=== PATIENT | female | born 1945 | race Caucasian/White ===

== ENCOUNTER 2021-06-28 13:40 | Outpatient (CLI) | payer MEDICARE, SELFPAY ==
--- NOTE | ~2021-06-28 | MR_ITS ---
EXAMINATION: MR brain/brain stem wo/w con DATE: 06/28/2021 14:44 INDICATION: Other amnesia. TECHNIQUE: Magnetic resonance imaging (MRI) of the brain and brainstem was performed without and with 18 mL MultiHance intravenous contrast. Sequences included sagittal and axial T1-weighted FSE, axial diffusion-weighted FS EPI, axial T2*-weighted GRE, axial T2-weighted FLAIR Propeller, and axial T2-we ighted Propeller. Postcontrast sequences included axial and coronal T1-weighted FSE. Apparent diffusi on coefficient (ADC) maps were created. COMPARISON: None. FINDINGS: There are scattered areas of nonspecific increased T2-weighted signal intensity in the cere bral white matter and brainstem. There is no intracranial hemorrhage, acute infarction, or abnormal i ntracranial mass lesion. The ventricles are normal in size. There are likely changes of ocular lens r eplacement surgeries. There is mild mucosal thickening in the ethmoid sinuses. There is a trace right mastoid effusion. IMPRESSION: 1. 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 Reviewed, dictated and finalized at location B. DENCE HALL DIRECTOR IMPRESSION: 1. Mild nonspecific cerebral white matter disease and brainstem disease, which likely represents chronic small vessel ischemic disease.
[2021-06-28 14:11] LABS: Estimated Glomerular Filt Rate > 60
== END 2021-06-28 13:41 | disposition home or self-care (01) ==
LOC: ANHIMG 13:45
PROVIDERS: PCP Internal Medicine; Visit Provider Nurse Practitioner
DX: R41.3 Other amnesia (principal); R93.0 Abnormal findings on diagnostic imaging of skull and head, not elsewhere classified
CPT/HCPCS: 70553; A9577

== ENCOUNTER 2021-08-06 13:23 | Outpatient (CLI) | payer MEDICARE, SELFPAY ==
--- NOTE | ~2021-08-06 | XR_ITS ---
EXAMINATION: [id number] EXAM DATE: 08/06/2021 13:58 INDICATION: Fell in parking lot, left rib pain. Initial encounter. TECHNIQUE: Frontal projection of the upper left ribs, frontal projection of the lower left ribs, obli que projection of the left ribs, frontal chest x-ray(s) for interpretation. There is no prior study for comparison. FINDINGS: Bones are osteopenic. Please note that osteopenia limits sensitivity for detecting fractur es by radiographs. There is acute appearing mildly displaced left rib fracture laterally, probably th e 9th rib. There is no soft tissue abnormality seen. Mild cardiomegaly. No confluent consolidation, p neumothorax or pleural effusion suspected. 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 Pr obable chronic left rotator cuff tear. IMPRESSION: Acute appearing left 9th rib fracture. Reviewed, dictated and finalized at location . PHERE ARCHITECT
== END 2021-08-06 13:24 | disposition home or self-care (01) ==
PROVIDERS: PCP Internal Medicine; Visit Provider Internal Medicine
DX: S22.32XA Fracture of one rib, left side, initial encounter for closed fracture (principal)
CPT/HCPCS: 71101

== ENCOUNTER 2022-08-02 14:05 | Outpatient (CLI) | payer MEDICARE, SELFPAY ==
--- NOTE | ~2022-08-02 | US_ITS ---
EXAMINATION: US arterial ankle brachial ind DATE: 08/02/2022 15:17 INDICATION: Peripheral vascular disease. TECHNIQUE: Segmental pressures and plethysmographic and Doppler waveforms of the brachial and lower e xtremity arteries were obtained. COMPARISON: None. FINDINGS: Right and left brachial artery pressures of 137 mm Hg and 130 mm Hg, respectively, are concordant (no rmal difference <= 30 mmHg). The right ankle-brachial index (SHANNAN) is 1.69 (normal >= 0.9-1.0). The right great toe-brachial index (TBI) is 0.39 (normal >= 0.65). Arterial Doppler waveforms are biphasic with brisk systolic upstrokes at both right posterior tibial and dorsalis pedis arteries. The left SHANNAN is 0.53 based only upon pressures obtained in the left posterior tibial artery with the left dorsalis pedis artery unable to be occluded and indeterminate. The left TBI is 0.55. Arterial Do ppler waveforms are biphasic with brisk systolic upstrokes at both left posterior tibial and dorsalis pedis arteries. IMPRESSION: 1. 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 Left SHANNAN is moderately decreased but based only upon pressure measure ments in the left posterior tibial artery with the left dorsalis pedis artery pressure remaining inde terminate. Reviewed, dictated and finalized at location A. O REPAIRMAN IMPRESSION: 1. 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 Left SHANNAN is moderately de creased but based only upon pressure measurements in the left posterior tibial artery with the left dorsalis pedis artery pressure remaining indeterminate.
== END 2022-08-02 14:06 | disposition home or self-care (01) ==
PROVIDERS: PCP Internal Medicine; Visit Provider Internal Medicine
DX: I73.9 Peripheral vascular disease, unspecified (principal)
CPT/HCPCS: 93922

== ENCOUNTER 2023-03-04 10:41 | Emergency (ER) | payer MEDICARE, SELFPAY ==
[2023-03-04 10:46] VITALS: BP 159/87; PULSE 83; RESP 16; TEMP 37; O2SAT 95
--- NOTE | 2023-03-04 10:52 | ED.FEMALEGU ---
HPI - Female Genitourinary General Chief complaint: Urogenital-Female Stated complaint: Urinary Problem History of Present Illness HPI Narrative: patient presents with urinary problems burning with urination no flank pain no gross hematuria no pelvic pain and no abdomen pain worried that she has a UTI Related Data Home Medications Medication Instructions Recorded Confirmed ketorolac 0.5 % eye drops 2 drp EACH EYE Q8H 02/03/21 08/15/22 lifitegrast 5 % eye drops in a 1 drp EACH EYE BID 12/12/21 08/15/22 dropperette (Xiidra) carbidopa 25 mg-levodopa 100 mg 2 tablet PO TID 08/15/22 03/04/23 tablet (Sinemet) aspirin 81 mg tablet,delayed 81 mg PO DAILY 11/21/22 03/04/23 release (Adult Low Dose Aspirin) clobetasol 0.05 % scalp solution topical DIRECTED 03/04/23 ferrous sulfate 325 mg (65 mg 325 mg PO DAILY 03/04/23 03/04/23 iron) tablet (FeroSul) hydrocodone 5 mg-acetaminophen 325 1 tablet PO Q6H PRN Pain (Scale 03/04/23 03/04/23 mg tablet Score 7-10) sennosides 8.6 mg-docusate sodium 1 tablet PO DAILY PRN Constipation 03/04/23 03/04/23 50 mg tablet (Stimulant Laxative Plus) Allergies Allergy/AdvReac Type Severity Reaction Status Date / Time hydrochlorothiazide Allergy Intermediate Rash Verified 03/04/23 10:56 tramadol Allergy Intermediate Rash Verified 03/04/23 10:56 dextromethorphan Allergy Unknown Rash Verified 03/04/23 10:56 pseudoephedrine Allergy Unknown rash Verified 03/04/23 10:56 antihistamines AdvReac Unknown Palpitation Uncoded 02/07/23 13:22 s Review of Systems Review of Systems: CONSTITUTIONAL: Denies fever, chills, or sweats. EYES: Denies visual changes, redness, or discharge. ENT: Denies rhinorrhea, congestion, sore throat, or otalgia. CARDIOVASCULAR: Denies chest pain, palpitations, or edema. RESPIRATORY: Denies cough or dyspnea. GASTROINTESTINAL: Denies abdominal pain, nausea, vomiting, or diarrhea. GENITOURINARY: Denies dysuria or hematuria. SKIN: Denies rash or itching. MUSCULOSKELETAL: Denies back pain, joint pain, or myalgia. NEUROLOGIC: Denies headache, numbness, or weakness. PSYCHIATRIC: Denies anxiety or depression. [facility] Past Medical History Medical History (Updated 03/04/23 @ 10:56 by LJ Walsh) Anxiety Chronic midline low back pain without sciatica Colon polyps COVID-19 GERD without esophagitis Hyperlipidemia Hypertension Impaired glucose tolerance Low bone mass Mitral valve prolapse Osteoporosis PAD (peripheral artery disease) Polyosteoarthritis, unspecified Vitamin D deficiency Weight gain Surgical History Surgical History Hx of total hysterectomy April 2020; Dr. Garcia at [facility] Family History Family History Mother Asthma Family history of osteoarthritis Colon polyp Hypertension Depression Heart disease Cerebrovascular accident Sibling Asthma Family history of osteoarthritis Family history of irritable bowel syndrome Depression Other Depression Grandparent Cancer Hypertension Heart disease Social History Social History Smoking packs per day: 1.5 Smoking cigarettes per day: 30.0 Years smoked: 15 Smoking pack-years: 22.50 Smoking status: Former smoker Tobacco type: cigarettes Second hand tobacco smoke exposure: Yes Smoking end date: 07/02/89 Alcohol intake: never Substance use: never Substance use type: does not use Lack of Transportation: No Lack of Food: Never True Current Housing: I Have Housing Concerned About Future Housing: No Difficulty Paying Gas/Electric Bills: No Difficulty Paying for Meds: No Currently Unemployed: No Education: Associate Degree Difficulty w/ Childcare or Family Care: No Comments At time of signature, agree with nursing past medical, surgical, socia
== END 2023-03-04 11:15 | disposition home or self-care (01) ==
PROVIDERS: Emergency Provider Nurse Practitioner Family; PCP Family Medicine
DX: N39.0 Urinary tract infection, site not specified (principal); Z87.891 Personal history of nicotine dependence; K21.9 Gastro-esophageal reflux disease without esophagitis; E78.5 Hyperlipidemia, unspecified; I10 Essential (primary) hypertension; M34.1 CR(E)ST syndrome; M81.0 Age-related osteoporosis without current pathological fracture; I73.9 Peripheral vascular disease, unspecified; M15.9 Polyosteoarthritis, unspecified
CPT/HCPCS: 81003; 87077; 87086; 87186; 99213; G0463

== ENCOUNTER 2023-03-28 15:07 | Outpatient (CLI) | payer MEDICARE, SELFPAY ==
[2023-03-28 19:26] LABS: Appearance Urine Clear (Clear); Bacteria Urine None Seen /hpf; Bilirubin Urine Negative (Negative); Blood Urine Negative (Negative); Color Urine Yellow (Yellow); Glucose Urine UA Negative (Negative); Ketones Urine Negative (Negative); Leukocyte Esterase Ur Trace LEU/UL (NEGATIVE); Nitrate Urine Negative (Negative); Non Pathogenic Casts 0-2; Protein Urine Negative (Negative); RBC Urine 0-2 /hpf (0-2); Squamous Epithelial Cell Urine None seen /hpf (Few); Urobilinogen Urine 0.2 mg/dL (<2.0); WBC Urine 0-5 /hpf (0-3)
[2023-03-28 19:31] LABS: Add Urine Microscopic? YES
== END 2023-03-28 15:08 | disposition home or self-care (01) ==
PROVIDERS: PCP Family Medicine; Visit Provider Nurse Practitioner Adult Health
DX: R39.9 Unspecified symptoms and signs involving the genitourinary system (principal)
CPT/HCPCS: 81001

== ENCOUNTER 2023-05-08 11:33 | Outpatient (CLI) | payer MEDICARE, SELFPAY ==
[2023-05-08 19:31] LABS: Anion Gap 5 mmol/L (8-16); Blood Urea Nitrogen 20 mg/dL (7-17); Calcium 9.7 mg/dL (8.4-10.2); Carbon Dioxide 35 mmol/L (22-30); Chloride 96 mmol/L (98-107); Estimated Glomerular Filt Rate > 60; Glucose 124 mg/dL (65-110); Potassium 4.4 mmol/L (3.4-5.0); Sodium 136 mmol/L (137-145)
[2023-05-08 19:36] LABS: Appearance Urine Turbid (Clear); Bacteria Urine None Seen /hpf; Bilirubin Urine 1+ (Negative); Blood Urine 2+ (Negative); Color Urine Dark Yellow (Yellow); Glucose Urine UA Negative (Negative); Ketones Urine Trace mg/dL (Negative); Leukocyte Esterase Ur 3+ LEU/UL (NEGATIVE); Nitrate Urine Negative (Negative); Protein Urine 2+ mg/dL (Negative); RBC Urine 51-100 /hpf (0-2); Specific Grav Ur 1.018 (1.001-1.035); Squamous Epithelial Cell Urine None seen /hpf (Few); WBC Urine >100 /hpf (0-3); pH Urine 6.5 (5.0-9.0)
[2023-05-08 19:37] LABS: Add Urine Microscopic? YES
== END 2023-05-08 11:34 | disposition home or self-care (01) ==
PROVIDERS: PCP Nurse Practitioner Adult Health; Visit Provider Nurse Practitioner Adult Health
DX: E87.6 Hypokalemia (principal); Z87.440 Personal history of urinary (tract) infections
CPT/HCPCS: 36415; 80048; 81001

== ENCOUNTER 2023-07-04 13:56 | Outpatient (CLI) | payer MEDICARE, SELFPAY ==
[2023-07-04 21:12] LABS: Anion Gap 8 mmol/L (8-16); Blood Urea Nitrogen 16 mg/dL (7-17); Calcium 9.1 mg/dL (8.4-10.2); Carbon Dioxide 36 mmol/L (22-30); Chloride 96 mmol/L (98-107); Estimated Glomerular Filt Rate > 60; Glucose 79 mg/dL (65-110); Potassium 3.4 mmol/L (3.4-5.0); Sodium 140 mmol/L (137-145)
[2023-07-04 21:17] LABS: Appearance Urine Cloudy (Clear); Bacteria Urine None Seen /hpf; Bilirubin Urine Negative (Negative); Blood Urine Trace (Negative); Color Urine Dark Yellow (Yellow); Glucose Urine UA Negative (Negative); Ketones Urine Negative (Negative); Leukocyte Esterase Ur 1+ LEU/UL (NEGATIVE); Need Manual Microscopic Reviewed; Nitrate Urine Negative (Negative); Non Pathogenic Casts 0-2; Protein Urine Negative (Negative); Specific Grav Ur 1.014 (1.001-1.035); Squamous Epithelial Cell Urine None seen /hpf (Few); Urobilinogen Urine 0.2 mg/dL (<2.0); WBC Urine 0-5 /hpf (0-3); pH Urine 6.5 (5.0-9.0)
[2023-07-04 21:20] LABS: Add Urine Microscopic? YES
== END 2023-07-04 13:57 | disposition home or self-care (01) ==
PROVIDERS: PCP Nurse Practitioner Adult Health; Visit Provider Nurse Practitioner Adult Health
DX: R39.9 Unspecified symptoms and signs involving the genitourinary system (principal); I50.9 Heart failure, unspecified
CPT/HCPCS: 36415; 80048; 81001

== ENCOUNTER 2023-08-14 14:14 | Outpatient (CLI) | payer MEDICARE, SELFPAY ==
[2023-08-14 20:51] LABS: Appearance Urine Cloudy (Clear); Bacteria Urine None Seen /hpf; Bilirubin Urine Negative (Negative); Blood Urine Negative (Negative); Color Urine Dark Yellow (Yellow); Glucose Urine UA Negative (Negative); Ketones Urine Trace mg/dL (Negative); Leukocyte Esterase Ur 2+ LEU/UL (Negative); Need Manual Microscopic Reviewed; Nitrate Urine Negative (Negative); Protein Urine Trace mg/dL (Negative); Specific Grav Ur 1.014 (1.001-1.035); Squamous Epithelial Cell Urine Few /hpf (Few); Urobilinogen Urine 0.2 mg/dL (<2.0); WBC Urine 51-100 /hpf; pH Urine 5.5 (5.0-9.0)
[2023-08-14 21:03] LABS: Add Urine Microscopic? YES
== END 2023-08-14 14:15 | disposition home or self-care (01) ==
PROVIDERS: PCP Nurse Practitioner Adult Health; Visit Provider Nurse Practitioner Adult Health
DX: R39.9 Unspecified symptoms and signs involving the genitourinary system (principal); N39.0 Urinary tract infection, site not specified
CPT/HCPCS: 81001; 87086

== ENCOUNTER 2023-09-19 11:57 | Outpatient (CLI) | payer MEDICARE, SELFPAY ==
[2023-09-19 19:21] LABS: Appearance Urine Cloudy (Clear); Bacteria Urine 4+ /hpf; Bilirubin Urine Negative (Negative); Blood Urine Negative (Negative); Color Urine Yellow (Yellow); Glucose Urine UA Negative (Negative); Ketones Urine Trace mg/dL (Negative); Leukocyte Esterase Ur 3+ LEU/UL (Negative); Need Manual Microscopic Reviewed; Nitrate Urine Negative (Negative); Protein Urine Trace mg/dL (Negative); RBC Urine 0-2 /hpf (0-2); Specific Grav Ur 1.017 (1.001-1.035); Squamous Epithelial Cell Urine None Seen /hpf (Few); Urobilinogen Urine 0.2 mg/dL (<2.0); WBC Urine >100 /hpf (0-3)
[2023-09-19 19:26] LABS: Add Urine Microscopic? YES
== END 2023-09-19 11:58 | disposition home or self-care (01) ==
LOC: ANHBWCLAB 12:00
PROVIDERS: PCP Nurse Practitioner Adult Health; Visit Provider Nurse Practitioner Adult Health
DX: Z87.440 Personal history of urinary (tract) infections (principal)
CPT/HCPCS: 81001

== ENCOUNTER 2023-11-29 11:30 | Outpatient (CLI) | payer MEDICARE, SELFPAY ==
--- NOTE | 2023-11-29 11:37 | ECG_ITS ---
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 Measurements Intervals [place] Rate: 72 P: 22 FL: 172 QRS: -76 QRSD: 97 T: 30 QT: 389 QTc: 428 Interpretive Statements SINUS RHYTHM LOW QRS VOLTAGE IN PRECORDIAL LEADS INCOMPLETE RIGHT BUNDLE BRANCH BLOCK LEFT ANTERIOR FASCICULAR BLOCK BASELINE ARTIFACT- I, II, III, AVR, AVL, AVF, V1-V2 ABNORMAL ECG No previous ECG available for comparison Electronically Signed On 11-29-2023 13:07:31 CDT by Wayne Allen D.O.
[2023-11-29 12:11] LABS: Anion Gap 2 mmol/L (4-12); Blood Urea Nitrogen 26 mg/dL (7-17); Carbon Dioxide 35 mmol/L (22-30); Chloride 102 mmol/L (98-107); Estimated Glomerular Filt Rate > 60; Glucose 121 mg/dL (65-110); Potassium 4.2 mmol/L (3.4-5.0); Sodium 139 mmol/L (137-145)
[2023-11-29 12:19] LABS: Prothrombin Time 13.8 Seconds (11.1-14.7)
[2023-11-29 12:20] LABS: Partial Thromboplastin Time 26.5 Seconds (22.3-36.8)
== END 2023-11-29 11:31 | disposition home or self-care (01) ==
PROVIDERS: Anesthesiology; PCP Family Medicine; Visit Provider Urology
DX: Z01.818 Encounter for other preprocedural examination (principal); N20.0 Calculus of kidney; I10 Essential (primary) hypertension; Z51.81 Encounter for therapeutic drug level monitoring; I45.19 Other right bundle-branch block; I44.4 Left anterior fascicular block
CPT/HCPCS: 36415; 80048; 85610; 85730; 87086; 93005

== ENCOUNTER 2023-12-07 00:59 | Day surgery (SDC) | payer MEDICARE, SELFPAY ==
[2023-11-23 15:23] VITALS: BMI 32.3
--- NOTE | 2023-11-23 15:52 | PC.NURSE ---
Report to the Outpatient Waiting Room, entrance under the green pavilion located off [facility], at time __7:30AM on date ___12/07/23____. Planned Procedure Time: ___9:30AM . Time changes happen often and if your time is changed the preop area will call you the afternoon before. - You and your visitor will be asked to self-screen and do not enter if you have any COVID symptoms. - A mask is optional within the hospital at this time. Patients may have clear liquids (water, carbonated beverages, clear teas, apple juice) until 3 hours prior to surgery with a maximum of 20 ounces. - No food from midnight until time of surgery. Take the following medications with a SIP of water the morning of surgery: ___CARBIDOPA-LEVODOPA, CARVEDILOL, CLORAZEPATE, GABAPENTIN, SERTRALINE DO NOT STOP ANY OF YOUR OTHER PRESCRIPTION MEDICATIONS PRIOR TO SURGERY ?EXCEPT THE FOLLOWING Medications to discontinue per physician __HOLD ASPIRIN 7 DAYS PRE-OP PER DR GALINDO. HOLD ALL VITAMINS/SUPPLEMENTS 3 DAYS PRE-OP PER ANESTHESIA- LAST DOSE 12/03/23 Please no make-up, nail yakut, hairspray, perfume, deodorant, or body powder the day of surgery. No jewelry (including any body piercings) or valuables the day of surgery, leave them at home. Please take a shower or bath the night before, or the morning of, surgery with an antibacterial soap. Wear comfortable, loose fitting clothing. - Jewelry must be removed prior to entering the operating room. Rings and piercings that are not removed may be cut off. - The hospital will not accept responsibility for valuables. - Please leave all valuables, including medications, at home the day of surgery. If you are going home after surgery, a licensed powder truck driver must drive you home. - NO public transportation without another adult if you receive anesthesia. - We recommend that an adult stay with you for 24 hours following discharge. - We also recommend that you do not drive, make important decision, drink alcoholic beverages, or take any drugs that were not prescribed by your health care provider for at least 24 hours after your discharge time. Follow any additional instructions given to you from your surgeon. If you or anyone in your household have experienced Covid symptoms in the past week, please notify your surgeon or the nurse liaison at the phone number below for possible testing. Telephone instructions given to ___PATIENT and asked if any additional questions and then verbalized understanding. Patient advised to call surgeon office or pre surgery nurse liaison [phone] if any additional questions.
--- NOTE | 2023-12-05 06:47 | PM.HPGS ---
History of Present Illness History of Present Illness Consent: Risks, benefits, and alternatives have been discussed and questions answered. Patient agrees to proceed with procedure. Chief complaint: right renal stone Narrative: Carina Wells is a 78 year old female recently underwent evaluation revealed recurrent urinary tract infections by our nurse practitioner. During the course of evaluation she was found to have multiple stones in her right kidney measuring up to [address] scan was done at [facility]. After discussion of options she elects for cystoscopy with right ureteral stent placement and right ESWL. She is aware the risk including, but not limited to, adverse cardiopulmonary events, need for additional procedures, hematuria and perinephric hematoma. Review of Systems Review of Systems: All systems reviewed & are unremarkable except as noted in HPI and below PMFSH Past Medical History Medical History (Updated 12/05/23 @ 06:48 by Carl Chavarria MD) Anxiety Chronic midline low back pain without sciatica Colon polyps COVID-19 GERD without esophagitis Hyperlipidemia Hypertension Impaired glucose tolerance Low bone mass Mitral valve prolapse Osteoporosis PAD (peripheral artery disease) Polyosteoarthritis, unspecified Vitamin D deficiency Weight gain Surgical History Surgical History Hx of total hysterectomy April 2020; Dr. Garcia at [facility] Family History Family History Mother Asthma Family history of osteoarthritis Colon polyp Hypertension Depression Heart disease Cerebrovascular accident Sibling Asthma Family history of osteoarthritis Family history of irritable bowel syndrome Depression Other Depression Grandparent Cancer Hypertension Heart disease Social History Social History Smoking packs per day: 1 Smoking cigarettes per day: 20.0 Years smoked: 15 Smoking pack-years: 15.00 Smoking status: Former smoker Tobacco type: cigarettes Second hand tobacco smoke exposure: Yes Smoking end date: 12/30/89 Alcohol intake: never Substance use: never Substance use type: does not use Lack of Transportation: No Lack of Food: Never True Current Housing: I Have Housing Concerned About Future Housing: No Difficulty Paying Gas/Electric Bills: No Difficulty Paying for Meds: No Currently Unemployed: No Education: Associate Degree Difficulty w/ Childcare or Family Care: No Living arrangements: with family Additional living arrangements comments: DAUGHTER Spiritual care concerns: No Meds Home Medications and Allergies Home Medications Medication Instructions Recorded Confirmed Type ketorolac 0.5 % eye drops 2 drp EACH EYE Q8H PRN Dry Eyes 02/03/21 11/23/23 History carbidopa 25 mg-levodopa 100 mg 2 tablet PO TID 08/15/22 11/23/23 History tablet (Sinemet) aspirin 81 mg tablet,delayed 81 mg PO DAILY 11/21/22 11/23/23 History release (Adult Low Dose Aspirin) clobetasol 0.05 % scalp solution 1 applic topical DIRECTED 03/04/23 11/23/23 History sennosides 8.6 mg-docusate sodium 1 tablet PO DAILY PRN Constipation 03/04/23 11/23/23 History 50 mg tablet (Stimulant Laxative Plus) carvedilol 6.25 mg tablet See Rx Instructions .Route 06/05/23 11/23/23 Rx .COMPLEX #180 tabs gabapentin 300 mg capsule See Rx Instructions .Route 06/05/23 11/23/23 Rx .COMPLEX #200 caps clorazepate dipotassium 3.75 mg 3.75 mg PO TID PRN anxiety #90 tabs 10/17/23 11/23/23 Rx tablet cholecalciferol (vitamin D3) 50 50 mcg PO DAILY 11/23/23 11/23/23 History mcg (2,000 unit) capsule furosemide 40 mg tablet 40 mg PO EVERY OTHER DAY 11/23/23 11/23/23 History ibuprofen 200 mg capsule 200 mg PO Q6H PRN Pain 11/23/23 11/23/23 History multivi
[2023-12-07] VITALS (7 sets, daily range): BP systolic 114–180; BP diastolic 50–109; PULSE 65–77; RESP 12–16; TEMP 37; O2SAT 95–100
--- NOTE | ~2023-12-07 | XR_ITS ---
Supine and upright views of the abdomen Clinical history: Prelithotripsy Findings: Bowel gas pattern is nonspecific. No evidence for obstruction or free air. No abnormal mass lesion or calcification is seen. There is levoscoliosis of the lumbar spine with degenerative spondy losis.. Impression: No definite stone seen radiographically. Probable calcified pelvic phleboliths. Reviewed, dictated and finalized at [facility]. Impression: No definite stone seen radiographically. Probable calcified pelvic phleboliths.
--- NOTE | 2023-12-07 08:25 | WPDANESEPPF ---
Anes - Initial Pre Proc Eval Procedure: Operation Date: 12/07/23 09:30 Proposed Procedures p Right Extracorporeal Shock Wave Lithotripsy, - Carl Chavarria MD s Cystoscopy with Right Stent Placement - Carl Chavarria MD Date/Time: 12/07/23 08:25 Surgeon: Carl Chavarria MD Pre Op Diagnosis: right renal stone Patient Data Age: 78 Gender: F Height: 1.52 m Weight: 75 kg Last Vital Signs Temp 37.0 C 12/07/23 08:10 Pulse 65 12/07/23 08:10 BP 114/50 L 12/07/23 08:10 Pulse Ox 96 12/07/23 08:10 O2 Del Method Room Air 12/07/23 08:10 Allergies Allergy/AdvReac Type Severity Reaction Status Date / Time hydrochlorothiazide Allergy Intermediate Rash Verified 12/07/23 08:08 dextromethorphan Allergy Unknown Rash Verified 12/07/23 08:08 pseudoephedrine Allergy Unknown rash Verified 12/07/23 08:08 tramadol AdvReac Intermediate CONTRAINDICATED Verified 12/07/23 08:08 W/ ZOLOFT atorvastatin [From Lipitor] AdvReac Mild MUSCLE/LEG Verified 12/07/23 08:08 PAIN spironolactone AdvReac Confusion Verified 12/07/23 08:08 [From Aldactone] antihistamines AdvReac Unknown Palpitation Uncoded 11/23/23 15:10 s Home Medications Medication Instructions Recorded Confirmed Type ketorolac 0.5 % eye drops 2 drp EACH EYE Q8H PRN Dry Eyes 02/03/21 11/23/23 History carbidopa 25 mg-levodopa 100 mg 2 tablet PO TID 08/15/22 11/23/23 History tablet (Sinemet) aspirin 81 mg tablet,delayed 81 mg PO DAILY 11/21/22 11/23/23 History release (Adult Low Dose Aspirin) clobetasol 0.05 % scalp solution 1 applic topical DIRECTED 03/04/23 11/23/23 History sennosides 8.6 mg-docusate sodium 1 tablet PO DAILY PRN Constipation 03/04/23 11/23/23 History 50 mg tablet (Stimulant Laxative Plus) carvedilol 6.25 mg tablet See Rx Instructions .Route 06/05/23 11/23/23 Rx .COMPLEX #180 tabs gabapentin 300 mg capsule See Rx Instructions .Route 06/05/23 11/23/23 Rx .COMPLEX #200 caps clorazepate dipotassium 3.75 mg 3.75 mg PO TID PRN anxiety #90 tabs 10/17/23 11/23/23 Rx tablet cholecalciferol (vitamin D3) 50 50 mcg PO DAILY 11/23/23 11/23/23 History mcg (2,000 unit) capsule furosemide 40 mg tablet 40 mg PO EVERY OTHER DAY 11/23/23 11/23/23 History ibuprofen 200 mg capsule 200 mg PO Q6H PRN Pain 11/23/23 11/23/23 History multivitamin 1 tablet PO DAILY 11/23/23 11/23/23 History trimethoprim 100 mg tablet 100 mg PO HS 11/23/23 11/23/23 History omeprazole 40 mg capsule,delayed See Rx Instructions .Route 11/29/23 Rx release .COMPLEX #200 caps oxybutynin chloride 15 mg See Rx Instructions .Route 11/29/23 Rx tablet,extended release 24 hr .COMPLEX #100 tabs sertraline 100 mg tablet See Rx Instructions .Route 11/29/23 Rx .COMPLEX #90 tabs Patient hx anesthesia problems: none Family hx anesthesia problems: none Results Review: All pre-operative results and documents have been reviewed as part of the pre-operative evaluation. [facility] Past Medical History Medical History Anxiety Chronic midline low back pain without sciatica Colon polyps COVID-19 GERD without esophagitis Hyperlipidemia Hypertension Impaired glucose tolerance Low bone mass Mitral valve prolapse Osteoporosis PAD (peripheral artery disease) Polyosteoarthritis, unspecified Vitamin D deficiency Weight gain Surgical History Surgical History Hx of total hysterectomy April 2020; Dr. Garcia at [facility] Family History Family History Mother Asthma Family history of osteoarthritis Colon polyp Hypertension Depression Heart disease Cerebrovascular accident Sibling Asthma Family history of osteoarthritis Family history of irritable bowel syndrome Depression Other Depression Grandparent Cancer Hypertension Heart di
[2023-12-07] MEDS: LACTATED RINGERS 1,000 ML 30 ML IV CONT (08:46)
--- NOTE | 2023-12-07 09:39 | WPDHPUPDATE1 ---
History and Physical Update Update Date/Time: 12/07/23 09:39 History and Physical has been reviewed, including an updated exam of the patient. There are NO changes in the patient's condition. Risks, benefits, and alternatives have been discussed and questions answered. Patient agrees to proceed with procedure.
[2023-12-07] MEDS: ceFAZolin 2 GM/D5W 50 ML 2 GM/50 ML BAG IVPB (09:51)
--- NOTE | 2023-12-07 10:21 | W.PM.PROC2 ---
Procedure Note - Detailed Date of Procedure 12/07/23 Pre-op Diagnosis Right renal stone Post-op Diagnosis Same Procedure Performed Cystoscopy, right retrograde pyelography, right ureteroscopy, right stent placement, right ESWL Surgeon Carl Chavarria MD Anesthesia General Description of Procedure patient brought the operative suite where she has prepped draped in routine sterile fashion while frog-leg position after the uneventful induction of a general LMA anesthetic. 11 mm renal pelvic stone is difficult to visualize partly because of like calcification and partly because of bowel content cystoscopy is undertaken with a 16 F flexible cystoscope. Bladder neck urethra endoscopically normal. Bladder mucosa is normal. She has a single orthotopic ureteral orifice with clear efflux bilaterally. A 0.035 in glidewire was advanced into right renal pelvis and retrograde pyelography was undertaken with an angiographic catheter. Still not 100% confident in localizing her stones so I performed right ureteroscopy with a 7.5 F flexible ureteral scope after dilating the distal ureter with an 8 F 10 F dilator. We were then able to localize a stone in her renal pelvis. I placed a 4.8 F variable length stent and shockwave lithotripsy was delivered at a power setting of 4 with 2500 shocks. Drains Yes Packing No Pathology Yes Complications No immediate complications
== END 2023-12-07 12:31 | disposition home or self-care (01) ==
PROVIDERS: PCP Family Medicine; Visit Provider Urology
PROC: (CPT 50590; principal; 2023-12-07 09:30)
PROC: (CPT 52352; 2023-12-07 09:30)
DX: N20.0 Calculus of kidney (principal); I10 Essential (primary) hypertension; E78.5 Hyperlipidemia, unspecified; I73.9 Peripheral vascular disease, unspecified; K21.9 Gastro-esophageal reflux disease without esophagitis; M81.0 Age-related osteoporosis without current pathological fracture; E55.9 Vitamin D deficiency, unspecified; F41.9 Anxiety disorder, unspecified; Z87.891 Personal history of nicotine dependence; Z79.82 Long term (current) use of aspirin
CPT/HCPCS: 52332; 50590; 36415; 74018; 80048; 85610; 85730; 87086; 93005; C1758; C1769; C2617; J0690; J1596; J2371; J2405; J2704; J3010; J7030; J7120; Q9966

== ENCOUNTER 2023-12-18 13:43 | Outpatient (CLI) | payer MEDICARE, SELFPAY ==
--- NOTE | ~2023-12-18 | XR_ITS ---
XR abdomen/kub 1V Ordering provider: Carl Chavarria MD History: . N20.0 - Calculus of kidney FU . Comparison: December 07, 2023 FINDINGS: BOWEL: Nonobstructive bowel gas pattern. ORGANOMEGALY: None. SIGNIFICANT PATHOLOGIC CALCIFICATIONS: Right double-J stent. Calcifications seen in the urinary bladd er area unchanged. OTHER: No free air is seen under the diaphragm. Degenerative the spine. S-shaped scoliosis. IMPRESSION: NO ACUTE ABDOMINAL FINDINGS. Calcifications in the area of the urinary bladder. Reviewed, dictated and finalized at location A.
== END 2023-12-18 13:44 | disposition home or self-care (01) ==
PROVIDERS: PCP Family Medicine; Visit Provider Urology
DX: N20.0 Calculus of kidney (principal)
CPT/HCPCS: 74018

== ENCOUNTER 2023-12-19 09:52 | Outpatient (CLI) | payer MEDICARE, SELFPAY ==
--- NOTE | ~2023-12-19 | CT_ITS ---
EXAMINATION: CT abdomen pelvis wo con DATE: 12/19/2023 10:12 INDICATION: Right renal stone. TECHNIQUE: Computed tomography (CT) of the abdomen and pelvis was performed without intravenous contr ast. Automated exposure control and iterative reconstruction technique were employed. The dose-length product was 302.03 mGy-cm. COMPARISON: None. FINDINGS: The visualized portions of the lung bases demonstrate mild atelectasis. No pleural effusion . The heart size is normal. No pericardial effusion. There are coronary artery calcifications. The li ilya and gallbladder are normal. Calcifications in the spleen are consistent with old granulomatous di sease. The pancreas and adrenal glands are normal. There are 6 stones in right kidney measuring up to 8 mm. There is mild right hydronephrosis. There is a right internal ureteral stent in expected posit ion. There is a 2.5 cm cyst in left kidney. There is diverticulosis of the colon without evidence of diverticulitis. The appendix is normal. There are no dilated loops of bowel. There are no pathologica lly enlarged lymph nodes. There is no free intraperitoneal fluid. There is lumbar levoscoliosis. Ther e is severe thoracic and lumbar spondylosis. There are chronic bilateral L5 pars defects. There is 10 mm anterolisthesis of L5 on S1. There is mild chronic anterior wedging of multiple vertebral bodies. IMPRESSION: 1. Nonobstructing right kidney stones. 2. Mild right hydronephrosis. Right internal ureteral stent in expected position. Reviewed, dictated and finalized at location A. IMPRESSION: 1. Nonobstructing right kidney stones. 2. Mild right hydronephrosis. Right internal ureteral stent in expected positio n.
== END 2023-12-19 09:53 | disposition home or self-care (01) ==
LOC: ANHIMG 09:55
PROVIDERS: PCP Family Medicine; Visit Provider Urology
DX: N20.0 Calculus of kidney (principal); N13.30 Unspecified hydronephrosis; Z96.0 Presence of urogenital implants
CPT/HCPCS: 74176

== ENCOUNTER 2023-12-27 00:50 | Day surgery (SDC) | payer MEDICARE, SELFPAY ==
--- NOTE | 2023-12-24 09:29 | PC.NURSE ---
Report to the Outpatient Waiting Room, entrance under the green pavilion located off [facility], at time _1100 on date _12/27/23 . Planned Procedure Time: ___1300 . Time changes happen often and if your time is changed the preop area will call you the afternoon before. - You and your visitor will be asked to self-screen and do not enter if you have any COVID symptoms. - A mask is optional within the hospital at this time. Patients may have clear liquids (water, carbonated beverages, clear teas, apple juice) until 3 hours prior to surgery(10am)with a maximum of 20 ounces. - No food from midnight until time of surgery - Infants may have breast milk until 4 hours before surgery, infant formula 6 hours prior to surgery. - Children will be allowed to drink immediately following surgery. If applicable, please bring a bottle or sippy cup to assist with drinking. Juice, water, soda, and popsicles are readily available. For infants on formula, please bring formula the day of surgery. Pacifiers are allowed. Take the following medications with a SIP of water the morning of surgery: _carbidopa-levodopa,carvedilol,clorazepate,gabapentin,eye drops,sertraline DO NOT STOP ANY OF YOUR OTHER PRESCRIPTION MEDICATIONS PRIOR TO SURGERY ?EXCEPT THE FOLLOWING Medications to discontinue per physician _pt states hold aspirin and ibuprofen 7 days [address] op per [address] martin.last dose 12/19/23. hold all vitamins and supplements 3 days pre op.last dose 12/23/23 Please no make-up, nail canadian, hairspray, perfume, deodorant, or body powder the day of surgery. No jewelry (including any body piercings) or valuables the day of surgery, leave them at home. Please take a shower or bath the night before, or the morning of, surgery with an antibacterial soap. Wear comfortable, loose fitting clothing. Children are encouraged to wear pajamas. - Jewelry must be removed prior to entering the operating room. Rings and piercings that are not removed may be cut off. - The hospital will not accept responsibility for valuables. - Please leave all valuables, including medications, at home the day of surgery. If you are going home after surgery, a licensed otr van cdl truck driver must drive you home. - NO public transportation without another adult if you receive anesthesia. - We recommend that an adult stay with you for 24 hours following discharge. - We also recommend that you do not drive, make important decision, drink alcoholic beverages, or take any drugs that were not prescribed by your health care provider for at least 24 hours after your discharge time Follow any additional instructions given to you from your surgeon. If you or anyone in your household have experienced Covid symptoms in the past week, please notify your surgeon or the nurse liaison at the phone number below for possible testing. Telephone instructions given to __patient and asked if any additional questions and then verbalized understanding. Patient advised to call surgeon office or pre surgery nurse liaison [phone] if any additional questions.
[2023-12-24 09:45] VITALS: BMI 32.4
[2023-12-27] VITALS (7 sets, daily range): BP systolic 120–167; BP diastolic 62–77; PULSE 56–68; RESP 15–18; TEMP 36.2–37.1; O2SAT 94–99
--- NOTE | ~2023-12-27 | XR_ITS ---
EXAMINATION: XR retrograde pyelo w/stent RT DATE: 12/27/2023 12:45 CDT INDICATION: RT RETRO/STENT . TECHNIQUE: 4 fluoroscopic images and one cine clip of the abdomen were obtained during right retrogra de pyelography with stent placement, performed by Carl Chavarria MD. I was not present during the procedure. Fluoroscopy exposure time was 50.2 seconds. Air Kerma 14.92 mGy. DAP 0.23318 mGym2. COMPARISON: CT abdomen pelvis 12/19/2023 FINDINGS/IMPRESSION: Fluoroscopic documentation of right retrograde pyelography with stent placement. Please refer to the operative note for complete procedural details . Reviewed, dictated and finalized at location K.
--- NOTE | 2023-12-27 05:59 | WPDHPUPDATE1 ---
History and Physical Update Update Date/Time: 12/27/23 05:59 History and Physical has been reviewed, including an updated exam of the patient. There are NO changes in the patient's condition. Risks, benefits, and alternatives have been discussed and questions answered. Patient agrees to proceed with procedure.
[2023-12-27] MEDS: LACTATED RINGERS 1,000 ML 30 ML IV CONT (11:30)
--- NOTE | 2023-12-27 12:08 | W.PM.PROC2 ---
Procedure Note - Detailed Date of Procedure 12/27/23 Pre-op Diagnosis Right renal stones Post-op Diagnosis Same Procedure Performed cystoscopy, right ureteral stent removal, right ureteroscopy with laser lithotripsy, stone extraction, retrograde pyelogram and stent replacement Surgeon Carl Chavarria MD Anesthesia General Description of Procedure This patient is brought to the operative suite where she is prepped and draped in routine sterile fashion while in dorsal lithotomy position after the uneventful induction of a general LMA anesthetic. Cystoscopy was undertaken with a 19 F rigid cystoscope. The tip of the indwelling stent is grasped and brought to the external urethral meatus. A 0.035 in glidewire was advanced through the stent into the right renal pelvis in a 8 F 10 F dilator is used to dilate the distal ureter followed by placement of a 11 F/13 F ureteral access sheath. A 2nd safety wire had been placed. Ureteroscopy was undertaken with a 7.5 F digital ureteral scope. Retrograde pyelography was used to outline the collecting system and ensure inspection of all calices. Her stones have actually fragmented quite nicely from her prior ESWL there was only a couple chips that measure for 5 mm. Using a 272 micron Nico laser fiber these were dusted and all sizable pieces were extracted with a 1.9 F disposable stone basket. A 4.8 F variable length stent is replaced and appropriately position. Scopes and wires removed she was taken to the recovery room in good condition Drains Yes Packing No Pathology Yes Complications No immediate complications Condition Stable Disposition PACU
--- NOTE | 2023-12-27 12:20 | WPDANESEPPF ---
Anes - Initial Pre Proc Eval Procedure: Operation Date: 12/27/23 13:00 Proposed Procedures p Cystoscopy, Right Ureteroscopy, Possible Right Retrograde Pyelogram, Possible Right Stone Extraction, Possible Right Stent Placement, Possible Holmium Laser Procedure - Carl Chavarria MD Date/Time: 12/27/23 12:20 Surgeon: Carl Chavarria MD Pre Op Diagnosis: right renal stone Patient Data Age: 78 Gender: F Height: 1.52 m Weight: 75 kg Last Vital Signs Temp 37.1 C 12/27/23 11:56 Pulse 60 12/27/23 11:56 Resp 16 12/27/23 11:56 BP 120/70 12/27/23 11:56 Pulse Ox 95 12/27/23 11:56 O2 Del Method Room Air 12/27/23 11:56 Allergies Allergy/AdvReac Type Severity Reaction Status Date / Time hydrochlorothiazide Allergy Intermediate Rash Verified 12/24/23 09:17 dextromethorphan Allergy Unknown Rash Verified 12/24/23 09:17 pseudoephedrine Allergy Unknown rash Verified 12/24/23 09:17 tramadol AdvReac Intermediate CONTRAINDICATED Verified 12/24/23 09:17 W/ ZOLOFT atorvastatin [From Lipitor] AdvReac Mild MUSCLE/LEG Verified 12/24/23 09:17 PAIN spironolactone AdvReac Confusion Verified 12/24/23 09:17 [From Aldactone] antihistamines AdvReac Unknown Palpitation Uncoded 12/24/23 09:17 s Home Medications Medication Instructions Recorded Confirmed Type ketorolac 0.5 % eye drops 2 drp EACH EYE Q8H PRN Dry Eyes 02/03/21 12/24/23 History carbidopa 25 mg-levodopa 100 mg 2 tablet PO TID 08/15/22 12/27/23 History tablet (Sinemet) aspirin 81 mg tablet,delayed 81 mg PO DAILY 11/21/22 12/27/23 History release (Adult Low Dose Aspirin) clobetasol 0.05 % scalp solution 1 applic topical DIRECTED 03/04/23 12/24/23 History sennosides 8.6 mg-docusate sodium 1 tablet PO DAILY PRN Constipation 03/04/23 12/24/23 History 50 mg tablet (Stimulant Laxative Plus) carvedilol 6.25 mg tablet See Rx Instructions .Route 12/05/23 06/27/24 Rx .COMPLEX #180 tabs gabapentin 300 mg capsule See Rx Instructions .Route 06/05/23 12/27/23 Rx .COMPLEX #200 caps clorazepate dipotassium 3.75 mg 3.75 mg PO TID PRN anxiety #90 tabs 10/17/23 12/27/23 Rx tablet cholecalciferol (vitamin D3) 50 50 mcg PO DAILY 11/23/23 12/24/23 History mcg (2,000 unit) capsule furosemide 40 mg tablet 40 mg PO EVERY OTHER DAY 11/23/23 12/24/23 History ibuprofen 200 mg capsule 200 mg PO Q6H PRN Pain 11/23/23 12/24/23 History multivitamin 1 tablet PO DAILY 11/23/23 12/24/23 History trimethoprim 100 mg tablet 100 mg PO HS 11/23/23 12/24/23 History omeprazole 40 mg capsule,delayed See Rx Instructions .Route 11/29/23 12/24/23 Rx release .COMPLEX #200 caps oxybutynin chloride 15 mg See Rx Instructions .Route 11/29/23 12/24/23 Rx tablet,extended release 24 hr .COMPLEX #100 tabs sertraline 100 mg tablet See Rx Instructions .Route 11/29/23 12/27/23 Rx .COMPLEX #90 tabs Patient hx anesthesia problems: none Family hx anesthesia problems: none Results Review: All pre-operative results and documents have been reviewed as part of the pre-operative evaluation. [facility] Past Medical History Medical History Anxiety Chronic midline low back pain without sciatica Colon polyps COVID-19 GERD without esophagitis Hyperlipidemia Hypertension Impaired glucose tolerance Low bone mass Mitral valve prolapse Osteoporosis PAD (peripheral artery disease) Polyosteoarthritis, unspecified Vitamin D deficiency Weight gain Surgical History Surgical History Hx of total hysterectomy April 2020; Dr. Garcia at [facility] Family History Family History Mother Asthma Family history of osteoarthritis Colon polyp Hypertension Depression Heart disease Cerebrovascular accident Sibling Asthma Family history of osteoarthritis Family history o
[2023-12-27] MEDS: ceFAZolin 2 GM/D5W 50 ML 2 GM/50 ML BAG IVPB (12:33)
[2023-12-27] MEDS: KETOROLAC 15 MG/ML VIAL (*BKC) IV PUSH (14:01)
== END 2023-12-27 14:54 | disposition home or self-care (01) ==
PROVIDERS: PCP Family Medicine; Visit Provider Urology
PROC: (CPT 52352; principal; 2023-12-27 13:00)
DX: N20.0 Calculus of kidney (principal); I10 Essential (primary) hypertension; E78.5 Hyperlipidemia, unspecified; I73.9 Peripheral vascular disease, unspecified; M81.0 Age-related osteoporosis without current pathological fracture; E55.9 Vitamin D deficiency, unspecified; F41.9 Anxiety disorder, unspecified; I34.1 Nonrheumatic mitral (valve) prolapse; Z79.82 Long term (current) use of aspirin; E66.9 Obesity, unspecified; Z68.32 Body mass index [BMI] 32.0-32.9, adult
CPT/HCPCS: 52356; 74420; 82365; 88300; C1769; C1894; C2617; J0690; J1100; J1885; J2405; J2704; J3010; J7120; Q9966

== ENCOUNTER 2024-01-24 10:36 | Outpatient (CLI) | payer MEDICARE, SELFPAY ==
--- NOTE | ~2024-01-24 | US_ITS ---
EXAMINATION: US retroperitoneal comp DATE: 01/24/2024 11:37 INDICATION: right renal stone TECHNIQUE: Multiple grayscale and Doppler ultrasound images of the kidneys were obtained. COMPARISON: 12/27/2023, 12/19/2023 FINDINGS: The right kidney measures 11.6 x 4.7 x 4.9 cm. The left kidney measures 10.6 x 5.2 x 5.0 cm. The kidn eys demonstrate normal parenchymal echogenicity. 14 mm right midpole calcification. 8mm right upper p ole calcification. 3.0 cm simple left renal cyst. There is no hydronephrosis. The bladder is mostly e mpty and therefore incompletely evaluated. IMPRESSION: Right nephrolithiasis. Reviewed, dictated and finalized at location K. IMPRESSION: Right nephrolithiasis.
== END 2024-01-24 10:37 | disposition home or self-care (01) ==
PROVIDERS: PCP Family Medicine; Visit Provider Urology
DX: N20.0 Calculus of kidney (principal)
CPT/HCPCS: 76770

== ENCOUNTER 2024-09-18 15:19 | Outpatient (CLI) | payer MEDICARE, SELFPAY ==
--- OUTSIDE RECORDS SUMMARY | 2024-09-18 15:39 | XMS_ITS | Continuity of Care Document ---
Author Organization [employer] [facility] [facility] Address [address] [facility] [address] [place] [address] [place] [id number] Phone Care Team Providers Care Application Support Administrator Name Role Phone Mane HUERTA, Jennifer Unavailable [...] Diagnoses Date Provider Providers Copied on Encounter [facility], [address], [place], [place], [address], [place] tel:[phone] SEC Laci ALAN Professional Complete Exam (chief complaint) Superficial punctate keratitis of both eyesKeratoco njunctivitis sicca, not specified as Sj g pacheco's, unspecified eyeParkinson sPresence of intraocular lens 3 Mane OD Jennifer. [address], [address], [place], [place], [address], [place]. tel:[phone] Referring Provider: Shahid Ramirezguson OD, [address] [facility] [place], [address]. tel:[phone] Office/outpa tient Visit, [facility], [address], [place], [place], [address], [place] tel:[phone] SEC [place] Professional 5 month ALESIA f/u (chief complaint) ParkinsonsKe ratoconjunct ivitis sicca, not specified as Sj g pacheco's, unspecified eyeBilateral artificial lens implantDry eye syndrome of bilateral lacrimal glands 3 Jorge Luis Giles. [address], [facility] A, [place], [place], [address], [place]. tel:[phone] Referring Provider: Shahid Pinto OD, [address] [facility] [place], [address]. tel:[phone] Office/outpa tient Visit, [facility], [address] [place] [address] [address], [place], [place], [address], [place] tel:[phone] SEC [place] Professional Follow up visit (chief complaint) Bilateral artificial lens implantDry eye syndrome of bilateral lacrimal glandsKerato conjunctivit is siccaMeibomi an gland dysfnct left eye, upper and lower eyelidsMeibo smiley gland dysfnct right eye, upper and lower eyelids 2 Jorge Luis Giles. [address], [facility] A, [place], [place], [address], [place]. tel:[phone] Referring Provider: Shahid Pinto OD, [address] [facility] [place], [address]. tel:[phone] [facility], [address], [place], [place], [address], [place] tel:[phone] SEC [place] Professional Complete Exam (chief complaint) Bilateral artificial lens implantGlauc omatous optic atrophy, bilateralMei bomian gland dysfunction of unspecified eye, unspecified eyelidKerato conjunctivit is siccaBenign neoplasm of left choroid 2 Jorge Luis Giles. [address] [facility], [address], [place], [place], [address], [place]. tel:[phone] Referring Provider: Shahid Pinto OD, [address] [employer], [place], [address]. tel:[phone] Office/outpa tient Visit, [facility], [address], [place], [place], [address], [place] tel:[phone] SEC [place] DAYANNA Professional Complete Exam (chief complaint) Bilateral artificial lens implantChoro idal nevus, left eyeGlaucomat ous optic atrophy, bilateralDry eye syndrome of bilateral lacrimal glands 1 Zhane An. [address], [address], [place], [place], [address], [place]. tel:[phone] Referring Provider: Shahid Pinto OD, [address] [place], [address]. tel:[phone] Office/outpa tient Visit, [facility], [address], [place], [place], [address], [place] tel:[phone] SEC [place] DAYANNA Professional 6 month IOP check (chief complaint) Glaucomatous optic atrophy, bilateralCho roidal nevus, left eye Vega- 0 Dejah OD Ricardo. [address] [facility], 6th Floor, [place], [address], [place]. tel:[phone] Referring Provider: Shahid Pinto OD, [address], [place], [address]. tel:[phone] [facility], [address], [place], [place], [address], [place] tel:[phone] SEC [place] DAYANNA Professional Complete Exam (chief complaint) Bilateral artificial lens implantMeibo smiley gland dysfnct right eye, upper and lower eyelidsMeibo smiley gland dysfnct left eye, upper and lower eyelidsKerat oconjunctivi tis siccaChoroid al nevus, left eye 0 Dejah OD Ricardo. [address] [facility], [address] [facility], [place], [address], [place]. tel:[phone] Referring Provider: Shahid Pinto OD, [address] [facility] [place], [address]. tel:[phone] [facility] [employer] [facility], [address] [place] [address] [address], [place], [place], [address], [place] tel:[phone] SEC [place] Miranda No Information 9 Dejah OD Ricardo. [address] [facility], [address] [place] [address], [place], [address], [place]. tel:[phone] Office/outpa tient Visit, [facility] [employer] [facility], [address] [place] [address] [address], [place], [place], [address], [place] [phone] SEC Laci ALAN Professional ALESIA check (chief complaint) Meibomian gland dysfnct right eye, upper and lower eyelidsMeibo smiley gland dysfnct left eye, upper and lower eyelids 9 Dejah OD Ricardo. [address] [facility], [address] [place] [address], [place], [address], [place]. tel:[phone] Referring Provider: Shahid Pinto OD, [address] [facility] [place], [address]. tel:[phone] Office/outpa tient Visit, [facility], [address] [place] [address] [address], [place], [place], [address], [place] tel:[phone] SEC Laci DAYANNA Professional 3 mo ALESIA f/u (chief complaint) Meibomian gland dysfunction (MGD)Superfi cial punctate keratitis of both eyesCorneal opacity of both eyes 8 Jorge Luis Giles. [address], [place], [place], [address], [place]. tel:[phone] Referring Provider: Shahid Pinto OD, [address] [employer], [place], [address]. tel:[phone] [facility], [facility] [employer] [facility] [address], [place], [place], [address], [phone] SEC [place] Professional Decreased vision (chief complaint) No Information 8 Jorge Luis Giles. [address], [address], [place], [place], [address], [place]. tel:[phone] Referring Provider: Shahid Pinto OD, [address] [employer], [place], [address]. tel:[phone] [facility], [facility] [employer] [facility] [address], [place], [place], [address], [place] tel:[phone] SEC [place] [address] YAG EVAL OD (chief complaint) No Information 6 Merrill Juve. [facility] [employer], [address], [place], [place], [address], [place]. tel:[phone] Referring Provider: Shahid Pinto OD, [address] [facility], [place], [address]. tel:[phone] Office/outpa tient Visit, [facility], [address] [place], [place] [address]crest [address], [place], [place], [address], [place] tel:[phone] SEC [place] [address] Yag Evaluation (chief complaint) No Information 6 Zhane An. [facility] [employer], [address], [place], [place], [address], [place]. tel:[phone] Referring Provider: Shahid Pinto OD, [address] [employer], [place], [address]. tel:[phone] Office/outpa tient Visit, [facility], [facility] [address], [place], [place], [address], [place] tel:[phone] SEC [place] [address] Blurry near vision (chief complaint) No Information Mar-07 07- 5 Zhane Juve. [facility] [employer], [address], [place], [place], [address], [place]. tel:[phone] Referring Provider: Shahid Pinto OD, [address] [place], [address]. tel:[phone] [facility], [facility] [address], [place], [place], [address], tel:[phone] SEC [place] N [place] 6 week PO (chief complaint) No Information 5 Zhane An. [facility] [employer], [address], [place], [place], [address], [place]. tel:[phone] Referring Provider: Shahid Pinto OD, [address] [place], [address]. tel:[phone] [facility], [address], [place], [place], [address], [place] tel:[phone] SEC [place] [address] 3 week post op Phaco IOL OS (chief complaint) No Information Aug-2 - 5 Zhane An. [facility] [employer], [address], [place], [place], [address], [place]. tel:[phone] Referring Provider: Shahid Pinto OD, [address] [place], [address]. tel:[phone] [facility], [facility] [address], [place], [place], [address], [place] tel:[phone] SEC [place] [address] F/u exam, postop (chief complaint) No Information 5 Zhane An. [address], [address], [place], [place], [address], [place]. tel:[phone] Referring Provider: Shahid Pinto OD, [address] [employer], [place], [address]. tel:[phone] [employer] [facility] [facility] [employer], [address], [place], [place], [address], [place] tel:[phone] SEC [place] Professional F/u exam, postop (chief complaint) No Information 5 Zhane An. [facility] [employer], [address], [place], [place], [address], [place]. tel:[phone] Referring Provider: Shahid Pinto OD, [address] [employer], [place], [address]. tel:[phone] [employer] [facility] [employer] [facility], [facility] [address], [place], [place], [address], [place] tel:[phone] SEC [place] Professional 1 day P/O (chief complaint) No Information Sandie Fishman. [address] [facility], [address], [place], [place], [address], [place]. tel:[phone] Referring Provider: Shahid Pinto OD, [address] [employer] [facility] [employer], [place], [address]. tel:[phone] [employer] [facility] [employer] [facility], [facility] [address], [place], [place], [address], [place] tel:[phone] [facility] No Information 5 Zhane An. [facility] [employer], [address], [place], [place], [address], [place]. tel:[phone] Referring Provider: Shahid Pinto OD, [address] [employer], [place], [address]. tel:[phone] [facility], [address] [place] [address] [address], [place], [place], [address], [place] tel:[phone] SEC Lexus Josephine Miranda No Information 5 Zhane An. [address] [place] [address] Drive, [address], [place], [place], [address], [place]. tel:[phone] Referring Provider: Shahid Gerberon OD, [address] [facility] [place], [address]. tel:[phone] [facility], [address], [place], [place], [address], [place] tel:[phone] SEC [place] Professional F/u exam, postop (chief complaint) No Information 4 Sandie Fishman. [address] [facility], [facility] A, [place], [place], [address], [place]. tel:[phone] Referring Provider: Shahid Pinto OD, [address] [facility] [place], [address]. tel:[phone] [facility], [address] [place] [address] [address], [place], [place], [address], [place] tel:[phone] SEC [place] Professional 1 WK PO PHACO OD (chief complaint) No Information 4 Sandie Fishman. [address] [facility], [facility] A, [place], [place], [address], [place]. tel:[phone] Referring Provider: Shahid Pinto OD, [address] [facility] [place], [address]. tel:[phone] [facility], [address] [place] [address] [address], [place], [place], [address], [place] [phone] SEC [place] Professional 1 DAY PO PHACO OD (chief complaint) No Information 4 Carol Yancey. [address], [address], [place], [address], [place]. tel:[phone] Referring Provider: Shahid Gerberon OD, [address] [facility], [place], [address]. tel:[phone] [facility], [address] [place] [address] [address], [place], [place], [address], [place] tel:[phone] [facility] [place] No Information Dec-0 4-201 4 Merrill Juve. [address] [place], [place] [address]cre[address] [employer], [address], [place], [place], [address], [place]. tel:[phone] Referring Provider: Shahid Gerberon OD, [address] [facility], [place], [address]. tel:[phone] [facility], [address] [place] [address] [address], [place], [place], [address], [place] tel:[phone] SEC [place] N [place] No Information Dec-0 3-201 4 Zhane Juve. [address] [place] [address] [employer], [address], [place], [place], [address], [place]. tel:[phone] Referring Provider: Shahid Pinto OD, [address] [place], [address]. tel:[phone] Office/outpa tient Visit, [facility], [address] [place] [address] [address], [place], [place], [address], [place] tel:[phone] SEC [place] Blurry vision (chief complaint) No Information 1 0-201 4 Zhane Juve. [facility] [place] [employer], [address], [place], [place], [address], [place]. tel:[phone] Referring Provider: Shahid Pinto OD, [address] [place], [address]. tel:[phone] Office/outpa tient Visit, [facility], [address] [place] [address] [address], [place], [place], [address], [place] tel:[phone] SEC [place] Blurry vision (chief complaint) No Information 4 Zhane Juve. [address] [place] [address] [employer] [facility], [address], [place], [place], [address], [place]. tel:[phone] Referring Provider: Shahid Pinto OD, [address] [place], [address]. tel:[phone] [facility], [address] [place] [address] [address], [place], [place], [address], tel:[phone] SEC [place] N [place] No Information 4 Conner Drummond. [address] [facility], [address], [place], [place], [address], [place]. tel:[phone] Office/outpa tient Visit, [facility], [address] [place] [address] [address], [place], [place], [address], tel:[phone] SEC [place] N [place] blurry vision (chief complaint) No Information 3 Merrill Juve. [facility] [place] [employer] [facility], [address], [place], [place], [address], [place]. tel:[phone] Referring Provider: Shahid Pinto OD, [address] [place], [address]. tel:[phone] [facility], [address] [place] [address] [address], [place], [place], [address], tel:[phone] SEC [place] a comprehensive exam (chief complaint) No Information 2 Merrill Juve. [facility] [place] [employer] [facility], [address], [place], [place], [address], [place]. tel:[phone] Referring Provider: Shahid Pinto OD, [address] [place], [address]. tel:[phone] Family History Family Member Type Diagnosis Age At Onset No Information Payers Payer name Insurance type Covered democrat ID Dangelo acosta(s) [facility] Mdcr Adv CI [id number] Social History Type Description Quantity Date Captured [...] OU. Blurry near vision The 69 year old female presents for a 6 month evaluation [...] Will give spec Rx to take to [facility]. [place] medicated gtts.Discussed laser surgery to correct [...]
--- OUTSIDE RECORDS SUMMARY | 2024-09-18 15:39 | XMS_ITS | Encounter Summary ---
Author Organization [facility] Address [address] [place] [address] Care Team Providers Care Digital Content Producer Name Role Phone Favio Randolph MD Primary Care Provider [phone] Nicolas Xiao DO Primary Care Provider [phone] Nathaniel Villatoro MD Primary Care Provider [phone] Manpreet Sanderson MD Primary Care Provider + [phone] Randi Vega MD Unavailable [phone] Ángel Sampson MD PhD Unavailable [phone] Keyla Santa MD Unavailable [phone] Muna Hernandez Unavailable [phone] Kanu Hernandez MD Unavailable [phone] Lila Pedro MD Unavailable Hi Ware MD Unavailable Josef Guardado MD Unavailable [phone] Encounter Details Date Type Department Care Team (Late st Contact Info) Description 06/08/2017 Orders Only [facility] [address] [place] [address] Dakotah Carpenter RT Social History Tobacco Use Types Packs/Day Years Used Date Smoking Tobacco: Never Alcohol Use Standard Drinks/Week Comments No 0 (1 standard drink = 0.6 oz pur e alcohol) Comments Unknown Sex and Gender Information Value Date Recorded Sex Assigned at Not on file Legal Sex Female 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 Gender Identity Female 04/12/2021 6:37 PM CDT Sexual Orientation Straight 04/12/2021 6: 37 PM CDT documented as of this encounter Plan of Treatment Upcoming Encounters Date Type Department Care Team (Late st Contact Info) Description 01/07/2025 10:30 AM CDT Hospital Encounter [address] [address] Randi Vega MD [address] [place] [address] DR IRVING [address] [place] [address] 01/07/2025 10:30 AM CDT - 01/07/2025 11:00 AM CDT Surgery [address] [address] Randi Vega MD [address] [place] [address] DR IRVING [address] [place] [address] COLONOSCOPY Scheduled Procedures Name Priority Associated Diagnoses Date/Ti me COLONOSCOPY History of colonic polyps Encounter for screening colonoscopy 01/07/2025 10:30 AM CDT documented as of this encounter Visit Diagnoses Not on filedocumented in this encounter Additional Health Concerns Infection Onset Date Last Indicated Resolved Time COVID: Suspected 04/22/2023 04/22/2023 04/22/2023 8:02 PM CDT documented as of this encounter Care Teams Digital Content Producer Relationship Specialty Start Date End Date Favio Randolph MD PCP - General 09/29/16 03/05/19 Nicolas Xiao DO PCP - General Internal Medicine 03/06/19 07/16/22 Nathaniel Villatoro MD PCP - General Internal Medicine 07/17/22 01/21/23 Manpreet Sanderson MD PCP - General Family Practice 01/22/23 Randi Vega MD Consulting Physician Gastroenterology 01/22/23 Ángel Sampson MD PhD [address] [place] [address] Referring Physician Neurology 01/22/23 Keyla Santa MD [address] [facility] [address] [place] [address] Consulting Physician Internal Medicine 01/22/23 Muna Hernandez PA [address] [place] [address] [place] [address] Orthopedic Surgery 02/22/23 Kanu Hernandez MD [address] [place] [address] [place] [address] Consulting Physician Neurology 03/19/23 Lila Pedro MD [address] [place] [address] [place] [address] Consulting Physician Sleep Medicine 03/19/23 Hi Ware MD [address] [place] [address] [place] [address] Consulting Physician Pulmonary Disease 04/27/23 Josef Guardado MD [address] [facility] [address] [facility] [address] [place] [address] Surgeon Orthopedic Surgery 09/07/23 documented as of this encounter
--- OUTSIDE RECORDS SUMMARY | 2024-09-18 15:40 | XMS_ITS | Clinical Summary ---
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 Active sertraline (ZOLOFT) 100 MG Tablet Take 100 mg by mouth daily. Active clorazepate (TRANXENE) 3.75 MG Tablet Take 3.75 mg by mouth 2 times daily. Active furosemide (LASIX) 20 MG Tablet Take 20 mg by mouth daily. Active topiramate (TOPAMAX) 25 MG Tablet Take 25 mg by mouth 2 times daily. Active fluticasone (FLONASE) 50 MCG/ACT SuspensionIndica tions:PNAR (perennial non-allergic rhinitis) 2 sprays in each nostril once daily (best after shower/ bath) 3 Bottle 3 10/07/2015 Active omeprazole (PRILOSEC) 20 MG CAPSULE DELAYED RELEASEIndicatio ns:Gastroesophag eal reflux disease, esophagitis presence not specified 1cap po QD 30-60' AC largest meal 90 Cap 0 11/12/2015 Active Calcium Carb-Cholecalcif mally 600-400 MG-UNIT Chewable TabletIndication s:Gastroesophage al reflux disease, esophagitis presence not specified Take 1 Tab by mouth 3 times daily (with meals). 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 Family History Medical History Relation Name Comments Breast Cancer Maternal Grandmother Relation Name Status Comments Maternal Grandmother Mother Alive Social History Tobacco Use Types Packs/Day Years Used Date Smoking Tobacco: Former Cigarettes 1.5 15 Alcohol Use Standard Drinks/Week Comments No 0 (1 standard drink = 0.6 oz pur e alcohol) Comments No Sex and Gender Information Value Date Recorded Sex Assigned at Not on file Legal Sex Female 9:32 PM CDT Gender Identity Not on file Sexual Orientation Not on file 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 Not on file Not on file Not on file Last Filed Vital Signs Vital Sign Reading Time Taken Comments Blood Pressure 120/80 01/14/2016 9:58 AM CDT Pulse 64 01/14/2016 9:58 AM CDT Temperature - - Respiratory Rate 14 01/14/2016 9:58 AM CDT Oxygen Saturation - - Inhaled Oxygen Concentration - - Weight 76.2 kg (168 lb) 08/16/2023 12:23 PM ORTHOTIST OR PROSTHETIST Height 160 cm (5' 3 ) 04/14/2021 1:40 PM CDT Body Mass Index 29.76 04/14/2021 1:40 PM CDT Plan of Treatment Health Maintenance Due Date Last Done Comments Hepatitis C Virus (HCV) Screening 1945 TdaP Immunization 1945 Pneumococcal Immunization (50+ years) (2 of 2 - PCV) 07/06/2021 07/06/2020, 03/19/2014 Respiratory Syncytial Virus (RSV) Immunization (Adult) (1 - 1-dose 75+ series) 2021 DEXA Bone Density 04/14/2023 04/14/2021, , 12/11/2017 Influenza Immunization (#1) 03/02/202404/02, 03/25/2021, 04/26/2020, Additional history exists SARS-COV-2 Immunization () 03/02/2024 11/25/2021, 04/25/2021, 09/19/2020, Additional history exists DTaP/Tdap/Td Immunization Discontinued 08/12/2017 Zoster Immunization Completed 04/10/2020, Pneumococcal Immunization Combined Discontinued 07/06/2020, 03/19/2014 Colonoscopy High Risk Discontinued 05/30/2022, 021 Colonoscopy Discontinued 05/30/2022, 04/05/2021 Colorectal Cancer Screening Discontinued Mammogram Discontinued 08/16/2023, 06/01, 04/11/2021, Additional history exists Cologuard Discontinued Hepatitis B Immunization Aged Out No longer eligible based on patient's age to complete this topic Immunochemical Fecal Occult Blood Discontinued Meningococcal Immunization (ACWY) Aged Out No longer eligible based on patient's age to complete this topic Rotavirus Immunization Aged Out No lo nger eligible based on patient's age to complete this topic Procedures Procedure Name Priority Date/Time Associated Diagnosis Comments [facility] SCREENING BILATERAL DIGITAL W CAD W SIDDHARTHA Routine 08/16/2023 12:50 PM ORTHOTIST OR PROSTHETIST Visit for screening mammogram [facility] BONE DENSITOMETRY AXIAL SKELETON Routine 04/14/2021 1:51 PM CDT Asymptomatic menopausal state from Last 3 Months or Most Recently Relevant to Health Maintenance Results * [facility] SCREENING BILATERAL DIGITAL W CAD W SIDDHARTHA (08/16/2023 12:50 PM ORTHOTIST OR PROSTHETIST) Anatomical Region Laterality Modality breast Bilateral Mammography 08/16/2023 12:1 2 PM ORTHOTIST OR PROSTHETIST Narrative 08/17/2023 12:35 PM ORTHOTIST OR PROSTHETIST - [facility] SCREENING BILATERAL DIGITAL W CAD W SIDDHARTHA BILATERAL DIGITAL SCREENING MAMMOGRAM 3D/2D WITH CAD WITH LATEROMEDIAL MEDIOLATERAL OBLIQUE CRANIOCAUDAL: 08/16/2023 The study was acquired using digital technology and interpreted from soft copy. Current study was also evaluated with ICAD version 7.2. 2D digital mammographic views, as well as 3D digital tomosynthesis were performed in the CC and MLO projections. CLINICAL: Routine screening. Patient has no complaints. Exam performed in a wheelchair. 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 Unable to abduct left arm for imaging and reports shoulder is displaced. LLM performed to replace LMLO in order to obtain most breast tissue possible. Patient reports 30 pound weight loss since last mammogram. No personal history of cancer. Maternal grandmother had breast cancer. COMPARISONS: Comparison is made to exams dated: 06/15/2022, [facility]2021[facility] BREAST TISSUE:There are scattered fibroglandular densities in both breasts. FINDINGS: The examination is limited secondary to the patient's limited ability to cooperate for positioning. The examination was obtained in a wheelchair. The patient had a recent left shoulder replacement with complications. A left MLO view could not be obtained. A limited left LM on image was obtained. No significant masses, calcifications, or other findings are seen in either breast. There has been no significant interval change. IMPRESSION: BI-RAD 1 NEGATIVE Limited examination. There is no mammographic evidence of malignancy. A 1 year screening mammogram is recommended. A letter will be sent to the patient with these results. The patient will be entered into a reminder system with a target due date of 1 year for her next screening exam. Electronically signed by: Tanvi Lopez M.D. ll/:08/16/2023 16:29:08 Supervisor Intermediates(s): RT Yaritza(R)(M), [facility] letter sent: Normal Exam Reading location: [facility] BI-RADS: 1 Negative Procedure Note Tanvi Lopez MD - 08/17/2023 - [facility] SCREENING BILATERAL DIGITAL W CAD W SIDDHARTHA BILATERAL DIGITAL SCREENING MAMMOGRAM 3D/2D WITH CAD WITH LATEROMEDIAL MEDIOLATERAL OBLIQUE CRANIOCAUDAL: 08/16/2023 The study was acquired using digital technology and interpreted from soft copy. Current study was also evaluated with ICAD version 7.2. 2D digital mammographic views, as well as 3D digital tomosynthesis were performed in the CC and MLO projections. CLINICAL: Routine screening. Patient has no complaints. Exam performed in a wheelchair. 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 Unable to abduct left arm for imaging and reports shoulder is displaced. LLM performed to replace LMLO in order to obtain most breast tissue possible. Patient reports 30 pound weight loss since last mammogram. No personal history of cancer. Maternal grandmother had breast cancer. COMPARISONS: Comparison is made to exams dated: 06/15/2022, 04/11/2021, and 03/12/2020 [facility]. BREAST TISSUE:There are scattered fibroglandular densities in both breasts. FINDINGS: The examination is limited secondary to the patient's limited ability to cooperate for positioning. The examination was obtained in a wheelchair. The patient had a recent left shoulder replacement with complications. A left MLO view could not be obtained. A limited left LM on image was obtained. No significant masses, calcifications, or other findings are seen in either breast. There has been no significant interval change. IMPRESSION: BI-RAD 1 NEGATIVE Limited examination. There is no mammographic evidence of malignancy. A 1 year screening mammogram is recommended. A letter will be sent to the patient with these results. The patient will be entered into a reminder system with a target due date of 1 year for her next screening exam. Electronically signed by: Tanvi Lopez M.D. ll/:08/16/2023 16:29:08 Supervisor Intermediates(s): RT Yaritza(R)(M), [facility] letter sent: Normal Exam Reading location: [facility] BI-RADS: 1 Negative us Manpreet Sanderson MD [facility] MAMMO ORDERABLES Final Resu lt * [facility] BONE DENSITOMETRY AXIAL SKELETON (04/14/2021 1:51 PM CDT) Anatomical Region Laterality Modality BODY N/A Other 04/14/2021 2:41 PM CDT Impressions 04/14/2021 2:43 PM CDT IMPRESSION: Low bone mass REFERENCE: Bone mineral density: Normal (T-score above or = -1.0) Low bone mass (T-score between -1.0 and -2.5) replaces the previously used term osteopenia Osteoporosis (T-score = or below -2.5) Medical evaluation for secondary causes of low bone mineral density may be appropriate. FRAX is a World Health Organization validated fracture risk assessment tool that calculates a person's 10 year probability of a major osteoporosis related fracture and hip fracture. According to the National Osteoporosis Foundation guidelines, postmenopausal women and men age 50 or older with low bone mass and a 10 year probability of a major osteoporosis related fracture = or greater than 20% or a 10 year probability of a hip fracture = or greater than 3% should be considered for treatment. For further information, including treatment recommendations, please refer to the 2013 ISCD Official Positions (http://www.iscd.org) and the NOF's Clinician's Guide to Prevention and Treatment of Osteoporosis (http://www.nof.org/professionals/clinical-guidelines) Narrative 04/14/2021 2:43 PM CDT EXAM DESCRIPTION: [facility] BONE DENSITOMETRY AXIAL SKELETON REASON FOR STUDY: 75 year old female with given history of screening. 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 History of fracture (adult). COMPARISON: 12/13/2018 FINDINGS: AP LUMBAR SPINE L1-L4: Total BMD is 0.945 g/cm2 T-score is -2.0 This is decreased by 2.7% when compared to the prior study LEFT HIP: Total BMD is 0.741 g/cm2 T-score is -2.1 This is decreased by 3% when compared to the prior study. Femoral neck BMD is 0.764 g/cm2 T-score is -2.0 Fracture risk assessment (FRAX): 10 year risk for a major osteoporotic fracture is 29.5 % 10 year risk for a hip fracture is 15.1 % The FRAX tool has not been validated in patients currently or previously treated with pharmacotherapy for osteoporosis. In such patients, clinical judgement must be exercised in interpreting FRAX scores as the fracture risk may be overestimated. THIS IS AN ELECTRONICALLY VERIFIED FINAL REPORT 04/14/2021 2:41 PM - Electronically signed by Reji SALINAS: BRAD Report ID: [id number] Reading Location: [place] [id number] Procedure Note Reji Odell MD - 04/14/2021 EXAM DESCRIPTION: [facility] BONE DENSITOMETRY AXIAL SKELETON REASON FOR STUDY: 75 year old female with given history of screening. 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 History of fracture (adult). COMPARISON: 12/13/2018 FINDINGS: AP LUMBAR SPINE L1-L4: Total BMD is 0.945 g/cm2 T-score is -2.0 This is decreased by 2.7% when compared to the prior study LEFT HIP: Total BMD is 0.741 g/cm2 T-score is -2.1 This is decreased by 3% when compared to the prior study. Femoral neck BMD is 0.764 g/cm2 T-score is -2.0 Fracture risk assessment (FRAX): 10 year risk for a major osteoporotic fracture is 29.5 % 10 year risk for a hip fracture is 15.1 % The FRAX tool has not been validated in patients currently or previously treated with pharmacotherapy for osteoporosis. In such patients, clinical judgement must be exercised in interpreting FRAX scores as the fracture risk may be overestimated. THIS IS AN ELECTRONICALLY VERIFIED FINAL REPORT 04/14/2021 2:41 PM - Electronically signed by Reji Odell M.D. BRAD: BRAD Report ID: [id number] Reading Location: [id number] IMPRESSION: Low bone mass REFERENCE: Bone mineral density: Normal (T-score above or = -1.0) Low bone mass (T-score between -1.0 and -2.5) replaces the previously used term osteopenia Osteoporosis (T-score = or below -2.5) Medical evaluation for secondary causes of low bone mineral density may be appropriate. FRAX is a World Health Organization validated fracture risk assessment tool that calculates a person's 10 year probability of a major osteoporosis related fracture and hip fracture. According to the National Osteoporosis Foundation guidelines, postmenopausal women and men age 50 or older with low bone mass and a 10 year probability of a major osteoporosis related fracture = or greater than 20% or a 10 year probability of a hip fracture = or greater than 3% should be considered for treatment. For further information, including treatment recommendations, please refer to the 2013 ISCD Official Positions (http://www.iscd.org) and the NOF's Clinician's Guide to Prevention and Treatment of Osteoporosis (http://www.nof.org/professionals/clinical-guidelines) Sana Rubio APRN IMG DEXA ORDERABLES Final Resu lt from Last 3 Months or Most Recently Relevant to Health Maintenance Insurance MEDICARE C [facility] Care Teams Link Wire Fabric Machine Operator Relationship Specialty Start Date End Date Manpreet Sanderson MD [address] [place] [address] PCP - General Family Medicine 12/19/22 Abhijit Elizabeth MD Consulting Physician Gastroenterology 01/14/16
--- OUTSIDE RECORDS SUMMARY | 2024-09-18 15:40 | XMS_ITS | Encounter Summary ---
Author Organization [facility] Address [address] [place] [address] Care Team Providers Care Network Program Manager Name Role Phone Nicolas Xiao DO Primary Care Provider [phone] Reason for Visit * Reason Onset Date Comments LABS ONLY 04/16/2018 labs may have be en coded wrong Returned Call 04/16/2018 Encounter Details Date Type Department Care Team (Late st Contact Info) Description 04/16/2018 Telephone [facility] [address] [place] [address] Joanne Plata MD [address] [facility] [address] [place] [address] LABS ONLY (labs may have been coded wrong); Returned Call Social History Tobacco Use Types Packs/Day Years Used Date Smoking Tobacco: Never Assessed Sex and Gender Information Value Date Recorded Sex Assigned at Not on file Gender Identity Not on file Sexual Orientation Not on file documented as of this encounter Patient Instructions * Patient Instructions* Geetha Merritt - 04/16/2018 4:04 PM CDT Daughter Jo Guerin is calling to speak to someone about her mother getting a LAB bill for $600. She thinks it may have been coded as she has [employer]. She was in on 02-04-18. documented in this encounter Miscellaneous Notes * Telephone Encounter - Whitney Lima RN - 04/18/2018 2:16 PM CDT Telephone call to [facility]. Spoke with Jen who added diagnosis Z91.89 to 02/04/2018 labs. Request pt discard current invoice. To allow 30-45 business days for changes. Pt's daughter notified. * Telephone Encounter - Akila Jarvis - 04/18/2018 1:01 PM CDT Pt returning missed call from the nurse. Callback#[phone] * Telephone Encounter - Whitney Lima RN - 04/17/2018 2:43 PM CDT Per Sherlyn, can use diagnosis: screening for ovarian cancer (Z12.73) or high risk for ovarian cancer (Z91.89). Attempted to contact Apoorva with no answer. Left message requesting call back. * Telephone Encounter - Joanne Plata MD - 04/17/2018 1:10 PM CDT Is there a rule out ovarian cancer diagnosis? She has a growing ovarian cyst postmenopausal. These labs should be covered. Thickened endometrium will not get it covered. * Telephone Encounter - Whitney Lima RN - 04/17/2018 12:20 PM CDT Spoke with pt's daughter who states pt 02/04/[address] labs were denied coverage due to diagnosis. Informed diagnosis of ovarian cyst was used. Daughter questions if possible to add thicken endometrial lining to diagnosis. Questions if provider believes this will help cover test. * Telephone Encounter - Whitney Lima RN - 04/17/2018 12:18 PM CDT Daughter Jo Guerin is calling to speak to someone about her mother getting a LAB bill for $600. She thinks it may have been coded as she has [employer]. She was in on 02-04-18. documented in this encounter Plan of Treatment Not on file documented as of this encounter Visit Diagnoses Not on filedocumented in this encounter Care Teams Network Program Manager Relationship Specialty Start Date End Date Nicolas Xiao DO PCP - General 02/04/18 documented as of this encounter
--- OUTSIDE RECORDS SUMMARY | 2024-09-18 15:40 | XMS_ITS | Clinical Summary ---
Author Organization [facility] Building [address] Address [address] [place] [address] Care Team Providers Care Supervisor Plastic Sheets Name Role Phone Manpreet Sanderson MD Primary Care Provider + [phone] Randi Vega MD Unavailable [phone] Ángel Sampson MD PhD Unavailable + [phone] Keyla Santa MD Unavailable [phone] Muna Hernandez Unavailable [phone] Kanu Hernandez MD Unavailable [phone] Lila Pedro MD Unavailable Hi Ware MD Unavailable Josef Guardado MD Unavailable [phone] Allergies Active Allergy Reactions Criticality Noted Date Comments Spironolactone Other (See comments) Low 09/05/2023 Makes me goofy Antihistamines - Alkylamine Palpitations Medium Celecoxib Rash Medium 02/23/2023 Aspirin is a home med Dexbrompheniramine-Pseudo ephed Other (See comments) Low 10/07/2015 Racing pulse Hydrochlorothiazide Rash Medium 10/07/2015 Pheniramine Other (See comments) Low Fast pulse rate Tramadol Other (See comments) Low 10/07/2015 Potential to cause seizures Reaction: Contraindicated with Zoloft, Medications gabapentin (NEURONTIN) 300 mg capsuleIndication s:Neuropathic Pain Take 1 capsule (300 mg total) by mouth 2 (two) times a day 015 Active omeprazole (PriLOSEC) 40 mg capsuleIndication s:Stress Ulcer Prophylaxis Take 1 capsule (40 mg total) by mouth 2 (two) times a day Takes 2 tablets 014 Active oxybutynin XL (DITROPAN XL) 15 mg 24 hr tabletIndications :Bladder Hyperactivity Take 1 tablet (15 mg total) by mouth daily 016 Active sertraline (ZOLOFT) 100 mg tabletIndications :depression Take 1 tablet (100 mg total) by mouth daily 015 Active cycloSPORINE (RESTASIS) 0.05 % ophthalmic emulsionIndicatio ns:conjunctivitis 1 drop 2 (two) times a day Active carvediloL (COREG) 6.25 mg tabletIndications :hypertension Take 1 tablet (6.25 mg total) by mouth 2 (two) times a day Active clorazepate (TRANXENE) 3.75 mg tabletIndications :anxiety Take 1 tablet (3.75 mg total) by mouth 3 (three) times a day as needed for anxiety Active cholecalciferol (VITAMIN D-3) 2000 unit capsuleIndication s:Vitamin D Deficiency Take 1 capsule (2,000 Units total) by mouth daily Active Lactobacillus acidophilus (PROBIOTIC ORAL)Indications: gut health Take 1 tablet by mouth daily Active baclofen (LIORESAL) 10 mg tabletIndications :swallowing Take 5-10 mg 10-15 minutes before eating meals to see if it helps with less swallowing issues. Do not exceed 30 mg in a day. 90 tablet 1 023 Active Additional Information Patient taking differently: 5-10 mg oral 3 times daily PRN, swallowing, Take 5-10 mg 10-15 minutes before eating meals to see if it helps with less swallowing issues. Do not exceed 30 mg in a day., Reported on 09/10/2024 oxygenIndications :Dyspnea Administer 2 L into each nostril as needed (dyspnea) 2L O2 PRN for dyspnea during the day; 3L continous at night. Active aspirin 81 mg chewable tabletIndications :prevention of thrombosis Take 1 tablet (81 mg total) by mouth 2 (two) times a day for 14 days Resume once daily after 2 weeks Active multivit with min-folic acid 0.4 mg tabletIndications :Mineral Deficiency Prevention Take 1 tablet by mouth daily. Indications: treatment to prevent mineral deficiency Active acetaminophen (TYLENOL) 500 mg tabletIndications :Pain Take 1 tablet (500 mg total) by mouth every 6 (six) hours as needed for pain Active trimethoprim (TRIMPEX) 100 mg tabletIndications :UTI Take 1 tablet (100 mg total) by mouth bedtime Active furosemide (LASIX) 40 mg tabletIndications :Edema,Peripheral Edema due to Chronic Heart Failure Take 1 tablet (40 mg total) by mouth daily as needed (increase edema/sob) adjusted at md appt 10/10/23. Active carbidopa-levodop a (SINEMET) 25-100 mg per tabletIndications :Parkinsonism Take 2 tablets by mouth 3 (three) times a day 540 tablet 3 2024 Active inulin-chromium picolinate 2-100 gram-mcg tablet,chewable Take 1 each by mouth 2 (two) times a day Active sod sulf-pot chloride-mag sulf (Sutab) 1.479-0.188- 0.225 gram tabletIndications :Bowel Evacuation Take as directed on instructions for colonoscopy prep. Patient was given instructions 24 tablet Active lubiprostone (AMITIZA) 24 mcg capsule Take 1 capsule (24 mcg total) by mouth 2 (two) times a day with meals 180 capsule 3 025 2024 Active senna-docusate (PERICOLACE) 8.6-50 mgIndications:con stipation 1-2 times daily as needed for constipation 60 tablet 1 023 2024 Discontinued ondansetron ODT (ZOFRAN-ODT) 4 mg disintegrating tabletIndications :Prevention of Post-Operative Nausea and Vomiting,nausea and vomiting Take 1 tablet (4 mg total) by mouth every 6 (six) hours as needed for nausea or vomiting 30 tablet 1 024 2024 Discontinued sucralfate (CARAFATE) 1 gram tablet Take one pill 3 times daily for 30 days. Try to take 30 minutes before eating. 90 tablet 024 2024 Discontinued lubiprostone (AMITIZA) 24 mcg capsule Take 1 capsule (24 mcg total) by mouth 2 (two) times a day with meals 60 capsule 3 024 2024 Discontinued(R eorder) Active Problems Problem Noted Date Diagnosed Date Encounter for screening colonoscopy 04/21/2024 Pulmonary hypertension 11/14/2023 Assessment & Plan (04/15/2024 3:55 PM CDT): Echocardiogram July of 2023 demonstrated estimated RVSP of 60 This is likely secondary to group 2 and 3 disease with congestive heart failure and obesity hypoventilation syndrome Testing for BHAVYA was negative Remain on supplemental oxygen for saturations greater than 90% There is no indication for pulmonary vasodilators Assessment & Plan (11/14/2023 4:02 PM CDT): This is likely secondary to group 2 and 3 disease with congestive heart failure, obesity hypoventilation syndrome Testing for BHAVYA was negative Remain on supplemental oxygen for saturations greater than 90% She is not a candidate for pulmonary vasodilators Obesity hypoventilation syndrome 11/14/2023 Assessment & Plan (04/15/2024 3:57 PM CDT): We have extensively discussed noninvasive ventilation She declines at this time Assessment & Plan (11/14/2023 4:03 PM CDT): We have extensively discussed noninvasive ventilation for treatment She is unsure she would like to proceed Readdress at next office visit Chronic respiratory failure with hypoxia, on home O2 therapy 10/10/2023 Assessment & Plan (04/15/2024 3:56 PM CDT): Her blood gas was consistent with chronic hypercapnia and without any evidence of obstruction on pulmonary function testing Continue supplemental oxygen for saturations greater than 90% We have discussed the risks of hypoxia Assessment & Plan (11/14/2023 4:02 PM CDT): Continue supplemental oxygen for saturations greater than 90% We have discussed the risks of hypoxia TIA (transient ischemic attack) 10/10/2023 Shoulder dislocation, recurrent, left 09/05/2023 Acute respiratory failure with hypoxia and hyper capnia 04/25/2023 Chronic diastolic congestive heart failure 04/25 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 03/19/2023 Left leg weakness 03/17/2023 Obesity (BMI 30.0-34.9) 03/17/2023 S/P reverse total shoulder arthroplasty, left Rotator cuff arthropathy, left 02/05/2023 Abnormal ankle brachial index (SHANNAN) 09/27/2022 Cognitive change 05/18/2022 Assessment & Plan (05/18/2022 8:14 AM BOLT LOADER): She has subjective cognitive complaints including difficulty with focus, 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 The etiology is not clear. It is possible this represents some cognitive change in the setting of parkinsonism which could be part of an underlying neurodegenerative disease. It is also possible that her longstanding mood disorder relates to this, although this may be less likely given that anxiety is longstanding and she has noticed progressive cognitive challenges over the last few years. From Epic it appears she scored 28/[address] Kanu Hernandez in November 2021. It may be reasonable to approach this first with occupational therapy, and to also consider detailed neuropsych testing as needed to establish baseline and clarify affected domains. She may want to try stopping topiramate for a period of time to see if cognitive symptoms improve. This was apparently started for appetite suppression years ago. Parkinsonism 05/17/2022 Assessment & Plan (11/27/2023 11:09 PM CDT): She presented for initial evaluation to our clinic in exhibiting parkinsonism stage 4 characterized by bilateral, slightly right greater than left, bradykinesia and rigidity, with postural instability. This was on several years of constipation, cognitive slowing and periods of wordfinding difficulty, and possible reduced facial expression and intermittent hoarseness. She has tremor that is more with action by history, and more noticeable with posture holding on exam. Although at time of initial evaluation in 2021 she did not display rest tremor, she did have slight bilateral rest tremor in today's visit. Although the etiology is not completely clear, the majority of her symptom constellation could be consistent with idiopathic Parkinson disease and her levodopa responsiveness support this in addition to there not historically being obvious features to suggest another particular neurodegenerative disorder, including no early dementia, no early and progressive falling, no supranuclear gaze palsy, no profound dysautonomia, no apraxia. As she and her daughter noted marked improvement in cognition and decreased facial expressions and lack of side effects, I think it is reasonable to trial increasing levodopa to assess whether this provides further benefit. We discussed first altering her schedule slightly so that she compresses her doses into the daytime when she is more active and as she had noticed early wearing off of benefit. She would benefit from physical therapy for gait/balance training though she is not yet cleared from her recent left shoulder surgeries to do past PT exercises. It has been over a year sine she did PT for general mobility and although she is reluctant to do so due to perceived lack of benefit, she is willing to do so for PT dedicated to gait/balance training and will notify our office once shoulder surgically cleared so that we can place referral. We discussed staying active and I encouraged her to work in exercise as tolerated (and in accordance with any orthopedic surgery restrictions) into her regimen. I provided her with instructions on how to access the [employer] exercise channel. Finally, she endorses frustration with her health and number of diagnoses and physician appointments and feeling a sense of overwhelm at times. I encouraged her to look into finding a local therapist to work on developing coping strategies. Recommendations: Try changing levodopa dosing schedule TID to 8 AM, 1 PM, 6 PM with 2 tabs at each dose If in 2 weeks levodopa rescheduling alone has not provided additional benefit, would increase dose to 2.5 tabs at each dose She will update our office in 4 weeks [employer] exercise channel access information provided Will order physical therapy for gait/balance training, strength and stretching once cleared from recent left shoulder surgery - patient to notify our office once cleared for referral entry NPT today Assessment & Plan (05/18/2022 8:04 AM BOLT LOADER): She has parkinsonism stage 4 characterized by bilateral, slightly right greater than left, bradykinesia and rigidity, with postural instability. She also has several years of constipation, cognitive slowing and periods of wordfinding difficulty, and possible reduced facial expression and intermittent hoarseness. She has tremor that is more with action by history, and more noticeable with posture holding on exam, without any obvious rest tremor. Her spirals did not show marked diminution of size and did have some minor deviations possibly consistent with action tremor, and her handwriting did show some micrographia but also had some subtle erratic deviation suggestive of action tremor. The etiology is not completely clear. The majority of her symptom constellation could be consistent with idiopathic Parkinson disease. There are no obvious features to suggest another particular neurodegenerative disorder, including no early dementia, no early and progressive falling, no supranuclear gaze palsy, no profound dysautonomia, no apraxia. Her tremor is somewhat distinct from the remainder of her symptoms but it is noted that tremor can be variable and many individuals with history of action tremor that would be suggestive of Essential Tremor in isolation go on to develop parkinsonism. I counseled her and her children on differential diagnosis, approach to evaluation including importance of longitudinal follow up to help clarify diagnosis and prognosis, role and limitation of diagnostic tests, and risks/benefits of medication trials. It may be reasonable to pursue a trial of carbidopa-levodopa to see if this provides any discrete benefit for hand dexterity or cognition. I explained the rationale both to treat symptoms and to help with diagnosis if there is a marked response. I counseled her to watch for nausea, lightheadedness, sleepiness. She would benefit from physical therapy for balance and gait training. She would benefit from occupational therapy for cognitive focus and training. 1. Start carbidopa-levodopa 25-100mg 1/2 tab three times daily with meals. Increase by 1/2 tablet at all doses every 2 weeks to goal of 2 tablets three times daily, then send a MyChart update. 2. I will send referrals for physical and occupational therapy. Nausea without vomiting 02/02/2022 Chronic superficial gastritis without bleeding 0 02/02/2022 Pharyngoesophageal dysphagia 02/02/2022 Esophageal dysmotility 02/02/2022 Tubular adenoma of colon 02/02/2022 Essential tremor 12/23/2021 Vomiting 06/17/2021 Overview (06/17/2021): Added automatically from request for surgery [id number] Memory loss 05/09/2021 Cyst of ovary 12/28/2020 Urinary incontinence 12/28/2020 Other intra-abdominal and pelvic swelling, mass and lump 04/08/2020 Overview (04/08/2020): Added automatically from request for surgery [id number] History of colonic polyps 06/05/2019 Overview (06/05/2019): Added automatically from request for surgery [id number] Assessment & Plan (06/05/2019 3:16 PM BOLT LOADER): She is overdue for a screening colonoscopy. Will set this up today. Other dysphagia 03/06/2019 Assessment & Plan (03/06/2019 2:29 PM CDT): Sensation of knot in mid chest to epigastric area shortly after taking a bite. Also has belching that occurs with this knot. Once belching stops, then knot resolves. Possible that patient has some esophageal stenosis and/or having esophageal spasms that is causing this sensation. Will schedule EGD. Irritable bowel syndrome with constipation 03/06 Assessment & Plan (06/05/2019 3:16 PM BOLT LOADER): Continue taking fiber daily. Will have her use these fruit cups to promote BM's since they seem to work as a laxative for her. Pt says she is happy with how these helped with her constipation. Explained to try to limit to once daily as they can have a high amount of sugar. Pt verbalized understanding. Follow up as needed. Assessment & Plan (04/03/2019 3:11 PM CDT): Pt to start fiber gummies daily and increase fluid intake for constipation. Assessment & Plan (03/06/2019 2:30 PM CDT): Takes stool softener at bedtime which helps somewhat but isn't always able to completely empty bowels. Advised to try OTC fiber gummies and increase overall fiber intake. GERD (gastroesophageal reflux disease) 9 Assessment & Plan (06/05/2019 3:15 PM BOLT LOADER): Well controlled on omeprazole daily. She may continue this. Assessment & Plan (04/03/2019 3:12 PM CDT): Currently on omeprazole 40mg daily. Get breakthrough symptoms a couple of times a week but uses Gaviscon which greatly helps. Assessment & Plan (03/06/2019 2:31 PM CDT): Doing well on omeprazole 40mg every day. Continue this medication and follow GERD diet. Epigastric pain 03/06/2019 Overview (03/06/2019): Added automatically from request for surgery [id number] Assessment & Plan (06/05/2019 3:14 PM BOLT LOADER): Doing well. No recent episodes. Assessment & Plan (04/03/2019 3:13 PM CDT): Not as severe or often as previously. She says she noticed that this occurs when she is constipated. Will try to improve constipation and see if this improves pain further. 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) 6 Paresthesia of foot 04/21/2015 Overview (01/22/2023): Paresthesia of both feet Overview: Paresthesia of both feet Encounters Date Type Department Care Team Description 09/10/2024 1:00 PM CDT Office Visit [facility] G[facility] at [address] [place] [address] Anastacio House NP Irritable bowel syndrome with constipation (Primary Dx); Gastroesophageal reflux disease without esophagitis; Chronic superficial gastritis without bleeding; Tubular adenoma of colon; Nausea and vomiting, unspecified vomiting type 09/05/2024 Telephone [facility] Scheduling [address] [place] [address] MilliLenin luxscottjose j from Last 3 Months Immunizations Immunization Administration Dates Next Due Influenza, Quadrivalent, Hig h Dose, Preservative Free, Intrr 04/26/2020 Influenza, Trivalent, Adjuvanted, Intramuscular 04/20/2018 Influenza, Trivalent, High D ose, Split, Preservative Free, Intramuscular 04/01/2019 Pneumococcal Polysaccharide PPV23 03/19/2014 Td, adsorbed 08/12/2017 ZOSTER Recombinant 04/10/2020,02/03/2020 Surgical History Surgery Date Site/Laterality Comments KNEE ARTHROPLASTY 07/02/2014 - 07/01/2015 Left Knee replacement KNEE ARTHROPLASTY 07/02/2013 - 07/01/2014 Right Knee replacement CATARACT EXTRACTION Bilateral Cataract extraction POLYPECTOMY CLUB FOOT RELEASE Bilateral as child UPPER GASTROINTESTINAL ENDOSCOPY ROBOTIC ASSISTED HYSTERECTOMY 04/26/2020 BSO, resection of mass COLONOSCOPY 04/05/2021 HYSTERECTOMY 07/02/2019 - 07/01/2020 Complete TUBAL LIGATION 07/02/1986 - 07/01/1987 Medical History Medical History Date Comments Hypertension Colon polyp Diverticulosis DJD (degenerative joint disease) Dysphagia Hyperlipidemia Migraine Anemia Anxiety and depression Other intra-abdominal and pelvic swelling, mass and lump Obesity Heart murmur GERD (gastroesophageal reflux disease) Cymraes measles 1958 Bronchial pneumonia 1963 Mumps 1976 Diphtheria Young Child Peripheral vascular disease Irritable bowel syndrome Urinary tract infection Parkinsonism (HCC) 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 (HCC) 03/19/2023 Obesity hypoventilation syndrome (HCC) 4 Family History Medical History Relation Name Comments Car Accident Father Dorian COPD Mother Erica Emphysema Mother Erica Hypertension Mother Erica Hypertension; Stroke Mother Erica Tremor Mother Erica Cancer Other 1 Family history of Cancer; Heart disease Other 2 Family history of Heart problems; Hypertension Other 3 Family history of Hypertension; Lung disease Other 4 Family history of Lung problems; Relation Name Status Comments Brother 1 Jeffery Alive Brother 2 Cain Alive Daughter Apoorva Alive Father Dorian (Age 57) Mother Erica (Age 88) rest tremo r Other 1 Other 2 Other 3 Other 4 Son Brad Alive Social History Tobacco Use Types Packs/Day Years Used Date Smoking Tobacco: Former Cigarettes 0.8 25 1 965 - 1989 Passive Smoke Exposure: Past Smokeless Tobacco: Never Tobacco Cessation:Counseling Given: Not Answered Alcohol Use Standard Drinks/Week Comments No 0 (1 standard drink = 0.6 oz pur e alcohol) OASIS D0700: Social Isolation Answer Da te Recorded Frequency of experiencing loneliness or isolatio n Never 01/01/2024 OASIS A1250: Transportation Answer Date Recorded Lack of Transportation (Medical) No 01/01/2024 Lack of Transportation (Non-Medical) No 01/01/2024 Patient Unable or Declines to Respond No 01/01/2024 OASIS B1300: Health Literacy Answer Everardo e Recorded Frequency of needing help to read materials from doctor or pharmacy Never 01/01/2024 [facility] Utilities Answer Date Recorded In the past 12 months has th e electric, gas, oil, or water company threatened to shut off services in your home? No 09/06/2023 Social Connection and Isolat ion Panel [NHANES] Answer Date Recorded In a typical week, how many times do you talk on the phone with family, friends, or neighbors? More than three times a week 09/06/2023 How often do you get togethe r with friends or relatives? More than three times a week 09/06/2023 How often do you attend chur ch or christianity services? More than 4 times per year 09/06/2023 Do you belong to any clubs o r organizations such as gnosticist groups, unions, fraternal or athletic groups, or school groups? Yes 09/06/2023 How often do you attend meet ings of the clubs or organizations you belong to? More than 4 times per year 09/06/2023 Are you , , di vorced, , never , or living with a partner? 09/06/2023 AUDIT-C Answer Date Recorded Q1: How often do you have a drink containing alcohol? Never 09/10/2024 Q2: How many drinks containi ng alcohol do you have on a typical day when you are drinking? Patient does not drink Frequency of Binge Drinking Not on file 08/30 Overall Financial Resource Strain (CARDIA) Answe r Date Recorded How hard is it for you to pa y for the very basics like food, housing, medical care, and heating? Not hard at all 09/06/2023 PHQ-2 Answer Date Recorded PHQ-2 Score 0 03/06/2019 Hunger Vital Sign Answer Date Recorded Within the past 12 months, y ou worried that your food would run out before you got the money to buy more. Never true 09/06/19 24 Within the past 12 months, t he food you bought just didn't last and you didn't have money to get more. Never true 09/06/2023 PRAPARE - Transportation Answer Date Re corded In the past 12 months, has l ack of transportation kept you from medical appointments or from getting medications? No 12/2023 In the past 12 months, has l ack of transportation kept you from meetings, work, or from getting things needed for daily living? No 09/06/2023 Housing Stability Vital Sign Answer Everardo e Recorded In the last 12 months, was t here a time when you were not able to pay the mortgage or rent on time? No 09/06/2023 In the last 12 months, how many places have you lived? 1 09/06/2023 In the last 12 months, was t here a time when you did not have a steady place to sleep or slept in a assisted (including now)? No 09/06/2023 Personal Safety Answer Date Recorded Have you ever been in or are you currently in a harmful physical or emotional relationship or is someone making you feel afraid or unsafe? Denies 02/16/2024 Comments No Sex and Gender Information Value Date Recorded Sex Assigned at Not on file Legal Sex Female 12:25 PM BOLT LOADER Gender Identity Female 04/12/2021 6:37 PM CDT Sexual Orientation Straight 04/12/2021 6: 37 PM CDT Obstetrics History Last Filed Vital Signs Vital Sign Reading Time Taken Comments Blood Pressure 128/78 09/10/2024 1:11 PM CDT Pulse 68 09/10/2024 1:11 PM CDT Temperature 37 C (98.6 F) 04/15/2024 1:56 PM CDT Respiratory Rate 18 04/15/2024 1:56 PM CDT Oxygen Saturation 94% 09/10/2024 1:11 PM CDT Inhaled Oxygen Concentration - - Weight 76.9 kg (169 lb 9.6 oz) 09/10/2024 1:11 P M CDT Height 157.5 cm (5' 2 ) 09/10/2024 1:11 PM CDT Body Mass Index 31.02 09/10/2024 1:11 PM CDT Plan of Treatment Upcoming Encounters Date Type Department Care Team (Late st Contact Info) Description 01/07/2025 10:30 AM CDT Hospital Encounter [facility] [address] [place] [address] Randi Vega MD [address] [facility] [address] [place] [address] 01/07/2025 10:30 AM CDT - 01/07/2025 11:00 AM CDT Surgery [address] [address] Randi Vega MD [address] [facility] [address] [place] [address] COLONOSCOPY Scheduled Procedures Name Priority Associated Diagnoses Date/Ti me COLONOSCOPY History of colonic polyps Encounter for screening colonoscopy 01/07/2025 10:30 AM CDT Health Maintenance Due Date Last Done Comments Hepatitis C Screening 1945 Hepatitis B Screening 1963 Well Visit 65+ 10/22/2011 Pneumococcal vaccine 65+ (2 of 2 - PCV) 03/19/2015 03/19/2014 DTaP/Tdap/Td Vaccine (1 - Tdap) 08/13/2017 8 Osteoporosis Screening-Bone Density Scan 04/14/2023 04/14/2021, 04/14/2021, 12/13/2018, Additional history exists Influenza Vaccine (#1) 2024 0, 04/01/2019, 04/20/2018 Fall Risk Assessment 09/05/2024 09/06/2023, 02/05/2023, 03/06/2019 Depression Screening 11/26/2024 11/27/2023, 03/06/2019, 03/06/2019 Zoster Vaccine Completed 04/10/2020, 02/03/2020 Colon Cancer Screening-CT Colonography Discontinued 05/30/2022, 04/05/2021, 07/28/2019, Additional history exists Colon Cancer Screening-Colonoscopy Discontinued 05/30/2022, 04/05/2021, 07/28/2019, Additional history exists Colon Cancer Screening-DNA Stool Discontinued 05/30/2022, 04/05/2021, 07/28/2019, Additional history exists Colon Cancer Screening-FIT Discontinued 05/30, 04/05/2021, 07/28/2019, Additional history exists Colon Cancer Screening-FOBT Discontinued 05/03, 04/05/2021, 07/28/2019, Additional history exists Colon Cancer Screening-Sigmoidoscopy Discontinued 05/30/2022, 04/05/2021, 07/28/2019, Additional history exists Colorectal Cancer Screening Discontinued Breast Cancer Screening-Mammogram Discontinued 08/16/2023, 08/16/2023, 06/15/2022, Additional history exists Medical Devices Implanted Type Area Career Services Representative Device Identifier Shelf Expiration Date Model / Serial / Lot Lens Implants W/Cataract Extraction Bilateral: Eye Exactech Equinoxe 13mm Press Fit Primary Shoulder Stem Humeral 300-01-13 - [id number] - [id number] Implanted:Qty: 1 on 02/22/2023 by Josef Guardado MD at [facility] Left: Shoulder Exactech 06/14/2032 300-01-13 / [id number] / Exactech Equinoxe 36mm Shoulder 0mm Offset Liner Humeral Sterile 320-36-00 - [id number] - [id number] Implanted:Qty: 1 on 02/22/2023 by Josef Guardado MD at [facility] Left: Shoulder Exactech 07/18/2027 320-36-00 / [id number] / [employer]ok [employer] Bioprep Preparation Plug Retail Helper Whately Curette Suction Femoral [id number] - [id number] Implanted:Qty: 1 on 02/22/2023 by Josef Guardado MD at [facility] Left: Shoulder [employer] [id number] / / [id number] Exactech Equinoxe Small Reverse Superior Augment Shoulder 10d Plate 320-35-02 - [id number] - [id number] Implanted:Qty: 1 on 02/22/2023 by Josef Guardado MD at [facility] Left: Shoulder Exactech 08/28/2032 320-35-02 / [id number] / Exactech Reverse Torque Define Shoulder Kit Screw 320-20 - [id number] - [id number] Implanted:Qty: 1 on 02/22/2023 by Josef Guardado MD at [facility] Left: Shoulder Exactech 12/12/2027 320-20-00 / [id number] / Exactech Equinoxe Lock Reverse Shoulder Glenosphere Screw Bone 320-1505 - [id number] - [id number] Implanted:Qty: 1 on 02/22/2023 by Josef Guardado MD at [facility] Left: Shoulder Exactech 12/20/2027 320-15-05 / [id number] / Exactech Equinoxe 4.5mm 34mm Kit Compression Lock Cap Reverse Shoulder 320-2034 - [id number] - [id number] Implanted:Qty: 1 on 02/22/2023 by Josef Guardado MD at [facility] Left: Shoulder Exactech 03/15/2027 320-20-34 / [id number] / Exactech Equinoxe 4.5mm 22mm Kit Compression Lock Cap Reverse Shoulder 320-2022 - [id number] - [id number] Implanted:Qty: 1 on 02/22/2023 by Josef Guardado MD at [facility] Left: Shoulder Exactech 01/09/2028 320-20-22 / [id number] / Exactech Component 36mm Glenoid Glenosphere Reverse Shoulder 320-31-36 - [id number] - [id number] Implanted:Qty: 1 on 02/22/2023 by Josef Guardado MD at [facility] Left: Shoulder Exactech 09/20/2032 320-31-36 / [id number] / Exactech Equinoxe Reverse Shoulder +0mm Tray Humeral Adapter 320-10 - [id number] - [id number] Implanted:Qty: 1 on 02/22/2023 by Josef Guardado MD at [facility] Left: Shoulder Exactech 10/15/2032 320-10-00 / [id number] / Exactech Liner Humeral Reverse Equinoxe +0x36mm 320-36-10 - [id number] - [id number] Implanted:Qty: 1 on 09/06/2023 by Josef Guardado MD at [facility] Left: Shoulder Exactech [id number] 01/16/2027 320-36-10 / [id number] / Exactech Equinoxe Lock Reverse Shoulder Glenosphere Screw Bone 320-15-05 - [id number] - [id number] Implanted:Qty: 1 on 09/06/2023 by Josef Guardado MD at [facility] Left: Shoulder Exactech [id number] 07/07/2028 320-15-05 / [id number] / Exactech Equinoxe 36mm 26.1mm Expand Small Reverse Shoulder Sphere Glenoid 320-32-36 - [id number] - [id number] Implanted:Qty: 1 on 09/06/2023 by Josef Guardado MD at [facility] Left: Shoulder Exactech [id number] 12/18/2032 320-32-36 / [id number] / Procedures Procedure Name Priority Date/Time Associated Diagnosis Comments COLONOSCOPY 05/30/2022 10:19 AM BOLT LOADER from Last 3 Months or Most Recently Relevant to Health Maintenance Results * COLONOSCOPY (05/30/2022 10:19 AM BOLT LOADER) Anatomical Region Laterality Modality Other Narrative Procedure Note Randi Vega MD - 05/30/2022 10:19 AM CST [facility] Patient Name: Alicia Wells Procedure Date: 05/30/2022 10:19AM Date of : 1945 Admit Type: Outpatient Age: 76 Gender: Female Attending MD: Randi Vega M.D. Room: [facility] ENDOSCOPY ROOM 1 Note Status: Finalized Patient Profile: This is a 76 year old female. History of multiple adenoma polyps. No family history of colon cancerper Procedure: Colonoscopy Indications: Surveillance: History of numerous (> 10) adenomason last colonoscopy (< 3 yrs), Last colonoscopy:April 2021 Referring MD: Nicolas Xiao D.O. Providers: Randi Vega M.D. Impression: - Three 3 to 5 mm polyps in the proximal transverse colon, removed with a jumbo cold forceps. Resectedand retrieved. - Internal hemorrhoids. Recommendation: - Await pathology results. - Repeat colonoscopy in 2 years for surveillance. - Continue present medications. Medicines: Monitored Anesthesia Care Complications: No immediate complications. Estimated Blood Loss: Estimated blood loss: none. Procedure: Pre-Anesthesia Assessment: - Prior to the procedure, a History and Physicalwas performed, and patient medications and allergieswere reviewed. The patient's tolerance of previous anesthesia was also reviewed. The risks andbenefits of the procedure and the sedation options and risks were discussed with the patient. All questions were answered, and informed consent was obtained. Prior Anticoagulants: The patient has taken noanticoagulant or antiplatelet agents. ASA Grade Assessment: III -A patient with severe systemic disease. Afterreviewing the risks and benefits, the patient was deemed in satisfactory condition to undergo the procedure. The benefits, risks and alternatives of theprocedure and sedation were discussed and informed consentwas obtained. All questions were answered. Please referto the signed informed consent document in the medical record. The bowel preparation used was Miralax via split dose instruction. The bowel preparation usedwas bisacodyl tablets via split dose instruction. The scope was passed under direct vision. The Pediatric Colonoscope [id number] was introducedthrough the anus and advanced to the the cecum, identifiedby appendiceal orifice and ileocecal valve. Thequality of the bowel preparation was good. Bowel prep was administered using a split dose. Findings: The perianal and digital rectal examinations were normal. The ascending colon and cecum appeared normal. Three semi-sessile polyps were found in the proximal transversecolon. The polyps were 3 to 5 mm in size. These polyps were removed with a jumbo cold forceps. Resection and retrieval were complete. The descending colon and sigmoid colon appeared normal Internal hemorrhoids were found during retroflexion. The hemorrhoids were small. Electronically signed by Randi Vega M.D. Randi Vega M.D. 05/30/2022 11:31:49 AM Number of Addenda: 0 Note Initiated On: 05/30/2022 10:19 AM Procedure Code(s): --- Professional --- 46717, Colonoscopy, flexible; with biopsy, single or multiple Diagnosis Code(s): --- Professional --- Z86.010, Personal history of colonic polyps K64.8, Other hemorrhoids D12.3, Benign neoplasm of transverse colon (hepatic flexure orsplenic flexure) K57.30, Diverticulosis of large intestine without perforation orabscess without bleeding CPT copyright 2020 [employer]. All rights reserved. The codes documented in this report are preliminary and upon linseed cake trimmer reviewmay be revised to meet current compliance requirements. Recognized by the [employer] for promoting quality in endoscopy Randi Vega MD ENDOSCOPY PROCEDURES Final Result from Last 3 Months or Most Recently Relevant to Health Maintenance Insurance [facility]ICARE [facility] Address: [address] [address] [facility]ICARE [facility] Address: [address] [address] [facility] Address: [address] [address] [place] [address] [facility] MEDICARE ADVANTAGE Advance Directives For more information, please contact: [phone] * Full Code (Latest Code Status on File) Date Activated Date Inactivated Comments 09/05/2023 10:19 PM 09/07/2023 6:56 PM * Full Code Date Activated Date Inactivated Comments 04/22/2023 11:20 PM 04/27/2023 8:25 PM * Full Code Date Activated Date Inactivated Comments 03/17/2023 10:46 AM 03/19/2023 8:32 PM * Full Code Date Activated Date Inactivated Comments 05/30/2022 10:11 AM 05/30/2022 4:31 PM * Full Code Date Activated Date Inactivated Comments 05/30/2022 10:11 AM 05/30/2022 10:11 AM Care Teams Supervisor Plastic Sheets Relationship Specialty Start Date End Date Manpreet Sanderson MD PCP - General Family Practice 01/22/23 Randi Vega MD Consulting Physician Gastroenterology 01/22/23 Ángel Sampson MD PhD [facility] [address] [place] [address] Referring Physician Neurology 01/22/23 Keyla Santa MD Nabeel BALDERRAMA [address] [place] [address] Consulting Physician Internal Medicine 01/22/23 Muna Hernandez PA [address] [place] [address] [address] [place] [address] Orthopedic Surgery 02/22/23 Kanu Hernandez MD [address] [place] [address] [address] [place] [address] Consulting Physician Neurology 03/19/23 Lila Pedro MD [address] [place] [address] [address] [place] [address] Consulting Physician Sleep Medicine 03/19/23 Hi Ware MD [address] [place] [address] [address] [place] [address] Consulting Physician Pulmonary Disease 04/27/23 Josef Guardado MD [address] [place] [address] [address] [place] [address] Surgeon Orthopedic Surgery 09/07/23
--- OUTSIDE RECORDS SUMMARY | 2024-09-18 15:40 | XMS_ITS | Clinical Summary ---
Author Organization [facility] [employer] Address [address] [place] [address] Care Team Providers Care Office Rental Clerk Name Role Phone Nicolas Xiao Primary Care Provider [phone] Source Comments [facility],non-owned Affiliates and Associated Physician Practices is amultiple site organization consisting of ambulatory clinics and hospital sitesin [place], [place], [place] and [place]. This disclosure is being madepursuant to the Care Everywhere program and may not contain all information available regarding this patient. Last updated 18.[facility] [employer] Allergies Active Allergy Reactions Criticality Noted Date Comments Alkylamines Other Fast pulse rate Hydrochlorothiazide Rash Medium 10/07/2015 Medications * Be aware that medications may not be up to date on this document. Alwaysverify current medications with the patient. Medication Sig Dispensed Refills Start Date End Date Status omeprazole (PRILOSEC) 40 MG capsule 40 mg 05/04/2014 Active sertraline (ZOLOFT) 100 MG tablet 100 mg 07/20/2014 Active carvedilol (COREG) 6.25 MG tablet 6.25 mg 05/04/2014 Active gabapentin (NEURONTIN) 300 MG capsule 300 mg 04/21/2015 Active topiramate (TOPAMAX SPRINKLE) 25 MG capsule 25 mg 05/31/2016 Active oxybutynin CR 24hr (DITROPAN XL) 15 MG tablet 09/26/2015 Active vitamin E (TOCOPHERYL) 400 UNIT capsule Take by mouth once daily 11/28/2013 Active ibuprofen (MOTRIN) 400 MG tablet 400 mg 11/28/2013 Active Ascorbic Acid 1000 MG Take 1,000 mg by mouth once daily 11/28/2013 Active Cholecalciferol 2000 UNITS Take by mouth once daily 11/28/2013 Active Fexofenadine HCl (AMARILIS PO) Take 1 tablet by mouth once daily Active Probiotic Product (PROBIOTIC PO) Take 1 tablet by mouth once daily Active Active Problems Problem Noted Date Diagnosed Date Gastroesophageal reflux disease 10/07/2015 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) 6 Paresthesia of foot 04/21/2015 Overview (02/04/2018): Overview: Paresthesia of both feet Social History Tobacco Use Types Packs/Day Years Used Date Smoking Tobacco: Never Assessed Sex and Gender Information Value Date Recorded Sex Assigned at Not on file Gender Identity Not on file Sexual Orientation Not on file Last Filed Vital Signs Vital Sign Reading Time Taken Comments Blood Pressure 148/87 02/04/2018 10:00 AM CDT Pulse - - Temperature - - Respiratory Rate - - Oxygen Saturation - - Inhaled Oxygen Concentration - - Weight 84.8 kg (187 lb) 02/04/2018 10:00 AM CDT Height 162.6 cm (5' 4 ) 02/04/2018 10:00 AM CDT Body Mass Index 32.1 02/04/2018 10:00 AM CDT Plan of Treatment Health Maintenance Due Date Last Done Comments BONE DENSITY TESTING 1945 HEPATITIS C SCREENING 10/16/1964 DTAP/TDAP/TD VACCINES (1 - Tdap) 1965 PNEUMOCOCCAL VACCINE 50+ (1 of 1 - PCV) 1996 ZOSTER VACCINE (1 of 2) 1996 Respiratory Syncytial Virus (RSV) Vaccine Pt: or over 60 yrs (1 - 1-dose 75+ series) 2021 COVID-19 VACCINE ( - 2023-2 5 season) 2024 INFLUENZA VACCINE (#1) 2024 DEPRESSION SCREENING 07/02/2024 MEDICARE AWV CALENDAR YEAR 2024 HEPATITIS B VACCINE Aged Out No longe r eligible based on patient's age to complete this topic HIB VACCINE Aged Out No longer eligi ble based on patient's age to complete this topic HPV VACCINE Aged Out No longer eligi ble based on patient's age to complete this topic MENINGOCOCCAL (Group B) VACC INE SHARED DECISION-MAKING Aged Out No longer eligibl e based on patient's age to complete this topic MENINGOCOCCAL GROUPS A/C/Y/W VACCINE Aged Out No longer eligible b ased on patient's age to complete this topic Care Teams Office Rental Clerk Relationship Specialty Start Date End Date Nicolas Xiao DO PCP - General 02/04/18
--- OUTSIDE RECORDS SUMMARY | 2024-09-18 15:40 | XMS_ITS | Referral Summary ---
Author Organization [facility] Building B Address [address] [place] [address] Care Team Providers Care Overhead Crane Inspector Name Role Phone Manpreet Sanderson MD Primary Care Provider + [phone] Randi Vega MD Unavailable [phone] Ángel Sampson MD PhD Unavailable + [phone] Keyla Santa MD Unavailable +- [phone] Muna Hernandez Unavailable [phone] Kanu Hernandez MD Unavailable [phone] Lila Pedro MD Unavailable Hi Ware MD Unavailable Josef Guardado MD Unavailable [phone] Encounters Date Type Department Care Team Description 09/10/2024 1:00 PM CDT Office Visit [facility] Gastroenterology at [address] [place] [address] Anastacio House NP Irritable bowel syndrome with constipation (Primary Dx); Gastroesophageal reflux disease without esophagitis; Chronic superficial gastritis without bleeding; Tubular adenoma of colon; Nausea and vomiting, unspecified vomiting type 09/05/2024 Telephone [facility] Scheduling [address] [place] [address] Kathia Azul from Last 3 Months Allergies Active Allergy Reactions Criticality Noted Date [...] (three) times a day 540 tablet 3 024 2024 Active inulin-chromium picolinate 2-100 gram-mcg tablet,chewable [...] 05/18/2022 Assessment & Plan (05/18/2022 8:14 AM DISTRICT FIRE MANAGEMENT OFFICER): She has subjective cognitive complaints including difficulty [...] challenges over the last few years. From [facility] it appears she scored 28/30 on MoCA [...] with instructions on how to access the [employer] YouTube exercise channel. Finally, she endorses frustration with [...] will update our office in 4 weeks APDA YouTube exercise channel access information provided Will order physical therapy for gait/balance training, strength and stretching once cleared from recent left shoulder surgery - patient to notify our office once cleared for referral entry NPT today Assessment & Plan (05/18/2022 8:04 AM DISTRICT FIRE MANAGEMENT OFFICER): She has parkinsonism stage 4 characterized by [...] tablets three times daily, then send a [employer] update. 2. I will send referrals for physical and occupational therapy. Nausea without vomiting 02/02/2022 Chronic superficial gastritis without bleeding 0 02/02/2022 Pharyngoesophageal dysphagia 02/02/2022 Esophageal dysmotility 02/02/2022 Tubular adenoma of colon 02/02/2022 Essential tremor 12/23/2021 Vomiting 06/17/2021 Overview (06/17/2021): Added automatically from request for surgery [id number] Memory loss 05/09/2021 Cyst of ovary 12/28/2020 Urinary incontinence 12/28/2020 Other intra-abdominal and pelvic swelling, mass and lump 04/08/2020 Overview (04/08/2020): Added automatically from request for surgery [id number] History of colonic polyps 06/05/2019 Overview (06/05/2019): Added automatically from request for surgery [id number] Assessment & Plan (06/05/2019 3:16 PM DISTRICT FIRE MANAGEMENT OFFICER): She is overdue for a screening colonoscopy. [...] 03/06 Assessment & Plan (06/05/2019 3:16 PM DISTRICT FIRE MANAGEMENT OFFICER): Continue taking fiber daily. Will have her [...] 9 Assessment & Plan (06/05/2019 3:15 PM DISTRICT FIRE MANAGEMENT OFFICER): Well controlled on omeprazole daily. She may [...] (03/06/2019): Added automatically from request for surgery [id number] Assessment & Plan (06/05/2019 3:14 PM DISTRICT FIRE MANAGEMENT OFFICER): Doing well. No recent episodes. Assessment & Plan (04/03/2019 3:13 PM CDT): Not as severe or often as previously. She says she noticed that this occurs when she is constipated. Will try to improve constipation and see if this improves pain further. 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) 6 Paresthesia of foot 04/21/2015 Overview (01/22/2023): Paresthesia of both feet Overview: Paresthesia of both feet Immunizations Immunization Administration Dates Next Due Influenza, Quadrivalent, Hig h Dose, Preservative Free, Intrr 04/26/2020 Influenza, Trivalent, Adjuvanted, Intramuscular 04/20/2018 Influenza, Trivalent, High D ose, Split, Preservative Free, Intramuscular 04/01/2019 Pneumococcal Polysaccharide PPV23 03/19/2014 Td, adsorbed 08/12/2017 ZOSTER Recombinant 04/10/2020,02/03/2020 Social History Tobacco Use Types Packs/Day Years Used Date Smoking Tobacco: Former Cigarettes 0.8 25 1 695 - 1989 Passive Smoke Exposure: Past Smokeless [...] materials from doctor or pharmacy Never 01/01/2024 [facility] Utilities Answer Date Recorded In the past 12 months has e Syned[employer], gas, oil, or water [employer] threatened to shut off services in your [...] often do you attend chur ch or sikhism services? More than 4 times per year 09/06/2023 Do you belong to any clubs o r organizations such as temple groups, unions, fraternal or athletic groups, or [...] place to sleep or slept in a jail (including now)? No 09/06/2023 Personal Safety Answer Date Recorded Have you ever been in or are you currently in a harmful physical or emotional relationship or is someone making you feel afraid or unsafe? Denies 02/16/2024 Comments No Sex and Gender Information Value Date Recorded Sex Assigned at Not on file Legal Sex Female 12:25 PM DISTRICT FIRE MANAGEMENT OFFICER Gender Identity Female 04/12/2021 6:37 PM CDT Sexual Orientation Straight 04/12/2021 6: 37 PM CDT Last Filed Vital Signs Vital Sign Reading [...] Description 01/07/2025 10:30 AM CDT Hospital Encounter [address] [address] Randi Vega MD [address] [place] [address] DR [address] [place] [address] 01/07/2025 10:30 AM CDT - 01/07/2025 11:00 AM CDT Surgery [address] [address] Randi Vega MD [address] [place] [address] DR [address] [place] [address] COLONOSCOPY Scheduled Procedures Name Priority Associated Diagnoses Date/Ti me COLONOSCOPY History of colonic polyps Encounter for screening colonoscopy 01/07/2025 10:30 AM CDT Medical Devices Implanted Type Area Process Environmental Technician Device Identifier Shelf Expiration Date Model / Serial / Lot Lens Implants W/Cataract Extraction Bilateral: Eye Exactech Equinoxe 13mm Press Fit Primary Shoulder Stem Humeral 300-01-13 - [id number] - [id number] Implanted:Qty: 1 on 02/22/2023 by Josef Guardado MD at [facility] Left: Shoulder Exactech 06/14/2032 300-01-13 / [id number] / Exactech Equinoxe 36mm Shoulder 0mm Offset Liner Humeral Sterile 320-36-00 - [id number] - [id number] Implanted:Qty: 1 on 02/22/2023 by Josef Guardado MD at [facility] Left: Shoulder Exactech 07/18/2027 320-36-00 / [id number] / [employer] Bioprep Preparation Plug Graduate Assistant [place] Curette Suction Femoral [id number] - [id number] Implanted:Qty: 1 on 02/22/2023 by Josef Guardado MD at [facility] Left: Shoulder [employer] [id number] / / [id number] Exactech Equinoxe Small Reverse Superior Augment Shoulder 10d Plate 320-35-02 - [id number] - [id number] Implanted:Qty: 1 on 02/22/2023 by Josef Guardado MD at [facility] Left: Shoulder Exactech 08/28/2032 320-35-02 / [id number] / Exactech Reverse Torque Define Shoulder Kit Screw 320-20- - [id number] - [id number] Implanted:Qty: 1 on 02/22/2023 by Josef Guardado MD at [facility] Left: Shoulder Exactech 12/12/2027 320-20- / [id number] / Exactech Equinoxe Lock Reverse Shoulder Glenosphere Screw Bone 320-15- - [id number] - [id number] Implanted:Qty: 1 on 02/22/2023 by Josef Guardado MD at [facility] Left: Shoulder Exactech 12/20/2027 320-15-05 / [id number] / Exactech Equinoxe 4.5mm 34mm Kit Compression Lock Cap Reverse Shoulder 320-2034 - [id number] - [id number] Implanted:Qty: 1 on 02/22/2023 by Josef Guardado MD at [facility] Left: Shoulder Exactech 03/15/2027 320-20-34 / [id number] / Exactech Equinoxe 4.5mm 22mm Kit Compression Lock Cap Reverse Shoulder 320-20-22 - [id number] - [id number] Implanted:Qty: 1 on 02/22/2023 by Josef Guardado MD at [facility] Left: Shoulder Exactech 01/09/2028 320-20-22 / [id number] / Exactech Component 36mm Glenoid Glenosphere Reverse Shoulder 320-31-36 - [id number] - [id number] Implanted:Qty: 1 on 02/22/2023 by Josef Guardado MD at [facility] Left: Shoulder Exactech 09/20/2032 320-31-36 / [id number] / Exactech Equinoxe Reverse Shoulder +0mm Tray Humeral Adapter 32010 - [id number] - [id number] Implanted:Qty: 1 on 02/22/2023 by Josef Guardado MD at [facility] Left: Shoulder Exactech 10/15/2032 320-10-00 / [id number] / Exactech Liner Humeral Reverse Equinoxe +0x36mm 320-36-10 - [id number] - [id number] Implanted:Qty: 1 on 09/06/2023 by Josef Guardado MD at [facility] Left: Shoulder Exactech [id number] 01/16/2027 320-36-10 / [id number] / Exactech Equinoxe Lock Reverse Shoulder Glenosphere Screw Bone 320-15-05 - [id number] - [id number] Implanted:Qty: 1 on 09/06/2023 by Josef Guardado MD at [facility] Left: Shoulder Exactech [id number] 07/07/2028 320-15-05 / [id number] / Exactech Equinoxe 36mm 26.1mm Expand Small Reverse Shoulder Sphere Glenoid 320-32-36 - [id number] - [id number] Implanted:Qty: 1 on 09/06/2023 by Josef Guardado MD at [facility] Left: Shoulder Exactech [id number] 12/18/2032 320-32-36 / [id number] / Procedures Procedure Name Priority Date/Time Associated Diagnosis Comments COLONOSCOPY 05/30/2022 10:19 AM DISTRICT FIRE MANAGEMENT OFFICER from Last 3 Months or Most Recently Relevant to Health Maintenance Results * COLONOSCOPY (05/30/2022 10:19 AM DISTRICT FIRE MANAGEMENT OFFICER) Anatomical Region Laterality Modality Other Narrative Procedure Note Randi Vega MD - 05/30/2022 10:19 AM CST [facility] Patient Name: Alicia Wells Procedure Date: 05/30/2022 10:19AM Date of : 1945 Admit Type: Outpatient Age: 76 Gender: Female Attending MD: Randi Vega M.D. Room: [facility] ENDOSCOPY ROOM 1 Note Status: Finalized Patient [...] under direct vision. The Pediatric Colonoscope [id number] was introducedthrough the anus and advanced to [...] 10:19 AM Procedure Code(s): --- Professional --- 47213, Colonoscopy, flexible; with biopsy, single or multiple Diagnosis Code(s): --- Professional --- Z86.010, Personal history of colonic polyps K64.8, Other hemorrhoids D12.3, Benign neoplasm of transverse colon (hepatic flexure orsplenic flexure) K57.30, Diverticulosis of large intestine without perforation orabscess without bleeding CPT copyright 2020 [employer]. All rights reserved. The codes documented in this report are preliminary and upon surveillance sensor operator reviewmay be revised to meet current compliance requirements. Recognized by the [place] [employer] for promoting quality in endoscopy Randi Vega MD ENDOSCOPY PROCEDURES Final Result from Last 3 Months or Most Recently Relevant to Health Maintenance Insurance [facility]IC[facility] Address: [facility] [address] [place] [address] [facility] MEDICARE ADVANTAGE [facility] MEDIC[facility] Address: [address] [place] [address] [facility] MED[facility] Address: [address] [address] [place] [address] Advance Directives For more information, please contact: [phone] * Full Code (Latest Code Status on [...] 10:11 AM 05/30/2022 10:11 AM Care Teams Overhead Crane Inspector Relationship Specialty Start Date End Date Manpreet Sanderson MD PCP - General Family Practice 01/22/23 Randi Vega MD Consulting Physician Gastroenterology 01/22/23 Ángel Sampson MD PhD [address] [place] [address] Referring Physician Neurology 01/22/23 Keyla Santa MD [address] [facility] [address] [place] [address] Consulting Physician Internal Medicine 01/22/23 Muna Hernandez PA [address] [place] [address] [address] [place] [address] Orthopedic Surgery 02/22/23 Kanu Hernandez MD [address] [place] [address] [address] [place] [address] Consulting Physician Neurology 03/19/23 Lila Pedro MD [address] [place] [address] [address] [place] [address] Consulting Physician Sleep Medicine 03/19/23 Hi Ware MD [address] [place] [address] [address] [place] [address] Consulting Physician Pulmonary Disease 04/27/23 Josef Guardado MD [address] [place] [address] DR MARIANA Jon [facility] [address] [place] [address] Surgeon Orthopedic Surgery 09/07/23
[2024-09-18 20:16] LABS: Add Urine Microscopic? YES; Appearance Urine Cloudy (Clear); Bilirubin Urine Negative (Negative); Blood Urine Negative (Negative); Color Urine Yellow (Yellow); Glucose Urine UA Negative (Negative); Ketones Urine Negative (Negative); Leukocyte Esterase Ur 3+ LEU/UL (Negative); Nitrate Urine Positive (Negative); Protein Urine Negative (Negative); Specific Grav Ur 1.014 (1.001-1.035); Urobilinogen Urine 0.2 mg/dL (<2.0); pH Urine 6.5 (5.0-9.0)
[2024-09-18 20:17] LABS: Alanine Aminotransferase 10 U/L (6-35); Alkaline Phosphatase 104 U/L (38-126); Anion Gap 5 mmol/L (4-12); Aspartate Amino Transferase 44 U/L (14-36); Bilirubin,Total 0.5 mg/dL (0.2-1.3); Blood Urea Nitrogen 21 mg/dL (7-17); Calcium 9.1 mg/dL (8.4-10.2); Carbon Dioxide 37 mmol/L (22-30); Chloride 97 mmol/L (98-107); Cholesterol 192 mg/dL (0-200); Estimated Glomerular Filt Rate > 60; Glucose 96 mg/dL (65-110); HDL Direct 41 mg/dL; Potassium 3.7 mmol/L (3.4-5.0); Sodium 139 mmol/L (137-145); Triglycerides 95 mg/dL (<150)
[2024-09-18 20:22] LABS: NT Pro B Type Natriuretic Pept 342 pg/mL (19.9-100)
[2024-09-18 20:28] LABS: LDL Cholesterol Direct 106 mg/dL
[2024-09-18 20:51] LABS: RBC Urine 0-2 /hpf (0-2); WBC Urine 21-50 /hpf (0-3)
[2024-09-18 20:52] LABS: Amorphous Sediment Urine Few; Bacteria Urine 2+ /hpf; Mucus Urine Few /lpf; Squamous Epithelial Cell Urine Few /hpf (Few)
== END 2024-09-18 15:20 | disposition home or self-care (01) ==
PROVIDERS: PCP Nurse Practitioner Adult Health; Visit Provider Nurse Practitioner Adult Health
DX: I11.0 Hypertensive heart disease with heart failure (principal); I50.9 Heart failure, unspecified; R39.9 Unspecified symptoms and signs involving the genitourinary system; E55.9 Vitamin D deficiency, unspecified
CPT/HCPCS: 36415; 80053; 80061; 81001; 82306; 83735; 83880; 87077; 87086; 87186

== ENCOUNTER 2024-09-24 12:33 | Outpatient (CLI) | payer MEDICARE, SELFPAY ==
--- NOTE | ~2024-09-24 | XR_ITS ---
XR abdomen/kub 1V Ordering provider: Charu Burdick APRN History: . Right renal kidney stones . Comparison: None. FINDINGS: BOWEL: Nonobstructive bowel gas pattern. Fecal material is loaded in the colon suggestive of constipa tion. ORGANOMEGALY: None. SIGNIFICANT PATHOLOGIC CALCIFICATIONS: Stone in the right kidney is highly suggestive and measures 8 mm.. Overall V VCUG material is noted. OTHER: No free air is seen under the diaphragm. IMPRESSION: NO ACUTE ABDOMINAL FINDINGS. Stone in the right kidney. Constipation. Reviewed, dictated and finalized at location A.
--- OUTSIDE RECORDS SUMMARY | 2024-09-24 13:38 | XMS_ITS | Encounter Summary ---
Author Organization [facility] Address [address] [place] [address] Care Team Providers Care Health Education Aide Name Role Phone Favio Randolph MD Primary Care Provider [phone] Nicolas Xiao DO Primary Care Provider [phone] Nathaniel Villatoro MD Primary Care Provider [phone] Manpreet Sanderson MD Primary Care Provider + [phone] Randi Vega MD Unavailable [phone] Ángel Sampson MD PhD Unavailable + [phone] Keyla Santa MD Unavailable [phone] Muna Hernandez Unavailable [phone] Kanu Hernandez MD Unavailable [phone] Lila Pedro MD Unavailable Hi Ware MD Unavailable Josef Guardado MD Unavailable [phone] Encounter Details Date Type Department Care Team (Late st Contact Info) Description 06/08/2017 Orders Only [facility] [address] [place] [address] Dakotah Carpenter RT Social History Tobacco Use Types Packs/Day Years Used Date Smoking Tobacco: Never Alcohol Use Standard Drinks/Week Comments No 0 (1 standard drink = 0.6 oz pur e alcohol) Comments Unknown Sex and Gender Information Value Date Recorded Sex Assigned at Not on file Legal Sex Female 12:25 PM GLORY HOLE TENDER Gender Identity Female 04/12/2021 6:37 PM CDT Sexual Orientation Straight 04/12/2021 6: 37 PM CDT documented as of this encounter Plan of Treatment Upcoming Encounters Date Type Department Care Team (Late st Contact Info) Description 01/07/2025 10:30 AM CDT Hospital Encounter [address] [address] Randi Vega MD [address] [place] [address] DR [address] [place] [address] 01/07/2025 10:30 AM CDT - 01/07/2025 11:00 AM CDT Surgery [address] [address] Randi Vega MD [address] [place] [address] DR [address] [place] [address] COLONOSCOPY Scheduled Procedures Name Priority Associated Diagnoses Date/Ti me COLONOSCOPY History of colonic polyps Encounter for screening colonoscopy 01/07/2025 10:30 AM CDT documented as of this encounter Visit Diagnoses Not on filedocumented in this encounter Additional Health Concerns Infection Onset Date Last Indicated Resolved Time COVID: Suspected 04/22/2023 04/22/2023 04/22/2023 8:02 PM CDT documented as of this encounter Care Teams Health Education Aide Relationship Specialty Start Date End Date Favio Randolph MD PCP - General 09/29/16 03/05/19 Nicolas Xiao DO PCP - General Internal Medicine 03/06/19 07/16/22 Nathaniel Villatoro MD PCP - General Internal Medicine 07/17/22 01/21/23 Manpreet Sanderson MD PCP - General Family Practice 01/22/23 Randi Vega MD Consulting Physician Gastroenterology 01/22/23 Ángel Sampson MD PhD [address] [place] [address] Referring Physician Neurology 01/22/23 Keyla Santa MD [address] [facility] [address] [place] [address] Consulting Physician Internal Medicine 01/22/23 Muna Hernandez PA [address] [place] [address] [place] [address] Orthopedic Surgery 02/22/23 Kanu Hernandez MD [address] [place] [address] [place] [address] Consulting Physician Neurology 03/19/23 Lila Pedro MD [address] [place] [address] [place] [address] Consulting Physician Sleep Medicine 03/19/23 Hi Ware MD [address] [place] [address] [place] [address] Consulting Physician Pulmonary Disease 04/27/23 Josef Guardado MD [address] [facility] [address] [facility] [address] [place] [address] Surgeon Orthopedic Surgery 09/07/23 documented as of this encounter
--- OUTSIDE RECORDS SUMMARY | 2024-09-24 13:38 | XMS_ITS | Encounter Summary ---
Author Organization [facility] Health Address [address] [facility] [place] [address] Care Team Providers Care Medical Records Manager Name Role Phone Nicolas Xiao DO Primary Care Provider [phone] Reason for Visit * Reason Onset Date Comments LABS ONLY 04/16/2018 labs may have be en coded wrong Returned Call 04/16/2018 Encounter Details Date Type Department Care Team (Late st Contact Info) Description 04/16/2018 Telephone [facility] [address] [place] [address] Joanne Plata MD [address] [facility] [address] [place] [address] LABS ONLY (labs may have been coded [...] Pt returning missed call from the nurse. Callback#[phone] * Telephone Encounter - Whitney Lima RN [...] on filedocumented in this encounter Care Teams Medical Records Manager Relationship Specialty Start Date End Date Nicolas Xiao DO PCP - General 02/04/18 documented as of this encounter
--- OUTSIDE RECORDS SUMMARY | 2024-09-24 13:38 | XMS_ITS | Clinical Summary ---
Author Organization [facility] Medical Office Building B Address [address] [place] [address] Care Team Providers Care Farm Agent Name Role Phone Manpreet Sanderson MD Primary Care Provider + [phone] Randi Vega MD Unavailable [phone] Ángel Sampson MD PhD Unavailable + [phone] Keyla Santa MD Unavailable [phone] Muna Hernandez Unavailable [phone] Kanu Hernandez MD Unavailable [phone] Lila Pedro MD Unavailable Hi Ware MD Unavailable Josef Guardado MD Unavailable [phone] Allergies Active Allergy Reactions Criticality Noted Date [...] mg total) by mouth daily 015 Active carvediloL (COREG) 6.25 mg tabletIndications :hypertension [...] not exceed 30 mg in a day., (No indications reported), Reported on 09/19/2024 oxygenIndications :Dyspnea Administer 2 L into each nostril as needed (dyspnea) 2L O2 PRN for dyspnea during the day; 3L continous at night. Active aspirin 81 mg chewable tabletIndications :prevention of thrombosis Take 1 tablet (81 mg total) by mouth 2 (two) times a day for 14 days Resume once daily after 2 weeks Active Additional Information Patient taking differently:81 mg oralDaily, (No instructions reported), Indications: prevention of thrombosis, Reported on 09/19/2024 multivit with min-folic acid 0.4 mg tabletIndications [...] edema/sob) adjusted at md appt 10/10/23. Active inulin-chromium picolinate 2-100 gram-mcg tablet,chewable Take 1 each by mouth 2 (two) times a day Active sod sulf-pot chloride-mag sulf (Sutab) 1.479-0.188- 0.225 gram tabletIndications :Bowel Evacuation Take as directed on instructions for colonoscopy prep. Patient was given instructions 24 tablet Active Additional Information Patient not taking.Reported on 09/19/2024 lubiprostone (AMITIZA) 24 mcg capsule Take 1 capsule (24 mcg total) by mouth 2 (two) times a day with meals 180 capsule 3 025 2024 Active carbidopa-levodop a (SINEMET) 25-100 mg per tabletIndications :Parkinsonism Take 2 tablets by mouth 3 (three) times a day 540 tablet 3 025 2025 Active cycloSPORINE (RESTASIS) 0.05 % ophthalmic emulsionIndicatio ns:conjunctivitis 1 drop 2 (two) times a day 2024 Discontinued(T herapy completed) senna-docusate (PERICOLACE) 8.6-50 mgIndications:con stipation 1-2 times daily as needed for constipation 60 tablet 1 023 2024 Discontinued ondansetron ODT (ZOFRAN-ODT) 4 mg disintegrating tabletIndications :Prevention of Post-Operative Nausea and Vomiting,nausea and vomiting Take 1 tablet (4 mg total) by mouth every 6 (six) hours as needed for nausea or vomiting 30 tablet 1 2024 Discontinued carbidopa-levodop a (SINEMET) 25-100 mg per tabletIndications :Parkinsonism Take 2 tablets by mouth 3 (three) times a day 540 tablet 3 024 2024 Discontinued(R eorder) sucralfate (CARAFATE) 1 gram tablet Take one pill 3 times daily for 30 days. Try to take 30 minutes before eating. 90 tablet 2024 Discontinued lubiprostone (AMITIZA) 24 mcg capsule Take 1 capsule (24 mcg total) by mouth 2 (two) times a day with meals 60 capsule 3 2024 Discontinued(R eorder) Active Problems Problem Noted [...] 05/18/2022 Assessment & Plan (05/18/2022 8:14 AM ACOUSTICAL ENGINEER): She has subjective cognitive complaints including difficulty [...] years ago. Parkinsonism 05/17/2022 Assessment & Plan (09/19/2024 12:43 PM CDT): She presented for initial evaluation to our clinic in exhibiting parkinsonism stage 4 characterized by bilateral, slightly right greater than left, bradykinesia and rigidity, with postural instability. This was on several years of constipation, cognitive slowing and periods of word-finding difficulty, and possible reduced facial expression and intermittent hoarseness. Historically she has had tremor that is more with action by history, and more noticeable with posture holding on exam. Although at time of initial evaluation in 2021 she did not display rest tremor, since 2023 she has exhibited slight rest tremor (bilaterally in December 2023, unilateral in right hand today). Although the etiology is not entirely, the majority of her symptom constellation could be consistent with idiopathic Parkinson disease and her levodopa responsiveness support this diagnosis. Additionally, no obvious features to suggest another particular neurodegenerative disorder, including no early dementia, no early and progressive falling, no supranuclear gaze palsy, no profound dysautonomia, no apraxia. Her MOCA/MMSE in 2023 were 25 and 28, respectively. We will try to monitor this annually. She has not noticed any interval changes though we did discuss in the future should she, would warrant re-evaluation of her medications. In particular, she remains on Oxybutynin for OAB which has anti-cholinergic effects. Her gait/balance issues are likely multifactorial in setting of parkinsonism, neuropathy, and musculoskeletal issues. Although she would benefit from physical therapy for gait/balance training, she is not interested in doing so and feels her limited should ROM precludes her from working on this. We discussed trialing PT again now that she has recovered from her shoulder surgeries from last year. I provided her with an external referral in case she changes her mind. We can also trial an increase in carbidopa-levodopa from 2 tabs TID to 2.5 tabs TID to see if provides further benefit for mobility/balance though reviewed not doing so at present time in setting of active UTI. Once fully recovered from UTI she can trial this as tolerated. We discussed staying active and I encouraged her to work in exercise as tolerated into her regimen. I provided her with instructions on how to access the [employer] exercise channel. Finally, she endorses inadequate management of anxiety and we reviewed that she can discuss increasing sertraline as tolerated at upcoming PCP visit as Dr. Sanderson manages this medication. Recommendations: Once UTI resolved, can trial increasing C/L from 2 tabs TID to 2.5 tabs TID while monitoring for side effects PT referral [employer] exercise channel access information provided Follow-up in 6 months, sooner prn NPT next clinic visit Will request she is on cancellation list for Dr. Sampson as currently not scheduled for follow-up until 2025 Assessment & Plan (11/27/2023 11:09 PM CDT): [...] with instructions on how to access the [employer] exercise channel. Finally, she endorses frustration with [...] will update our office in 4 weeks [employer] exercise channel access information provided Will order physical therapy for gait/balance training, strength and stretching once cleared from recent left shoulder surgery - patient to notify our office once cleared for referral entry NPT today Assessment & Plan (05/18/2022 8:04 AM ACOUSTICAL ENGINEER): She has parkinsonism stage 4 characterized by [...] (06/17/2021): Added automatically from request for surgery [id number] Memory loss 05/09/2021 Cyst of ovary 12/28/2020 Urinary incontinence 12/28/2020 Other intra-abdominal and pelvic swelling, mass and lump 04/08/2020 Overview (04/08/2020): Added automatically from request for surgery [id number] History of colonic polyps 06/05/2019 Overview (06/05/2019): Added automatically from request for surgery [id number] Assessment & Plan (06/05/2019 3:16 PM ACOUSTICAL ENGINEER): She is overdue for a screening colonoscopy. [...] 03/06 Assessment & Plan (06/05/2019 3:16 PM ACOUSTICAL ENGINEER): Continue taking fiber daily. Will have her [...] 9 Assessment & Plan (06/05/2019 3:15 PM ACOUSTICAL ENGINEER): Well controlled on omeprazole daily. She may [...] (03/06/2019): Added automatically from request for surgery [id number] Assessment & Plan (06/05/2019 3:14 PM ACOUSTICAL ENGINEER): Doing well. No recent episodes. Assessment & Plan (04/03/2019 3:13 PM CDT): Not as severe or often as previously. She says she noticed that this occurs when she is constipated. Will try to improve constipation and see if this improves pain further. 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 7th [place] [id number] Danica Reyes NP Parkinsonism, unspecified Parkinsonism type (HCC) (Primary Dx) 09/10/2024 1:00 PM CDT Office Visit [facility] Gastroenterology at [address] [place] [address] Anastacio House NP Irritable bowel syndrome with constipation (Primary Dx); Gastroesophageal reflux disease without esophagitis; Chronic superficial gastritis without bleeding; Tubular adenoma of colon; Nausea and vomiting, unspecified vomiting type 09/05/2024 Telephone [facility] Scheduling [address] [place] [address] Kathia Azul from Last 3 Months Immunizations Immunization Administration [...] Obesity Heart murmur GERD (gastroesophageal reflux disease) Lithuanian measles 1958 Bronchial pneumonia 1963 Mumps 1976 [...] materials from doctor or pharmacy Never 01/01/2024 [facility] Utilities Answer Date Recorded In the past [...] often do you attend chur ch or jainism services? More than 4 times per year 09/06/2023 Do you belong to any clubs o r organizations such as congregation groups, unions, fraternal or athletic groups, or [...] place to sleep or slept in a intermediate (including now)? No 09/06/2023 Personal Safety Answer Date Recorded Have you ever been in or are you currently in a harmful physical or emotional relationship or is someone making you feel afraid or unsafe? Denies 02/16/2024 Comments No Sex and Gender Information Value Date Recorded Sex Assigned at Not on file Legal Sex Female 12:25 PM ACOUSTICAL ENGINEER Gender Identity Female 04/12/2021 6:37 PM CDT Sexual Orientation Straight 04/12/2021 6: 37 PM CDT Obstetrics History Last Filed Vital Signs Vital Sign Reading Time Taken Comments Blood Pressure 124/77 09/19/2024 10:21 AM CDT Pulse 66 09/19/2024 10:21 AM CDT Temperature 37 C (98.6 F) 04/15/2024 1:56 PM CDT Respiratory Rate 18 04/15/2024 1:56 PM CDT Oxygen Saturation 94% 09/10/2024 1:11 PM CDT Inhaled Oxygen Concentration - - Weight 78.4 kg (172 lb 12.8 oz) 025 10:21 AM CDT Height 157.5 cm (5' 2 ) 09/19/2024 10:2 1 AM CDT Body Mass Index 31.61 09/19/2024 10:21 AM CDT Plan of Treatment Upcoming Encounters Date Type Department Care Team (Late st Contact Info) Description 01/07/2025 10:30 AM CDT Hospital Encounter [address] [address] Randi Vega MD [address] [facility] [place] [address] 01/07/2025 10:30 AM CDT - 01/07/2025 11:00 AM CDT Surgery [address] [address] Randi Vega MD [address] [facility] [place] [address] COLONOSCOPY Scheduled Procedures Name Priority Associated Diagnoses [...] Additional history exists Influenza Vaccine (#1) 2024 , 04/01/2019, 04/20/2018 Fall Risk Assessment 09/05/2024 09/06/2023, [...] history exists Medical Devices Implanted Type Area Lead Cargoman Device Identifier Shelf Expiration Date Model / Serial / Lot Lens Implants W/Cataract Extraction Bilateral: Eye Exactech Equinoxe 13mm Press Fit Primary Shoulder Stem Humeral 300-0113 - [id number] - [id number] Implanted:Qty: 1 on 02/22/2023 by Josef Guardado MD at [facility] Left: Shoulder Exactech 06/14/2032 300-01-13 / [id number] / Exactech Equinoxe 36mm Shoulder 0mm Offset Liner Humeral Sterile 320-36-00 - [id number] - [id number] Implanted:Qty: 1 on 02/22/2023 by Josef Guardado MD at [facility] Left: Shoulder Exactech 07/18/2027 320-36-00 / [id number] / [place] [employer] Bioprep Preparation Plug Cook [place] Suction Femoral [id number] - [id number] Implanted:Qty: 1 on 02/22/2023 by Josef Guardado MD at [facility] Left: Shoulder [employer]ok [employer] [id number] / / [id number] Exactech Equinoxe Small Reverse Superior Augment Shoulder 10d Plate 320-35-02 - [id number] - [id number] Implanted:Qty: 1 on 02/22/2023 by Josef Guardado MD at [facility] Left: Shoulder Exactech 08/28/2032 320-35-02 / [id number] / Exactech Reverse Torque Define Shoulder Kit Screw 320-20-00 - [id number] - [id number] Implanted:Qty: 1 on 02/22/2023 by Josef Guardado MD at [facility] Left: Shoulder Exactech 12/12/2027 320-20-00 / [id number] / Exactech Equinoxe Lock Reverse Shoulder Glenosphere Screw Bone 320-15-05 - [id number] - [id number] Implanted:Qty: 1 on 02/22/2023 by Josef Guardado MD at [facility] Left: Shoulder Exactech 12/20/2027 320-15-05 / [id number] / Exactech Equinoxe 4.5mm 34mm Kit Compression Lock Cap Reverse Shoulder 320-20-34 - [id number] - [id number] Implanted:Qty: 1 on 02/22/2023 by Josef Guardado MD at [facility] Left: Shoulder Exactech 03/15/2027 320-20-34 / [id number] / Exactech Equinoxe 4.5mm 22mm Kit Compression Lock Cap Reverse Shoulder 320-20-22 - [id number] - [id number] Implanted:Qty: 1 on 02/22/2023 by Josef Guardado MD at [facility] Left: Shoulder Exactech 01/09/2028 320-20-22 / [id number] / Exactech Component 36mm Glenoid Glenosphere Reverse Shoulder 320-31-36 - [id number] - [id number] Implanted:Qty: 1 on 02/22/2023 by Josef Guardado MD at [facility] Left: Shoulder Exactech 09/20/2032 320-31-36 / [id number] / Exactech Equinoxe Reverse Shoulder +0mm Tray Humeral Adapter 320-1000 - [id number] - [id number] Implanted:Qty: 1 on 02/22/2023 by Josef Guardado MD at [facility] Left: Shoulder Exactech 10/15/2032 320-10-00 / [id number] / Exactech Liner Humeral Reverse Equinoxe +0x36mm 320-36-10 - [id number] - [id number] Implanted:Qty: 1 on 09/06/2023 by Josef Guardado MD at [facility] Left: Shoulder Exactech [id number] 01/16/2027 320-36-10 / [id number] / Exactech Equinoxe Lock Reverse Shoulder Glenosphere Screw Bone 320-15-05 - [id number] - [id number] Implanted:Qty: 1 on 09/06/2023 by Josef Guardado MD at [facility] Left: Shoulder Exactech [id number] 07/07/2028 320-15-05 / [id number] / Exactech Equinoxe 36mm 26.1mm Expand Small Reverse Shoulder Sphere Glenoid 320-32-36 - [id number] - [id number] Implanted:Qty: 1 on 09/06/2023 by Josef Guardado MD at [facility] Left: Shoulder Exactech [id number] 12/18/2032 320-32-36 / [id number] / Procedures Procedure Name Priority Date/Time Associated Diagnosis Comments COLONOSCOPY 05/30/2022 10:19 AM ACOUSTICAL ENGINEER from Last 3 Months or Most Recently Relevant to Health Maintenance Results * COLONOSCOPY (05/30/2022 10:19 AM ACOUSTICAL ENGINEER) Anatomical Region Laterality Modality Other Narrative Procedure Note Randi Vega MD - 05/30/2022 10:19 AM CST [facility] Patient Name: Alicia Wells Procedure Date: 05/30/2022 10:19AM Date of : 1945 Admit Type: Outpatient Age: 76 Gender: Female Attending MD: Randi Vega M.D. Room: [facility] ENDOSCOPY ROOM 1 Note Status: Finalized Patient [...] under direct vision. The Pediatric Colonoscope [id number] was introducedthrough the anus and advanced to [...] 10:19 AM Procedure Code(s): --- Professional --- 09984, Colonoscopy, flexible; with biopsy, single or multiple Diagnosis Code(s): --- Professional --- Z86.010, Personal history of colonic polyps K64.8, Other hemorrhoids D12.3, Benign neoplasm of transverse colon (hepatic flexure orsplenic flexure) K57.30, Diverticulosis of large intestine without perforation orabscess without bleeding CPT copyright 2020 [employer]. All rights reserved. The codes documented in this report are preliminary and upon delivery room supervisor reviewmay be revised to meet current compliance requirements. Recognized by the [employer] for promoting quality in endoscopy Randi Vega MD ENDOSCOPY PROCEDURES Final Result from Last 3 Months or Most Recently Relevant to Health Maintenance Insurance [facility] MEDICARE ADVANTAGE [facility] MEDICARE Address: [facility] [address] [place] [address] MEDICARE ADVANTAGE [facility] MEDICARE Address: [address] [place] [address] MEDICARE ADVANTAGE [facility] MEDICARE Address: [address] [address] [place] [address] MEDICARE ADVANTAGE [facility] MEDICARE Address: [address] [address] [place] [address] Advance Directives For more information, please contact: [phone] * Full Code (Latest Code Status on [...] 10:11 AM 05/30/2022 10:11 AM Care Teams Farm Agent Relationship Specialty Start Date End Date Manpreet Sanderson MD PCP - General Family Practice 01/22/23 Randi Vega MD Consulting Physician Gastroenterology 01/22/23 Ángel Sampson MD PhD [address] [place] [address] Referring Physician Neurology 01/22/23 Keyla Santa MD [address] [facility] [address] [place] [address] Consulting Physician Internal Medicine 01/22/23 Muna Hernandez PA [address] [place] [address] [address] [place] [address] Orthopedic Surgery 02/22/23 Kanu Hernandez MD [address] [place] [address] [address] [place] [address] Consulting Physician Neurology 03/19/23 Lila Pedro MD [address] [place] [address] [address] [place] [address] Consulting Physician Sleep Medicine 03/19/23 Hi Ware MD [address] [place] [address] [address] [place] [address] Consulting Physician Pulmonary Disease 04/27/23 Josef Guardado MD [address] [place] [address] [address] [facility] [address] [place] [address] Surgeon Orthopedic Surgery 09/07/23
--- OUTSIDE RECORDS SUMMARY | 2024-09-24 13:38 | XMS_ITS | Clinical Summary ---
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 SCREENING BILATERAL DIGITAL W CAD W SIDDHARTHA Routine 08/16/2023 12:50 PM PRICING CONSULTANT Visit for screening mammogram [facility] BONE DENSITOMETRY AXIAL SKELETON Routine 04/14/2021 1:51 PM CDT Asymptomatic menopausal state from Last 3 Months or Most Recently Relevant to Health Maintenance Results * [facility] SCREENING BILATERAL DIGITAL W CAD W SIDDHARTHA (08/16/2023 12:50 PM PRICING CONSULTANT) Anatomical Region Laterality Modality breast Bilateral Mammography 08/16/2023 12:1 2 PM PRICING CONSULTANT Narrative 08/17/2023 12:35 PM PRICING CONSULTANT - [facility] SCREENING BILATERAL DIGITAL W CAD [...] to exams dated: [facility]/15/2022[facility]2021[facility] BREAST TISSUE:There are scattered fibroglandular densities [...] signed by: Tanvi Lopez M.D. ll/:08/16/2023 16:29:08 Second Officer(s): RT Yaritza(R)(M), [facility] letter sent: Normal Exam Reading location: [facility] BI-RADS: 1 Negative Procedure Note Tanvi [...] to exams dated: 06/15/2022, 04/11/2021, and 03/12/2020 [facility]. BREAST TISSUE:There are scattered fibroglandular densities in [...] signed by: Tanvi Lopez M.D. ll/:08/16/2023 16:29:08 Second Officer(s): RT Yaritza(R)(M), [facility] letter sent: Normal Exam Reading location: [facility] [...] old female with given history of screening. Radiology Tech/Model: GHash.IO (S/N [id number]) CLINICAL INFORMATION: Current height: 63 inches Weight: [...] signed by Reji SALINAS: BRAD Report ID: [id number] Reading Location: [place] [address] Procedure Note Reji Odell MD - 04/14/2021 EXAM DESCRIPTION: [place] BONE DENSITOMETRY AXIAL SKELETON REASON FOR STUDY: 75 year old female with given history of screening. Radiology Tech/Model: GHash.IO (S/N [id number]) CLINICAL INFORMATION: Current height: 63 inches Weight: [...] Reji Odell M.D. BRAD: BRAD Report ID: [id number] Reading Location: [id number] IMPRESSION: Low bone mass REFERENCE: Bone mineral [...] Relevant to Health Maintenance Insurance MEDICARE C [facility] Care Teams Service Sprinkler Helper Relationship Specialty Start Date End Date Manpreet Sanderson MD [address] [place] [address] PCP - General Family Medicine 12/19/22 Abhijit Elizabeth MD Consulting Physician Gastroenterology 01/14/16
--- OUTSIDE RECORDS SUMMARY | 2024-09-24 13:38 | XMS_ITS | Data Portability ---
Author Organization [facility] Address [address] [place] [address] Assessment No assessment recorded. Plan of Treatment Reminders Order Date Submit Date Provider Last Modified By Organization Details Last Modified Time Details Appointments None recorded . Lab bacteria l vaginosi s + vaginiti s panel, vaginal 2016 017 [facility], [address] [place] [address], [address], [place], [address], 7 07:13:54 Referral None recorded . Procedures None recorded . Surgeries None recorded . Imaging MAMMO, screenin g, digital, bilatera l 2019 020 [facility] ([facility]) Scheduling, [address] [place], [address], 0 08:59:27 US, pelvis, transabd ominal + transvag inal - assess endometr ial thicknes s 2019 020 TENISHA Laci [facility] (Radiology), 1 [facility] [place], [address], 0 17:21:15 bone density 2017 018 manish Laci [facility] Scheduling, 1 [facility] [place], [address], 8 10:02:14 US, pelvis, transabd ominal + transvag inal 2017 018 TENISAH Not available 8 08:41:18 MAMMO, screenin g, bilatera l 2016 017 [facility]pass [facility] ([facility] Scheduling, [address] [place], [address], 7 09:04:41 Medication Orders None recorded . Patient TargetsNo targets recorded. Patient Instructions Encounter Date Encounter Id Patient Instructions Last Modified By Organization Details Last Modified Time 02/03/2015 [id number] Stress Incontinence: Care Instructions onofre Not available 02/03/2015 15:57:42 To make apt. wit h Dr. Keyla Santa for urinary incontinence mpass Not available 02/03/2015 15:52:47 12/11/2016 [id number] learning about breast cancer screening mpa Not available 12/12/2016 09:04:41 Await test results. Make appt. for mammogram. mpa Not available 12/11/2016 17:07:44 11/08/[id number] Sindhu currie Not available 11/08/2017 18:16:12 02/02/2020 [id number] cystocele: care instructions fabiolanstrramez Not available 02/02/2020 10:30:06 Reason for Referral None Reported. Results Created Date Observation Date Name Description Value Unit Range Abnormal Flag Note LastModifiedBy Organization Detail LastModifiedTime 12/03/19 16 12/04/2015 ca 125, serum cancer antigen (Ca) 125 13.9 U/mL 0.0-38 .1 . PLE ASE NOTE REFER ENCE INTER LIVIA DIA E LOUIS ECLIA METHO DOLOG Y Not Available [facility] ([facility]) [address] [facility], [place], [address], 12/04/2015 11:11:49 12/12/19 17 12/13/2016 bacte rial vagin osis + vagin itis panel , vagin al trich vag by JORGE NEGATI VE negati ve Not Available [facility] ([facility]) [address] [facility], [place], [address], 12/20/2016 07:13:54 12/12/19 17 12/13/2016 bacte rial vagin osis + vagin itis panel , vagin al chlamydia trachomatis, JORGE NEGATI VE negati ve Not Available [facility] ([facility]) [address] [place], [address], 12/20/2016 07:13:54 12/12/19 17 12/13/2016 bacte rial vagin osis + vagin itis panel , vagin al neisseria gonorrhoeae, JORGE NEGATI VE negati ve Not Available [facility] ([facility]) [address] [place], [address], 12/20/2016 07:13:54 12/12/19 17 12/15/2016 bacte rial vagin osis + vagin itis panel , vagin al atopobium vaginae LOW - 0 score Not Available [facility] ([facility]) [address] [place], [address], 12/20/2016 07:13:54 12/12/19 17 12/15/2016 bacte rial vagin osis + vagin itis panel , vagin al bvab 2 LOW - 0 score Not Available [facility] ([facility]) [address] [place] [address], [address], 12/20/2016 07:13:54 12/12/19 17 12/15/2016 bacte rial vagin osis + vagin itis panel , vagin al megasphaera 1 LOW - 0 score CALCU LATE TOTAL SCORE BY LITA Smalls THE 3 INDIV IDUAL BACTE RIAL VAGIN OSIS (BV) MARKE R SCORE S TOGET HER. TOTAL SCORE IS INTER PRETE D FOLLO WS: TOTAL SCORE 0-1: INDIC ATES THE ABSEN CE OF BV. TOTAL SCORE 2: INDET ERMIN ATE FOR BV. ADDIT IONAL CLINI MARGO DATA SHOUL D BE EVALU ATED TO ESTAB CHELLY A DIAGN OSIS. TOTAL SCORE 3-6: INDIC ATES THE PRESE NCE OF BV. THIS TEST WAS DEVEL OPED AND ITS PERFO RMANC E LISETTE CTERI STICS DETER MINED BY [email or web address]. IT HAS NOT BEEN CLEAR ED OR APPRO JANELL BY THE FOOD AND DRUG ADMIN ISTRA TION. THE FDA HAS DETER MINED THAT SUCH CLEAR ANCE OR APPRO LIVIA IS NOT NECES KALYANI. Not Available [facility] ([facility]) [address] [place], [address], 12/20/2016 07:13:54 12/12/19 17 12/19/2016 bacte rial vagin osis + vagin itis panel , vagin al luigi albicans, JORGE NEGATI VE negati ve Not Available [facility] ([facility]) [address] [place], [address], 12/20/2016 07:13:54 12/12/19 17 12/19/2016 bacte rial vagin osis + vagin itis panel , vagin al luigi glabrata, JORGE NEGATI VE negati ve THIS TEST WAS DEVEL OPED AND ITS PERFO RMANC E LISETTE CTERI STICS DETER MINED BY [email or web address]. IT HAS NOT BEEN CLEAR ED OR APPRO JANELL BY THE FOOD AND DRUG ADMIN ISTRA TION. THE FDA HAS DETER MINED THAT SUCH CLEAR ANCE OR APPRO LIVIA IS NOT NECES KALYANI. Not Available [facility] ([facility]) [address] [facility], [place], [address], 12/20/2016 07:13:54 01/22/20 19 01/22/2019 ca 125, serum Ca 125 7 U/mL <35 normal This test was perfo rmed using the [employer] an Coult er Chemi lumin escen t metho d. Value s obtai agustin from diffe rent assay metho ds canno t be used inter dia eablsimeon . CA 125 level s, regar dless of value , shoul d not be inter prete d as absol saundra evide nce of the prese nce or absen ce of disea se. Not Available [employer] [address] [place], [address], 01/22/2019 09:30:08 01/17/20 15 01/15/2015 imagi ng/di agnos tic resul t No observ ation record ed. mpass [facility] ([facility]) Scheduling [address] [place], [address], 02/03/2015 15:52:10 11/16/19 16 11/16/2015 imagi ng/di agnos tic resul t No observ ation record ed. BARCODE Not Available 2015 16:35:36 11/28/19 16 11/27/2015 ultra sound , pelvi c trans abdom inal & trans vagin al No observ ation record ed. [email or web address] [address] [place], [address], 12/03/2015 16:50:19 11/09/19 18 10/24/2017 imagi ng/di agnos tic resul t No observ ation record ed. BARCODE Not Available 2017 16:35:21 11/09/19 18 08/11/2017 MAMMO , scree sherin, digit al, bilat eral No observ ation record ed. BAR[facility] ([facility]) Scheduling [address] [place], [address], 11/08/2017 16:35:58 11/21/19 18 11/20/2017 US, pelvi s, trans abdom inal + trans vagin al No observ ation record ed. charles Laci [facility] ([place]) 1 [facility] [place], [address], 12/05/2017 10:42:16 12/13/19 18 12/11/2017 bone densi ty No observ ation record ed. [email or web address] [facility] [address] [place], [address], 12/27/2017 15:32:26 01/11/20 19 01/10/2019 US, pelvi s, trans abdom inal + trans vagin al No observ ation record ed. [facility] Scheduling 1 [facility] [place], [address], 12/15/2019 15:42:58 01/29/20 19 12/13/2018 MAMMO , scree sherin, digit al, bilat eral No observ ation record ed. [facility]CODE Not Available 2018 11:11:52 01/29/20 19 12/13/2018 bone densi ty No observ ation record ed. BARCODE Not Available 2018 11:15:00 03/09/20 20 03/09/2020 US, pelvi s, trans abdom inal + trans vagin al No observ ation record ed. charles Aguero [address], [place], [address], 03/11/2020 14:10:43 03/13/20 20 03/12/2020 MAMMO , scree sherin, digit al, bilat eral No observ ation record ed. [facility] (Radiology) [address] [place], [address], 03/16/2020 17:46:36 Result Notes None recorded. Problems Name Problem SNOMED Code Status Onset Date Resolution Date Notes Provider Name and Address Organization Details Recorded Time Urinary incontinence Active Laura Avalos MELANY- Attn: Maicol smalls,[address] [facility], [place], [address], [place] - [facility] 5 15:52:46 Cyst of ovary 98812951 Active Shawna Lamb [facility], [place] - [facility] 6 10:27:36 Problem Notes None recorded. Procedures Surgical History Date Name Laterality Status Provider Name and Address Organization Details Recorded Time 3 Date of Last Pap Smear completed Shawna [place] [facility] 02/02/2015 17:08:25 colonoscopy completed MIA Oseguera [place] - [facility] 02/02/2020 10:13:02 Tubal Ligation completed Shawna [place] [facility] 02/03/2015 15:32:33 Imaging Results Imaging Date Name Status LastModified by Organization Details LastModified Time 01/15/2015 imaging/diagnostic result completed [place] [employer] [facility] ([facility]) Scheduling [address] [place], [address], 02/03/2015 15:52:10 11/16/2015 imaging/diagnostic result completed [facility] Information not available 11/16/2015 16:35:36 11/27/2015 ultrasound, pelvic transabdominal & transvaginal completed [email or web address] [facility] 1 [facility] [place], [address], 12/03/2015 16:50:19 10/24/2017 imaging/diagnostic result completed [facility] Information not available 11/08/2017 16:35:21 08/11/2017 MAMMO, screening, digital, bilateral completed [facility] ([facility]) Scheduling [address] [place], [address], 11/08/2017 16:35:58 11/20/2017 US, pelvis, transabdominal + transvaginal completed charles Aguero [facility] 1 [facility] [place], [address], 12/05/2017 10:42:16 12/11/2017 bone density completed charles [facility] [address], [address], 12/27/2017 15:32:26 01/10/2019 US, pelvis, transabdominal + transvaginal completed brooke Laci [facility] Scheduling 1 [facility] [place], [address], 12/15/2019 15:42:58 12/13/2018 MAMMO, screening, digital, bilateral completed [facility] Information not available 01/28/2019 11:11:52 12/13/2018 bone density completed [facility] Information not available 01/28/2019 11:15:00 03/09/2020 US, pelvis, transabdominal + transvaginal completed charles Aguero [facility] 2 [facility] [place], [address], 03/11/2020 14:10:43 03/12/2020 MAMMO, screening, digital, bilateral [email or web address] [address] [place], [address], 03/16/2020 17:46:36 Procedure Notes None recorded. Medical Equipment None Reported. Allergies Allergen ID Allergen Name Allergen Category Reaction Reaction Severity Criticality Documentation Date Start Date Code Code System Note Provider Name and Address Organization Details Recorded Time 23912 hydrochlo rothiazid e medicatio n Not available Not available Not available 02/02/2015 5487 RxNorm Not Available Not Available Not Available 69932 tramadol medicatio n Not available Not available Not available 02/03/2015 58641 RxNorm can't take any muscl e relax ers or Trama dol with Zolof t Not Available Not Available Not Available Medications Name Sig Start Date Stop Date Status Note LastModified by Organization Details LastModified Time hydrocortiso ne 2.5 % crea active Not Available Not Available Not Available restasis multidose 0.05 % emul active Not Available Not Available Not Available oxybutynin chloride er 15 mg tb24 active Not Available Not Available N ot Available gabapentin 300 mg caps active Not Available Not Available Not Available doxycycline monohydrate 50 mg caps active Not Available Not Available N ot Available topiramate 25 mg tabs active Not Available Not Available N ot Available restasis 0.05 % emul active Not Available Not Available Not Available carvedilol 6.25 mg tabs active Not Available Not Available Not Available furosemide 20 mg tabs active Not Available Not Available N ot Available sertraline hcl 100 mg tabs active Not Available Not Available Not Available clorazepate dipotassium 3.75 mg tabs active Not Available Not Available Not Available omeprazole 40 mg cpdr active Not Available Not Available N ot Available Prescription - Clarificatio n active Not Available Not Available Not Available fluocinonide 0.05 % soln active Not Available Not Available Not Available trazodone 50 mg tablet Take 1 tablet 3 times a day by oral route. 12/11 completed Not Available Not Available Not Available Prilosec 40 mg capsule,marcela yed release Take 1 capsule every day by oral route. active Not Available Not Available No t Available Lasix 20 mg tablet Take 1 tablet every day by oral route. active Not Available Not Available No t Available Tranxene T-Tab 3.75 mg tablet Take 1 tablet twice a day by oral route. active Not Available Not Available No t Available Zoloft active 150mg Not Available Not Availa ble Not Available Vitamin D3 active Not Available Not Av ailable Not Available Vitals Date Recorded Body height Body mass index (BMI) Body weight Systolic blood pressure Diastolic blood pressure Provider Name and Address Organization Details Last Updated DateTime 11/08/2017 161.29 cm 31.7 kg/m2 15752.81 g 128 mm[Hg] 62 mm[Hg] MIA Santos [facility] 8 16:08:48 Date Recorded Body height Body mass index (BMI) Body weight Systolic blood pressure Diastolic blood pressure Provider Name and Address Organization Details Last Updated DateTime 02/03/2015 161.29 cm 29.1 kg/m2 99599.92 579 g 116 mm[Hg] 86 mm[Hg] Shawna Lamb [facility] 5 15:32:34 Date Recorded Body height Body mass index (BMI) Body weight Systolic blood pressure Diastolic blood pressure Provider Name and Address Organization Details Last Updated DateTime 02/02/2020 161.29 cm 34.3 kg/m2 65542.7 g 152 mm[Hg] 80 mm[Hg] Crystal García Naun [facility] 0 10:12:08 Date Recorded Body height Body mass index (BMI) Body weight Systolic blood pressure Diastolic blood pressure Provider Name and Address Organization Details Last Updated DateTime 12/11/2016 161.29 cm 30.7 kg/m2 85397.26 g 120 mm[Hg] 68 mm[Hg] Shawna Ricks MA [facility] 7 16:52:11 Social History Question Answer Notes LastModified by Organizat ion Details LastModified Time Tobacco Smoking Status Former Smoker MIA Santos null, [facility] 11/08/2017 16:13:54 Do You Or Have You Ever Used E-cigarettes Or Vape? Never Used Electronic Cigarettes Information not available 02/02/2020 What Was The Date Of Your Most Recent Tobacco Screening? 02/02/2020 Information not available 02/02/2020 Do You Or Have You Ever Used Smokeless Tobacco? Never Used Smokeless Tobacco Information not available 02/02/2020 How Much Tobacco Do You Smoke? 1 PPD Information not available 11/08/2017 On What Date Was Tobacco Cessation Counseling Provided? 02/02/2020 Information not available 02/02/2020 How Many Years Have You Smoked Tobacco? 14 Information not available 11/08/2017 Sex: Unknown Functional Status None recorded. Mental Status None recorded. Family History Relationship Description Onset Age of this Age Resolved Age Notes LastModified by Organization Details LastModified Time Mother Hypertensive disorder krichert Not available 2014 15:32:34 Mother Osteoporosis krichert Not avail able 02/03/2015 15:32:34 Mother Hypercholest erolemia krichert Not available 2014 15:32:34 Mother Chronic obstructive pulmonary disease krichert Not available 2014 15:32:34 Medical History Condition Response Heart Problems Y Other Y High Blood Pressure Y Heart Problems/Murmur Y Arthritis Y Depression Y Osteoporosis Y Gynecological History Statement/Question Response If Post Menopausal, Age at Menopause 52 Sexually Active? N Menses Monthly N STIs/STDs N Date of Last Pap Smear 06/18/2013 Sexual Problems? N Current Control Method Abstinence Most Recent Mammogram Age at First Child 20 LMP Unknown Obstetrics History GPAL:G 2 P 2 0 0 2 Type Value Full Term 2 Living 2 Total 2 Past Encounters Encounter ID Performer Location Encounter Start Date Encounter Closed Date Diagnosis/Indication Diagnosis SNOMED-CT Code Diagnosis ICD10 Code Diagnosis Note [id number] Pebbles Frandy Genao ([place] [address]) 2 [facility] [place] [address] 02/03/2015 15:16:47 02/03/2015 16:36:46 Gynecologic examination 95270546 Urinary incontinence [id number] Referred to Dr. Keyla Santa [id number] Laura Avalos [facility] [place] ([facility]) [address] [place] [address] 12/11/2016 16:38:21 12/12/2016 08:40:54 Vaginal discharge 225149106 N89.8 Screening for malignant neoplasm of breast 632078152 Z12.31 [id number] MD Laci Carlson 14 OB 4 [facility] [place] [address] 11/08/2017 15:56:36 11/08/2017 18:16:37 Cyst of ovary 03857526 N83.209 Patient has history of ovarian cyst. Pelvic US ordered to follow up on cyst. Endometrium thickened 44 8184695 R93.8 Patient had MRI done by PCP and incidently showed endometria l thickening and recommende d follow up pelvic US. Patient however is not bleeding. Pelvic US ordered. Screening mammography 24 765754 Z12.31 Patient educated on the importance of annual breast cancer screenings with mammograph y. Last mammogram completed 08/2017 [facility] 1 Gynecologi c examination 17840465 Z01.419 -Educated on the importance of SBE and awareness. -Educated osteoporos is prevention including calcium rich foods, weight bearing exercise. -Discussed the importance of exercise. -Nutrition discussed and the importance of a diet rich in fruits, vegetable, whole grains, and lean proteins. -Counseled regarding prevention of STD's and screening options, condom use and prevention . -Advised avoidance of tobacco, alcohol, and drugs. -Discussed sun safety and the importance of sunscreen. Screening for malignant neoplasm of colon 126736157 Z12.11 Patient educated on the importance of screening for colon cancer. Patient reports she had colonoscop y done in 2012 that was normal and she is suppose to have it repeated in 5 years from then Body mass index 30+ - obesity 962829658 Z68.31 Educated patient on nutrition and exercise. Follow up as needed. Screening for osteoporosis 960722853 Z13.820 Patient educated on the importance of osteoporos is screenings . Educated osteoporos is prevention including calcium rich foods, weight bearing exercise [id number] NATHAN Hoffman 14 OB 4 [facility] [address] [place] [address] 02/02/2020 09:57:32 02/03/2020 10:12:52 Gynecologic examination 03471398 Z01.419 -Educated on the importance of SBE and awareness. -Educated osteoporos is prevention including calcium rich foods, weight bearing exercise. -Discussed the importance of exercise. -Nutrition discussed and the importance of a diet rich in fruits, vegetable, whole grains, and lean proteins. -Counseled regarding prevention of STD's and screening options and condom use -Advised avoidance of tobacco, alcohol, and drugs. Vitamin D deficiency 347 49778 E55.9 Continue to follow up with PCP for low vitamin D and low bone mass. Screening mammography 24 520776 Z12.31 Patient educated on the importance of annual breast cancer screenings with mammograph y. Mammogram order given for pt to complete. Cyst of ovary 59357078 N 83.209 Patient has history of ovarian cyst. Pelvic US ordered to follow up on cyst. Pt educated on warning signs and notified when to call office. Follow up based on US results. Cystocele 575111447 N81. 10 Discussed all management options. Pt not interested in interventi on at this time. Pt educated on warning signs and notified when to call office. Follow up annually and as needed if issues occur. Screening for malignant neoplasm of colon 343171167 Z12.11 Patient educated on the importance of screening for colon cancer. Pt reports she had colonoscop y in august 2019. Female str ess incontinence 02266613 N39.3 Continue to follow up with urology. Edema of l ower extremity 245827622 R60.0 Pt is on lasix by PCP. Pt denies worsening. Pt notified to follow up with PCP within 1 week. Pt educated on warning signs and given ER precaution s. Body mass index 30+ - obesity 079472823 Z68.34 Educated patient on nutrition and exercise. Follow up with pcp. Health Concerns Section Related Observation LastModified by Organization Detai ls LastModified Time None Recorded Concern Status LastModified by Organization Details LastModified Time None Recorded Advance Directives Directive None Recorded Payers Encounter Date Sequence Insurance Name Policy Number Policy Parada Covered Member ID Parada Member ID Guarantor Name 02/03/2015 1 [facility] (PPO) [id number] Carina L Priscilla [id number] Carina L Priscilla 12/11/2016 1 [facility] (PPO) [id number] Carina L Priscilla [id number] Carina L [place] 11/08/2017 1 [facility] (PPO) [id number] Carina L [place] [id number] Carina L Priscilla 02/02/2020 1 [facility] (MEDICARE REPLACEMENT/A DVANTAGE - HMO) [id number] Carina L [place] [id number] Carina Selma Priscilla Notes Date Note Type Note Provider Name and Address Organization Details Recorded Time 12/11/2016 text/html Vaginal DischargeReported bypatient.Location:vag quang Quality:increased quantity; yellow Severity:moderate Onset/Timing:acute; 3 episodes of yellow discharge, the first 2 occuring after stomach problems, the third started yesterday. Context:postmenopausal ; history of vaginal atrophy; history of menopause having occurred Modifying Factors:nothing gives relief; washing with soap Associated Symptoms:no vaginal itching; no vaginal burning; no swelling/redness; no fever/chills; no diarrhea; no abdominal pain; no pelvic pain; no vaginal pain; no pain during urination; no pain during intercourse; no vaginal lump; no genital lesion; no sexually transmitted disease; no fever DENILSON Pablo Attn: Accounting,[address] [place] [address], [phone], [facility] 12/11/2016 17:08:06 11/08/2017 text/html Annual GYNReport ed bypatient.History:no gynecologic complaints Menstrual cycle:menopause Urinary symptoms:No hematuria; No incontinence; patient reports history of over active bladder that is controlled with medication and managed by her urologist. Patient denies any urinary issues at this time. Vulva:No genital lesion Vagina:Normal vaginal discharge Breast:No breast pain; No breast lump; No nipple discharge Current Contraception:menopaus e Sexual complaints:No sexual complaints; No pain during intercourse; Normal libido Menopausal Symptoms:No menopausal symptoms; Normal vaginal lubrication Psychological symptoms:No depression; No anxiety; No PMDD Preventive measures:Encourage self breast examination; Encourage regular exercise; Encourage no tobacco use; Encourage regular mammograms starting age 40; Mammogram performed within the past year; Up to date on colonoscopy screening Patient her for annual exam. Patient reports she had MRI of back related to low back pain and it showed incidental finding of endometrial thickening of 9mm. Patient denies any post menopausal bleeding or pelvic pain. Patient also has a history of ovarian cyst in 2016. Michelle Manley MD Attn: Accounting,[address] [place] [address], [phone], [facility] 11/08/2017 18:16:21 02/02/2020 text/html Annual GYNReport ed bypatient.History:no gynecologic complaints Menstrual cycle:menopause Urinary symptoms:No hematuria;Stress incontinence; patient reports history of over active bladder and stress incontinence and that it is controlled with medication and managed by her urologist. Patient denies any urinary issues at this time. Vulva:No genital lesion Vagina:Normal vaginal discharge Breast:No breast pain; No breast lump; No nipple discharge Current Contraception:menopaus e Sexual complaints:No sexual complaints; No pain during intercourse; Normal libido Menopausal Symptoms:No menopausal symptoms; Normal vaginal lubrication Psychological symptoms:No depression; No anxiety; No PMDD Preventive measures:Encourage self breast examination; Encourage regular exercise; Encourage no tobacco use; Encourage regular mammograms starting age 40; Mammogram performed within the past year; Up to date on colonoscopy screening Patient her for annual exam. Patient denies any post menopausal bleeding or pelvic pain. Patient also has a history of ovarian cyst in 2016. Pt reports history of stress incontinence and overactive bladder is seeing urology. Pt has history of low bone mass and low vitamin D. Pt reports this is managed by her PCP and she is on vitamin D. Pt denies any other issues. 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 NATHAN Hoffman Attn: Accounting,[address] [place], [address], [place] [facility] 02/02/2020 11:05:34 OBGyn Episode No OBEpisode recorded.
--- OUTSIDE RECORDS SUMMARY | 2024-09-24 13:38 | XMS_ITS | Referral Summary ---
Author Organization [facility] Building [address] Address [address] [place] [address] Care Team Providers Care Train Control Electronic Technician Name Role Phone Manpreet Sanderson MD Primary Care Provider [phone] Randi Vega MD Unavailable [phone] Ángel Sampson MD PhD Unavailable [phone] Keyla Santa MD Unavailable + [phone] Muna Hernandez Unavailable [phone] Kanu Hernandez MD Unavailable [phone] Lila Pedro MD Unavailable Hi Ware MD Unavailable Josef Guardado MD Unavailable [phone] Encounters Date Type Department Care Team Description 09/19/2024 10:30 AM CDT Office Visit [facility] Movement Disorders [address] [place] [address] Danica Reyes NP Parkinsonism, unspecified Parkinsonism type (HCC) (Primary Dx) 09/10/2024 1:00 PM CDT Office Visit [facility] G[facility]ology at [address] [place] [address] Anastacio House NP Irritable bowel syndrome with constipation (Primary Dx); Gastroesophageal reflux disease without esophagitis; Chronic superficial gastritis without bleeding; Tubular adenoma of colon; Nausea and vomiting, unspecified vomiting type 09/05/2024 Telephone [facility] Scheduling [address] [place] [address] MilliLenin luxherikasandra from Last 3 Months Allergies Active Allergy [...] days Resume once daily after 2 weeks 024 Active Additional Information Patient taking differently:81 mg [...] prep. Patient was given instructions 24 tablet 024 Active Additional Information Patient not taking.Reported on [...] vomiting 30 tablet 1 024 2024 Discontinued carbidopa-levodop a (SINEMET) 25-100 mg [...] 05/18/2022 Assessment & Plan (05/18/2022 8:14 AM EMPLOYMENT TRAINING SPECIALIST): She has subjective cognitive complaints including difficulty [...] challenges over the last few years. From [facility] it appears she scored 28/30 [...] with instructions on how to access the [employer] exercise channel. Finally, she endorses inadequate management of anxiety and we reviewed that she can discuss increasing sertraline as tolerated at upcoming PCP visit as Dr. Sanderson manages this medication. Recommendations: Once UTI resolved, can trial increasing C/L from 2 tabs TID to 2.5 tabs TID while monitoring for side effects PT referral [employer] exercise channel access information provided Follow-up in [...] with instructions on how to access the [employer] exercise channel. Finally, she endorses frustration with [...] will update our office in 4 weeks [employer] exercise channel access information provided Will order physical therapy for gait/balance training, strength and stretching once cleared from recent left shoulder surgery - patient to notify our office once cleared for referral entry NPT today Assessment & Plan (05/18/2022 8:04 AM EMPLOYMENT TRAINING SPECIALIST): She has parkinsonism stage 4 characterized by [...] (06/17/2021): Added automatically from request for surgery [id number] Memory loss 05/09/2021 Cyst of ovary 12/28/2020 Urinary incontinence 12/28/2020 Other intra-abdominal and pelvic swelling, mass and lump 04/08/2020 Overview (04/08/2020): Added automatically from request for surgery [id number] History of colonic polyps 06/05/2019 Overview (06/05/2019): Added automatically from request for surgery [id number] Assessment & Plan (06/05/2019 3:16 PM EMPLOYMENT TRAINING SPECIALIST): She is overdue for a screening colonoscopy. [...] 03/06 Assessment & Plan (06/05/2019 3:16 PM EMPLOYMENT TRAINING SPECIALIST): Continue taking fiber daily. Will have her [...] 9 Assessment & Plan (06/05/2019 3:15 PM EMPLOYMENT TRAINING SPECIALIST): Well controlled on omeprazole daily. She may [...] (03/06/2019): Added automatically from request for surgery [id number] Assessment & Plan (06/05/2019 3:14 PM EMPLOYMENT TRAINING SPECIALIST): Doing well. No recent episodes. Assessment & Plan (04/03/2019 3:13 PM CDT): Not as severe or often as previously. She says she noticed that this occurs when she is constipated. Will try to improve constipation and see if this improves pain further. Dysphagia 03/06/2019 Overview (03/06/2019): Added automatically from request for surgery [id number] Side effect of drug 10/30/2018 Hoarseness 10/07/2015 [...] Smoking Tobacco: Former Cigarettes 0.8 25 1 765 - 1989 Passive Smoke Exposure: Past Smokeless [...] materials from doctor or pharmacy Never 01/01/2024 [facility] Utilities Answer Date Recorded In the past 12 months has th e [employer], gas, oil, or water [employer] threatened to shut off services in your [...] often do you attend chur ch or bahai services? More than 4 times per year 09/06/2023 Do you belong to any clubs o r organizations such as restorationist groups, unions, fraternal or athletic groups, or [...] place to sleep or slept in a mcc (including now)? No 09/06/2023 Personal Safety Answer Date Recorded Have you ever been in or are you currently in a harmful physical or emotional relationship or is someone making you feel afraid or unsafe? Denies 02/16/2024 Comments No Sex and Gender Information Value Date Recorded Sex Assigned at Not on file Legal Sex Female 12:25 PM EMPLOYMENT TRAINING SPECIALIST Gender Identity Female 04/12/2021 6:37 PM CDT [...] Description 01/07/2025 10:30 AM CDT Hospital Encounter [facility] [address] [place] [address] Randi Vega MD [address] [place] [address] 01/07/2025 10:30 AM CDT - 01/07/2025 11:00 AM CDT Surgery [address] [address] Randi Vega MD [address] [place] [address] COLONOSCOPY Scheduled Procedures Name Priority Associated Diagnoses Date/Ti me COLONOSCOPY History of colonic polyps Encounter for screening colonoscopy 01/07/2025 10:30 AM CDT Medical Devices Implanted Type Area Water System Operator Device Identifier Shelf Expiration Date Model / Serial / Lot Lens Implants W/Cataract Extraction Bilateral: Eye Exactech Equinoxe 13mm Press Fit Primary Shoulder Stem Humeral 300-01-13 - [id number] - [id number] Implanted:Qty: 1 on 02/22/2023 by Josef Guardado MD at [facility] Left: Shoulder Exactech 06/14/2032 300-01-13 / [id number] / Exactech Equinoxe 36mm Shoulder 0mm Offset Liner Humeral Sterile 320-36-00 - [id number] - [id number] Implanted:Qty: 1 on 02/22/2023 by Josef Guardado MD at [facility] Left: Shoulder Exactech 07/18/2027 320-36-00 / [id number] / [employer] Bioprep Preparation Plug 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 [place] Curette Suction Femoral [id number] - [id number] Implanted:Qty: 1 on 02/22/2023 by Josef Guardado MD at [facility] Left: Shoulder [employer] [id number] / / [id number] Exactech Equinoxe Small Reverse Superior Augment Shoulder 10d Plate 320-35-02 - [id number] - [id number] Implanted:Qty: 1 on 02/22/2023 by Josef Guardado MD at [facility] Left: Shoulder Exactech 08/28/2032 320-35-02 / [id number] / Exactech Reverse Torque Define Shoulder Kit Screw 320-20-00 - [id number] - [id number] Implanted:Qty: 1 on 02/22/2023 by Josef Guardado MD at [facility] Left: Shoulder Ex[employer]ech 12/12/2027 320-20-00 / [id number] / Exactech Equinoxe Lock Reverse Shoulder Glenosphere Screw Bone 320-15-05 - [id number] - [id number] Implanted:Qty: 1 on 02/22/2023 by Josef Guardado MD at [facility] Left: Shoulder Ex[employer]ech 12/20/2027 320-15-05 / [id number] / Exactech Equinoxe 4.5mm 34mm Kit Compression Lock Cap Reverse Shoulder 320-20-34 - [id number] - [id number] Implanted:Qty: 1 on 02/22/2023 by Josef Guardado MD at [facility] Left: Shoulder Exactech 03/15/2027 320-20-34 / [id number] / Exactech Equinoxe 4.5mm 22mm Kit Compression Lock Cap Reverse Shoulder 320-20-22 - [id number] - [id number] Implanted:Qty: 1 on 02/22/2023 by Josef Guardado MD at [facility] Left: Shoulder Exactech 01/09/2028 320-20-22 / [id number] / Exactech Component 36mm Glenoid Glenosphere Reverse Shoulder 320-31-36 - [id number] - [id number] Implanted:Qty: 1 on 02/22/2023 by Josef Guardado MD at [facility] Left: Shoulder Exactech 09/20/2032 320-31-36 / [id number] / Exactech Equinoxe Reverse Shoulder +0mm Tray Humeral Adapter 320-1000 - [id number] - [id number] Implanted:Qty: 1 on 02/22/2023 by Josef Guardado MD at [facility] Left: Shoulder Exactech 10/15/2032 320-10-00 / [id number] / Exactech Liner Humeral Reverse Equinoxe +0x36mm 320-36-10 - [id number] - [id number] Implanted:Qty: 1 on 09/06/2023 by Josef Guardado MD at [facility] Left: Shoulder Exactech [id number] 01/16/2027 320-36-10 / [id number] / Exactech Equinoxe Lock Reverse Shoulder Glenosphere Screw Bone 320-15-05 - [id number] - [id number] Implanted:Qty: 1 on 09/06/2023 by Josef Guardado MD at [facility] Left: Shoulder Exactech [id number] 07/07/2028 320-15-05 / [id number] / Exactech Equinoxe 36mm 26.1mm Expand Small Reverse Shoulder Sphere Glenoid 320-32-36 - [id number] - [id number] Implanted:Qty: 1 on 09/06/2023 by Josef Guardado MD at [facility] Left: Shoulder Exactech [id number] 12/18/2032 320-32-36 / [id number] / Procedures Procedure Name Priority Date/Time Associated Diagnosis Comments COLONOSCOPY 05/30/2022 10:19 AM EMPLOYMENT TRAINING SPECIALIST from Last 3 Months or Most Recently Relevant to Health Maintenance Results * COLONOSCOPY (05/30/2022 10:19 AM EMPLOYMENT TRAINING SPECIALIST) Anatomical Region Laterality Modality Other Narrative Procedure Note Randi Vega MD - 05/30/2022 10:19 AM CST [facility] Patient Name: Alicia Wells Procedure Date: 05/30/2022 10:19AM Date of : 1945 Admit Type: Outpatient Age: 76 Gender: Female Attending MD: Randi Vega M.D. Room: [facility] ENDOSCOPY ROOM 1 Note Status: Finalized Patient [...] under direct vision. The Pediatric Colonoscope [id number] was introducedthrough the anus and advanced to [...] 10:19 AM Procedure Code(s): --- Professional --- 01700, Colonoscopy, flexible; with biopsy, single or multiple Diagnosis Code(s): --- Professional --- Z86.010, Personal history of colonic polyps K64.8, Other hemorrhoids D12.3, Benign neoplasm of transverse colon (hepatic flexure orsplenic flexure) K57.30, Diverticulosis of large intestine without perforation orabscess without bleeding CPT copyright 2020 [employer]. All rights reserved. The codes documented in this report are preliminary and upon it quality analyst reviewmay be revised to meet current compliance requirements. Recognized by the [employer] [employer] for promoting quality in endoscopy us Randi Vega MD ENDOSCOPY PROCEDURES Final Result from Last 3 Months or Most Recently Relevant to Health Maintenance Insurance MEDICARE ADVANTAGE MEDICARE ADVANTAGE MEDICARE ADVANTAGE [facility] MEDICARE ADVANTAGE Advance Directives For more information, please contact: [phone] * Full Code (Latest Code Status on [...] 10:11 AM 05/30/2022 10:11 AM Care Teams Train Control Electronic Technician Relationship Specialty Start Date End Date Manpreet Sanderson MD PCP - General Family Practice 01/22/23 Randi Vega MD Consulting Physician Gastroenterology 01/22/23 Ángel Sampson MD PhD [address] [place] [address] Referring Physician Neurology 01/22/23 Keyla Santa MD [address] [place] [address] Consulting Physician Internal Medicine 01/22/23 Muna Hernandez PA [address] [place] [address] Orthopedic Surgery 02/22/23 Kanu Hernandez MD [address] [place] [address] [address] [place] [address] Consulting Physician Neurology 03/19/23 Lila Pedro MD [address] [place] [address] [address] [place] [address] Consulting Physician Sleep Medicine 03/19/23 Hi Ware MD [address] [place] [address] [place] [address] Consulting Physician Pulmonary Disease 04/27/23 Josef Guardado MD [address] [place] [address] [address] [place] [address] Surgeon Orthopedic Surgery 09/07/23
--- OUTSIDE RECORDS SUMMARY | 2024-09-24 13:38 | XMS_ITS | Continuity of Care Document ---
Author Organization [employer] [facility] Address [address] [facility] [address] [place] [address] [place] [id number] Phone Care Team Providers Care Telegraphic Typewriter Repairer Name Role Phone Mane HUERTA, Jennifer Unavailable [...] Diagnoses Date Provider Providers Copied on Encounter [facility], [address], [place], [place], [address], [place] tel:[phone] SEC Laci ALAN Professional Complete Exam (chief complaint) Superficial punctate keratitis of both eyesKeratoco njunctivitis sicca, not specified as Sj g pacheco's, unspecified eyeParkinson sPresence of intraocular lens 3 Mane OD Jennifer. [address], [address], [place], [place], [address], [place]. tel:[phone] Referring Provider: Shahid Ramirezguson OD, [address] [facility] [place], [address]. tel:[phone] Office/outpa tient Visit, [facility], [address], [place], [place], [address], [place] tel:[phone] SEC [place] Professional 5 month ALESIA f/u (chief complaint) ParkinsonsKe ratoconjunct ivitis sicca, not specified as Sj g pacheco's, unspecified eyeBilateral artificial lens implantDry eye syndrome of bilateral lacrimal glands 3 Jorge Luis Giles. [address], [facility] A, [place], [place], [address], [place]. tel:[phone] Referring Provider: Shahid Pinto OD, [address] [facility] [place], [address]. tel:[phone] Office/outpa tient Visit, [facility], [address] [place] [address] [address], [place], [place], [address], [place] tel:[phone] SEC [place] Professional Follow up visit (chief complaint) Bilateral artificial lens implantDry eye syndrome of bilateral lacrimal glandsKerato conjunctivit is siccaMeibomi an gland dysfnct left eye, upper and lower eyelidsMeibo smiley gland dysfnct right eye, upper and lower eyelids 2 Jorge Luis Giles. [address], [facility] A, [place], [place], [address], [place]. tel:[phone] Referring Provider: Shahid Pinto OD, [address] [facility] [place], [address]. tel:[phone] [facility], [address], [place], [place], [address], [place] tel:[phone] SEC [place] Professional Complete Exam (chief complaint) Bilateral artificial lens implantGlauc omatous optic atrophy, bilateralMei bomian gland dysfunction of unspecified eye, unspecified eyelidKerato conjunctivit is siccaBenign neoplasm of left choroid 2 Jorge Luis Giles. [address] [facility], [address], [place], [place], [address], [place]. tel:[phone] Referring Provider: Shahid Pinto OD, [address], [place], [address]. tel:[phone] Office/outpa tient Visit, [facility], [address], [place], [place], [address], [place] tel:[phone] SEC [place] DAYANNA Professional Complete Exam (chief complaint) Bilateral artificial lens implantChoro idal nevus, left eyeGlaucomat ous optic atrophy, bilateralDry eye syndrome of bilateral lacrimal glands 1 Zhane An. [address], [address], [place], [place], [address], [place]. tel:[phone] Referring Provider: Shahid Pinto OD, [address] [place], [address]. tel:[phone] Office/outpa tient Visit, [facility], [address], [place], [place], [address], [place] tel:[phone] SEC [place] DAYANNA Professional 6 month IOP check (chief complaint) Glaucomatous optic atrophy, bilateralCho roidal nevus, left eye Vega- 0 Dejah OD Ricardo. [address] [facility], 6th Floor, [place], [address], [place]. tel:[phone] Referring Provider: Shahid Pinto OD, [address], [place], [address]. tel:[phone] [facility], [address], [place], [place], [address], [place] tel:[phone] SEC Laci DAYANNA Professional Complete Exam (chief complaint) Bilateral artificial lens implantMeibo smiley gland dysfnct right eye, upper and lower eyelidsMeibo smiley gland dysfnct left eye, upper and lower eyelidsKerat oconjunctivi tis siccaChoroid al nevus, left eye 0 Dejah OD Ricardo. [address] [facility], 6th [facility], [place], [address], [place]. tel:[phone] Referring Provider: Shahid Pinto OD, [address] [facility] [place], [address]. tel:[phone] [facility], [address] [place] [address] [address], [place], [place], [address], [place] tel:[phone] SEC Lexus Miranda No Information 9 Dejah OD Ricardo. [address] [facility], [address] [place] [address], [place], [address], [place]. tel:[phone] Office/outpa tient Visit, Est [facility], [address] [place] [address] [address], [place], [place], [address], [place] [phone] SEC Laci ALAN Professional ALESIA check (chief complaint) Meibomian gland dysfnct right eye, upper and lower eyelidsMeibo smiley gland dysfnct left eye, upper and lower eyelids 9 Dejah OD Ricardo. [address] [facility], [address] [place] [address], [place], [address], [place]. tel:[phone] Referring Provider: Shahid Pinto OD, [address] [facility] [place], [address]. tel:[phone] Office/outpa tient Visit, [facility], [address] [place] [address] [address], [place], [place], [address], [place] tel:[phone] SEC Laci DAYANNA Professional 3 mo ALESIA f/u (chief complaint) Meibomian gland dysfunction (MGD)Superfi cial punctate keratitis of both eyesCorneal opacity of both eyes 8 Jorge Luis Giles. [address], [address], [place], [place], [address], [place]. tel:[phone] Referring Provider: Shahid Pinto OD, [address] [facility], [place], [address]. tel:[phone] [facility] [place] [facility] [address], [place], [place], [address], [phone] SEC [place] Professional Decreased vision (chief complaint) No Information 8 Jorge Luis Giles. [address], [place], [place], [address], [place]. tel:[phone] Referring Provider: Shahid Pinto OD, [address] [employer] [facility], [place], [address]. tel:[phone] [facility] [place] [place] [facility] [address], [place], [place], [address], [place] tel:[phone] SEC [place] N [address] YAG EVAL OD (chief complaint) No Information 6 [place] Juve. [place] [facility] [employer], [address], [place], [place], [address], [place]. tel:[phone] Referring Provider: Shahid Pinto OD, [address] [facility] [address], [place], [address]. tel:[phone] Office/outpa tient Visit, [facility], [address] [place], [place] [address] [address], [place], [place], [address], [place] tel:[phone] SEC [place] [address] Yag Evaluation (chief complaint) No Information 6 Zhane An. [facility] [employer], [address], [place], [place], [address], [place]. tel:[phone] Referring Provider: Shahid Pinto OD, [address] [facility], [place], [address]. tel:[phone] Office/outpa tient Visit, Est [facility], [place] [address], [place], [place], [address], [place] tel:[phone] SEC [place] N [address] Blurry near vision (chief complaint) No Information Mar-07 07- 5 Zhane Juve. [facility] [employer], [address], [place], [place], [address], [place]. tel:[phone] Referring Provider: Shahid Pinto OD, [address] [place], [address]. tel:[phone] [facility] [place] [place] [address], [place], [place], [address], tel:[phone] SEC Lex[place] N [address] 6 week PO (chief complaint) No Information 5 Zhane An. [facility] [employer], [address], [place], [place], [address], [place]. tel:[phone] Referring Provider: Shahid Pinto OD, [address] [place], [address]. tel:[phone] [facility], [address], [place], [place], [address], [place] tel:[phone] SEC [place] N [address] 3 week post op [employer] IOL OS (chief complaint) No Information Aug-2 - 5 Zhane An. [facility] [facility] [employer], [address], [place], [place], [address], [place]. tel:[phone] Referring Provider: Shahid Pinto OD, [address] [place], [address]. tel:[phone] [facility], [place] [address], [place], [place], [address], [place] tel:[phone] SEC [place] N [address] F/u exam, postop (chief complaint) No Information 5 Zhane An. [address] [employer], [address], [place], [place], [address], [place]. tel:[phone] Referring Provider: Shahid Pinto OD, [address] [facility], [place], [address]. tel:[phone] [employer] [facility] [employer] [place], [address], [place], [place], [address], [place] tel:[phone] SEC [place] Professional F/u exam, postop (chief complaint) No Information 5 Zhane An. [facility] [employer], [address], [place], [place], [address], [place]. tel:[phone] Referring Provider: Shahid Pinto OD, [address] [facility], [place], [address]. tel:[phone] [employer] [facility] [employer] [facility], [place] [address], [place], [place], [address], [place] tel:[phone] SEC Laci [place] Professional 1 day P/O (chief complaint) No Information Sandie Fishman. [address] [facility], [address], [place], [place], [address], [place]. tel:[phone] Referring Provider: Shahid Pinto OD, [address] [employer] [facility], [place], [address]. tel:[phone] [employer] [facility] [employer] [facility], [place] [address], [place], [place], [address], [place] tel:[phone] [facility] No Information 5 Zhane An. [place] [employer], [address], [place], [place], [address], [place]. tel:[phone] Referring Provider: Shahdi Pinto OD, [address] [facility], [place], [address]. tel:[phone] [facility], [address] [place] [address] [address], [place], [place], [address], [place] tel:[phone] SEC Lexus Josephine Miranda No Information 5 Zhane An. [address] [place] [address] Drive, [address], [place], [place], [address], [place]. tel:[phone] Referring Provider: Shahid Gerberon OD, [address] [facility] [place], [address]. tel:[phone] [facility], [address], [place], [place], [address], [place] tel:[phone] SEC [place] Professional F/u exam, postop (chief complaint) No Information 4 Sandie Fishman. [address] [facility], [facility] A, [place], [place], [address], [place]. tel:[phone] Referring Provider: Shahid Pinto OD, [address] [facility] [place], [address]. [phone] [facility], [address] [place] [address] [address], [place], [place], [address], [place] tel:[phone] SEC [place] Professional 1 WK PO PHACO OD (chief complaint) No Information 4 Sandie Fishman. [address] [facility], [facility] A, [place], [place], [address], [place]. tel:[phone] Referring Provider: Shahid Pinto OD, [address] [facility] [place], [address]. [phone] [facility], [address] [place] [address] [address], [place], [place], [address], [place] [phone] SEC [place] Professional 1 DAY PO PHACO OD (chief complaint) No Information 4 Carol Yancey. [address], [address], [place], [address], [place]. tel:[phone] Referring Provider: Shahid Gerberon OD, [address] [employer] [facility], [place], [address]. tel:[phone] [facility], [address] [place] [address] [address], [place], [place], [address], [place] tel:[phone] [facility] [place] No Information Dec-0 4-201 4 [place] Juve. [address] [place], [place] [address]crest [employer], [address], [place], [place], [address], [place]. tel:[phone] Referring Provider: Shahid Gerberon OD, [address] [employer], [place], [address]. tel:[phone] [facility], [address] [place] [address] [address], [place], [place], [address], [place] tel:[phone] SEC Lex[place] N [place] No Information Dec-0 3-201 4 Zhane Juve. [address] [place] [address] [employer], [address], [place], [place], [address], [place]. tel:[phone] Referring Provider: Shahid Pinto OD, [address] [place], [address]. tel:[phone] Office/outpa tient Visit, [facility], [address] [place] [address] [address], [place], [place], [address], [place] tel:[phone] SEC [place] N [place] Blurry vision (chief complaint) No Information 1 0-201 4 Zhane Juve. [place] [place] [address] [employer], [address], [place], [place], [address], [place]. tel:[phone] Referring Provider: Shahid Pinto OD, [address] [place], [address]. tel:[phone] Office/outpa tient Visit, [facility], [address] [place] [address] [address], [place], [place], [address], [place] tel:[phone] SEC [place] N [place] Blurry vision (chief complaint) No Information 4 Zhane Juve. [address] [place] [address] [facility], [address], [place], [place], [address], [place]. tel:[phone] Referring Provider: Shahid Pinto OD, [address] [place], [address]. tel:[phone] [facility], [address] [place] [address] [address], [place], [place], [address], tel:[phone] SEC Lexus N [place] No Information 4 Conner Drummond. [address] [facility], [address], [place], [place], [address], [place]. tel:[phone] Office/outpa tient Visit, [facility], [address] [place] [address] [address], [place], [place], [address], tel:[phone] SEC [place] N [place] blurry vision (chief complaint) No Information 3 [place] Juve. [place] [address] [facility], [address], [place], [place], [address], [place]. tel:[phone] Referring Provider: Shahid Pinto OD, [address] [place], [address]. tel:[phone] [facility], [address] [place] [address] [address], [place], [place], [address], tel:[phone] SEC [place] N [place] a comprehensive exam (chief complaint) No Information 2 [place] Juve. [place] [address] [facility], [address], [place], [place], [address], [place]. tel:[phone] Referring Provider: Shahid Pinto OD, [address] [place], [address]. tel:[phone] Family History Family Member Type Diagnosis Age At Onset No Information Payers Payer name Insurance type Covered republican ID Dangelo acosta(s) [facility] Mdcr Adv CI [id number] Social History Type Description Quantity Date Captured [...] Will give spec Rx to take to [facility]. [place] medicated gtts.Discussed laser surgery [...] Related to See list of assessments above NODULAR DEGENERATION OF CORNEA, OU, OS improving - Discussed dx with pt. Continue with Lubrication, Letter dictated to Dr. Pinto Related to PERIPH OPACITY OF CORNEA Cataract, Nuclear Sc lerosis, OU - will continue to monitor - No treatment is required at this time. Will continue to observe condition and symptoms. Related to Cataract, Nuclear Sclerosis - 1 yr complete Related to PERIP [...]
--- OUTSIDE RECORDS SUMMARY | 2024-09-24 13:39 | XMS_ITS | Clinical Summary ---
Author Organization [facility] [employer] Address [address] [place] [address] Care Team Providers Care Flatwork Catcher Name Role Phone Nicolas Xiao Primary Care Provider Source Comments [facility],non-owned Affiliates and Associated Physician Practices is amultiple site organization consisting of ambulatory clinics and hospital sitesin [place], [place], [place] and [place]. This disclosure is being madepursuant to the Care Everywhere program and may not contain all information available regarding this patient. Last updated 18.[facility] [employer] Allergies Active Allergy Reactions Criticality Noted Date [...] age to complete this topic Care Teams Flatwork Catcher Relationship Specialty Start Date End Date Nicolas Xiao DO PCP - General 02/04/18
== END 2024-09-24 12:34 | disposition home or self-care (01) ==
PROVIDERS: PCP Nurse Practitioner Adult Health; Referring Provider Urology; Visit Provider Nurse Practitioner Family
DX: N20.0 Calculus of kidney (principal); R19.7 Diarrhea, unspecified
CPT/HCPCS: 74018

== ENCOUNTER 2024-10-09 00:57 | Day surgery (SDC) | payer MEDICARE, SELFPAY ==
--- NOTE | 2024-10-03 14:24 | PC.NURSE ---
Report to the Outpatient Waiting Room, entrance under the green pavilion located off [facility], at time _9:15 AM on date __10/09/24 . Planned Procedure Time: _11:15 AM .? Time changes happen often and if your time is changed the preop area will call you the afternoon before. - You and your visitor will be asked to self-screen and do not enter if you have any COVID symptoms. Please call surgeon if you need to reschedule. - A mask is optional within the hospital at this time. Patients may have clear liquids (water, carbonated beverages, clear teas, apple juice) until 3 hours prior to surgery ( 8:15 AM ) with a maximum of 20 ounces. - No food from midnight until time of surgery and no smoking, or chewing tobacco (or any form of nicotine). No chewing gum, candy or mints. - Take only the following medications with a SIP of water on the morning of surgery: _CARBIDOPA-LEVODOPA,GABAPENTIN,SERTRALINE,CLORAZEPATE IF NEEDED FOR ANXIETY DO NOT STOP ANY OF YOUR OTHER PRESCRIPTION MEDICATIONS PRIOR TO SURGERY EXCEPT THE FOLLOWING Hold all vitamins and supplements for 3 days per anesthesiologist.LAST DOSE 10/05/24 Medications to discontinue per physician ___PT STATES HOLD ASPIRIN 7 DAYS PRE OP PER DR GALINDO Date to take last dose____10/01/24 Please no make-up, nail german, hairspray, perfume, deodorant, or body powder the day of surgery.? No jewelry (including any body piercings) or valuables the day of surgery, leave them at home.? Please take a shower or bath the night before, or the morning of, surgery with an antibacterial soap.? Wear comfortable, loose fitting clothing.? Children are encouraged to wear pajamas. - Jewelry must be removed prior to entering the operating room.? Rings and piercings that are not removed may be cut off. - The hospital will not accept responsibility for valuables.? - Please leave all valuables, including medications, at home the day of surgery. If you are going home after surgery, a licensed escort car driver must drive you home.? - NO public transportation without another adult if you receive anesthesia. - We recommend that an adult stay with you for 24 hours following discharge. - We also recommend that you do not drive, make important decision, drink alcoholic beverages, or take any drugs that were not prescribed by your health care provider for at least 24 hours after your discharge time. Follow any additional instructions given to you from your surgeon. Telephone instructions given to __PATIENT and asked if any additional questions and then verbalized understanding. Patient advised to call surgeon office or pre surgery nurse liaison [phone] if any additional questions.
[2024-10-03 14:46] VITALS: BMI 33.2
[2024-10-09] VITALS (9 sets, daily range): BP systolic 108–148; BP diastolic 61–76; PULSE 62–83; RESP 11–20; TEMP 36.1–36.5; O2SAT 93–98
--- NOTE | ~2024-10-09 | XR_ITS ---
EXAMINATION: XR retrograde pyelo w/stent RT DATE: 10/09/2024 12:20 INDICATION: Right internal ureteral stent placement TECHNIQUE: Fluoroscopic images from a right stent placement are submitted for review. 50 seconds of f luoroscopy time. 38 fluoroscopic images FINDINGS: There is a right double-J internal ureteral stent projecting in expected position, with proximal [place] loop at the level of the renal pelvis and distal loop in the pelvis within the bladder lumen. IMPRESSION: 1. Right internal ureteral stent placement. Please refer to real-time procedural findings for ronn ls. Reviewed, dictated and finalized at location A. IMPRESSION: 1. Right internal ureteral stent placement. Please refer to real-time procedu ral findings for details.
--- OUTSIDE RECORDS SUMMARY | 2024-10-09 00:59 | XMS_ITS | Data Portability ---
Author Organization [facility] Address [address] [place] [address] Assessment No assessment recorded. Plan of Treatment Reminders Order Date Submit Date Provider Last Modified By Organization Details Last Modified Time Details Appointments None recorded . Lab bacteria l vaginosi s + vaginiti s panel, vaginal 2016 017 [facility], [address] [place] [address], [address], [place], [address], 7 07:13:54 Referral None recorded . Procedures None recorded . Surgeries None recorded . Imaging MAMMO, screenin g, digital, bilatera l 2019 020 [facility] ([facility]) Scheduling, [address] [place], [address], 0 08:59:27 US, pelvis, transabd ominal + transvag inal - assess endometr ial thicknes s 2019 020 TENISHA Laci [facility] (Radiology), [address] [facility] [place], [address], 0 17:21:15 bone density 2017 018 manish Laci [facility] Scheduling, [address] [facility] [place], [address], 8 10:02:14 US, pelvis, transabd ominal + transvag inal 2017 018 TENISHA Not available 8 08:41:18 MAMMO, screenin g, bilatera l 2016 017 mpass [facility] ([facility] Scheduling, [address] [place], [address], 7 09:04:41 Medication Orders None recorded . Patient TargetsNo targets recorded. Patient Instructions Encounter Date Encounter Id Patient Instructions Last Modified By Organization Details Last Modified Time 02/03/2015 [id number] Stress Incontinence: Care Instructions onofre Not available 02/03/2015 15:57:42 To make apt. [address] h Dr. Keyla Santa for urinary incontinence mpass Not available 02/03/2015 15:52:47 12/11/2016 [id number] learning about breast cancer screening mpa Not available 12/12/2016 09:04:41 Await test results. Make appt. for mammogram. mpa Not available 12/11/2016 17:07:44 11/08/[id number] Sindhu currie Not available 11/08/2017 18:16:12 02/02/2020 [id number] cystocele: care instructions fabiolanstrramez Not available 02/02/2020 10:30:06 Reason for Referral None Reported. Results Created Date Observation Date Name Description Value Unit Range Abnormal Flag Note LastModifiedBy Organization Detail LastModifiedTime 12/03/19 16 12/04/2015 ca 125, serum cancer antigen (Ca) 125 13.9 U/mL 0.0-38 .1 . PLE ASE NOTE REFER ENCE INTER LIVIA DIA E LOUIS ECLIA METHO DOLOG Y Not Available [facility] ([facility]) [address] [facility], [place], [address], 12/04/2015 11:11:49 12/12/19 17 12/13/2016 bacte rial vagin osis + vagin itis panel , vagin al trich vag by JORGE NEGATI VE negati ve Not Available [facility] ([facility]) [address] [facility], [place], [address], 12/20/2016 07:13:54 12/12/19 17 12/13/2016 bacte rial vagin osis + vagin itis panel , vagin al chlamydia trachomatis, JORGE NEGATI VE negati ve Not Available [facility] ([facility]) [address] [place], [address], 12/20/2016 07:13:54 12/12/19 17 12/13/2016 bacte rial vagin osis + vagin itis panel , vagin al neisseria gonorrhoeae, JORGE NEGATI VE negati ve Not Available [facility] ([facility]) [address] [place], [address], 12/20/2016 07:13:54 12/12/19 17 12/15/2016 bacte rial vagin osis + vagin itis panel , vagin al atopobium vaginae LOW - 0 score Not Available [facility] ([facility]) [address] [place], [address], 12/20/2016 07:13:54 12/12/19 17 12/15/2016 bacte rial vagin osis + vagin itis panel , vagin al bvab 2 LOW - 0 score Not Available [facility] ([facility]) [address] [place] [address], [address], 12/20/2016 07:13:54 12/12/19 17 12/15/2016 bacte rial [...] E LISETTE CTERI STICS DETER MINED BY [employer]. IT HAS NOT BEEN CLEAR ED OR APPRO JANELL BY THE FOOD AND DRUG ADMIN ISTRA TION. THE FDA HAS DETER MINED THAT SUCH CLEAR ANCE OR APPRO LIVIA IS NOT NECES KALYANI. Not Available [facility] ([facility]) [address] [place], [address], 12/20/2016 07:13:54 12/12/19 17 12/19/2016 bacte rial vagin osis + vagin itis panel , vagin al luigi albicans, JORGE NEGATI VE negati ve Not Available [facility] ([facility]) [address] [place], [address], 12/20/2016 07:13:54 12/12/19 17 12/19/2016 bacte rial vagin osis + vagin itis panel , vagin al luigi glabrata, JORGE NEGATI VE negati ve THIS TEST WAS DEVEL OPED AND ITS PERFO RMANC E LISETTE CTERI STICS DETER MINED BY [employer]. IT HAS NOT BEEN CLEAR ED OR APPRO JANELL BY THE FOOD AND DRUG ADMIN ISTRA TION. THE FDA HAS DETER MINED THAT SUCH CLEAR ANCE OR APPRO LIVIA IS NOT NECES KALYANI. Not Available [facility] ([facility]) [address] [facility], [place], [address], 12/20/2016 07:13:54 01/22/20 19 01/22/2019 ca 125, serum Ca 125 7 U/mL <35 normal This test was perfo rmed using the [employer] an [employer] er [employer] lumin escen t metho d. Value s obtai agustin from diffe rent assay metho ds canno t be used inter dia eablsimeon . [place] 125 level s, regar dless of value , shoul d not be inter prete d as absol saundra evide nce of the prese nce or absen ce of disea se. Not Available [employer] [facility] [address] [place], [address], 01/22/2019 09:30:08 01/17/20 15 01/15/2015 imagi ng/di agnos tic resul t No observ ation record ed. mpass [facility] ([facility]) Scheduling [address] [place], [address], 02/03/2015 15:52:10 11/16/19 16 11/16/2015 imagi ng/di agnos tic resul t No observ ation record ed. BARCODE Not Available 2015 16:35:36 11/28/19 16 11/27/2015 ultra sound , pelvi c trans abdom inal & trans vagin al No observ ation record ed. [email or web address] [address] [place], [address], 12/03/2015 16:50:19 11/09/19 18 10/24/2017 imagi ng/di agnos tic resul t No observ ation record ed. BARCODE Not Available 2017 16:35:21 11/09/19 18 08/11/2017 MAMMO , scree sherin, digit al, bilat eral No observ ation record ed. BAR[facility] ([facility]) Scheduling [address] [place], [address], 11/08/2017 16:35:58 11/21/19 18 11/20/2017 US, pelvi s, trans abdom inal + trans vagin al No observ ation record ed. charles Laci [facility] ([place]) [address] [facility] [place], [address], 12/05/2017 10:42:16 12/13/19 18 12/11/2017 bone densi ty No observ ation record ed. [email or web address] [facility] [address] [place], [address], 12/27/2017 15:32:26 01/11/20 19 01/10/2019 US, pelvi s, trans abdom inal + trans vagin al No observ ation record ed. [email or web address] [address] [facility] [place], [address], 12/15/2019 15:42:58 01/29/20 19 12/13/2018 MAMMO , scree sherin, digit al, bilat eral No observ ation record ed. BARCODE Not Available 2018 11:11:52 01/29/20 19 12/13/2018 bone densi ty No observ ation record ed. BARCODE Not Available 2018 11:15:00 03/09/20 20 03/09/2020 US, pelvi s, trans abdom inal + trans vagin al No observ ation record ed. charles Aguero [address], [place], [address], 03/11/2020 14:10:43 03/13/20 20 03/12/2020 MAMMO , scree sherin, digit al, bilat eral No observ ation record ed. [facility] (Radiology) [address] [place], [address], 03/16/2020 17:46:36 Result Notes None recorded. Problems Name Problem SNOMED Code Status Onset Date Resolution Date Notes Provider Name and Address Organization Details Recorded Time Urinary incontinence Active Laura Avalos MELANY- Attn: Maicol smalls,[address] [facility], [place], [address], [place] - [facility] 5 15:52:46 Cyst of ovary 11692952 Active [facility], [place] - [facility] 6 10:27:36 Problem [...] completed [place] [employer] [facility] ([facility]) Scheduling [address] [place], [address], 02/03/2015 15:52:10 11/16/2015 imaging/diagnostic result completed BARCODE Information not available 11/16/2015 16:35:36 11/27/2015 ultrasound, pelvic transabdominal & transvaginal completed [email or web address] [facility] [address] [facility] [place], [address], 12/03/2015 16:50:19 10/24/2017 imaging/diagnostic result completed BARCODE Information not available 11/08/2017 16:35:21 08/11/2017 MAMMO, screening, digital, bilateral completed BAR[facility] ([facility]) Scheduling [address] [place], [address], 11/08/2017 16:35:58 11/20/2017 US, pelvis, transabdominal + transvaginal completed charles Aguero [facility] ([place]) [address] [facility] [place], [address], 12/05/2017 10:42:16 12/11/2017 bone density completed charles [facility] [address], [address], 12/27/2017 15:32:26 01/10/2019 US, pelvis, transabdominal + transvaginal completed brooke Laci [facility] Scheduling [address] [facility] [place], [address], 12/15/2019 15:42:58 12/13/2018 MAMMO, screening, digital, bilateral completed [facility] Information not available 01/28/2019 11:11:52 12/13/2018 bone density completed [facility] Information not available 01/28/2019 11:15:00 03/09/2020 US, pelvis, transabdominal + transvaginal completed charles Aguero [facility] [address] [facility], [address], 03/11/2020 14:10:43 03/12/2020 MAMMO, screening, digital, bilateral [facility] [address] [place], [address], 03/16/2020 17:46:36 Procedure Notes None recorded. Medical Equipment None Reported. Allergies Allergen ID Allergen Name Allergen Category Reaction Reaction Severity Criticality Documentation Date Start Date Code Code System Note Provider Name and Address Organization Details Recorded Time 88081 hydrochlo rothiazid e medicatio n Not available Not available Not available 02/02/2015 5487 RxNorm Not Available Not Available Not Available 20414 tramadol medicatio n Not available Not available Not available 02/03/2015 74947 RxNorm can't take any muscl e relax ers or Trama dol with Zolof t Not Available Not Available Not Available Medications Name Sig Start Date Stop Date Status Note LastModified by Organization Details LastModified Time gabapentin 300 mg caps active Not Available Not Available Not Available carvedilol 6.25 mg tabs active Not Available Not Available Not Available restasis multidose 0.05 % emul active Not Available Not Available Not Available restasis 0.05 % emul active Not Available Not Available Not Available furosemide 20 mg tabs active Not Available Not Available N ot Available sertraline hcl 100 mg tabs active Not Available Not Available Not Available clorazepate dipotassium 3.75 mg tabs active Not Available Not Available Not Available hydrocortiso ne 2.5 % crea active Not Available Not Available Not Available Prescription - Clarificatio n active Not Available Not Available Not Available oxybutynin chloride er 15 mg tb24 active Not Available Not Available N ot Available fluocinonide 0.05 % soln active Not Available Not Available Not Available doxycycline monohydrate 50 mg caps active Not Available Not Available N ot Available omeprazole 40 mg cpdr active Not Available Not Available N ot Available topiramate 25 mg tabs active Not Available Not Available N ot Available trazodone 50 mg tablet Take 1 [...] Updated DateTime 11/08/2017 161.29 cm 31.7 kg/m2 32403.81 g 128 mm[Hg] 62 mm[Hg] MIA Santos [facility] 8 16:08:48 Date Recorded Body height Body mass index (BMI) Body weight Systolic blood pressure Diastolic blood pressure Provider Name and Address Organization Details Last Updated DateTime 02/03/2015 161.29 cm 29.1 kg/m2 09459.92 579 g 116 mm[Hg] 86 mm[Hg] Shawna Lamb [facility] 5 15:32:34 Date Recorded Body height Body mass index (BMI) Body weight Systolic blood pressure Diastolic blood pressure Provider Name and Address Organization Details Last Updated DateTime 02/02/2020 161.29 cm 34.3 kg/m2 13479.7 g 152 mm[Hg] 80 mm[Hg] Crystal García Naun [facility] 0 10:12:08 Date Recorded Body height Body mass index (BMI) Body weight Systolic blood pressure Diastolic blood pressure Provider Name and Address Organization Details Last Updated DateTime 12/11/2016 161.29 cm 30.7 kg/m2 25252.26 g 120 mm[Hg] 68 mm[Hg] Shawna Ricks MA [facility] 7 16:52:11 Social History Question Answer Notes LastModified by Organizat ion Details LastModified Time Tobacco Smoking Status Former Smoker MIA Santos null, [facility] 11/08/2017 16:13:54 Do You Or Have You [...] Y Other Y High Blood Pressure Y Arthritis Y Heart Problems/Murmur Y Osteoporosis Y Depression Y Gynecological History Statement/Question Response If Post [...] SNOMED-CT Code Diagnosis ICD10 Code Diagnosis Note [id number] Pebbles Frandy Genao ([place] [address]) [address] [facility] [address] 02/03/2015 15:16:47 02/03/2015 16:36:46 Gynecologic examination 96228322 Urinary incontinence 731031658 Referred to Dr. Keyla Santa [id number] Laura Avalos [facility] Laci Genao ([facility] [address]) [address] [place] [address] 12/11/2016 16:38:21 12/12/2016 08:40:54 Vaginal discharge 827582877 N89.8 Screening for malignant neoplasm of breast 994483994 Z12.31 [id number] MD Laci Carlson [address] OB [address] [facility] [place] [address] 11/08/2017 15:56:36 11/08/2017 18:16:37 Cyst of ovary 57915753 N83.209 Patient has history of ovarian cyst. Pelvic US ordered to follow up on cyst. Endometrium thickened 44 6638312 R93.8 Patient had MRI done by PCP and incidently showed endometria l thickening and recommende d follow up pelvic US. Patient however is not bleeding. Pelvic US ordered. Screening mammography 24 170916 Z12.31 Patient educated on the importance of annual breast cancer screenings with mammograph y. Last mammogram completed 08/2017 BIR[facility] 1 Gynecologi c examination 26233397 Z01.419 -Educated on the importance of SBE [...] sunscreen. Screening for malignant neoplasm of colon 611121447 Z12.11 Patient educated on the importance of screening for colon cancer. Patient reports she had colonoscop y done in 2012 that was normal and she is suppose to have it repeated in 5 years from then Body mass index 30+ - obesity 191548547 Z68.31 Educated patient on nutrition and exercise. Follow up as needed. Screening for osteoporosis 076089473 Z13.820 Patient educated on the importance of osteoporos is screenings . Educated osteoporos is prevention including calcium rich foods, weight bearing exercise [id number] NATHAN Hoffman 14 [address] [facility] [address] [place] [address] 02/02/2020 09:57:32 02/03/2020 10:12:52 Gynecologic examination 84333294 Z01.419 -Educated on the importance of SBE [...] alcohol, and drugs. Vitamin D deficiency 347 54752 E55.9 Continue to follow up with PCP for low vitamin D and low bone mass. Screening mammography 24 913573 Z12.31 Patient educated on the importance of annual breast cancer screenings with mammograph y. Mammogram order given for pt to complete. Cyst of ovary 68695804 N 83.209 Patient has history of ovarian cyst. Pelvic US ordered to follow up on cyst. Pt educated on warning signs and notified when to call office. Follow up based on US results. Cystocele 706329912 N81. 10 Discussed all management options. Pt not interested in interventi on at this time. Pt educated on warning signs and notified when to call office. Follow up annually and as needed if issues occur. Screening for malignant neoplasm of colon 468585897 Z12.11 Patient educated on the importance of screening for colon cancer. Pt reports she had colonoscop y in august 2019. Female str ess incontinence 08956735 N39.3 Continue to follow up with urology. Edema of l ower extremity 768028802 R60.0 Pt is on lasix by PCP. Pt denies worsening. Pt notified to follow up with PCP within 1 week. Pt educated on warning signs and given ER precaution s. Body mass index 30+ - obesity 744634784 Z68.34 Educated patient on nutrition and exercise. Follow up with pcp. Health Concerns Section Related Observation LastModified by Organization Detai ls LastModified Time None Recorded Concern Status LastModified by Organization Details LastModified Time None Recorded Advance Directives Directive None Recorded Payers Encounter Date Sequence Insurance Name Policy Number Policy Parada Covered Member ID Parada Member ID Guarantor Name 02/03/2015 1 [facility] (PPO) [id number] Carina L Priscilla [id number] Carina L Priscilla 12/11/2016 1 [facility] (PPO) [id number] Carina L Priscilla [id number] Carina L [place] 11/08/2017 1 [facility] (PPO) [id number] Carina L [place] [id number] Carina L Prisc[place] 02/02/2020 1 [facility] (MEDICARE REPLACEMENT/A DVANTAGE - HMO) [id number] Carina L [place] [id number] Carina Selma Priscilla Notes Date Note Type [...] disease; no fever DENILSON Pablo Attn: Accounting,[address] [place] [address], [phone], [facility] 12/11/2016 17:08:06 11/08/2017 text/html Annual GYNReport ed [...] in 2016. 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 NATHAN Hoffman Attn: Accounting,[address] [place], [address], [place] [facility] 02/02/2020 11:05:34 OBGyn Episode No OBEpisode recorded.
--- OUTSIDE RECORDS SUMMARY | 2024-10-09 00:59 | XMS_ITS | Continuity of Care Document ---
Author Organization [facility] Address [address] [facility] [address] [place] [address] [place] [phone] Phone Care Team Providers Care Bottom Brusher Name Role Phone Mane HUERTA, Jennifer Unavailable [...] Diagnoses Date Provider Providers Copied on Encounter [facility], [address], [place], [place], [address], [place] tel:[phone] SEC Laci ALAN Professional Complete Exam (chief complaint) Superficial punctate keratitis of both eyesKeratoco njunctivitis sicca, not specified as Sj g pacheco's, unspecified eyeParkinson sPresence of intraocular lens 3 Mane OD Jennifer. [address], [address], [place], [place], [address], [place]. tel:[phone] Referring Provider: Shahid Ramirezguson OD, [address] [facility] [place], [address]. tel:[phone] Office/outpa tient Visit, [facility], [address], [place], [place], [address], [place] tel:[phone] SEC [place] Professional 5 month ALESIA f/u (chief complaint) ParkinsonsKe ratoconjunct ivitis sicca, not specified as Sj g pacheco's, unspecified eyeBilateral artificial lens implantDry eye syndrome of bilateral lacrimal glands 3 Jorge Luis Giles. [address], [facility] [[email or web address]] A, [place], [place], [address], [place]. tel:[phone] Referring Provider: Shahid Pinto OD, [address] [facility] [place], [address]. tel:[phone] Office/outpa tient Visit, [facility], [address] [place] [address] [address], [place], [place], [address], [place] tel:[phone] SEC [place] Professional Follow up visit (chief complaint) Bilateral artificial lens implantDry eye syndrome of bilateral lacrimal glandsKerato conjunctivit is siccaMeibomi an gland dysfnct left eye, upper and lower eyelidsMeibo smiley gland dysfnct right eye, upper and lower eyelids 2 Jorge Luis Giles. [address], [facility] [[email or web address] A, [place], [place], [address], [place]. tel:[phone] Referring Provider: Shahid Pinto OD, [address] [facility] [place], [address]. tel:[phone] [facility], [address], [place], [place], [address], [place] tel:[phone] SEC [place] Professional Complete Exam (chief complaint) Bilateral artificial lens implantGlauc omatous optic atrophy, bilateralMei bomian gland dysfunction of unspecified eye, unspecified eyelidKerato conjunctivit is siccaBenign neoplasm of left choroid 2 Jorge Luis Giles. [address] [facility], [address], [place], [place], [address], [place]. tel:[phone] Referring Provider: Shahid Pinto OD, [address], [place], [address]. tel:[phone] Office/outpa tient Visit, [facility], [address], [place], [place], [address], [place] tel:[phone] SEC [place] DAYANNA Professional Complete Exam (chief complaint) Bilateral artificial lens implantChoro idal nevus, left eyeGlaucomat ous optic atrophy, bilateralDry eye syndrome of bilateral lacrimal glands 1 Zhane An. [address], [address], [place], [place], [address], [place]. tel:[phone] Referring Provider: Shahid Pinto OD, [address] [place], [address]. tel:[phone] Office/outpa tient Visit, [facility], [address], [place], [place], [address], [place] tel:[phone] SEC [place] DAYANNA Professional 6 month IOP check (chief complaint) Glaucomatous optic atrophy, bilateralCho roidal nevus, left eye Vega- 0 Dejah OD Ricardo. [address] [facility], 6th Floor, [place], [address], [place]. tel:[phone] Referring Provider: Shahid Pinto OD, [address], [place], [address]. tel:[phone] [facility], [address], [place], [place], [address], [place] tel:[phone] SEC Laci DAYANNA Professional Complete Exam (chief complaint) Bilateral artificial lens implantMeibo smiley gland dysfnct right eye, upper and lower eyelidsMeibo smiley gland dysfnct left eye, upper and lower eyelidsKerat oconjunctivi tis siccaChoroid al nevus, left eye 0 Dejah OD Ricardo. [address] [facility], [address] [facility], [place], [address], [place]. tel:[phone] Referring Provider: Shahid Pinto OD, [address] [facility] [place], [address]. tel:[phone] [facility] [employer] [facility], [address] [place] [address] [address], [place], [place], [address], [place] tel:[phone] SEC Lexus Miranda No Information 9 Dejah OD Ricardo. [address] [facility], [address] [place] [address], [place], [address], [place]. tel:[phone] Office/outpa tient Visit, Est [facility] [employer] [facility], [address] [place] [address] [address], [place], [place], [address], [place] [phone] SEC Laci ALAN Professional ALESIA check (chief complaint) Meibomian gland dysfnct right eye, upper and lower eyelidsMeibo smiley gland dysfnct left eye, upper and lower eyelids 9 Dejah OD Ricardo. [address] [facility], [address] [place] [address], [place], [address], [place]. tel:[phone] Referring Provider: Shahid Pinto OD, [address] [facility] [place], [address]. tel:[phone] Office/outpa tient Visit, [facility], [address] [place] [address] [address], [place], [place], [address], [place] tel:[phone] SEC Laci DAYANNA Professional 3 mo ALESIA f/u (chief complaint) Meibomian gland dysfunction (MGD)Superfi cial punctate keratitis of both eyesCorneal opacity of both eyes 8 Jorge Luis Giles. [address], [address], [place], [place], [address], [place]. tel:[phone] Referring Provider: Shahid Pinto OD, [address] [facility], [place], [address]. tel:[phone] Located within [facility], [facility] [address] [facility] [address], [place], [place], [address], [phone] SEC [place] Professional Decreased vision (chief complaint) No Information 8 Jorge Luis Giles. [address], [address], [place], [place], [address], [place]. tel:[phone] Referring Provider: Shahid Pinto OD, [address] [employer] [facility], [place], [address]. tel:[phone] Located within [facility], [facility] [employer] [facility] [address], [place], [place], [address], [place] tel:[phone] SEC Lexus [address] YAG EVAL OD (chief complaint) No Information [address] [place] [address] [facility] [employer] [address], [address], [place], [place], [address], [place]. tel:[phone] Referring Provider: Shahid Pinto OD, [address] [facility], [place], [address]. tel:[phone] Office/outpa tient Visit, [facility], [address] [place], [place] [address], [place], [place], [address], [place] tel:[phone] SEC [place] [address] Yag Evaluation (chief complaint) No Information 6 Zhane An. [facility] [employer] [address], [address], [place], [place], [address], [place]. tel:[phone] Referring Provider: Shahid Pinto OD, [address] [facility], [place], [address]. tel:[phone] Office/outpa tient Visit, Est [facility], [facility] [address], [place], [place], [address], [place] tel:[phone] SEC [place] [address] Blurry near vision (chief complaint) No Information Mar-07 07- 5 Zhane Juve. [facility] [employer] [address], [address], [place], [place], [address], [place]. tel:[phone] Referring Provider: Shahid Pinto OD, [address] [place], [address]. tel:[phone] Located within [facility], [facility] [address], [place], [place], [address], tel:[phone] SEC Lexus N [place] 6 week PO (chief complaint) No Information 5 Zhaen An. [facility] [employer] [address], [address], [place], [place], [address], [place]. tel:[phone] Referring Provider: Shahid Pinto OD, [address] [place], [address]. tel:[phone] Located within [facility], [address], [place], [place], [address], [place] tel:[phone] SEC [place] [address] 3 week post op Phaco IOL OS (chief complaint) No Information Aug-2 - 5 Zhane An. [facility] [employer], [address], [place], [place], [address], [place]. tel:[phone] Referring Provider: Shahid Pinto OD, [address] [place], [address]. tel:[phone] [facility], [facility] [address], [place], [place], [address], [place] tel:[phone] SEC [place] [address] F/u exam, postop (chief complaint) No Information 5 Zhane An. [address], [address], [place], [place], [address], [place]. tel:[phone] Referring Provider: Shahid Pinto OD, [address] [facility], [place], [address]. tel:[phone] [facility] [employer] [facility], [address], [place], [place], [address], [place] tel:[phone] SEC [place] Professional F/u exam, postop (chief complaint) No Information 5 Zhane An. [facility] [employer] [address], [address], [place], [place], [address], [place]. tel:[phone] Referring Provider: Shahid Pinto OD, [address] [facility], [place], [address]. tel:[phone] [facility] [facility], [facility] [address], [place], [place], [address], [place] tel:[phone] SEC [place] Professional 1 day P/O (chief complaint) No Information Sandie Fishman. [address] [facility], [address], [place], [place], [address], [place]. tel:[phone] Referring Provider: Shahid Pinto OD, [address] [employer] [facility], [place], [address]. tel:[phone] [facility] [facility], [facility] [address], [place], [place], [address], [place] tel:[phone] [facility] No Information 5 Zhane An. [facility] [employer] [address], [address], [place], [place], [address], [place]. tel:[phone] Referring Provider: Shahid Pinto OD, [address] [facility], [place], [address]. tel:[phone] [facility], [address] [place] [address] [address], [place], [place], [address], [place] tel:[phone] SEC Lexus Josephine Miranda No Information 5 Zhane An. [address] [place] [address] Drive, [address], [place], [place], [address], [place]. tel:[phone] Referring Provider: Shahid Gerberon OD, [address] [facility] [place], [address]. tel:[phone] [facility], [address], [place], [place], [address], [place] tel:[phone] SEC [place] Professional F/u exam, postop (chief complaint) No Information 4 Sandie Fishman. [address] [facility], [facility] [[email or web address]] A, [place], [place], [address], [place]. tel:[phone] Referring Provider: Shahid Pinto OD, [address] [facility], [address]. tel:[phone] Located within [facility], [address] [place] [address] [address], [place], [place], [address], [place] tel:[phone] SEC [place] Professional 1 WK PO PHACO OD (chief complaint) No Information 4 Sandie Fishman. [address] [facility], [email or web address] A, [place], [place], [address], [place]. tel:[phone] Referring Provider: Shahid Pinto OD, [address] [facility] [place], [address]. tel:[phone] Located within [facility], [address] [place] [address] [address], [place], [place], [address], [place] [phone] SEC [place] Professional 1 DAY PO PHACO OD (chief complaint) No Information 4 Carol Yancey. [address], [address], [place], [address], [place]. tel:[phone] Referring Provider: Shahid Gerberon OD, [address] [facility], [place], [address]. tel:[phone] [facility], [address] [place] [address] [address], [place], [place], [address], [place] tel:[phone] [facility] [place] No Information Dec-0 4-201 4 [place] [address]. [address] [place], [place] [address] [employer], [address], [place], [place], [address], [place]. tel:[phone] Referring Provider: Shahid Gerberon OD, [address] [facility] [facility], [place], [address]. tel:[phone] [facility], [address] [place] [address] [address], [place], [place], [address], [place] tel:[phone] SEC [place] N [address] No Information Dec-0 3-201 4 Zhane Juve. [address] [place] [address] [employer], [address], [place], [place], [address], [place]. tel:[phone] Referring Provider: Shahid Pinto OD, [address] [place], [address]. tel:[phone] Office/outpa tient Visit, [facility], [address] [place] [address] [address], [place], [place], [address], [place] tel:[phone] SEC [place] Blurry vision (chief complaint) No Information 1 0-201 4 Zhane Juve. [facility] [address] [employer], [address], [place], [place], [address], [place]. tel:[phone] Referring Provider: Shahid Pinto OD, [address] [place], [address]. tel:[phone] Office/outpa tient Visit, [facility], [address] [place] [address] [address], [place], [place], [address], [place] tel:[phone] SEC [place] N [place] Blurry vision (chief complaint) No Information 4 Zhane Juve. [address] [place] [address] [employer] [facility], [address], [place], [place], [address], [place]. tel:[phone] Referring Provider: Shahid Pinto OD, [address] [place], [address]. tel:[phone] [facility], [address] [place] [address] [address], [place], [place], [address], tel:[phone] SEC [place] N [place] No Information 4 Conner Drummond. [address] [facility], [address], [place], [place], [address], [place]. tel:[phone] Office/outpa tient Visit, [facility], [address] [place] [address] [address], [place], [place], [address], tel:[phone] SEC [place] N [place] blurry vision (chief complaint) No Information 3 [place] [address]. [facility] [address] [employer] [facility], [address], [place], [place], [address], [place]. tel:[phone] Referring Provider: Shahid Pinto OD, [address] [place], [address]. tel:[phone] [facility], [address] [place] [address] [address], [place], [place], [address], tel:[phone] SEC [place] N [place] a comprehensive exam (chief complaint) No Information 2 [place] [address]. [facility] [place] [employer] [facility], [address], [place], [place], [address], [place]. tel:[phone] Referring Provider: Shahid Pinto OD, [address] [place], [address]. tel:[phone] Family History Family Member Type Diagnosis Age At Onset No Information Payers Payer name Insurance type Covered libertarian ID Dangelo acosta(s) [facility] Mdcr Adv CI [id number] Social History Type Description Quantity Date Captured [...] Will give spec Rx to take to [facility]. [place] medicated gtts.Discussed laser surgery to [...]
--- OUTSIDE RECORDS SUMMARY | 2024-10-09 00:59 | XMS_ITS | Encounter Summary ---
Author Organization [facility] Health Address [address] [place] [address] Care Team Providers Care Detective Lieutenant Name Role Phone Nicolas Xiao DO Primary Care Provider [phone] Reason for Visit * Reason Onset Date Comments LABS ONLY 04/16/2018 labs may have be en coded wrong Returned Call 04/16/2018 Encounter Details Date Type Department Care Team (Late st Contact Info) Description 04/16/2018 Telephone [facility] [address] [place] [address] Joanne Plata MD [address] [facility] [address] [place] [address] LABS ONLY (labs may have been coded [...] Pt returning missed call from the nurse. Callback#[phone] * Telephone Encounter - Whitney Lima RN [...] on filedocumented in this encounter Care Teams Detective Lieutenant Relationship Specialty Start Date End Date Nicolas Xiao DO PCP - General 02/04/18 documented as of this encounter
--- OUTSIDE RECORDS SUMMARY | 2024-10-09 00:59 | XMS_ITS | Clinical Summary ---
Author Organization [facility] [employer] Address [address] [facility] [place] [address] Care Team Providers Care Guard Museum Name Role Phone Nicolas Xiao Primary Care Provider [phone] Source Comments [facility],non-owned Affiliates and Associated Physician Practices is amultiple site organization consisting of ambulatory clinics and hospital sitesin [place], [place], [place] and [place]. This disclosure is being madepursuant to the Care Everywhere program and may not contain all information available regarding this patient. Last updated 18.[facility] [employer] Allergies Active Allergy Reactions Criticality Noted Date [...] VACCINE ( - 2023-2 5 season) 2024 DEPRESSION SCREENING 07/02/2024 MEDICARE AWV CALENDAR YEAR 2024 INFLUENZA VACCINE (Season Ended) 2025 HEPATITIS B VACCINE Aged Out No longe [...] age to complete this topic Care Teams Guard Museum Relationship Specialty Start Date End Date Nicolas Xiao DO PCP - General 02/04/18
--- OUTSIDE RECORDS SUMMARY | 2024-10-09 00:59 | XMS_ITS | Clinical Summary ---
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 Not on file Not on file Last Filed Vital Signs Vital Sign Reading Time Taken Comments Blood Pressure 120/80 01/14/2016 9:58 AM CDT Pulse 64 01/14/2016 9:58 AM CDT Temperature - - Respiratory Rate 14 01/14/2016 9:58 AM CDT Oxygen Saturation - - Inhaled Oxygen Concentration - - Weight 76.2 kg (168 lb) 08/16/2023 12:23 PM ASSISTANT COUNTY ENGINEER Height 160 cm (5' 3 ) 04/14/2021 [...] Procedure Name Priority Date/Time Associated Diagnosis Comments [facility] SCREENING BILATERAL DIGITAL W CAD W SIDDHARTHA Routine 08/16/2023 12:50 PM ASSISTANT COUNTY ENGINEER Visit for screening mammogram [facility] BONE DENSITOMETRY AXIAL SKELETON Routine 04/14/2021 1:51 PM CDT Asymptomatic menopausal state from Last 3 Months or Most Recently Relevant to Health Maintenance Results * [facility] SCREENING BILATERAL DIGITAL W CAD W SIDDHARTHA (08/16/2023 12:50 PM ASSISTANT COUNTY ENGINEER) Anatomical Region Laterality Modality breast Bilateral Mammography 08/16/2023 12:1 2 PM ASSISTANT COUNTY ENGINEER Narrative 08/17/2023 12:35 PM ASSISTANT COUNTY ENGINEER - [facility] SCREENING BILATERAL DIGITAL W CAD W SIDDHARTHA [...] to exams dated: 06/15/2022, [facility]2021[facility] BREAST TISSUE:There are scattered fibroglandular [...] signed by: Tanvi Lopez M.D. ll/:08/16/2023 16:29:08 Nuclear Waste Management Engineer(s): RT Yaritza(R)(M), [facility] letter sent: Normal Exam Reading location: [facility] BI-RADS: 1 Negative Procedure Note Tanvi [...] to exams dated: 06/15/2022, 04/11/2021, and 03/12/2020 [facility]. BREAST TISSUE:There are scattered [...] signed by: Tanvi Lopez M.D. ll/:08/16/2023 16:29:08 Nuclear Waste Management Engineer(s): RT Yaritza(R)(M), [facility] letter sent: Normal Exam Reading location: [place] [...] old female with given history of screening. Printing Press Machine Operator/Model: Microm[employer]cle (S/N [id number]) CLINICAL INFORMATION: Current height: 63 inches Weight: [...] signed by Reji SALINAS: BRAD Report ID: [id number] Reading Location: [place] [address] Procedure Note Reji Odell MD - 04/14/2021 EXAM DESCRIPTION: [place] BONE DENSITOMETRY AXIAL SKELETON REASON FOR STUDY: 75 year old female with given history of screening. Printing Press Machine Operator/Model: Micromuscle (S/N [id number]) CLINICAL INFORMATION: Current height: 63 inches Weight: [...] Reji Odell M.D. BRAD: BRAD Report ID: [id number] Reading Location: [id number] IMPRESSION: Low bone mass REFERENCE: Bone mineral [...] Relevant to Health Maintenance Insurance MEDICARE C [facility] Care Teams Core Winding Operator Relationship Specialty Start Date End Date Manpreet Sanderson MD [address] [place] [address] PCP - General Family Medicine 12/19/22 Abhijit Elizabeth MD Consulting Physician Gastroenterology 01/14/16
--- NOTE | 2024-10-09 06:19 | WPDHPUPDATE1 ---
History and Physical Update Update Date/Time: 10/09/24 06:19 History and Physical has been reviewed, including an updated exam of the patient. There are NO changes in the patient's condition. Risks, benefits, and alternatives have been discussed and questions answered. Patient agrees to proceed with procedure.
[2024-10-09] MEDS: LACTATED RINGERS 1,000 ML 30 ML IV CONT (10:05)
--- NOTE | 2024-10-09 11:33 | P.PNAN_ITS ---
Anes - Initial Pre Proc Eval Procedure: Operation Date: 10/09/24 11:15 Proposed Procedures p Cystoscopy, Right Ureteroscopy, Possible Right Retrograde Pyelogram, Possible Right Stone Extraction, Possible Right Stent Placement, Possible Holmium Laser Procedure - Carl Chavarria MD Date/Time: 10/09/24 11:33 Surgeon: Carl Chavarria MD Pre Op Diagnosis: left renal stone Patient Data Age: 78 Gender: F Height: 1.52 m Weight: 77 kg Last Vital Signs Temp 97.7 F 10/09/24 09:40 Pulse 62 10/09/24 09:40 Resp 18 10/09/24 09:40 BP 131/65 10/09/24 09:40 Pulse Ox 93 10/09/24 09:40 O2 Del Method Room Air 10/09/24 09:40 Allergies Allergy/AdvReac Type Severity Reaction Status Date / Time hydrochlorothiazide Allergy Intermediate Rash Verified 10/09/24 09:45 dextromethorphan Allergy Unknown Unknown Verified 10/09/24 09:45 pseudoephedrine Allergy Unknown rash Verified 10/09/24 09:45 tramadol AdvReac Intermediate CONTRAINDICATED Verified 10/09/24 09:45 W/ ZOLOFT atorvastatin (From Lipitor) AdvReac Mild MUSCLE/LEG Verified 10/09/24 09:45 PAIN spironolactone (From AdvReac Confusion Verified 10/09/24 09:45 Aldactone) antihistamines AdvReac Unknown Palpitation Uncoded 10/09/24 09:45 s Home Medications ?Medication ?Instructions ?Recorded ?Confirmed ?Type ketorolac 0.5 % eye drops 2 drp EACH EYE Q8H PRN Dry Eyes 02/03/21 10/06/24 History carbidopa 25 mg-levodopa 100 mg 2 tablet PO TID 08/15/22 10/09/24 History tablet (Sinemet) aspirin 81 mg tablet,delayed 81 mg PO DAILY 11/21/22 10/09/24 History release (Adult Low Dose Aspirin) clobetasol 0.05 % scalp solution 1 applic topical DIRECTED 03/04/23 10/06/24 History sennosides 8.6 mg-docusate sodium 1 tablet PO DAILY PRN Constipation 03/04/23 10/06/24 History 50 mg tablet (Stimulant Laxative Plus) cholecalciferol (vitamin D3) 50 50 mcg PO DAILY 11/23/23 10/09/24 History mcg (2,000 unit) capsule ibuprofen 200 mg capsule 200 mg PO Q6H PRN Pain 11/23/23 10/09/24 History multivitamin 1 tablet PO DAILY 11/23/23 10/09/24 History trimethoprim 100 mg tablet 100 mg PO HS 11/23/23 10/09/24 History gabapentin 300 mg capsule See Rx Instructions .Route 07/30/24 10/09/24 Rx .COMPLEX #180 caps clorazepate dipotassium 3.75 mg 3.75 mg PO TID PRN anxiety #90 tabs 08/25/24 10/09/24 Rx tablet oxybutynin chloride 15 mg See Rx Instructions .Route 08/25/24 10/09/24 Rx tablet,extended release 24 hr .COMPLEX #90 tabs sertraline 100 mg tablet See Rx Instructions .Route 08/25/24 10/09/24 Rx .COMPLEX #90 tabs omeprazole 40 mg capsule,delayed See Rx Instructions .Route 09/03/24 10/09/24 Rx release .COMPLEX #180 caps baclofen 10 mg tablet 10 mg PO TID 10/03/24 10/09/24 History carboxymethylcellulose sodium 1 % 1 drp EACH EYE BID-TID PRN dry 10/03/24 10/09/24 History eye liquid gel drops eye(s) lubiprostone 24 mcg capsule 24 mcg PO DAILY 10/03/24 10/09/24 History carvedilol 6.25 mg tablet See Rx Instructions .Route .COMPLEX 10/06/24 10/09/24 History clobetasol 0.05 % topical cream 1 applic topical BID 2 weeks #60 10/06/24 10/06/24 Rx grams furosemide 40 mg tablet 40 mg PO DAILY 10/06/24 10/09/24 History ketoconazole 2 % shampoo 1 applic topical 3XW #120 mL 10/06/24 10/09/24 Rx Patient hx anesthesia problems: none Family hx anesthesia problems: none Results Review: All pre-operative results and documents have been reviewed as part of the pre- operative evaluation. [facility] Past Medical History Medical History PAD (peripheral artery disease) Colon polyps Hyperlipidemia Hypertension Mitral valve prolapse Impaired glucose tolerance COVID-19 Chronic midline low back pain without sciatica Osteoporosis Polyosteoarthritis, unspecified Vitamin D deficiency Anxiety GERD without esophagitis Weight gain Low bone mass Surgical History Surgical History Hx of total hysterectomy April 2020; Dr. Garcia at [facility] Family History Family History Mother Asthma Family history of osteoarthritis Colon polyp Hypertension Depression Heart disease Cerebrovascular accident Sibling Asthma Family history of osteoarthritis Family history of irritable bowel syndrome Depression Other Depression Grandparent Cancer Hypertension Heart disease Social History Social History Smoking packs per day: 1 Smoking cigarettes per day: 20.0 Years smoked: 15 Smoking pack-years: 15.00 Smoking status: Former smoker Tobacco type: cigarettes Second hand tobacco smoke exposure: Yes Smoking end date: 07/02/89 Alcohol intake: never Substance use: never Substance use type: does not use Lack of Transportation: No Lack of Food: Never True Current Housing: I Have Housing Concerned About Future Housing: No Difficulty Paying Gas/Electric Bills: No Difficulty Paying for Meds: No Currently Unemployed: No Education: Associate Degree Difficulty w/ Childcare or Family Care: No Living arrangements: alone Additional living arrangements comments: DAUGHTER Spiritual care concerns: No Anes - Eval Final PreProcedure Day of Procedure 10/09/24 11:33 Patient weight: obese Lungs: normal air movement Airway: Mallampati scale and special considerations (Edentulous. ) Neurological: alert and oriented Last oral intake: >/= 8 hours ASA classification: IV Emergent: no Anesthetic plan: proceed Anesthesia type and monitoring: general LMA and standard monitoring Results Review: All pre-operative results and documents have been reviewed as part of the pre- operative evaluation. HTN, hx CHF 2022, pt uses home oxygen 3 l qhs and when napping. Informed Consent: The patient's anesthetic plan and its attendant risks and benefits were discussed with the patient/family/POA. Questions were solicited and answers provided to the satisfaction of the patient/family/POA.
[2024-10-09] MEDS: ceFAZolin 2 GM/D5W 50 ML 2 GM/50 ML BAG IVPB (11:38)
[2024-10-09] MEDS: LIDOCAINE 2% GEL UROJET 10 ML PKG MUCOUS MEM (11:54)
--- NOTE | 2024-10-09 12:21 | W.PM.PROC2 ---
Procedure Note - Detailed Date of Procedure 10/09/24 Pre-op Diagnosis Right renal stone Post-op Diagnosis Same Procedure Performed Cystoscopy, right ureteroscopy with laser lithotripsy stones and right ureteral stent placement Surgeon Carl Chavarria MD Anesthesia General Description of Procedure Patient is brought to the operative suite received prepped draped in routine sterile fashion while in dorsal lithotomy position after the uneventful induction of a general LMA anesthetic. Cystoscopy was undertaken 19 F rigid cystoscope. Bladder mucosa is normal. There is no intravesical foreign body or neoplasm. She has a single orthotopic ureteral orifice bilaterally. A 0.035 in glidewire was advanced into her right renal pelvis and the distal ureter is dilated with an 8 F 10 F dilator. A safety wire and a 11 F/13 F ureteral access sheath was placed. Right ureteroscopy was undertaken with a 7.5 F flexible digital ureteral scope. She does have some mild narrowing of her UPJ the does allow passage of the ureteral scope. Instead of a dominant stone will be fine as she has a coil essence of small fragments. Using a 200 micron Nico laser fiber these fragments are dusted into particles 2 mm or less. Ureteral scope was removed and a 4.8 variable length stent is positioned with proximal coil in the renal pelvis and distal coil in the bladder. Scopes wires had been removed and she was taken to the recovery room in good condition. Drains Yes Packing No Pathology None sent Complications No immediate complications
== END 2024-10-09 14:15 | disposition home or self-care (01) ==
PROVIDERS: PCP Nurse Practitioner Adult Health; Visit Provider Urology
PROC: (CPT 52352; principal; 2024-10-09 11:15)
DX: N20.1 Calculus of ureter (principal); Z87.891 Personal history of nicotine dependence; E66.9 Obesity, unspecified; Z68.33 Body mass index [BMI] 33.0-33.9, adult
CPT/HCPCS: 52356; 74420; C1758; C1769; C2617; J0690; J1100; J2003; J2405; J2704; J3010; J7120; Q9966

== ENCOUNTER 2024-10-21 13:05 | Outpatient (CLI) | payer MEDICARE, SELFPAY ==
--- OUTSIDE RECORDS SUMMARY | 2024-10-21 14:42 | XMS_ITS | Clinical Summary ---
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 Not on file Not on file Not on file Last Filed Vital Signs Vital Sign Reading Time Taken Comments Blood Pressure 120/80 01/14/2016 9:58 AM CDT Pulse 64 01/14/2016 9:58 AM CDT Temperature - - Respiratory Rate 14 01/14/2016 9:58 AM CDT Oxygen Saturation - - Inhaled Oxygen Concentration - - Weight 76.2 kg (168 lb) 08/16/2023 12:23 PM TRAY SERVER Height 160 cm (5' 3 ) 04/14/2021 [...] Procedure Name Priority Date/Time Associated Diagnosis Comments [facility] SCREENING BILATERAL DIGITAL W CAD W SIDDHARTHA Routine 08/16/2023 12:50 PM TRAY SERVER Visit for screening mammogram [facility] BONE DENSITOMETRY AXIAL SKELETON Routine 04/14/2021 1:51 PM CDT Asymptomatic menopausal state from Last 3 Months or Most Recently Relevant to Health Maintenance Results * [facility] SCREENING BILATERAL DIGITAL W CAD W SIDDHARTHA (08/16/2023 12:50 PM TRAY SERVER) Anatomical Region Laterality Modality breast Bilateral Mammography 08/16/2023 12:1 2 PM TRAY SERVER Narrative 08/17/2023 12:35 PM TRAY SERVER - [facility] SCREENING BILATERAL DIGITAL W CAD W SIDDHARTHA [...] to exams dated: 06/15/2022, [facility]11[facility]2021[facility] BREAST TISSUE:There are scattered fibroglandular densities [...] signed by: Tanvi Lopez M.D. ll/:08/16/2023 16:29:08 Wood Room Hand(s): RT Yaritza(R)(M), [facility] letter sent: Normal Exam Reading location: [facility] BI-RADS: 1 Negative Procedure Note Tanvi Lopez [...] to exams dated: 06/15/2022, 04/11/2021, and 03/12/2020 [facility]. BREAST TISSUE:There are scattered fibroglandular densities in [...] signed by: Tanvi Lopez M.D. ll/:08/16/2023 16:29:08 Wood Room Hand(s): RT Yaritza(R)(M), [facility] letter sent: Normal Exam Reading location: [facility] [...] old female with given history of screening. Surface Grinder/Model: Weimob ([id number]) CLINICAL INFORMATION: Current height: 63 inches Weight: [...] signed by Reji SALINAS: BRAD Report ID: [id number] Reading Location: [place] [id number] Procedure Note Reji Odell MD - 04/14/2021 EXAM DESCRIPTION: [facility] BONE DENSITOMETRY AXIAL SKELETON REASON FOR STUDY: 75 year old female with given history of screening. Surface Grinder/Model: Weimob ([id number]/N [id number]) CLINICAL INFORMATION: Current height: 63 inches Weight: [...] Reji Odell M.D. BRAD: BRAD Report ID: [id number] Reading Location: [id number] IMPRESSION: Low bone mass REFERENCE: Bone mineral [...] Relevant to Health Maintenance Insurance MEDICARE C [facility] Care Teams Rn Relief Charge Relationship Specialty Start Date End Date Manpreet Sanderson MD [address] [place] [address] PCP - General Family Medicine 12/19/22 Abhijit Elizabeth MD Consulting Physician Gastroenterology 01/14/16
--- OUTSIDE RECORDS SUMMARY | 2024-10-21 14:42 | XMS_ITS | Continuity of Care Document ---
Author Organization [facility] Address [address] [place] [address] Insurance Providers Payer Plan Claims Address Claims Phone Policy Number Group Number Relation Employer Guarantor Name Guarantor Guarantor Address Guarantor Phone [employer] [address] [address], [place] [address] tel:[phone] [id number] [phone] Self Carina Priscilla [address] [place] [address] [id number] SELF [place]Y NO INS[place], [place] [address] Self Carina Panacea 1945 [address] [place] [address] [employer] [address] [address], [place] [address] tel:[phone] [id number] [phone] Self Carina Priscilla [address] [place] [id number] Problems Unknown Problems Results No Results Allergies, adverse reactions, alerts No known allergies and adverse reactions Medications No administered medications reported Vital Signs Date Vital Result Comment 03/18/2024 Inhaled Oxygen Concentration 21.0 % N Faces Pain Scale 0.0 N Oxygen Saturation 97 % N Respiratory Rate 18 /min N Heart Rate 78 /min N Blood Pressure Systolic 128 mm[Hg] N Blood Pressure Diastolic 78 mm[Hg] N Body Height 62 [in_i] N Body Weight 168 [lb_av] N Body Mass Index 30.7 kg/m2 N 04/29/2024 Inhaled Oxygen Concentration 21.0 % N Faces Pain Scale 0.0 N Oxygen Saturation 98 % N Respiratory Rate 18 /min N Heart Rate 78 /min N Blood Pressure Systolic 129 mm[Hg] N Blood Pressure Diastolic 68 mm[Hg] N Body Height 62 [in_i] N Body Weight 166.7 [lb_av] N Body Mass Index 30.5 kg/m2 N 07/28/2024 Inhaled Oxygen Concentration 21.0 % N Oxygen Saturation 98 % N Respiratory Rate 18 /min N Heart Rate 78 /min N Blood Pressure Systolic 122 mm[Hg] N Blood Pressure Diastolic 78 mm[Hg] N Body Height 62 [in_i] N Body Weight 166 [lb_av] N Body Mass Index 30.4 kg/m2 N Social History No smoking Hx information available Functional Status Category Condition Date Problem (Feeding: Independent) Feeding: Independ ent 03/18/2024 Problem (Bathing: Dependent) Bathing: Dependent 03/18/2024 Problem (Grooming: Independe nt face/hair/teeth/ shaving (implements provided)) Grooming: Independent face/hair/teeth/ shaving (implements provided) 03/18/2024 Problem (Dressing: Independe nt (including buttons, zips, laces, etc.)) Dressing: Independent (including buttons, zips, laces, etc.) 03/18/2024 Problem (Bowels: Continent) Bowels: Continent Problem (Bladder: Occasional accident) Bladder: Occasional accident 03/18/2024 Problem (Toilet use: Indepen dent (on and off, dressing, wiping)) Toilet use: Independent (on and off, dressing, wiping) 03/18/2024 Problem (Transfers (bed to c hair and back): Independent) Transfers (bed to chair and back): Independent 03/18/2024 Problem (Mobility (on level surfaces): Independent (but may use any aid; for example, stick) >50 yards) Mobility (on level surfaces): Independent (but may use any aid; for example, stick) >50 yards 03/18/2024 Problem (Stairs: Unable) Stairs: Unable 024 Problem (Total score: 80) Total score: 80 2023 Mental Status Category Condition Date Cognitive function Normal 03/18/2024
--- OUTSIDE RECORDS SUMMARY | 2024-10-21 14:42 | XMS_ITS | Data Portability ---
Author Organization [facility] Address [address] [place] [address] Assessment No assessment recorded. Plan of Treatment Reminders Order Date Submit Date Provider Last Modified By Organization Details Last Modified Time Details Appointments None recorded . Lab bacteria l vaginosi s + vaginiti s panel, vaginal 2016 017 [facility], [address] [place] [address], [address], [place], [address], 7 07:13:54 Referral None recorded . Procedures None recorded . Surgeries None recorded . Imaging MAMMO, screenin g, digital, bilatera l 2019 020 [facility] ([facility]) Scheduling, [address] [place], [address], 0 08:59:27 US, pelvis, transabd ominal + transvag inal - assess endometr ial thicknes s 2019 020 TENISHA Laci [facility] (Radiology), 1 [facility] [place], [address], 0 17:21:15 bone density 2017 018 manish Laci [facility] Scheduling, 1 [facility] [place], [address], 8 10:02:14 US, pelvis, transabd ominal + transvag inal 2017 018 TENISHA Not available 8 08:41:18 MAMMO, screenin g, bilatera l 2016 017 [facility]pass [facility] ([facility] Scheduling, [address] [place], [address], 7 09:04:41 Medication Orders None recorded . Patient TargetsNo targets recorded. Patient Instructions Encounter Date Encounter Id Patient Instructions Last Modified By Organization Details Last Modified Time 02/03/2015 [id number] Stress Incontinence: Care Instructions onofre Not available 02/03/2015 15:57:42 To make apt. wit h Dr. Keyla Santa for urinary incontinence mpass Not available 02/03/2015 15:52:47 12/11/2016 [id number] learning about breast cancer screening mpa Not available 12/12/2016 09:04:41 Await test results. Make appt. for mammogram. mpa Not available 12/11/2016 17:07:44 11/08/[id number] Sindhu currie Not available 11/08/2017 18:16:12 02/02/2020 [id number] cystocele: care instructions fabiolanstrramez Not available 02/02/2020 10:30:06 Reason for Referral None Reported. Results Created Date Observation Date Name Description Value Unit Range Abnormal Flag Note LastModifiedBy Organization Detail LastModifiedTime 12/03/19 16 12/04/2015 ca 125, serum cancer antigen (Ca) 125 13.9 U/mL 0.0-38 .1 . PLE ASE NOTE REFER ENCE INTER LIVIA DIA E LOUIS ECLIA METHO DOLOG Y Not Available [facility] ([facility]) [address] [facility], [place], [address], 12/04/2015 11:11:49 12/12/19 17 12/13/2016 bacte rial vagin osis + vagin itis panel , vagin al trich vag by JORGE NEGATI VE negati ve Not Available [facility] ([facility]) [address] [facility] [address], [place], [address], 12/20/2016 07:13:54 12/12/19 17 12/13/2016 bacte rial vagin osis + vagin itis panel , vagin al chlamydia trachomatis, JORGE NEGATI VE negati ve Not Available [facility] ([facility]) [address] [place], [address], 12/20/2016 07:13:54 12/12/19 17 12/13/2016 bacte rial vagin osis + vagin itis panel , vagin al neisseria gonorrhoeae, JORGE NEGATI VE negati ve Not Available [facility] ([facility]) [address] [place], [address], 12/20/2016 07:13:54 12/12/19 17 12/15/2016 bacte rial vagin osis + vagin itis panel , vagin al atopobium vaginae LOW - 0 score Not Available [facility] ([facility]) [address] [place], [address], 12/20/2016 07:13:54 12/12/19 17 12/15/2016 bacte rial vagin osis + vagin itis panel , vagin al bvab 2 LOW - 0 score Not Available [facility] ([facility]) [address] [place] [address], [address], 12/20/2016 07:13:54 12/12/19 17 12/15/2016 bacte rial [...] E LISETTE CTERI STICS DETER MINED BY [employer]. IT HAS NOT BEEN CLEAR ED OR APPRO JANELL BY THE FOOD AND DRUG ADMIN ISTRA TION. THE FDA HAS DETER MINED THAT SUCH CLEAR ANCE OR APPRO LIVIA IS NOT NECES KALYANI. Not Available [facility] ([facility]) [address] [place], [address], 12/20/2016 07:13:54 12/12/19 17 12/19/2016 bacte rial vagin osis + vagin itis panel , vagin al luigi albicans, JORGE NEGATI VE negati ve Not Available [facility] ([facility]) [address] [place], [address], 12/20/2016 07:13:54 12/12/19 17 12/19/2016 bacte rial vagin osis + vagin itis panel , vagin al luigi glabrata, JORGE NEGATI VE negati ve THIS TEST WAS DEVEL OPED AND ITS PERFO RMANC E LISETTE CTERI STICS DETER MINED BY [employer]. IT HAS NOT BEEN CLEAR ED OR APPRO JANELL BY THE FOOD AND DRUG ADMIN ISTRA TION. THE FDA HAS DETER MINED THAT SUCH CLEAR ANCE OR APPRO LIVIA IS NOT NECES KALYANI. Not Available [facility] ([facility]) [address] [facility] [address], [place], [address], 12/20/2016 07:13:54 01/22/20 19 01/22/2019 ca 125, serum Ca 125 7 U/mL <35 normal This test was perfo rmed using the [facility] an Coult er Chemi lumin escen t metho d. Value s obtai agustin from diffe rent assay metho ds canno t be used inter dia eablsimeon . CA 125 level s, regar dless of value , shoul d not be inter prete d as absol saundra evide nce of the prese nce or absen ce of disea se. Not Available [employer] [facility] [address] [place], [address], 01/22/2019 09:30:08 01/17/20 15 01/15/2015 imagi ng/di agnos tic resul t No observ ation record ed. mpass [facility] ([facility]) Scheduling [address] [place], [address], 02/03/2015 15:52:10 11/16/19 16 11/16/2015 imagi ng/di agnos tic resul t No observ ation record ed. BARCODE Not Available 2015 16:35:36 11/28/19 16 11/27/2015 ultra sound , pelvi c trans abdom inal & trans vagin al No observ ation record ed. [email or web address] [address] [place], [address], 12/03/2015 16:50:19 11/09/19 18 10/24/2017 imagi ng/di agnos tic resul t No observ ation record ed. BARCODE Not Available 2017 16:35:21 11/09/19 18 08/11/2017 MAMMO , scree sherin, digit al, bilat eral No observ ation record ed. [facility] ([facility]) Scheduling [address] [place], [address], 11/08/2017 16:35:58 11/21/19 18 11/20/2017 US, pelvi s, trans abdom inal + trans vagin al No observ ation record ed. charles Laci [facility] 1 [facility] [place], [address], 12/05/2017 10:42:16 12/13/19 18 12/11/2017 bone densi ty No observ ation record ed. baileyramez [facility] [address] [place], [address], 12/27/2017 15:32:26 01/11/20 19 01/10/2019 US, pelvi s, trans abdom inal + trans vagin al No observ ation record ed. aaustill [facility] Scheduling 1 [facility] [place] [place], [address], 12/15/2019 15:42:58 01/29/20 19 12/13/2018 MAMMO , scree sherin, digit al, bilat eral No observ ation record ed. BARCODE Not Available 2018 11:11:52 01/29/20 19 12/13/2018 bone densi ty No observ ation record ed. BARCODE Not Available 2018 11:15:00 03/09/20 20 03/09/2020 US, pelvi s, trans abdom inal + trans vagin al No observ ation record ed. charles Aguero [address], [place], [address], 03/11/2020 14:10:43 03/13/20 20 03/12/2020 MAMMO , scree sherin, digit al, bilat eral No observ ation record ed. [facility] (Radiology) [address] [place], [address], 03/16/2020 17:46:36 Result Notes None recorded. Problems Name Problem SNOMED Code Status Onset Date Resolution Date Notes Provider Name and Address Organization Details Recorded Time Urinary incontinence Active Laura Avalos MELANY- Attn: Maicol smalls,[address] [facility], [place], [address], [place] [facility] 5 15:52:46 Cyst of ovary 95648756 Active Shawna Lamb [facility], [place] - [facility] 6 10:27:36 Problem [...] Details LastModified Time 01/15/2015 imaging/diagnostic result completed [facility] ([facility]) Scheduling [address] [place], [address], 02/03/2015 15:52:10 11/16/2015 imaging/diagnostic result completed BAR[facility] Information not available 11/16/2015 16:35:36 11/27/2015 ultrasound, pelvic transabdominal & transvaginal completed [email or web address] [facility] 1 [facility] [place], [address], 12/03/2015 16:50:19 10/24/2017 imaging/diagnostic result completed BAR[facility] Information not available 11/08/2017 16:35:21 08/11/2017 MAMMO, screening, digital, bilateral completed [facility] ([facility]) Scheduling [address] [place], [address], 11/08/2017 16:35:58 11/20/2017 US, pelvis, transabdominal + transvaginal completed charles Aguero [facility] 1 [facility] [place], [address], 12/05/2017 10:42:16 12/11/2017 bone density completed charles [facility] [address], [address], 12/27/2017 15:32:26 01/10/2019 US, pelvis, transabdominal + transvaginal completed brooke Laci [facility] Scheduling 1 [facility] [place] [place], [address], 12/15/2019 15:42:58 12/13/2018 MAMMO, screening, digital, bilateral completed [facility] Information not available 01/28/2019 11:11:52 12/13/2018 bone density completed [facility] Information not available 01/28/2019 11:15:00 03/09/2020 US, pelvis, transabdominal + transvaginal completed charles Aguero [facility] 2 [facility] [place], [address], 03/11/2020 14:10:43 03/12/2020 MAMMO, screening, digital, bilateral [facility] [address] [place], [address], 03/16/2020 17:46:36 Procedure Notes None recorded. Medical Equipment None Reported. Allergies Allergen ID Allergen Name Allergen Category Reaction Reaction Severity Criticality Documentation Date Start Date Code Code System Note Provider Name and Address Organization Details Recorded Time 53189 hydrochlo rothiazid e medicatio n Not available Not available Not available 02/02/2015 5487 RxNorm Not Available Not Available Not Available 14502 tramadol medicatio n Not available Not available Not available 02/03/2015 03724 RxNorm can't take any muscl e relax [...] active Not Available Not Available Not Available gabapentin 300 mg caps active Not [...] Updated DateTime 11/08/2017 161.29 cm 31.7 kg/m2 99038.81 g 128 mm[Hg] 62 mm[Hg] MIA Santos [facility] 8 16:08:48 Date Recorded Body height Body mass index (BMI) Body weight Systolic blood pressure Diastolic blood pressure Provider Name and Address Organization Details Last Updated DateTime 02/03/2015 161.29 cm 29.1 kg/m2 52350.92 579 g 116 mm[Hg] 86 mm[Hg] Shawna Lamb [facility] 5 15:32:34 Date Recorded Body height Body mass index (BMI) Body weight Systolic blood pressure Diastolic blood pressure Provider Name and Address Organization Details Last Updated DateTime 02/02/2020 161.29 cm 34.3 kg/m2 49244.7 g 152 mm[Hg] 80 mm[Hg] Crystal García Naun [facility] 0 10:12:08 Date Recorded Body height Body mass index (BMI) Body weight Systolic blood pressure Diastolic blood pressure Provider Name and Address Organization Details Last Updated DateTime 12/11/2016 161.29 cm 30.7 kg/m2 23480.26 g 120 mm[Hg] 68 mm[Hg] Shawna Ricks MA [facility] 7 16:52:11 Social History Question Answer Notes LastModified by Organizat ion Details LastModified Time Tobacco Smoking Status Former Smoker MIA Santos null, [facility] 11/08/2017 16:13:54 Do You Or Have You [...] SNOMED-CT Code Diagnosis ICD10 Code Diagnosis Note [id number] Pebbles Frandy Genao ([place] [address]) [address] [facility] [place] [address] 02/03/2015 15:16:47 02/03/2015 16:36:46 Gynecologic examination 50275013 Urinary incontinence [id number] Referred to Dr. Keyla Santa [id number] Laura Avalos [facility] Laci Genao ([facility]) [address] [place] [address] 12/11/2016 16:38:21 12/12/2016 08:40:54 Vaginal discharge 205438873 N89.8 Screening for malignant neoplasm of breast 916245937 Z12.31 [id number] MD Laci Carlson 14 OB [address] [facility] [place] [address] 11/08/2017 15:56:36 11/08/2017 18:16:37 Cyst of ovary 43746543 N83.209 Patient has history of ovarian cyst. Pelvic US ordered to follow up on cyst. Endometrium thickened 44 6959747 R93.8 Patient had MRI done by PCP and incidently showed endometria l thickening and recommende d follow up pelvic US. Patient however is not bleeding. Pelvic US ordered. Screening mammography 24 896989 Z12.31 Patient educated on the importance of annual breast cancer screenings with mammograph y. Last mammogram completed 08/2017 [facility] 1 Gynecologi c examination 44228887 Z01.419 -Educated on the importance of SBE [...] sunscreen. Screening for malignant neoplasm of colon 733790363 Z12.11 Patient educated on the importance of screening for colon cancer. Patient reports she had colonoscop y done in 2012 that was normal and she is suppose to have it repeated in 5 years from then Body mass index 30+ - obesity 133585485 Z68.31 Educated patient on nutrition and exercise. Follow up as needed. Screening for osteoporosis 439270670 Z13.820 Patient educated on the importance of osteoporos is screenings . Educated osteoporos is prevention including calcium rich foods, weight bearing exercise [id number] NATHAN Hoffman 14 OB 4 [facility] [address] [place] [address] 02/02/2020 09:57:32 02/03/2020 10:12:52 Gynecologic examination 00196311 Z01.419 -Educated on the importance of SBE [...] alcohol, and drugs. Vitamin D deficiency 347 21832 E55.9 Continue to follow up with PCP for low vitamin D and low bone mass. Screening mammography 24 947880 Z12.31 Patient educated on the importance of annual breast cancer screenings with mammograph y. Mammogram order given for pt to complete. Cyst of ovary 34381708 N 83.209 Patient has history of ovarian cyst. Pelvic US ordered to follow up on cyst. Pt educated on warning signs and notified when to call office. Follow up based on US results. Cystocele 724211003 N81. 10 Discussed all management options. Pt not interested in interventi on at this time. Pt educated on warning signs and notified when to call office. Follow up annually and as needed if issues occur. Screening for malignant neoplasm of colon 881391230 Z12.11 Patient educated on the importance of screening for colon cancer. Pt reports she had colonoscop y in august 2019. Female str ess incontinence 91646836 N39.3 Continue to follow up with urology. Edema of l ower extremity 717101288 R60.0 Pt is on lasix by PCP. Pt denies worsening. Pt notified to follow up with PCP within 1 week. Pt educated on warning signs and given ER precaution s. Body mass index 30+ - obesity 252281305 Z68.34 Educated patient on nutrition and exercise. Follow up with pcp. Health Concerns Section Related Observation LastModified by Organization Detai ls LastModified Time None Recorded Concern Status LastModified by Organization Details LastModified Time None Recorded Advance Directives Directive None Recorded Payers Encounter Date Sequence Insurance Name Policy Number Policy Parada Covered Member ID Parada Member ID Guarantor Name 02/03/2015 1 [facility] (PPO) [id number] Carina L Priscilla [id number] Carina L Priscilla 12/11/2016 1 [facility] (PPO) [id number] Carina L Priscilla [id number] Carina L Baker 11/08/2017 1 [facility] (PPO) [id number] Carina L Baker [id number] Carina L Priscilla 02/02/2020 1 [facility] (MEDICARE REPLACEMENT/A DVANTAGE - HMO) [id number] Carina L Baker [id number] Carina Selma Priscilla Notes Date Note Type [...] disease; no fever DENILSON Pablo Attn: Accounting,[address] [place] [address], [phone], [facility] 12/11/2016 17:08:06 11/08/2017 text/html Annual GYNReport ed [...] in 2016. 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 NATHAN Hoffman Attn: Accounting,[address] [place], [address], [place] [facility] 02/02/2020 11:05:34 OBGyn Episode No OBEpisode recorded.
--- OUTSIDE RECORDS SUMMARY | 2024-10-21 14:42 | XMS_ITS | Clinical Summary ---
Author Organization [facility] Address [address] [place] [address] Care Team Providers Care Animal Daycare Provider Name Role Phone Nicolas Xiao Primary Care Provider [phone] Source Comments [facility],non-owned Affiliates and Associated Physician Practices is amultiple site organization consisting of ambulatory clinics and hospital sitesin [place], [place], [place] and [place]. This disclosure is being madepursuant to the Care Everywhere program and may not contain all information available regarding this patient. Last updated 18.[facility] Allergies Active Allergy Reactions Criticality Noted Date Comments Alkylamines Other Fast pulse rate Hydrochlorothiazide Rash Medium 10/07/2015 Medications * Be aware that medications may not be up to date on this document. Alwaysverify current medications with the patient. omeprazole (PRILOSEC) 40 MG capsule 40 mg 05/04/2014 Active sertraline (ZOLOFT) 100 MG tablet 100 mg 07/20/2014 Active carvedilol (COREG) 6.25 MG tablet 6.25 mg 05/04/2014 Active gabapentin (NEURONTIN) 300 MG capsule 300 mg 04/21/2015 Active topiramate (TOPAMAX SPRINKLE) 25 MG capsule 25 mg 05/31/2016 Active oxybutynin CR 24hr (DITROPAN XL) 15 MG tablet 09/26/2015 Ac tive vitamin E (TOCOPHERYL) 400 UNIT capsule Take [...] Years Used Date Smoking Tobacco: Never Assessed Comments No Sex and Gender Information Value Date Recorded Sex Assigned at Not on file Legal Sex Female 3:40 PM CDT Gender Identity Not on file [...] on patient's age to complete this topic Insurance * Guarantor: CARINA RALPH Account Type Relation to Patient Date of Phone Billing Address Personal/Family [address] [place] [phone] SELF PAY NO INSURANCE Member Subscriber Plan / Payer (Ef fective for All Dates) Name:Carina Ralph Member ID:Not on file Relation to Subscriber:Not on file Name:CARINA RALPH Subscriber ID:Not on file (Home) Address: [address] [place], [place] [id number] Payer ID:Not on file Group ID:Not on file Type:Self Pay Address: [place], [place] [employer] MANA[place]ED MEDICARE [place] [address] * Guarantor: CARINA RALPH Account Type Relation to Patient Date of Phone Billing Address Personal/Family [address] [place] [address] SELF PAY NO INSURANCE Member Subscriber Plan / Payer (Ef fective for All Dates) Name:Carina Ralph Member ID:Not on file Relation to Subscriber:Not on file Name:CARINA RALPH Subscriber ID:Not on file (Home) Address: [address] [place] [address] Payer ID:Not on file Group ID:Not on file Type:Self Pay Address: [facility] MANAGED MEDICARE [place] [address] * Guarantor: CARINA RALPH Account Type Relation to Patient Date of Phone Billing Address Personal/Family [address] [place] [address] SELF PAY NO INSURANCE Member Subscriber Plan / Payer (Ef fective for All Dates) Name:Carina Ralph Member ID:Not on file Relation to Subscriber:Not on file Name:CARINA RALPH Subscriber ID:Not on file (Home) Address: [address] [place] [address] Payer ID:Not on file Group ID:Not on file Type:Self Pay Address: [place], [place] [employer] MANAGED MEDICARE ADV Care Teams Animal Daycare Provider Relationship Specialty Start Date End Date Nicolas Xiao DO PCP - General 02/04/18
--- OUTSIDE RECORDS SUMMARY | 2024-10-21 14:42 | XMS_ITS | Clinical Summary ---
Author Organization [facility] Medical Office Building [address] Address [address] [place] [address] Care Team Providers Care Pantry Cook Name Role Phone Manpreet Sanderson MD Primary Care Provider + [phone] Randi Vega MD Unavailable [phone] Ángel Sampson MD PhD Unavailable + [phone] Keyla Santa MD Unavailable [phone] Muna Hernandez Unavailable [phone] Kanu Hernandez MD Unavailable [phone] Lila Pedro MD Unavailable Hi Ware MD Unavailable Josef Guardado MD Unavailable [phone] Allergies Active Allergy Reactions Criticality Noted Date [...] by mouth 2 (two) times a day 04/21/20 15 Active omeprazole (PriLOSEC) 40 mg capsuleIndication s:Stress Ulcer Prophylaxis Take 1 capsule (40 mg total) by mouth 2 (two) times a day Takes 2 tablets 05/04/20 14 Active oxybutynin XL (DITROPAN XL) 15 mg 24 hr tabletIndications :Bladder Hyperactivity Take 1 tablet (15 mg total) by mouth daily 09/26/19 16 Active sertraline (ZOLOFT) 100 mg tabletIndications :depression Take 1 tablet (100 mg total) by mouth daily 07/20/19 15 Active carvediloL (COREG) 6.25 mg tabletIndications :hypertension [...] mg in a day. 90 tablet 1 07/17/19 23 Active oxygenIndications :Dyspnea Administer 2 L into each nostril as needed (dyspnea) 2L O2 PRN for dyspnea during the day; 3L continous at night. Active aspirin 81 mg chewable tabletIndications :prevention of thrombosis Take 1 tablet (81 mg total) by mouth 2 (two) times a day for 14 days Resume once daily after 2 weeks 09/07/19 24 Active multivit with min-folic acid 0.4 mg [...] prep. Patient was given instructions 24 tablet 04/17/20 24 Active lubiprostone (AMITIZA) 24 mcg capsule Take 1 capsule (24 mcg total) by mouth 2 (two) times a day with meals 180 capsule 3 09/11/19 25 Active Additional Information Patient not taking.Reported on 10/15/2024 carbidopa-levodop a (SINEMET) 25-100 mg per tabletIndications :Parkinsonism Take 2 tablets by mouth 3 (three) times a day 540 tablet 3 09/20/19 25 026 Active clobetasoL (TEMOVATE) 0.05 % cream APPLY TOPICALLY TO THE AFFECTED AREA TWICE DAILY FOR 2 WEEKS 10/07/19 25 Active ketoconazole (NIZORAL) 2 % shampoo APPLY TOPICALLY 3 TIMES A WEEK 10/07/19 25 Active Active Problems Problem Noted Date Diagnosed Date Encounter for screening colonoscopy 04/21/2024 Pulmonary hypertension 11/14/2023 Assessment & Plan (10/15/2024 3:48 PM CDT): Echocardiogram July of 2023 demonstrated estimated RVSP of 60 This is likely secondary to group 2 and 3 disease with congestive heart failure and obesity hypoventilation syndrome Testing for BHAVYA was negative Remain on supplemental oxygen for saturations greater than 90% There is no indication for pulmonary vasodilators at this time I have ordered a repeat echocardiogram I do not see a C Assessment & Plan (04/15/2024 3:55 PM CDT): [...] Obesity hypoventilation syndrome 11/14/2023 Assessment & Plan (10/15/2024 3:48 PM CDT): We have extensively discussed noninvasive ventilation Pulmonary testing with MIP and MEP was inconclusive She continues to decline Assessment & Plan (04/15/2024 3:57 PM CDT): We have extensively discussed noninvasive ventilation She declines at this time Assessment & Plan (11/14/2023 4:03 PM CDT): We have extensively discussed noninvasive ventilation for treatment She is unsure she would like to proceed Readdress at next office visit Chronic respiratory failure with hypoxia, on home O2 therapy 10/10/2023 Assessment & Plan (10/15/2024 3:47 PM CDT): Her blood gas was consistent with chronic hypercapnia but she had no evidence of obstruction on pulmonary function testing Continue supplemental oxygen at 2 liters with activity for saturations greater than 90% We have discussed the risks of hypoxia Assessment & Plan (04/15/2024 3:56 PM CDT): [...] 05/18/2022 Assessment & Plan (05/18/2022 8:14 AM VAT CLEANER): She has subjective cognitive complaints including difficulty [...] with instructions on how to access the [employer] exercise channel. Finally, she endorses inadequate management of anxiety and we reviewed that she can discuss increasing sertraline as tolerated at upcoming PCP visit as Dr. Sanderson manages this medication. Recommendations: Once UTI resolved, can trial increasing C/L from 2 tabs TID to 2.5 tabs TID while monitoring for side effects PT referral [employer] exercise channel access information provided Follow-up in [...] with instructions on how to access the [employer] exercise channel. Finally, she endorses frustration with [...] will update our office in 4 weeks [employer] exercise channel access information provided Will order physical therapy for gait/balance training, strength and stretching once cleared from recent left shoulder surgery - patient to notify our office once cleared for referral entry NPT today Assessment & Plan (05/18/2022 8:04 AM VAT CLEANER): She has parkinsonism stage 4 characterized by [...] (06/17/2021): Added automatically from request for surgery [id number] Memory loss 05/09/2021 Cyst of ovary 12/28/2020 Urinary incontinence 12/28/2020 Other intra-abdominal and pelvic swelling, mass and lump 04/08/2020 Overview (04/08/2020): Added automatically from request for surgery [id number] History of colonic polyps 06/05/2019 Overview (06/05/2019): Added automatically from request for surgery [id number] Assessment & Plan (06/05/2019 3:16 PM VAT CLEANER): She is overdue for a screening colonoscopy. [...] 03/06 Assessment & Plan (06/05/2019 3:16 PM VAT CLEANER): Continue taking fiber daily. Will have her [...] 9 Assessment & Plan (06/05/2019 3:15 PM VAT CLEANER): Well controlled on omeprazole daily. She may [...] (03/06/2019): Added automatically from request for surgery [id number] Assessment & Plan (06/05/2019 3:14 PM VAT CLEANER): Doing well. No recent episodes. Assessment & Plan (04/03/2019 3:13 PM CDT): Not as severe or often as previously. She says she noticed that this occurs when she is constipated. Will try to improve constipation and see if this improves pain further. 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) 6 Paresthesia of foot 04/21/2015 Overview (01/22/2023): Paresthesia of both feet Overview: Paresthesia of both feet Encounters Date Type Department Care Team Description 10/17/2024 12:45 PM CDT Office Visit [facility] at [address] [place] [phone] Elvira Mead MD Chronic diastolic congestive heart failure (HCC) (Primary Dx); Chronic respiratory failure with hypoxia (HCC); TIA (transient ischemic attack); PFO (patent foramen ovale) 10/15/2024 2:00 PM CDT Office Visit [facility] Pulmonary at [address] [place] [phone] Muriel Cabrera NP Pulmonary hypertension (HCC) (Primary Dx); Chronic respiratory failure with hypoxia, on home O2 therapy (HCC); Obesity hypoventilation syndrome (HCC) 09/19/2024 10:30 AM CDT Office Visit [facility] Movement Disorders [address] [facility] 7[address] [place] [address] Danica Reyes NP Parkinsonism, unspecified Parkinsonism type (HCC) (Primary Dx) 09/10/2024 1:00 PM CDT Office Visit [facility] Gastroenterology at [address] [place] [phone] Anastacio House NP Irritable bowel syndrome with constipation (Primary Dx); Gastroesophageal reflux disease without esophagitis; Chronic superficial gastritis without bleeding; Tubular adenoma of colon; Nausea and vomiting, unspecified vomiting type 09/05/2024 Telephone [facility] Scheduling [address] [place] [address] Kathia Azul from Last 3 Months Immunizations [...] 07/01/2020 Complete TUBAL LIGATION 07/02/1986 - 07/01/1987 TOTAL KNEE ARTHROPLASTY 2014 + ANKLE SURGERY 1953 JOINT REPLACEMENT Knees 2013 & 2014 SHOULDER SURGERY 2022 - Medical History Medical History Date Comments Hypertension Colon polyp Diverticulosis DJD (degenerative joint disease) Dysphagia Hyperlipidemia Migraine Anemia Anxiety and depression Other intra-abdominal and pe lvic swelling, mass and lump Obesity Heart murmur GERD (gastroesophageal reflux disease) Kazakh measles 1957 Bronchial pneumonia 1963 Mumps 1975 Diphtheria Young Child Peripheral vascular disease Irritable bowel syndrome Urinary tract infection Parkinsonism ([facility]) 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 ([facility]) 03/19/2023 Obesity hypoventilation syndrome ([facility]) Restless leg syndrome 10 + yrs Depression 2010 Parkinson's disease ([facility]) + yrs Fatigue + years HL (hearing loss) 5 + yrs Chronic pain disorder 20 + yrs Reflux Not sure - multiple years Peripheral neuropathy 2015 Memory loss 2019 Tremors of nervous system 5 + yrs Anxiety 1989 Crohn's disease (HCC) CHF (congestive heart failure) ([facility]) 2022 Family History Medical History Relation Name Comments Asthma Brother 3 Jeffery Piper Depression Brother 3 Jeffery Piper Asthma Daughter 2 Apoorva Chica Car Accident Father Dorian Cancer Maternal Grandmother Alisa Maurice Arthritis Mother Erica Piper Asthma Mother Erica Piper COPD Mother Erica Piper Depression Mother Erica Piper Emphysema Mother Erica Piper Heart attack Mother Erica Piper Heart disease Mother Erica Piper Hypertension Mother Erica Piper Hypertension; Memory loss Mother Erica Piper Stroke Mother Erica Piper Tremor Mother Erica Piper Cancer Other 1 Family history of Cancer; Heart disease Other 2 Family history of Heart problems; Hypertension Other 3 Family history of Hypertension; Lung disease Other 4 Family history of Lung problems; Relation Name Status Comments Brother 1 Jeffery Alive Brother 2 Cain Alive Brother 3 Jeffery Piper Alive Daughter 1 Apoorva Alive Daughter 2 Apoorva Chica Alive Father Dorian (Age 57) Maternal Grandmother Alisa Maurice Alive Mother Erica Piper (Age 88) rest tremo r Other 1 [...] materials from doctor or pharmacy Never 01/01/2024 [facility] Utilities Answer Date Recorded In the [...] often do you attend chur ch or congregation services? More than 4 times per year 09/06/2023 Do you belong to any clubs o r organizations such as baptist groups, unions, fraternal or athletic groups, or [...] place to sleep or slept in a long-term (including now)? No 09/06/2023 Personal Safety Answer Date Recorded Have you ever been in or are you currently in a harmful physical or emotional relationship or is someone making you feel afraid or unsafe? Denies 02/16/2024 Comments No Sex and Gender Information Value Date Recorded Sex Assigned at Not on file Legal Sex Female 12:25 PM VAT CLEANER Gender Identity Female 04/12/2021 6:37 PM CDT Sexual Orientation Straight 04/12/2021 6: 37 PM CDT Obstetrics History Last Filed Vital Signs Vital Sign Reading Time Taken Comments Blood Pressure 127/79 10/17/2024 12:37 PM CDT Pulse 69 10/17/2024 12:37 PM CDT Temperature 37 C (98.6 F) 10/15/2024 2:13 PM CDT Respiratory Rate 16 10/17/2024 12:37 PM CDT Oxygen Saturation 91% 10/15/2024 2:13 PM CDT Inhaled Oxygen Concentration - - Weight 77 kg (169 lb 11.2 oz) 10/17/2024 12:37 P M CDT Height 157.5 cm (5' 2 ) 10/17/2024 12:37 PM CDT Body Mass Index 31.04 10/17/2024 12:37 PM CDT Plan of Treatment Upcoming Encounters Date Type Department Care Team (Late st Contact Info) Description 01/07/2025 10:30 AM CDT Hospital Encounter [address] [address] Randi Vega MD [address] [facility] [address] [place] [address] 01/07/2025 10:30 AM CDT - 01/07/2025 11:00 AM CDT Surgery [address] [address] Randi Vega MD [address] [facility] [address] [place] [address] COLONOSCOPY Scheduled Procedures Name Priority Associated Diagnoses [...] 04/14/2023 04/14/2021, 04/14/2021, 12/13/2018, Additional history exists Fall Risk Assessment 09/05/2024 09/06/2023, 02/05/2023, 03/06/2019 Depression Screening 11/26/2024 11/27/2023, 03/06/2019, 03/06/2019 Influenza Vaccine (Season Ended) 2025 04/26/2020, 04/01/2019, 04/20/2018 Zoster Vaccine Completed 04/10/2020, 02/03/2020 Colon Cancer [...] history exists Medical Devices Implanted Type Area Staff Anesthesiologist Device Identifier Shelf Expiration Date Model / Serial / Lot Lens Implants W/Cataract Extraction Bilateral: Eye Exactech Equinoxe 13mm Press Fit Primary Shoulder Stem Humeral 300-01-13 - [id number] - [id number] Implanted:Qty: 1 on 02/22/2023 by Josef Guardado MD at [facility] Left: Shoulder Exactech 06/14/2032 300-01-13 / [id number] / Exactech Equinoxe 36mm Shoulder 0mm Offset Liner Humeral Sterile 320-36-00 - [id number] - [id number] Implanted:Qty: 1 on 02/22/2023 by Josef Guardado MD at [facility] Left: Shoulder Exactech 07/18/2027 320-36-00 / [id number] / Alok Medical Bioprep Preparation Plug Alodize Machine Helper [place] Curette Suction Femoral [id number] - [id number] Implanted:Qty: 1 on 02/22/2023 by Josef Guardado MD at [facility] Left: Shoulder [employer] [id number] / / [id number] Exactech Equinoxe Small Reverse Superior Augment Shoulder 10d Plate 320-35-02 - [id number] - [id number] Implanted:Qty: 1 on 02/22/2023 by Josef Guardado MD at [facility] Left: Shoulder Exactech 08/28/2032 320-35-02 / [id number] / Exactech Reverse Torque Define Shoulder Kit Screw 320-20-00 - [id number] - [id number] Implanted:Qty: 1 on 02/22/2023 by Josef Guardado MD at [facility] Left: Shoulder Exactech 12/12/2027 320-20-00 / [id number] / Exactech Equinoxe Lock Reverse Shoulder Glenosphere Screw Bone 320-15-05 - [id number] - [id number] Implanted:Qty: 1 on 02/22/2023 by Josef Guardado MD at [facility] Left: Shoulder Exactech 12/20/2027 320-15-05 / [id number] / Exactech Equinoxe 4.5mm 34mm Kit Compression Lock Cap Reverse Shoulder 320-20-34 - [id number] - [id number] Implanted:Qty: 1 on 02/22/2023 by Josef Guardado MD at [facility] Left: Shoulder Exactech 03/15/2027 320-20-34 / [id number] / Exactech Equinoxe 4.5mm 22mm Kit Compression Lock Cap Reverse Shoulder 320-20-22 - [id number] - [id number] Implanted:Qty: 1 on 02/22/2023 by Josef Guardado MD at [facility] Left: Shoulder Exactech 01/09/2028 320-20-22 / [id number] / Exactech Component 36mm Glenoid Glenosphere Reverse Shoulder 320-31-36 - [id number] - [id number] Implanted:Qty: 1 on 02/22/2023 by Josef Guardado MD at [facility] Left: Shoulder Exactech 09/20/2032 320-31-36 / [id number] / Exactech Equinoxe Reverse Shoulder +0mm Tray Humeral Adapter 320-1000 - [id number] - [id number] Implanted:Qty: 1 on 02/22/2023 by Josef Guardado MD at [facility] Left: Shoulder Exactech 10/15/2032 320-10-00 / [id number] / Exactech Liner Humeral Reverse Equinoxe +0x36mm 320-36-10 - [id number] - [id number] Implanted:Qty: 1 on 09/06/2023 by Josef Guardado MD at [facility] Left: Shoulder Exactech [id number] 01/16/2027 320-36-10 / [id number] / Exactech Equinoxe Lock Reverse Shoulder Glenosphere Screw Bone 320-15-05 - [id number] - [id number] Implanted:Qty: 1 on 09/06/2023 by Josef Guardado MD at [facility] Left: Shoulder Exactech [id number] 07/07/2028 320-15-05 / [id number] / Exactech Equinoxe 36mm 26.1mm Expand Small Reverse Shoulder Sphere Glenoid 320-32-36 - [id number] - [id number] Implanted:Qty: 1 on 09/06/2023 by Josef Guardado MD at [facility] Left: Shoulder Exactech [id number] 12/18/2032 320-32-36 / [id number] / Procedures Procedure Name Priority Date/Time Associated Diagnosis Comments COLONOSCOPY 05/30/2022 10:19 AM VAT CLEANER from Last 3 Months or Most Recently Relevant to Health Maintenance Results * COLONOSCOPY (05/30/2022 10:19 AM VAT CLEANER) Anatomical Region Laterality Modality Other Narrative Procedure Note Randi Vega MD - 05/30/2022 10:19 AM CST [facility] Patient Name: Alicia Wells Procedure Date: 05/30/2022 10:19AM Date of : 1945 Admit Type: Outpatient Age: 76 Gender: Female Attending MD: Randi Vega M.D. Room: [facility] ENDOSCOPY ROOM 1 Note Status: Finalized [...] under direct vision. The Pediatric Colonoscope [id number] was introducedthrough the anus and advanced to [...] 10:19 AM Procedure Code(s): --- Professional --- 80312, Colonoscopy, flexible; with biopsy, single or multiple Diagnosis Code(s): --- Professional --- Z86.010, Personal history of colonic polyps K64.8, Other hemorrhoids D12.3, Benign neoplasm of transverse colon (hepatic flexure orsplenic flexure) K57.30, Diverticulosis of large intestine without perforation orabscess without bleeding CPT copyright 2020 [employer]. All rights reserved. The codes documented in this report are preliminary and upon cloth winder reviewmay be revised to meet current compliance requirements. Recognized by the [employer] for promoting quality in endoscopy Randi Vega MD ENDOSCOPY PROCEDURES Final Result from Last 3 Months or Most Recently Relevant to Health Maintenance Insurance MEDICARE ADVANTAGE MEDICARE ADVANTAGE MEDICARE ADVANTAGE [facility] MEDICARE ADVANTAGE Advance Directives For more information, please contact: [phone] * Full Code (Latest Code Status on [...] 10:11 AM 05/30/2022 10:11 AM Care Teams Pantry Cook Relationship Specialty Start Date End Date Manpreet Sanderson MD PCP - General Family Practice 01/22/23 Randi Vega MD Consulting Physician Gastroenterology 01/22/23 Ángel Sampson MD PhD [address] [place] [address] Referring Physician Neurology 01/22/23 Keyla Santa MD [address] [place] [address] Consulting Physician Internal Medicine 01/22/23 Muna Hernandez PA [address] [place] [address] [address] [place] [address] Orthopedic Surgery 02/22/23 Kanu Hernandez MD [address] [place] [address] [address] [place] [address] Consulting Physician Neurology 03/19/23 Lila Pedro MD [address] [place] [address] [address] [place] [address] Consulting Physician Sleep Medicine 03/19/23 Hi Ware MD [address] [place] [address] [address] [place] [address] Consulting Physician Pulmonary Disease 04/27/23 Josef Guardado MD [address] [place] [address] [address] [place] [address] Surgeon Orthopedic Surgery 09/07/23
--- OUTSIDE RECORDS SUMMARY | 2024-10-21 14:42 | XMS_ITS | Encounter Summary ---
Author Organization [facility] Address [address] [place] [address] Care Team Providers Care Cross Cut Sawyer Name Role Phone Nicolas Xiao DO Primary Care Provider [phone] Reason for Visit * Reason Onset Date Comments LABS ONLY 04/16/2018 labs may have be en coded wrong Returned Call 04/16/2018 Encounter Details Date Type Department Care Team (Late st Contact Info) Description 04/16/2018 Telephone [facility] [address] [place] [address] Joanne Plata MD [address] [facility] [address] [place] [address] LABS ONLY (labs may have been coded [...] Geetha Merritt - 04/16/2018 4:04 PM CDT Abelino Guerin is calling to speak to someone [...] Pt returning missed call from the nurse. Callback#[phone] * Telephone Encounter - Whitney Lima RN [...] RN - 04/17/2018 12:18 PM CDT Daughter - Apoorva is calling to speak to someone about her mother getting a LAB bill for $600. She thinks it may have been coded as she has [employer]. She was in on 02-04-18. documented in this encounter Plan of Treatment Not on file documented as of this encounter Visit Diagnoses Not on filedocumented in this encounter Care Teams Cross Cut Sawyer Relationship Specialty Start Date End Date Nicolas Xiao DO PCP - General 02/04/18 documented as of this encounter
--- OUTSIDE RECORDS SUMMARY | 2024-10-21 14:42 | XMS_ITS | Referral Summary ---
Author Organization [facility] Medical Office Building [address] Address [address] [place] [address] Care Team Providers Care Printing Grey Cloth Tender Name Role Phone Manpreet Sanderson MD Primary Care Provider [phone] Randi Vega MD Unavailable [phone] Ángel Sampson MD PhD Unavailable + [phone] Keyla Santa MD Unavailable [phone] Muna Hernandez Unavailable [phone] Kanu Hernandez MD Unavailable [phone] Lila Pedro MD Unavailable Hi Ware MD Unavailable Josef Guardado MD Unavailable [phone] Encounters Date Type Department Care Team Description 10/17/2024 12:45 PM CDT Office Visit [facility] [facility] at [address] [place] [address] Elvira Mead MD Chronic diastolic congestive heart failure (HCC) (Primary Dx); Chronic respiratory failure with hypoxia (HCC); TIA (transient ischemic attack); PFO (patent foramen ovale) 10/15/2024 2:00 PM CDT Office Visit [facility] Pulmonary at [address] [place] [address] Muriel Cabrera NP Pulmonary hypertension (HCC) (Primary Dx); Chronic respiratory failure with hypoxia, on home O2 therapy (HCC); Obesity hypoventilation syndrome (HCC) 09/19/2024 10:30 AM CDT Office Visit [facility] Movement Disorders [address] [facility] 7th [place] [id number] Danica Reyes NP Parkinsonism, unspecified Parkinsonism type (HCC) (Primary Dx) 09/10/2024 1:00 PM CDT Office Visit [facility] Gastroenterology at [address] [place] [address] Anastacio House NP Irritable bowel syndrome with constipation (Primary Dx); Gastroesophageal reflux disease without esophagitis; Chronic superficial gastritis without bleeding; Tubular adenoma of colon; Nausea and vomiting, unspecified vomiting type 09/05/2024 Telephone [facility] Scheduling [address] [place] [address] Chorieva, Gulnoza from Last 3 Months Allergies Active Allergy [...] repeat echocardiogram I do not see a [facility] Assessment & Plan (04/15/2024 3:55 PM CDT): [...] 05/18/2022 Assessment & Plan (05/18/2022 8:14 AM NAVY MATERIAL INSPECTOR): She has subjective cognitive complaints including difficulty [...] with instructions on how to access the Directr exercise channel. Finally, she endorses inadequate management of anxiety and we reviewed that she can discuss increasing sertraline as tolerated at upcoming PCP visit as Dr. Sanderson manages this medication. Recommendations: Once UTI resolved, can trial increasing C/L from 2 tabs TID to 2.5 tabs TID while monitoring for side effects PT referral [employer] exercise channel access information provided Follow-up in [...] with instructions on how to access the Direct[employer] exercise channel. Finally, she endorses frustration with [...] will update our office in 4 weeks Directr exercise channel access information provided Will order physical therapy for gait/balance training, strength and stretching once cleared from recent left shoulder surgery - patient to notify our office once cleared for referral entry NPT today Assessment & Plan (05/18/2022 8:04 AM NAV[employer] MATERIAL INSPECTOR): She has parkinsonism stage 4 characterized by [...] (06/17/2021): Added automatically from request for surgery [id number] Memory loss 05/09/2021 Cyst of ovary 12/28/2020 Urinary incontinence 12/28/2020 Other intra-abdominal and pelvic swelling, mass and lump 04/08/2020 Overview (04/08/2020): Added automatically from request for surgery [id number] History of colonic polyps 06/05/2019 Overview (06/05/2019): Added automatically from request for surgery [id number] Assessment & Plan (06/05/2019 3:16 PM NAVY MATERIAL INSPECTOR): She is overdue for a screening colonoscopy. [...] 03/06 Assessment & Plan (06/05/2019 3:16 PM NAVY MATERIAL INSPECTOR): Continue taking fiber daily. Will have her [...] 9 Assessment & Plan (06/05/2019 3:15 PM NAVY MATERIAL INSPECTOR): Well controlled on omeprazole daily. She may [...] (03/06/2019): Added automatically from request for surgery [id number] Assessment & Plan (06/05/2019 3:14 PM NAVY MATERIAL INSPECTOR): Doing well. No recent episodes. Assessment & Plan (04/03/2019 3:13 PM CDT): Not as severe or often as previously. She says she noticed that this occurs when she is constipated. Will try to improve constipation and see if this improves pain further. Dysphagia 03/06/2019 Overview (03/06/2019): Added automatically from request for surgery [id number] Side effect of drug 10/30/2018 Hoarseness 10/07/2015 [...] Smoking Tobacco: Former Cigarettes 0.8 25 1 225 - 1989 Passive Smoke Exposure: Past Smokeless [...] materials from doctor or pharmacy Never 01/01/2024 [facility] Utilities Answer Date Recorded In the [...] often do you attend chur ch or sabianist services? More than 4 times per year 09/06/2023 Do you belong to any clubs o r organizations such as islam groups, unions, fraternal or athletic groups, or [...] place to sleep or slept in a senior care (including now)? No 09/06/2023 Personal Safety Answer Date Recorded Have you ever been in or are you currently in a harmful physical or emotional relationship or is someone making you feel afraid or unsafe? Denies 02/16/2024 Comments No Sex and Gender Information Value Date Recorded Sex Assigned at Not on file Legal Sex Female 12:25 PM NAV[employer] MATERIAL INSPECTOR Gender Identity Female 04/12/2021 6:37 PM CDT [...] Description 01/07/2025 10:30 AM CDT Hospital Encounter [address] [address] Randi Vega MD [address] [facility] [facility] [address] [address] [place] [address] 01/07/2025 10:30 AM CDT - 01/07/2025 11:00 AM CDT Surgery [address] [address] Randi Vega MD [address] [facility] [address] [place] [address] COLONOSCOPY Scheduled Procedures Name Priority Associated Diagnoses Date/Ti me COLONOSCOPY History of colonic polyps Encounter for screening colonoscopy 01/07/2025 10:30 AM CDT Medical Devices Implanted Type Area Instructional Support Technician Device Identifier Shelf Expiration Date Model / Serial / Lot Lens Implants W/Cataract Extraction Bilateral: Eye Exactech Equinoxe 13mm Press Fit Primary Shoulder Stem Humeral 300-- - [id number] - [id number] Implanted:Qty: 1 on 02/22/2023 by Josef Guardado MD at [facility] Left: Shoulder Exactech 06/14/2032 300-01-13 / [id number] / Exactech Equinoxe 36mm Shoulder 0mm Offset Liner Humeral Sterile 320-36-00 - [id number] - [id number] Implanted:Qty: 1 on 02/22/2023 by Josef Guardado MD at [facility] Left: Shoulder Exactech 07/18/2027 320-36-00 / [id number] / [place] [employer] Bioprep Preparation Plug Hypoid Gear Generator Mason Curette Suction Femoral [id number] - [id number] Implanted:Qty: 1 on 02/22/2023 by Josef Guardado MD at [facility] Left: Shoulder [employer] [id number] / / [id number] Exactech Equinoxe Small Reverse Superior Augment Shoulder 10d Plate 320-35-02 - [id number] - [id number] Implanted:Qty: 1 on 02/22/2023 by Josef Guardado MD at [facility] Left: Shoulder Exactech 08/28/2032 320-35-02 / [id number] / Exactech Reverse Torque Define Shoulder Kit Screw 320-20-00 - [id number] - [id number] Implanted:Qty: 1 on 02/22/2023 by Josef Guardado MD at [facility] Left: Shoulder Ex[employer]ech 12/12/2027 320-20-00 / [id number] / Exactech Equinoxe Lock Reverse Shoulder Glenosphere Screw Bone 320-15-05 - [id number] - [id number] Implanted:Qty: 1 on 02/22/2023 by Josef Guardado MD at [facility] Left: Shoulder Ex[employer]ech 12/20/2027 320-15-05 / [id number] / Ex[employer]ech Equinoxe 4.5mm 34mm Kit Compression Lock Cap Reverse Shoulder 320-20-34 - [id number] - [id number] Implanted:Qty: 1 on 02/22/2023 by Josef Guardado MD at [facility] Left: Shoulder Exactech 03/15/2027 320-20-34 / [id number] / Ex[employer]ech Equinoxe 4.5mm 22mm Kit Compression Lock Cap Reverse Shoulder 320-20-22 - [id number] - [id number] Implanted:Qty: 1 on 02/22/2023 by Josef Guardado MD at [facility] Left: Shoulder Exactech 01/09/2028 320-20-22 / [id number] / Exactech Component 36mm Glenoid Glenosphere Reverse Shoulder 320-31-36 - [id number] - [id number] Implanted:Qty: 1 on 02/22/2023 by Josef Guardado MD at [facility] Left: Shoulder Exactech 09/20/2032 320-31-36 / [id number] / Exactech Equinoxe Reverse Shoulder +0mm Tray Humeral Adapter 320 - [id number] - [id number] Implanted:Qty: 1 on 02/22/2023 by Josef Guardado MD at [facility] Left: Shoulder Exactech 10/15/2032 320-10-00 / [id number] / Exactech Liner Humeral Reverse Equinoxe +0x36mm 320-36-10 - [id number] - [id number] Implanted:Qty: 1 on 09/06/2023 by Josef Guardado MD at [facility] Left: Shoulder Exactech [id number] 01/16/2027 320-36-10 / [id number] / Exactech Equinoxe Lock Reverse Shoulder Glenosphere Screw Bone 320-15-05 - [id number] - [id number] Implanted:Qty: 1 on 09/06/2023 by Josef Guardado MD at [facility] Left: Shoulder Exactech [id number] 07/07/2028 320-15-05 / [id number] / Exactech Equinoxe 36mm 26.1mm Expand Small Reverse Shoulder Sphere Glenoid 320-32-36 - [id number] - [id number] Implanted:Qty: 1 on 09/06/2023 by Josef Guardado MD at [facility] Left: Shoulder Exactech [id number] 12/18/2032 320-32-36 / [id number] / Procedures Procedure Name Priority Date/Time Associated Diagnosis Comments COLONOSCOPY 05/30/2022 10:19 AM NAVY MATERIAL INSPECTOR from Last 3 Months or Most Recently Relevant to Health Maintenance Results * COLONOSCOPY (05/30/2022 10:19 AM NAVY MATERIAL INSPECTOR) Anatomical Region Laterality Modality Other Narrative Procedure Note Randi Vega MD - 05/30/2022 10:19 AM CST [facility] Patient Name: Alicia Wells Procedure Date: 05/30/2022 10:19AM Date of : 1945 Admit Type: Outpatient Age: 76 Gender: Female Attending MD: Randi Vega M.D. Room: [facility] END[facility]COPY RO[facility] 1 Note Status: Finalized Patient [...] under direct vision. The Pediatric Colonoscope [id number] was introducedthrough the anus and advanced to [...] 10:19 AM Procedure Code(s): --- Professional --- 06683, Colonoscopy, flexible; with biopsy, single or multiple Diagnosis Code(s): --- Professional --- Z86.010, Personal history of colonic polyps K64.8, Other hemorrhoids D12.3, Benign neoplasm of transverse colon (hepatic flexure orsplenic flexure) K57.30, Diverticulosis of large intestine without perforation orabscess without bleeding CPT copyright 2020 [employer]. All rights reserved. The codes documented in this report are preliminary and upon cargo surveyor reviewmay be revised to meet current compliance requirements. Recognized by the [employer] for promoting quality in endoscopy Randi Vega MD ENDOSCOPY PROCEDURES Final Result from Last 3 Months or Most Recently Relevant to Health Maintenance Insurance MEDICARE ADVANTAGE MEDICARE ADVANTAGE MEDICARE ADVANTAGE [facility] MEDICARE ADVANTAGE Advance Directives For more information, please contact: [phone] * Full Code (Latest Code Status on [...] 10:11 AM 05/30/2022 10:11 AM Care Teams Printing Grey Cloth Tender Relationship Specialty Start Date End Date Manpreet Sanderson MD PCP - General Family Practice 01/22/23 Randi Vega MD Consulting Physician Gastroenterology 01/22/23 Ánegl Sampson MD PhD [address] [place] [address] Referring Physician Neurology 01/22/23 Keyla Santa MD [address] [place] [address] Consulting Physician Internal Medicine 01/22/23 Muna Hernandez PA [address] [place] [address] [address] [place] [address] Orthopedic Surgery 02/22/23 Kanu Hernandez MD [address] [place] [address] [address] [place] [address] Consulting Physician Neurology 03/19/23 Lila Pedro MD [address] [place] [address] [place] [address] Consulting Physician Sleep Medicine 03/19/23 Hi Ware MD [address] [place] [address] [place] [address] Consulting Physician Pulmonary Disease 04/27/23 Josef Guardado MD [address] [place] [address] [address] [place] [address] Surgeon Orthopedic Surgery 09/07/23
--- OUTSIDE RECORDS SUMMARY | 2024-10-21 14:42 | XMS_ITS | Continuity of Care Document ---
Author Organization [facility] Address [address] [place] [address] [place] [phone] Phone Care Team Providers Care Data Network Architect Name Role Phone Mane HUERTA, Jennifer Unavailable [...] Diagnoses Date Provider Providers Copied on Encounter [facility], [address], [place], [place], [address], [place] tel:[phone] SEC Laci ALAN Professional Complete Exam (chief complaint) Superficial punctate keratitis of both eyesKeratocon junctivitis sicca, not specified as Sj g pacheco's, unspecified eyeParkinsons Presence of intraocular lens 3 Mane OD Jennifer. [address], [address], [place], [place], [address], [place]. tel:[phone] Referring Provider: Shahid Pinto OD, [address] [facility], [place], [address]. tel:[phone] Office/outpa tient Visit, [facility], [address], [place], [place], [address], [place] tel:[phone] SEC [place] Professional 5 month ALESIA f/u (chief complaint) ParkinsonsKer atoconjunctiv itis sicca, not specified as Sj g pacheco's, unspecified eyeBilateral artificial lens implantDry eye syndrome of bilateral lacrimal glands 3 Jorge Luis Giles. [address], [facility], [place], [place], [address], [place]. tel:[phone] Referring Provider: Shahid Pinto OD, [address] [facility] [place], [address]. tel:[phone] Office/outpa tient Visit, [facility], [address] [place] [address] [address], [place], [place], [address], [place] tel:[phone] SEC [place] Professional Follow up visit (chief complaint) Bilateral artificial lens implantDry eye syndrome of bilateral lacrimal glandsKeratoc onjunctivitis siccaMeibomia n gland dysfnct left eye, upper and lower eyelidsMeibom kanika gland dysfnct right eye, upper and lower eyelids 2 Jorge Luis Giles. [address] [employer], [address], [place], [place], [address], [place]. tel:[phone] Referring Provider: Shahid Pinto OD, [address] [facility] [place], [address]. tel:[phone] [facility], [address], [place], [place], [address], [place] tel:[phone] SEC [place] Professional Complete Exam (chief complaint) Bilateral artificial lens implantGlauco matous optic atrophy, bilateralMeib omian gland dysfunction of unspecified eye, unspecified eyelidKeratoc onjunctivitis siccaBenign neoplasm of left choroid 2 Jorge Luis Giles. [address] [facility], [address], [place], [place], [address], [place]. tel:[phone] Referring Provider: Shahid Pinto OD, [address] [place], [address]. tel:[phone] Office/outpa tient Visit, [facility], [address], [place], [place], [address], [place] tel:[phone] SEC [place] Professional Complete Exam (chief complaint) Bilateral artificial lens implantChoroi zeynep nevus, left eyeGlaucomato us optic atrophy, bilateralDry eye syndrome of bilateral lacrimal glands 1 Zhane An. [address], [address], [place], [place], [address], [place]. tel:[phone] Referring Provider: Shahid Pinto OD, [address] [place], [address]. tel:[phone] Office/outpa tient Visit, [facility], [address], [place], [place], [address], [place] tel:[phone] SEC [place] Professional 6 month IOP check (chief complaint) Glaucomatous optic atrophy, bilateralChor oidal nevus, left eye 0 Dejah OD Ricardo. [address] [facility], 6th Floor, [place], [address], [place]. tel:[phone] Referring Provider: Shahid Pinto OD, [address], [place], [address]. tel:[phone] [facility], [address], [place], [place], [address], [place] tel:[phone] SEC [place] Professional Complete Exam (chief complaint) Bilateral artificial lens implantMeibom kanika gland dysfnct right eye, upper and lower eyelidsMeibom kanika gland dysfnct left eye, upper and lower eyelidsKerato conjunctiviti s siccaChoroida l nevus, left eye 0 Dejah OD Ricardo. [address] [place] [address], [address] [place] [address], [place], [address], [place]. tel:[phone] Referring Provider: Shahid Pinto OD, [address] [place], [address]. tel:[phone] [facility], [address] [place] [address] [address], [place], [place], [address], [place] [phone] SEC Lexus Miranda No Information 9 Dejah OD Ricardo. [address] [place] [address], [address] [place] [address], [place], [address], [place]. tel:[phone] Office/outpa tient Visit, Est [facility], [address] [place] [address] [address], [place], [place], [address], [place] [phone] SEC Laci ALAN Professional ALESIA check (chief complaint) Meibomian gland dysfnct right eye, upper and lower eyelidsMeibom kanika gland dysfnct left eye, upper and lower eyelids 9 Dejah OD Ricardo. [address] [facility], [address] [place] [address], [place], [address], [place]. tel:[phone] Referring Provider: Shahid Pinto OD, [address] [place], [address]. tel:[phone] Office/outpa tient Visit, [facility], [address] [place] [address] [address], [place], [place], [address], [place] tel:[phone] SEC Laci ALAN Professional 3 mo ALESIA f/u (chief complaint) Meibomian gland dysfunction (MGD)Superfic ial punctate keratitis of both eyesCorneal opacity of both eyes 8 Jorge Luis Giles. [address], [place], [place], [address], [place]. tel:[phone] Referring Provider: Shahid Pinto OD, [address] [employer], [place], [address]. tel:[phone] [facility] [address], [place], [place], [address], [place] [phone] [place] Professional Decreased vision (chief complaint) No Information 8 Jorge Luis Giles. [address], [place], [place], [address], [place]. tel:[phone] Referring Provider: Shahid Gerberon OD, [address] [employer], [place], [address]. tel:[phone] [facility], [facility] [address], [place], [place], [address], [place] [phone] SEC [place] [address] YAG EVAL OD (chief complaint) No Information 6 Zhane Juve. [facility] [employer], [address], [place], [place], [address], [place]. tel:[phone] Referring Provider: Shahid Ramirezguson OD, [address] [employer] [facility], [place], [address]. tel:[phone] Office/outpa tient Visit, [facility], [address], [place], [place], [address], [place] [phone] SEC [place] [address] Yag Evaluation (chief complaint) No Information 6 Zhane An. [facility] [employer], [address], [place], [place], [address], [place]. tel:[phone] Referring Provider: Shahid Pinto OD, [address] [facility], [place], [address]. tel:[phone] Office/outpa tient Visit, Est [facility], [facility] [address], [place], [place], [address], tel:[phone] SEC [place] [address] Blurry near vision (chief complaint) No Information 5 [place] Juve. [facility] [employer], [address], [place], [place], [address], [place]. tel:[phone] Referring Provider: Shahid Pinto OD, [address] [employer], [place], [address]. tel:[phone] [facility] Services[facility], [facility] [address] [facility] [address], [place], [place], [address], tel:[phone] SEC [place] N [address] 6 week PO (chief complaint) No Information 5 Zhane An. [facility] [employer], [address], [place], [place], [address], [place]. tel:[phone] Referring Provider: Shahid Pinto OD, [address] [employer] [facility], [place], [address]. tel:[phone] [facility], [facility] [address], [place], [place], [address], [place] tel:[phone] SEC [place] N [place] 3 week post op Phaco IOL OS (chief complaint) No Information 5 Zhane An. [facility] [employer], [address], [place], [place], [address], [place]. tel:[phone] Referring Provider: Shahid Pinto OD, [address], [place], [address]. tel:[phone] [facility] Services[facility], [facility] [address], [place], [place], [address], [place] tel:[phone] SEC [place] N [place] F/u exam, postop (chief complaint) No Information 5 [place] Juve. [facility] [employer], [address], [place], [place], [address], [place]. tel:[phone] Referring Provider: Shahid Pinto OD, [address] [facility], [place], [address]. tel:[phone] [facility], [address] [place], [place] [address], [place], [place], [address], [place] [phone] SEC [place] Professional F/u exam, postop (chief complaint) No Information 5 Zhane Juve. [facility] [employer], [address], [place], [place], [address], [place]. tel:[phone] Referring Provider: Shahid Gerberon OD, [address] [place], [address]. tel:[phone] [facility], [facility] [address], [place], [place], [address], [place] tel:[phone] SEC [place] Professional 1 day P/O (chief complaint) No Information 5 Sandie Fishman. [address] [facility], [address], [place], [place], [address], [place]. tel:[phone] Referring Provider: Shahid Pinto OD, [address] [employer], [address]. tel:[phone] [facility], [facility] [address], [place], [place], [address], [place] tel:[phone] [facility] No Information 5 [place] Juve. [facility] [employer], [address], [place], [place], [address], [place]. tel:[phone] Referring Provider: Shahid Gerberon OD, [address] [facility], [place], [address]. tel:[phone] [facility], [address] [place] [address] [address], [place], [place], [address], [place] tel:[phone] SEC Lexus Kaymarykhai No Information 5 Zhane An. [address] [place] [address] [address], [address], [place], [place], [address], [place]. tel:[phone] Referring Provider: Shahid Pinto OD, [address] [facility] [place], [address]. tel:[phone] [facility], [address] [place] [address] [address], [place], [place], [address], [place] tel:[phone] SEC [place] Professional F/u exam, postop (chief complaint) No Information 4 Sandie Fishman. [address] [facility], [address], [place], [place], [address], [place]. tel:[phone] Referring Provider: Shahid Pinto OD, [address] [facility] [place], [address]. tel:[phone] [facility], [address] [place] [address] [address], [place], [place], [address], [place] tel:[phone] SEC [place] Professional 1 WK PO PHACO OD (chief complaint) No Information 4 Sandie Fishman. [address] [facility], [address], [place], [place], [address], [place]. tel:[phone] Referring Provider: Shahid Pinto OD, [address] [facility] [place], [address]. tel:[phone] [facility], [address] [place] [address] [address], [place], [place], [address], [place] tel:[phone] SEC [place] Professional 1 DAY PO PHACO OD (chief complaint) No Information 4 Carol Yancey. [address] [facility], [address], [place], [address], [place]. tel:[phone] Referring Provider: Shahid Pinto OD, [address] [employer], [place], [address]. tel:[phone] [facility], [address] [place] [address] [address], [place], [place], [address], [place] tel:[phone] [facility] [place] No Information Dec-0 4-201 4 [place] Juve. [address] [place] [address] [facility], [address], [place], [place], [address], [place]. tel:[phone] Referring Provider: Shahid Pinto OD, [address] [employer] [facility], [place], [address]. tel:[phone] [facility], [address] [place] [address] [address], [place], [place], [address], [place] tel:[phone] SEC Lexus N [place] No Information Dec-0 3-201 4 [place] Juve. [address] [place] [address] [employer], [address], [place], [place], [address], [place]. tel:[phone] Referring Provider: Shahid Pinto OD, [address] [place], [address]. tel:[phone] Office/outpa tient Visit, [facility], [address] [place] [address] [address], [place], [place], [address], [place] tel:[phone] SEC [place] Blurry vision (chief complaint) No Information 0-201 4 [place] Juve. [address] [place] [address] [employer], [address], [place], [place], [address], [place]. tel:[phone] Referring Provider: Shahid Pinto OD, [address] [place], [address]. tel:[phone] Office/outpa tient Visit, [facility], [address] [place] [address] [address], [place], [place], [address], tel:[phone] SEC [place] N [place] Blurry vision (chief complaint) No Information 4 Zahne Juve. [facility] [employer], [address], [place], [place], [address], . tel:[phone] Referring Provider: Shahid Pinto OD, [address] [place], [address]. tel:[phone] [facility] Services[facility], [address] [place], [place] [address]crest [facility] [address], [place], [place], [address], tel:[phone] SEC Lexus N [place] No Information [address] [facility], [address], [place], [place], [address], [place]. tel:[phone] Office/outpa tient Visit, [facility], [facility] [address] [facility] [address], [place], [place], [address], tel:[phone] SEC [place] N [place] No Information 3 [place] Juve. [facility] [employer], [address], [place], [place], [address], . tel:[phone] Referring Provider: Shahid Pinto OD, [address] [place], [address]. tel:[phone] [facility] Services[facility], [address] [place], [place] [address] [address], [place], [place], [address], tel:[phone] SEC Lexus N [place] No Information 2 [place] Juve. [facility] [employer], [address], [place], [place], [address], . tel:[phone] Referring Provider: Shahid Pinto OD, [address] [place], [address]. tel:[phone] Family History Family Member Type Diagnosis Age At Onset No Information Payers Payer name Insurance type Covered alliance party ID Authoriza tion(s) [facility] Mdcr Adv CI [id number] Social History Type Description Quantity Date Captured [...] Will give spec Rx to take to [facility]. DC medicated gtts.Discussed laser surgery to [...] discussed. 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 Discussed CE with pt pt is going to have knee surgery in March and would like to wait until after knee surgery. Return in April or May. Related to See list of assessments above - April or May cat check/ eval. [...]
--- OUTSIDE RECORDS SUMMARY | 2024-10-21 14:42 | XMS_ITS | Encounter Summary ---
Author Organization [facility] Address [address] [place] [address] Care Team Providers Care Clinical Data Programmer Name Role Phone Favio Randolph MD Primary Care Provider [phone] Nicolas Xiao DO Primary Care Provider [phone] Nathaniel Villatoro MD Primary Care Provider [phone] Manpreet Sanderson MD Primary Care Provider + [phone] Randi Vega MD Unavailable [phone] Ángel Sampson MD PhD Unavailable [phone] Keyla Santa MD Unavailable [phone] Muna Hernandez Unavailable [phone] Kanu Hernandez MD Unavailable [phone] Lila Pedro MD Unavailable Hi Ware MD Unavailable Josef Guardado MD Unavailable [phone] Encounter Details Date Type Department Care Team (Late st Contact Info) Description 06/08/2017 Orders Only [facility] [address] [place] [address] Dakotah Carpenter RT Social History Tobacco Use Types Packs/Day Years Used Date Smoking Tobacco: Never Alcohol Use Standard Drinks/Week Comments No 0 (1 standard drink = 0.6 oz pur e alcohol) Comments Unknown Sex and Gender Information Value Date Recorded Sex Assigned at Not on file 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 Gender Identity Female 04/12/2021 6:37 PM CDT Sexual Orientation Straight 04/12/2021 6: 37 PM CDT documented as of this encounter Plan of Treatment Upcoming Encounters Date Type Department Care Team (Late st Contact Info) Description 01/07/2025 10:30 AM CDT Hospital Encounter [address] [address] Randi Vega MD [address] [place] [address] DR [address] [place] [address] 01/07/2025 10:30 AM CDT - 01/07/2025 11:00 AM CDT Surgery [address] [address] Randi Vega MD [address] [place] [address] DR [address] [place] [address] COLONOSCOPY Scheduled Procedures Name Priority Associated Diagnoses Date/Ti me COLONOSCOPY History of colonic polyps Encounter for screening colonoscopy 01/07/2025 10:30 AM CDT documented as of this encounter Visit Diagnoses Not on filedocumented in this encounter Additional Health Concerns Infection Onset Date Last Indicated Resolved Time COVID: Suspected 04/22/2023 04/22/2023 04/22/2023 8:02 PM CDT documented as of this encounter Care Teams Clinical Data Programmer Relationship Specialty Start Date End Date Favio Randolph MD PCP - General 09/29/16 03/05/19 Nicolas Xiao DO PCP - General Internal Medicine 03/06/19 07/16/22 Nathaniel Villatoro MD PCP - General Internal Medicine 07/17/22 01/21/23 Manpreet Sanderson MD PCP - General Family Practice 01/22/23 Randi Vega MD Consulting Physician Gastroenterology 01/22/23 Ángel Sampson MD PhD [address] [place] [address] Referring Physician Neurology 01/22/23 Keyla Santa MD [address] [facility] [address] [place] [address] Consulting Physician Internal Medicine 01/22/23 Muna Hernandez PA [address] [place] [address] [place] [address] Orthopedic Surgery 02/22/23 Kanu Hernandez MD [address] [place] [address] [place] [address] Consulting Physician Neurology 03/19/23 Lila Pedro MD [address] [place] [address] [place] [address] Consulting Physician Sleep Medicine 03/19/23 Hi Ware MD [address] [place] [address] [place] [address] Consulting Physician Pulmonary Disease 04/27/23 Josef Guardado MD [address] [facility] [address] [facility] [address] [place] [address] Surgeon Orthopedic Surgery 09/07/23 documented as of this encounter
[2024-10-21 20:08] LABS: Iron 71 ug/dL (37-170)
[2024-10-21 20:18] LABS: Percent Iron Saturation 26 % (20-50)
== END 2024-10-21 13:06 | disposition home or self-care (01) ==
PROVIDERS: PCP Nurse Practitioner Adult Health; Visit Provider Nurse Practitioner Adult Health
DX: F32.9 Major depressive disorder, single episode, unspecified (principal); D64.9 Anemia, unspecified
CPT/HCPCS: 36415; 83540; 83550

== ENCOUNTER 2024-12-10 13:48 | Outpatient (CLI) | payer MEDICARE, SELFPAY ==
--- OUTSIDE RECORDS SUMMARY | 2024-12-10 16:18 | XMS_ITS | Data Portability ---
Author Organization [facility] Address [address] [place] [address] Assessment No assessment recorded. Plan of Treatment Reminders Order Date Submit Date Provider Last Modified By Organization Details Last Modified Time Details Appointments None recorded . Lab bacteria l vaginosi s + vaginiti s panel, vaginal 2016 017 [facility], [address] [place] [address], [address], [place], [address], 7 07:13:54 Referral None recorded . Procedures None recorded . Surgeries None recorded . Imaging MAMMO, screenin g, digital, bilatera l [address] [facility] ([facility]) Scheduling, [address] [place], [address], 0 08:59:27 US, pelvis, transabd ominal + transvag inal - assess endometr ial thicknes s 2019 020 TENISHA [place] [facility] (Radiology), [address] [facility] [place], [address], 0 17:21:15 bone density 2017 018 manish [place] [facility] Scheduling, [address] [facility] [place], [address], 8 10:02:14 US, pelvis, transabd ominal + transvag inal 2017 018 TENISHA Not available 8 08:41:18 MAMMO, screenin g, bilatera l 2016 017 [facility]pass [facility] ([facility] Scheduling, [address] [place], [address], 7 09:04:41 Medication Orders None recorded . Patient TargetsNo targets recorded. Patient Instructions Encounter Date Encounter Id Patient Instructions Last Modified By Organization Details Last Modified Time 02/03/2015 [id number] Stress Incontinence: Care Instructions onofre Not available 02/03/2015 15:57:42 To make apt. wit h Dr. Keyla Santa for urinary incontinence mpass Not available 02/03/2015 15:52:47 12/11/2016 [id number] learning about breast cancer screening mpa Not available 12/12/2016 09:04:41 Await test results. Make appt. for mammogram. mpa Not available 12/11/2016 17:07:44 11/08/[id number] Sindhu currie Not available 11/08/2017 18:16:12 02/02/2020 [id number] cystocele: care instructions fabiolanstrramez Not available 02/02/2020 10:30:06 Reason for Referral None Reported. Results Created Date Observation Date Name Description Value Unit Range Abnormal Flag Note LastModifiedBy Organization Detail LastModifiedTime 12/03/19 16 12/04/2015 ca 125, serum cancer antigen (Ca) 125 13.9 U/mL 0.0-38 .1 . PLE ASE NOTE REFER ENCE INTER LIVIA DIA E LOUIS ECLIA METHO DOLOG Y Not Available [facility] ([facility]) [address] [facility], [place], [address], 12/04/2015 11:11:49 12/12/19 17 12/13/2016 bacte rial vagin osis + vagin itis panel , vagin al trich vag by JORGE NEGATI VE negati ve Not Available [facility] ([facility]) [address] [facility], [place], [address], 12/20/2016 07:13:54 12/12/19 17 12/13/2016 bacte rial vagin osis + vagin itis panel , vagin al chlamydia trachomatis, JORGE NEGATI VE negati ve Not Available [facility] ([facility]) [address] [place], [address], 12/20/2016 07:13:54 12/12/19 17 12/13/2016 bacte rial vagin osis + vagin itis panel , vagin al neisseria gonorrhoeae, JORGE NEGATI VE negati ve Not Available [facility] ([facility]) [address] [place], [address], 12/20/2016 07:13:54 12/12/19 17 12/15/2016 bacte rial vagin osis + vagin itis panel , vagin al atopobium vaginae LOW - 0 score Not Available [facility] ([facility]) [address] [place], [address], 12/20/2016 07:13:54 12/12/19 17 12/15/2016 bacte rial vagin osis + vagin itis panel , vagin al bvab 2 LOW - 0 score Not Available [facility] ([facility]) [address] [place] [address], [address], 12/20/2016 07:13:54 12/12/19 17 12/15/2016 bacte rial [...] E LISETTE CTERI STICS DETER MINED BY [employer]. IT HAS NOT BEEN CLEAR ED OR APPRO JANELL BY THE FOOD AND DRUG ADMIN ISTRA TION. THE FDA HAS DETER MINED THAT SUCH CLEAR ANCE OR APPRO LIVIA IS NOT NECES KALYANI. Not Available [facility] ([facility]) [address] [place], [address], 12/20/2016 07:13:54 12/12/19 17 12/19/2016 bacte rial vagin osis + vagin itis panel , vagin al luigi albicans, JORGE NEGATI VE negati ve Not Available [facility] ([facility]) [address] [place], [address], 12/20/2016 07:13:54 12/12/19 17 12/19/2016 bacte rial vagin osis + vagin itis panel , vagin al luigi glabrata, JORGE NEGATI VE negati ve THIS TEST WAS DEVEL OPED AND ITS PERFO RMANC E LISETTE CTERI STICS DETER MINED BY [employer]. IT HAS NOT BEEN CLEAR ED OR APPRO JANELL BY THE FOOD AND DRUG ADMIN ISTRA TION. THE FDA HAS DETER MINED THAT SUCH CLEAR ANCE OR APPRO LIVIA IS NOT NECES KALYANI. Not Available [facility] ([facility]) [address] [facility], [place], [address], 12/20/2016 07:13:54 01/22/20 19 01/22/2019 ca 125, serum Ca 125 7 U/mL <35 normal This test was perfo rmed using the Simperium an Coult er Chemi lumin escen t metho d. Value s obtai agustin from diffe rent assay metho ds canno t be used inter dia eablsimeon . CA 125 level s, regar dless of value , shoul d not be inter prete d as absol [place] evide nce of the prese nce or absen ce of disea se. Not Available [employer] [facility] [address] [place], [address], 01/22/2019 09:30:08 01/17/20 15 01/15/2015 imagi ng/di agnos tic resul t No observ ation record ed. mpass [facility] ([facility]) Scheduling [address] [place], [address], 02/03/2015 15:52:10 11/16/19 16 11/16/2015 imagi ng/di agnos tic resul t No observ ation record ed. BARCODE Not Available 2015 16:35:36 11/28/19 16 11/27/2015 ultra sound , pelvi c trans abdom inal & trans vagin al No observ ation record ed. [email or web address] [address] [place], [address], 12/03/2015 16:50:19 11/09/19 18 10/24/2017 imagi ng/di agnos tic resul t No observ ation record ed. BARCODE Not Available 2017 16:35:21 11/09/19 18 08/11/2017 MAMMO , scree sherin, digit al, bilat eral No observ ation record ed. [facility]CODE [facility] ([facility]) Scheduling [address] [place], [address], 11/08/2017 16:35:58 11/21/19 18 11/20/2017 US, pelvi s, trans abdom inal + trans vagin al No observ ation record ed. charles Laci [facility]) [address] [facility] [place], [address], 12/05/2017 10:42:16 12/13/19 18 12/11/2017 bone densi ty No observ ation record ed. [email or web address] [facility] [address] [place], [address], 12/27/2017 15:32:26 01/11/20 19 01/10/2019 US, pelvi s, trans abdom inal + trans vagin al No observ ation record ed. [email or web address] [facility] Scheduling [address] [facility] [place], [address], 12/15/2019 15:42:58 01/29/20 19 12/13/2018 MAMMO , scree sherin, digit al, bilat eral No observ ation record ed. BARCODE Not Available 2018 11:11:52 01/29/20 19 12/13/2018 bone densi ty No observ ation record ed. BARCODE Not Available 2018 11:15:00 03/09/20 20 03/09/2020 US, pelvi s, trans abdom inal + trans vagin al No observ ation record ed. charles Aguero [address], [place], [address], 03/11/2020 14:10:43 03/13/20 20 03/12/2020 MAMMO , scree sherin, digit al, bilat eral No observ ation record ed. [facility] (Radiology) [address] [place] [address], [address], 03/16/2020 17:46:36 Result Notes None recorded. Problems Name Problem SNOMED Code Status Onset Date Resolution Date Notes Provider Name and Address Organization Details Recorded Time Urinary incontinence Active Laura Avalos PAIGE Attn: Maicol smalls,[address] [place], [address], [facility] 5 15:52:46 Cyst of ovary 45723886 Active Shawna Lamb [facility], [place] - [facility] 6 10:27:36 Problem Notes None recorded. Procedures Surgical History Date Name Laterality Status Provider Name and Address Organization Details Recorded Time 3 Date of Last Pap Smear completed Shawna Lamb [place] - [facility] 02/02/2015 17:08:25 colonoscopy completed MIA Oseguera [place] - [facility] 02/02/2020 10:13:02 Tubal Ligation completed Shawna Lamb [place] - [facility] 02/03/2015 15:32:33 Imaging Results None recorded. Procedure Notes None recorded. Medical Equipment None Reported. Allergies Allergen ID Allergen Name Allergen Category Reaction Reaction Severity Criticality Documentation Date Start Date Code Code System Note Provider Name and Address Organization Details Recorded Time 60617 hydrochlo rothiazid e medicatio n Not available Not available Not available 02/02/2015 5487 RxNorm Shawna Lamb null, [facility] 5 17:08:25 45778 tramadol medicatio n Not available Not available Not available 02/03/2015 38896 RxNorm can't take any muscl e relax ers or Trama dol with Zolof t Crystal MIA Holbrook null, [facility] 8 16:09:51 Medications Name Sig Start Date Stop Date [...] Updated DateTime 11/08/2017 161.29 cm 31.7 kg/m2 96588.81 g 128 mm[Hg] 62 mm[Hg] MIA Santos [facility] 8 16:08:48 Date Recorded Body height Body mass index (BMI) Body weight Systolic blood pressure Diastolic blood pressure Provider Name and Address Organization Details Last Updated DateTime 12/11/2016 161.29 cm 30.7 kg/m2 54913.26 g 120 mm[Hg] 68 mm[Hg] Shawna Ricks [facility] 7 16:52:11 Date Recorded Body height Body mass index (BMI) Body weight Systolic blood pressure Diastolic blood pressure Provider Name and Address Organization Details Last Updated DateTime 02/02/2020 161.29 cm 34.3 kg/m2 10269.7 g 152 mm[Hg] 80 mm[Hg] Crystal García Naun [facility] 0 10:12:08 Date Recorded Body height Body mass index (BMI) Body weight Systolic blood pressure Diastolic blood pressure Provider Name and Address Organization Details Last Updated DateTime 02/03/2015 161.29 cm 29.1 kg/m2 73771.92 579 g 116 mm[Hg] 86 mm[Hg] Shawna Lamb [facility] 5 15:32:34 Social History Question Answer Notes LastModified by [employer] Details LastModified Time Tobacco Smoking Status [facility]/08/2017 16:13:54 What Was The Date Of Your Most Recent Tobacco Screening? 02/02/2020 Information not available 02/02/2020 How Much Tobacco Do You Smoke? 1 PPD Information not available 11/08/2017 On What Date Was Tobacco Cessation Counseling Provided? 02/02/2020 Information not available 02/02/2020 How Many Years Have You Smoked Tobacco? 14 Information not available 11/08/2017 Sex: Unknown Functional Status Question Answer Note LastModified by Organizat ion Details LastModified Time Do you or have you ever used smokeless tobacco? Never used smokeless tobacco Information not available 02/02/2020 Do you or have you ever used e-cigarettes or vape? Never used electronic cigarettes Information not available 02/02/2020 Mental Status None recorded. Family History Relationship [...] Y Other Y High Blood Pressure Y Depression Y Arthritis Y Heart Problems/Murmur Y Osteoporosis Y Gynecological History Statement/Question Response [...] SNOMED-CT Code Diagnosis ICD10 Code Diagnosis Note [id number] Laura Avalos [facility] L[place] ([facility] [address]) [address] [facility] [place] [address] 02/03/2015 15:16:47 02/03/2015 16:36:46 Gynecologic examination 38181365 Urinary incontinence [id number] Referred to Dr. Keyla Santa [id number] Laura Avalos [facility] Laci Genao ([facility] [address]) [address] [facility] [place] [address] 12/11/2016 16:38:21 12/12/2016 08:40:54 Vaginal discharge 597341822 N89.8 Screening for malignant neoplasm of breast 584068882 Z12.31 [id number] MD Laci Carlson [address] [facility] [place] [address] 11/08/2017 15:56:36 11/08/2017 18:16:37 Cyst of ovary 77104020 N83.209 Patient has history of ovarian cyst. Pelvic US ordered to follow up on cyst. Endometrium thickened 44 3628226 R93.8 Patient had MRI done by PCP and incidently showed endometria l thickening and recommende d follow up pelvic US. Patient however is not bleeding. Pelvic US ordered. Screening mammography 24 591263 Z12.31 Patient educated on the importance of annual breast cancer screenings with mammograph y. Last mammogram completed 08/2017 [facility] 1 Gynecologi c examination 10494577 Z01.419 -Educated on the importance of SBE [...] sunscreen. Screening for malignant neoplasm of colon 717339208 Z12.11 Patient educated on the importance of screening for colon cancer. Patient reports she had colonoscop y done in 2012 that was normal and she is suppose to have it repeated in 5 years from then Body mass index 30+ - obesity 660034910 Z68.31 Educated patient on nutrition and exercise. Follow up as needed. Screening for osteoporosis 292506496 Z13.820 Patient educated on the importance of osteoporos is screenings . Educated osteoporos is prevention including calcium rich foods, weight bearing exercise [id number] Ron Blair MD [place] [address] [facility] [address] [place] [address] 02/02/2020 09:57:32 02/03/2020 10:12:52 Gynecologic examination 64377535 Z01.419 -Educated on the importance of SBE [...] alcohol, and drugs. Vitamin D deficiency 347 83785 E55.9 Continue to follow up with PCP for low vitamin D and low bone mass. Screening mammography 24 310705 Z12.31 Patient educated on the importance of annual breast cancer screenings with mammograph y. Mammogram order given for pt to complete. Cyst of ovary 00684491 N 83.209 Patient has history of ovarian cyst. Pelvic US ordered to follow up on cyst. Pt educated on warning signs and notified when to call office. Follow up based on US results. Cystocele 596221376 N81. 10 Discussed all management options. Pt not interested in interventi on at this time. Pt educated on warning signs and notified when to call office. Follow up annually and as needed if issues occur. Screening for malignant neoplasm of colon 045288883 Z12.11 Patient educated on the importance of screening for colon cancer. Pt reports she had colonoscop y in august 2019. Female str ess incontinence 18798347 N39.3 Continue to follow up with urology. Edema of l ower extremity 349922318 R60.0 Pt is on lasix by PCP. Pt denies worsening. Pt notified to follow up with PCP within 1 week. Pt educated on warning signs and given ER precaution s. Body mass index 30+ - obesity 900633946 Z68.34 Educated patient on nutrition and exercise. Follow up with pcp. Health Concerns Section Related Observation LastModified by Organization Detai ls LastModified Time None Recorded Concern Status LastModified by Organization Details LastModified Time None Recorded Advance Directives Directive None Recorded Payers Encounter Date Sequence Insurance Name Policy Number Policy Parada Covered Member ID Parada Member ID Guarantor Name 02/03/2015 1 [facility] (O) [id number] Carina Hahn Priscilla [id number] Carina Hahn Priscilla 12/11/2016 1 [employer] [facility] (PPO) [id number] Carina L Priscilla [id number] Carina L Priscilla 11/08/2017 1 [facility] (O) [id number] Carina L Selma [id number] Carina L Priscilla 02/02/2020 1 [facility] (MEDICARE REPLACEMENT/A DVANTAGE - HMO) [id number] Carina Hahn Priscilla [id number] Carina Hahn Priscilla Notes Date Note Type Note Provider [...] disease; no fever DENILSON Pablo Attn: Accounting,[address] [place], [address], [facility] 12/11/2016 17:08:06 11/08/2017 text/html Annual GYNReport [...] in 2016. Michelle Manley MD Attn: Accounting[address] [place], [address], [facility] 11/08/2017 18:16:21 02/02/2020 text/html Annual GYNReport [...] currently in school renewing her [place] in [place]. NATHAN Hoffman Attn: Accounting,[address] [place], [address], [place] - [facility] 02/02/2020 11:05:34 OBGyn Episode No OBEpisode recorded.
--- OUTSIDE RECORDS SUMMARY | 2024-12-10 16:18 | XMS_ITS | Continuity of Care Document ---
Author Organization [facility] Address [address] [place] [address] Insurance Providers Payer Plan Claims Address Claims Phone Policy Number Group Number Relation Employer Guarantor Name Guarantor Guarantor Address Guarantor Phone [facility] [employer] [address] [address], [place] [address] tel:[phone] [id number] [phone] Self Carina Wells [address] [place] [address] [employer] [place], [place] [address] Self Carina Priscilla [address] [place] [address] [facility] [employer] [address] [address], [place] [address] tel:[phone] [id number] [phone] [id number] [phone] Self Carina Roper [address] [place] [address] Problems Unknown Problems Results No Results Allergies, adverse reactions, alerts No known allergies and adverse reactions Medications No administered medications reported Vital Signs Date Vital Result Comment 03/18/2024 Inhaled Oxygen Concentration (3150-0) 21. 0 % N Faces Pain Scale (35251-1) 0.0 N Oxygen Saturation (50558-1) 97 % N Respiratory Rate (9279-1) 18 /min N Heart Rate (8867-4) 78 /min N Blood Pressure Systolic (8480-6) 128 mm[Hg] N Blood Pressure Diastolic (8462-4) 78 mm[Hg] N Body Height (8302-2) 62 [in_i] N Body Weight (45699-1) 168 [lb_av] N Body Mass Index (70947-4) 30.7 kg/m2 N 04/29/2024 Inhaled Oxygen Concentration (3150-0) 21. 0 % N Faces Pain Scale (03315-7) 0.0 N Oxygen Saturation (72475-6) 98 % N Respiratory Rate (9279-1) 18 /min N Heart Rate (8867-4) 78 /min N Blood Pressure Systolic (8480-6) 129 mm[Hg] N Blood Pressure Diastolic (8462-4) 68 mm[Hg] N Body Height (8302-2) 62 [in_i] N Body Weight (88347-8) 166.7 [lb_av] N Body Mass Index (71123-8) 30.5 kg/m2 N 07/28/2024 Inhaled Oxygen Concentration (3150-0) 21. 0 % N Oxygen Saturation (13614-0) 98 % N Respiratory Rate (9279-1) 18 /min N Heart Rate (8867-4) 78 /min N Blood Pressure Systolic (8480-6) 122 mm[Hg] N Blood Pressure Diastolic (8462-4) 78 mm[Hg] N Body Height (8302-2) 62 [in_i] N Body Weight (92340-8) 166 [lb_av] N Body Mass Index (80713-8) 30.4 kg/m2 N Social History No smoking [...]
--- OUTSIDE RECORDS SUMMARY | 2024-12-10 16:19 | XMS_ITS | Referral Summary ---
Author Organization [facility] B Address [address] [place] [address] Care Team Providers Care Cord Splicer Name Role Phone Manpreet Sanderson MD Primary Care Provider [phone] Randi Vega MD Unavailable [phone] Ángel Sampson MD PhD Unavailable + [phone] Keyla Santa MD Unavailable + [phone] Muna Hernandez Unavailable [phone] Kanu Hernandez MD Unavailable [phone] Lila Pedro MD Unavailable Hi Ware MD Unavailable Josef Guardado MD Unavailable [phone] Encounters Date Type Department Care Team Description 11/27/[address] [facility] Gastroenterology at [address] [place] [address] Stefanie Portillo Prep Instructions 10/30/2024 Results Follow-Up [facility] Pulmonary at [address] [place] [address] Muriel Cabrera, EDUCATION RESEARCH ANALYST Transthoracic Echo (TTE) Complete W Doppler/CF 10/29/2024 1:56 PM CDT - 10/29/2024 11:59 PM CDT Hospital Encounter [facility] [address] [place] [address] Pulmonary hypertension (HCC) Discharge Disposition: Discharge to home or self care 10/17/2024 12:45 PM CDT Office Visit [facility] at [facility] 2 [facility] [address] [place] [address] Elvira Mead MD Chronic diastolic congestive heart failure (HCC) (Primary Dx); Chronic respiratory failure with hypoxia (HCC); TIA (transient ischemic attack); PFO (patent foramen ovale) 10/15/2024 2:00 PM CDT Office Visit [facility] Pulmonary at [address] [place] [address] Muriel Cabrera NP Pulmonary hypertension (HCC) (Primary Dx); Chronic respiratory failure with hypoxia, on home O2 therapy (HCC); Obesity hypoventilation syndrome (HCC) 09/19/2024 10:30 AM CDT Office Visit [facility] Movement Disorders [facility] 7th [place] [address] Danica Reyes NP Parkinsonism, unspecified Parkinsonism type (HCC) (Primary Dx) 09/10/2024 1:00 PM CDT Office Visit [facility] Medical Group Gastroenterology at [address] [place] [address] Anastacio House NP Irritable bowel syndrome with constipation (Primary Dx); Gastroesophageal reflux disease without esophagitis; Chronic superficial gastritis without bleeding; Tubular adenoma of colon; Nausea and vomiting, unspecified vomiting type from Last 3 Months Allergies Active Allergy [...] repeat echocardiogram I do not see a RHC Assessment & Plan (04/15/2024 3:55 PM CDT): [...] 05/18/2022 Assessment & Plan (05/18/2022 8:14 AM PHOTOENGRAVING SUPERVISOR): She has subjective cognitive complaints including difficulty [...] with instructions on how to access the Dot exercise channel. Finally, she endorses inadequate management of anxiety and we reviewed that she can discuss increasing sertraline as tolerated at upcoming PCP visit as Dr. Sanderson manages this medication. Recommendations: Once UTI resolved, can trial increasing C/L from 2 tabs TID to 2.5 tabs TID while monitoring for side effects PT referral Dot exercise channel access information provided Follow-up in [...] with instructions on how to access the Dot exercise channel. Finally, she endorses frustration with [...] today Assessment & Plan (05/18/2022 8:04 AM PHOTOENGRAVING SUPERVISOR): She has parkinsonism stage 4 characterized by [...] (06/17/2021): Added automatically from request for surgery [id number] Memory loss 05/09/2021 Cyst of ovary 12/28/2020 Urinary incontinence 12/28/2020 Other intra-abdominal and pelvic swelling, mass and lump 04/08/2020 Overview (04/08/2020): Added automatically from request for surgery [id number] History of colonic polyps 06/05/2019 Overview (06/05/2019): Added automatically from request for surgery [id number] Assessment & Plan (06/05/2019 3:16 PM PHOTOENGRAVING SUPERVISOR): She is overdue for a screening colonoscopy. [...] 03/06 Assessment & Plan (06/05/2019 3:16 PM PHOTOENGRAVING SUPERVISOR): Continue taking fiber daily. Will have her [...] 9 Assessment & Plan (06/05/2019 3:15 PM PHOTOENGRAVING SUPERVISOR): Well controlled on omeprazole daily. She may [...] (03/06/2019): Added automatically from request for surgery [id number] Assessment & Plan (06/05/2019 3:14 PM PHOTOENGRAVING SUPERVISOR): Doing well. No recent episodes. Assessment & Plan (04/03/2019 3:13 PM CDT): Not as severe or often as previously. She says she noticed that this occurs when she is constipated. Will try to improve constipation and see if this improves pain further. Dysphagia 03/06/2019 Overview (03/06/2019): Added automatically from request for surgery [id number] Side effect of drug 10/30/2018 Hoarseness 10/07/2015 [...] Smoking Tobacco: Former Cigarettes 0.8 25 1 5 - 1989 Passive Smoke Exposure: Past Smokeless [...] materials from doctor or pharmacy Never 01/01/2024 [facility] Utilities Answer Date Recorded In the past 12 months has e [employer], [employer], oil, or water [employer] threatened to shut off services in your [...] often do you attend chur ch or sabianism services? More than 4 times per year 09/06/2023 Do you belong to any clubs o r organizations such as mandaeism groups, unions, fraternal or athletic groups, or [...] place to sleep or slept in a correction (including now)? No 09/06/2023 Personal Safety Answer Date Recorded Have you ever been in or are you currently in a harmful physical or emotional relationship or is someone making you feel afraid or unsafe? Denies 02/16/2024 Comments No Sex and Gender Information Value Date Recorded Sex Assigned at Not on file Legal Sex Female 12:25 PM PHOTOENGRAVING SUPERVISOR Gender Identity Female 04/12/2021 6:37 PM CDT [...] CDT Inhaled Oxygen Concentration - - Weight 77.1 kg (170 lb) 10/29/2024 2:07 PM CDT Height 152.4 cm (5') 10/29/2024 2:07 PM CDT Body Mass Index 33.2 10/29/2024 2:07 PM CDT Plan of Treatment Upcoming Encounters Date Type Department Care Team (Late st Contact Info) Description 01/07/2025 10:30 AM CDT Hospital Encounter [address] [address] Randi Vega MD [address] [place] [address] DR [address] [place] [address] 01/07/2025 10:30 AM CDT - 01/07/2025 11:00 AM CDT Surgery [address] [address] Randi Vega MD [address] [place] [address] DR [address] [place] [address] COLONOSCOPY Scheduled Procedures Name Priority Associated Diagnoses Date/Ti me COLONOSCOPY History of colonic polyps Encounter for screening colonoscopy 01/07/2025 10:30 AM CDT Medical Devices Implanted Type Area Lay Out Carpenter Device Identifier Shelf Expiration Date Model / Serial / Lot Lens Implants W/Cataract Extraction Bilateral: Eye Exactech Equinoxe 13mm Press Fit Primary Shoulder Stem Humeral 300-07-14 - [id number] - [id number] Implanted:Qty: 1 on 02/22/2023 by Josef Guardado MD at [facility] Left: Shoulder Exactech 06/14/2032 300-07-14 / [id number] / Exactech Equinoxe 36mm Shoulder 0mm Offset Liner Humeral Sterile 320-36-00 - [id number] - [id number] Implanted:Qty: 1 on 02/22/2023 by Josef Guardado MD at [facility] Left: Shoulder Exactech 07/18/2027 320-36-00 / [id number] / [employer] Bioprep Preparation Plug Gravel Weigher Norris Curette Suction Femoral [id number] - [id number] Implanted:Qty: 1 on 02/22/2023 by Josef Guardado MD at [facility] Left: Shoulder [employer] [id number] / / [id number] Exactech Equinoxe Small Reverse Superior Augment Shoulder 10d Plate 320-35-02 - [id number] - [id number] Implanted:Qty: 1 on 02/22/2023 by Josef Guardado MD at [facility] Left: Shoulder Exactech 08/28/2032 320-35-02 / [id number] / Exactech Reverse Torque Define Shoulder Kit Screw 320-20-00 - [id number] - [id number] Implanted:Qty: 1 on 02/22/2023 by Josef Guardado MD at [facility] Left: Shoulder Exactech 12/12/2027 320-20-00 / [id number] / Exactech Equinoxe Lock Reverse Shoulder Glenosphere Screw Bone 320-15-05 - [id number] - [id number] Implanted:Qty: 1 on 02/22/2023 by Josef Guardado MD at [facility] Left: Shoulder Exactech 12/20/2027 320-15-05 / [id number] / Exactech Equinoxe 4.5mm 34mm Kit Compression Lock Cap Reverse Shoulder 320-20-34 - [id number] - [id number] Implanted:Qty: 1 on 02/22/2023 by Josef Guardado MD at [facility] Left: Shoulder Exactech 03/15/2027 320-20-34 / [id number] / Exactech Equinoxe 4.5mm 22mm Kit Compression Lock Cap Reverse Shoulder 320-20-22 - [id number] - [id number] Implanted:Qty: 1 on 02/22/2023 by Josef Guardado MD at [facility] Left: Shoulder Exactech 01/09/2028 320-20-22 / [id number] / Exactech Component 36mm Glenoid Glenosphere Reverse Shoulder 320-31-36 - [id number] - [id number] Implanted:Qty: 1 on 02/22/2023 by Josef Guardado MD at [facility] Left: Shoulder Exactech 09/20/2032 320-31-36 / [id number] / Exactech Equinoxe Reverse Shoulder +0mm Tray Humeral Adapter 320-10 - [id number] - [id number] Implanted:Qty: 1 on 02/22/2023 by Josef Guardado MD at [facility] Left: Shoulder Exactech 10/15/2032 320-10-00 / [id number] / Exactech Liner Humeral Reverse Equinoxe +0x36mm 320-36-10 - [id number] - [id number] Implanted:Qty: 1 on 09/06/2023 by Josef Guardado MD at [facility] Left: Shoulder Exactech [id number] 01/16/2027 320-36-10 / [id number] / Exactech Equinoxe Lock Reverse Shoulder Glenosphere Screw Bone 320-15-05 - [id number] - [id number] Implanted:Qty: 1 on 09/06/2023 by Josef Guardado MD at [facility] Left: Shoulder Exactech [id number] 07/07/2028 320-15-05 / [id number] / Exactech Equinoxe 36mm 26.1mm Expand Small Reverse Shoulder Sphere Glenoid 320-32-36 - [id number] - [id number] Implanted:Qty: 1 on 09/06/2023 by Josef Guardado MD at [facility] Left: Shoulder Exactech [id number] 12/18/2032 320-32-36 / [id number] / Procedures Procedure Name Priority Date/Time Associated Diagnosis Comments TRANSTHORACIC ECHO (TTE) COMPLETE W DOPPLER/CF WO CONTRAST Routine 10/29/2024 3:40 PM CDT Pulmonary hypertension (HCC) COLONOSCOPY 05/30/2022 10:19 AM PHOTOENGRAVING SUPERVISOR from Last 3 Months or Most Recently Relevant to Health Maintenance Results * TRANSTHORACIC ECHO (TTE) COMPLETE W DOPPLER/CF WO CONTRAST (10/29/2024 3:40 PM CDT) Estimated EF 65 % CONS SCIMAGE Anatomical Region Laterality Modality Ultrasound 10/29/2024 2:12 PM CDT Narrative 10/29/2024 4:30 PM CDT [address] [address] Echocardiogram Report Patient Name: ALICIA RALPH : 1945 Study Date: 10/29/2024 2:12:40 PM Gender: F Tech: EDUCATION RESEARCH ANALYST Location: Echo Lab 2 Ref Provider: MURIEL CABRERA Height(Cm): 152 BSA: 1.8 Weight(Kg): 77.1 Quality: Adequate Order Provider: MURIEL CABRERA PROCEDURES: Echocardiographic Report: Transthoracic echocardiogram with complete 2D, M-Mode, and color Doppler examination. INDICATIONS: I27.20 Pulmonary hypertension, unspecified. MEASUREMENTS: 2D/MM Value Range Doppler Value Range EF Teich MM 84.0 % [ 54.0 - 74.0 ] LUIS Vmax 3.39 cm2 Estimated EF 65 % AV Mean PG 4 mmHg LVIDd MM 3.70 cm [ 3.80 - 5.20 ] AV Peak Jan 1.36 m/s [ 1.00 - 1.70 ] LVIDs MM 1.80 cm [ 2.20 - 3.50 ] AV VTI 31.35 cm LVPWd MM 0.90 cm [ 0.60 - 0.90 ] LVOT Diam 2.28 cm IVSd MM 0.80 cm [ 0.60 - 0.90 ] LVOT Peak Jan 1.13 m/s [ 0.70 - 1.10 ] LA Dimension MM 3.78 cm [ 2.70 - 3.80 ] LVOT VTI 27.83 cm AoR Diam MM 2.77 cm [ 2.70 - 3.70 ] MV E Peak Jan 0.92 m/s [ 0.60 - 1.30 ] ACS MM 1.73 cm MV A Peak Jan 0.58 m/s [ 1.00 - 1.20 ] MV Mean PG 1 mmHg MV PHT 46 msec [ 20 - 100 ] MVA 4.80 MV Decel Time 188 msec [ 104 - 258 ] PV Peak Jan 0.98 m/s [ 0.40 - 0.80 ] TR Peak Jan 3.27 m/s [ 1.00 - 2.80 ] TR Peak PG 43 mmHg RVSP 48.00 mmHg [ 10.00 - 36.00 ] E` 0.08 m/s E/E` 12.06 [ <= 10.00 ] PA Pressure 48.00 mmHg [ 10.00 - 36.00 ] 2D/MM Value Range Doppler Value Range - FINDINGS: Atrial Septum: The atrial septum is not well visualized. Left Ventricle: Normal left ventricular systolic function with no focal wall motion abnormalities. Normal left ventricular size. Normal left ventricular wall thickness. Normal left ventricular diastolic function. Ejection Fraction is estimated to be 65 %. Left Atrium: The left atrium is normal in size. Right Ventricle: Normal right ventricular systolic function. Moderate enlargement of right ventricle. Right Atrium: There is moderate enlargement of right atrium. Aortic Valve: Normal structure of the aortic valve. Mitral Valve: Normal structure of the mitral valve. Pulmonic Valve: Pulmonic valve not well visualized. Tricuspid Valve: Mild pulmonary hypertension based on right ventricular systolic pressure. Estimated peak RVSP is 48 mmHg. Mild to moderate tricuspid regurgitation. Pericardium: Normal pericardium with no significant pericardial effusion. Aorta: Normal aortic root. IVC: The IVC is not well visualized. CONCLUSIONS: Normal left ventricular systolic function with no focal wall motion abnormalities. Normal left ventricular size. Normal left ventricular wall thickness. Normal left ventricular diastolic function. Ejection Fraction is estimated to be 65 %. Normal right ventricular systolic function. Moderate enlargement of right ventricle. Normal structure of the mitral valve. Normal structure of the aortic valve. Mild pulmonary hypertension based on right ventricular systolic pressure. Estimated peak RVSP is 48 mmHg. Mild to moderate tricuspid regurgitation. Electronically Signed By: Miguel Sotelo MD [facility] 10/29/2024 4:29:06 PM CDT Procedure Note Miguel Sotelo MD - 10/29/[address] [address] Echocardiogram Report Patient Name: ALICIA RALPH : 1945 Study Date: 10/29/2024 2:12:40 PM Gender: F Tech: EDUCATION RESEARCH ANALYST Location: Echo Lab 2 Ref Provider: MURIEL CABRERA Height(Cm): 152 BSA: 1.8 Weight(Kg): 77.1 Quality: Adequate Order Provider: MURIEL CABRERA PROCEDURES: Echocardiographic Report: Transthoracic echocardiogram with complete 2D, M-Mode, and color Dopplerexamination. INDICATIONS: I27.20 Pulmonary hypertension, unspecified. MEASUREMENTS: 2D/MM Value Range Doppler ValueRange EF Teich MM 84.0 % [ 54.0 - 74.0 ] LUIS Vmax 3.39cm2 Estimated EF 65 % AV Mean PG 4 mmHg LVIDd MM 3.70 cm [ 3.80 - 5.20 ] AV Peak Jan 1.36 m/s[ 1.00 - 1.70 ] LVIDs MM 1.80 cm [ 2.20 - 3.50 ] AV VTI 31.35cm LVPWd MM 0.90 cm [ 0.60 - 0.90 ] LVOT Diam 2.28cm IVSd MM 0.80 cm [ 0.60 - 0.90 ] LVOT Peak Jan 1.13 m/s[ 0.70 - 1.10 ] LA Dimension MM 3.78 cm [ 2.70 - 3.80 ] LVOT VTI 27.83cm AoR Diam MM 2.77 cm [ 2.70 - 3.70 ] MV E Peak Jan 0.92 m/s[ 0.60 - 1.30 ] ACS MM 1.73 cm MV A Peak Jan 0.58 m/s[ 1.00 - 1.20 ] MV Mean PG 1 mmHg MV PHT 46 msec [ 20 - 100 ] MVA 4.80 MV Decel Time 188 msec [ 104 - 258 ] PV Peak Jan 0.98 m/s [ 0.40 - 0.80 ] TR Peak Jan 3.27 m/s [ 1.00 - 2.80 ] TR Peak PG 43 mmHg RVSP 48.00 mmHg [ 10.00 - 36.00 ] E` 0.08 m/s E/E` 12.06 [ <= 10.00 ] PA Pressure 48.00 mmHg [ 10.00 - 36.00 ] 2D/MM Value Range Doppler ValueRange - FINDINGS: Atrial Septum: The atrial septum is not well visualized. Left Ventricle: Normal left ventricular systolic function with no focal wall motionabnormalities. Normal left ventricular size. Normal left ventricular wall thickness. Normal leftventricular diastolic function. Ejection Fraction is estimated to be 65 %. Left Atrium: The left atrium is normal in size. Right Ventricle: Normal right ventricular systolic function. Moderate enlargement of rightventricle. Right Atrium: There is moderate enlargement of right atrium. Aortic Valve: Normal structure of the aortic valve. Mitral Valve: Normal structure of the mitral valve. Pulmonic Valve: Pulmonic valve not well visualized. Tricuspid Valve: Mild pulmonary hypertension based on right ventricular systolic pressure.Estimated peak RVSP is 48 mmHg. Mild to moderate tricuspid regurgitation. Pericardium: Normal pericardium with no significant pericardial effusion. Aorta: Normal aortic root. IVC: The IVC is not well visualized. CONCLUSIONS: Normal left ventricular systolic function with no focal wall motionabnormalities. Normal left ventricular size. Normal left ventricular wall thickness. Normal leftventricular diastolic function. Ejection Fraction is estimated to be 65 %. Normal right ventricular systolic function. Moderate enlargement of rightventricle. Normal structure of the mitral valve. Normal structure of the aortic valve. Mild pulmonary hypertension based on right ventricular systolic pressure.Estimated peak RVSP is 48 mmHg. Mild to moderate tricuspid regurgitation. Electronically Signed By: Miguel Sotelo MD [facility] 10/29/2024 4:29:06 PM CDT us Muriel Cabrera EDUCATION RESEARCH ANALYST CV ECHO PROCEDURES Final Re sult * COLONOSCOPY (05/30/2022 10:19 AM PHOTOENGRAVING SUPERVISOR) Anatomical Region Laterality Modality Other Narrative Procedure Note Randi Vega MD - 05/30/2022 10:[address] [facility] Patient Name: Alicia Ralph Procedure Date: 05/30/2022 10:19AM Date of : 1945 Admit Type: Outpatient Age: 76 Gender: Female Attending MD: Randi Vega M.D. Room: [facility] ENDOSCOPY ROOM 1 Note Status: Finalized Patient [...] under direct vision. The Pediatric Colonoscope [id number] was introducedthrough the anus and advanced to [...] 10:19 AM Procedure Code(s): --- Professional --- 54034, Colonoscopy, flexible; with biopsy, single or multiple Diagnosis Code(s): --- Professional --- Z86.010, Personal history of colonic polyps K64.8, Other hemorrhoids D12.3, Benign neoplasm of transverse colon (hepatic flexure orsplenic flexure) K57.30, Diverticulosis of large intestine without perforation orabscess without bleeding CPT copyright 2020 [employer]. All rights reserved. The codes documented in this report are preliminary and upon closing manager reviewmay be revised to meet current compliance requirements. Recognized by the [place] [employer] for promoting quality in endoscopy Randi Vega MD ENDOSCOPY PROCEDURES Final Result from Last 3 Months or Most Recently Relevant to Health Maintenance Insurance [facility] MEDICARE ADVANTAGE [facility] MEDICARE Address: [facility] [address] [place] [address] MEDICARE ADVANTAGE [facility] MEDICARE Address: [address] [address] [place] [address] MEDICARE ADVANTAGE [facility] MEDICARE Address: [address] [address] [place] [address] MEDICARE ADVANTAGE [facility] MEDICARE Address: [address] [address] [place] [address] Advance Directives For more information, please contact: [phone] * Full Code (Latest Code Status on [...] 10:11 AM 05/30/2022 10:11 AM Care Teams Cord Splicer Relationship Specialty Start Date End Date Manpreet Sanderson MD PCP - General Family Practice 01/22/23 Randi Vega MD Consulting Physician Gastroenterology 01/22/23 Ángel Sampson MD PhD [address] [place] [address] Referring Physician Neurology 01/22/23 Keyla Santa MD [address] [place] [address] Consulting Physician Internal Medicine 01/22/23 Muna Hernandez PA [address] [place] [address] [address] [place] [address] Orthopedic Surgery 02/22/23 Kanu Hernandez MD [address] [facility] [address] [place] [address] Consulting Physician Neurology 03/19/23 Lila Pedro MD [address] [place] [address] [address] [place] [address] Consulting Physician Sleep Medicine 03/19/23 Hi Ware MD [address] [place] [address] [address] [place] [address] Consulting Physician Pulmonary Disease 04/27/23 Josef Guardado MD [address] [place] [address] DR MARIANA Jon [facility] [address] [place] [address] Surgeon Orthopedic Surgery 09/07/23
--- OUTSIDE RECORDS SUMMARY | 2024-12-10 16:19 | XMS_ITS | Encounter Summary ---
Author Organization [facility] Address [address] [place] [address] Care Team Providers Care Juke Box Servicer Name Role Phone Favio Randolph MD Primary Care Provider [phone] Nicolas Xiao DO Primary Care Provider [phone] Nathaniel Villatoro MD Primary Care Provider [phone] Manpreet Sanderson MD Primary Care Provider + [phone] Randi Vega MD Unavailable [phone] Ángel Sampson MD PhD Unavailable + [phone] Keyla Santa MD Unavailable [phone] Muna Hernandez Unavailable [phone] Kanu Hernandez MD Unavailable [phone] Lila Pedro MD Unavailable Hi Ware MD Unavailable Josef Guardado MD Unavailable [phone] Encounter Details Date Type Department Care Team (Late st Contact Info) Description 06/08/2017 Orders Only [facility] [address] [place] [address] Dakotah Carpenter RT Social History Tobacco Use Types Packs/Day Years Used Date Smoking Tobacco: Never Alcohol Use Standard Drinks/Week Comments No 0 (1 standard drink = 0.6 oz pur e alcohol) Comments Unknown Sex and Gender Information Value Date Recorded Sex Assigned at Not on file Legal Sex Female 12:25 PM CAFE ATTENDANT Gender Identity Female 04/12/2021 6:37 PM CDT Sexual Orientation Straight 04/12/2021 6: 37 PM CDT documented as of this encounter Plan of Treatment Upcoming Encounters Date Type Department Care Team (Late st Contact Info) Description 01/07/2025 10:30 AM CDT Hospital Encounter [address] [address] Randi Vega MD [address] [place] [address] DR [address] [place] [address] 01/07/2025 10:30 AM CDT - 01/07/2025 11:00 AM CDT Surgery [address] [address] Randi Vega MD [address] [place] [address] DR [address] [place] [address] COLONOSCOPY Scheduled Procedures Name Priority Associated Diagnoses Date/Ti me COLONOSCOPY History of colonic polyps Encounter for screening colonoscopy 01/07/2025 10:30 AM CDT documented as of this encounter Visit Diagnoses Not on filedocumented in this encounter Additional Health Concerns Infection Onset Date Last Indicated Resolved Time COVID: Suspected 04/22/2023 04/22/2023 04/22/2023 8:02 PM CDT documented as of this encounter Care Teams Juke Box Servicer Relationship Specialty Start Date End Date Favio Randolph MD PCP - General 09/29/16 03/05/19 Nicolas Xiao DO PCP - General Internal Medicine 03/06/19 07/16/22 Nathaniel Villatoro MD PCP - General Internal Medicine 07/17/22 01/21/23 Manpreet Sanderson MD PCP - General Family Practice 01/22/23 Randi Vega MD Consulting Physician Gastroenterology 01/22/23 Ángel Sampson MD PhD [address] [place] [address] Referring Physician Neurology 01/22/23 Keyla Santa MD [address] [facility] [address] [place] [address] Consulting Physician Internal Medicine 01/22/23 Muna Hernandez PA [address] [place] [address] [place] [address] Orthopedic Surgery 02/22/23 Kanu Hernandez MD [address] [place] [address] [place] [address] Consulting Physician Neurology 03/19/23 Lila Pedro MD [address] [place] [address] [place] [address] Consulting Physician Sleep Medicine 03/19/23 Hi Ware MD [address] [place] [address] [place] [address] Consulting Physician Pulmonary Disease 04/27/23 Josef Guardado MD [address] [facility] [address] [facility] [address] [place] [address] Surgeon Orthopedic Surgery 09/07/23 documented as of this encounter
--- OUTSIDE RECORDS SUMMARY | 2024-12-10 16:19 | XMS_ITS | Clinical Summary ---
Author Organization [facility] Medical Office Building B Address [address] [place] [address] Care Team Providers Care Tool Builder Name Role Phone Manpreet Sanderson MD Primary Care Provider + [phone] Randi Vega MD Unavailable [phone] Ángel Sampson MD PhD Unavailable + [phone] Keyla Santa MD Unavailable [phone] Muna Hernandez Unavailable [phone] Kanu Hernandez MD Unavailable [phone] Lila Pedro MD Unavailable Hi Ware MD Unavailable Josef Guardado MD Unavailable [phone] Allergies Active Allergy Reactions Criticality Noted Date [...] 05/18/2022 Assessment & Plan (05/18/2022 8:14 AM OCC MED PHYSICIAN): She has subjective cognitive complaints including difficulty [...] with instructions on how to access the [employer] exercise channel. Finally, she endorses inadequate management of anxiety and we reviewed that she can discuss increasing sertraline as tolerated at upcoming PCP visit as Dr. Sanderson manages this medication. Recommendations: Once UTI resolved, can trial increasing C/L from 2 tabs TID to 2.5 tabs TID while monitoring for side effects PT referral [employer] exercise channel access information provided Follow-up in [...] with instructions on how to access the [employer] exercise channel. Finally, she endorses frustration with [...] will update our office in 4 weeks [employer] exercise channel access information provided Will order physical therapy for gait/balance training, strength and stretching once cleared from recent left shoulder surgery - patient to notify our office once cleared for referral entry NPT today Assessment & Plan (05/18/2022 8:04 AM OCC MED PHYSICIAN): She has parkinsonism stage 4 characterized by [...] (06/17/2021): Added automatically from request for surgery [id number] Memory loss 05/09/2021 Cyst of ovary 12/28/2020 Urinary incontinence 12/28/2020 Other intra-abdominal and pelvic swelling, mass and lump 04/08/2020 Overview (04/08/2020): Added automatically from request for surgery [id number] History of colonic polyps 06/05/2019 Overview (06/05/2019): Added automatically from request for surgery [id number] Assessment & Plan (06/05/2019 3:16 PM OCC MED PHYSICIAN): She is overdue for a screening colonoscopy. [...] 03/06 Assessment & Plan (06/05/2019 3:16 PM OCC MED PHYSICIAN): Continue taking fiber daily. Will have her [...] 9 Assessment & Plan (06/05/2019 3:15 PM OCC MED PHYSICIAN): Well controlled on omeprazole daily. She may [...] (03/06/2019): Added automatically from request for surgery [id number] Assessment & Plan (06/05/2019 3:14 PM OCC MED PHYSICIAN): Doing well. No recent episodes. Assessment & Plan (04/03/2019 3:13 PM CDT): Not as severe or often as previously. She says she noticed that this occurs when she is constipated. Will try to improve constipation and see if this improves pain further. 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) 6 Paresthesia of foot 04/21/2015 Overview (01/22/2023): Paresthesia of both feet Overview: Paresthesia of both feet Encounters Date Type Department Care Team Description 11/27/2024 Telephone [facility] Gastroenterology at [address] [place] [address] Stefanie Portillo Prep Instructions 10/30/2024 Results Follow-Up [facility] Pulmonary at [address] [place] [address] Muriel Cabrera NP Transthoracic Echo (TTE) Complete W Doppler/CF 10/29/2024 1:56 PM CDT - 10/29/2024 11:59 PM CDT Hospital Encounter [facility] [address] [place] [address] Pulmonary hypertension (HCC) Discharge Disposition: Discharge to home or self care 10/17/2024 12:45 PM CDT Office Visit [place] Research Engineer at [address] [place] [address] Elvira Mead MD Chronic diastolic congestive heart failure (HCC) (Primary Dx); Chronic respiratory failure with hypoxia (HCC); TIA (transient ischemic attack); PFO (patent foramen ovale) 10/15/2024 2:00 PM CDT Office Visit [facility] Pulmonary at [address] [place] [address] Muriel Cabrera NP Pulmonary hypertension (HCC) (Primary Dx); Chronic respiratory failure with hypoxia, on home O2 therapy (HCC); Obesity hypoventilation syndrome (HCC) 09/19/2024 10:30 AM CDT Office Visit [facility] Movement Disorders [address] [facility] 7th [place] [address] Danica Reyes NP Parkinsonism, unspecified Parkinsonism type (HCC) (Primary Dx) 09/10/2024 1:00 PM CDT Office Visit [facility] Gastroenterology at [address] [place] [address] Anastacio House NP Irritable bowel syndrome with constipation (Primary Dx); Gastroesophageal reflux disease without esophagitis; Chronic superficial gastritis without bleeding; Tubular adenoma of colon; Nausea and vomiting, unspecified vomiting type from Last 3 Months Immunizations Immunization Administration [...] LIGATION 07/02/1986 - 07/01/1987 TOTAL KNEE ARTHROPLASTY 2013 + ANKLE SURGERY 1952 JOINT REPLACEMENT Knees 2013 & 2014 SHOULDER SURGERY 2022 Medical History Medical History Date Comments Hypertension Colon polyp Diverticulosis DJD (degenerative joint disease) Dysphagia Hyperlipidemia Migraine Anemia Anxiety and depression Other intra-abdominal and pe lvic swelling, mass and lump Obesity Heart murmur GERD (gastroesophageal reflux disease) [place] measles 1958 Bronchial pneumonia 1963 Mumps 1976 Diphtheria Young Child Peripheral vascular disease Irritable bowel syndrome Urinary tract infection Parkinsonism ([facility]) 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 ([facility]) 03/19/2023 Obesity hypoventilation syndrome ([facility]) 4 Restless leg syndrome 10 + yrs Depression 2010 Parkinson's disease ([facility]) + yrs Fatigue + years HL (hearing loss) 5 + yrs Chronic pain disorder 20 + yrs Reflux Not sure - multiple years Peripheral neuropathy 2015 Memory loss 2019 Tremors of nervous system 5 + yrs Anxiety 1989 Crohn's disease ([facility]) CHF (congestive heart failure) ([facility]) 2022 Family History Medical History Relation Name Comments Asthma Brother 3 Jeffery Piper Depression Brother 3 Jeffery Piper Asthma Daughter 2 Apoorva Coto Car Accident Father Dorian Cancer Maternal Grandmother Alisa Maurice Arthritis Mother Erica Piper Asthma Mother Erica Piper COPD Mother Erica Piper Depression Mother Erica Piper Emphysema Mother Erica Piper Heart attack Mother Erica Piper Heart disease Mother Erica Piper Hypertension Mother Erica Piper Hypertension; Memory loss Mother Erica Piper Stroke Mother Erica Piper Tremor Mother Erica Hi Cancer Other 1 Family history of Cancer; Heart disease Other 2 Family history of Heart problems; Hypertension Other 3 Family history of Hypertension; Lung disease Other 4 Family history of Lung problems; Relation Name Status Comments Brother 1 Jeffery Alive Brother 2 Cain Alive Brother 3 Jefferyhelio Hi Alive Daughter 1 Apoorva Alive Daughter 2 Apoorva Coto Alive Father Dorian (Age 57) Maternal Grandmother Alisa Richards Alive Mother Erica Hi (Age 88) rest tremo r Other 1 [...] doctor or pharmacy Never 01/01/2024 [facility] Utilities Answer Date Recorded In the past 12 months has e [employer], gas, oil, or water [facility] threatened to shut off services in your [...] often do you attend chur ch or mandaeism services? More than 4 times per year 09/06/2023 Do you belong to any clubs o r organizations such as episcopalian groups, unions, fraternal or athletic groups, or [...] place to sleep or slept in a long term (including now)? No 09/06/2023 Personal Safety Answer Date Recorded Have you ever been in or are you currently in a harmful physical or emotional relationship or is someone making you feel afraid or unsafe? Denies 02/16/2024 Comments No Sex and Gender Information Value Date Recorded Sex Assigned at Not on file Legal Sex Female 12:25 PM OCC MED PHYSICIAN Gender Identity Female 04/12/2021 6:37 PM CDT [...] Description 01/07/2025 10:30 AM CDT Hospital Encounter [address] [address] Randi Vega MD [address] [place] [address] [address] [place] [address] 01/07/2025 10:30 AM CDT - 01/07/2025 11:00 AM CDT Surgery [address] [address] Randi Vega MD [address] [place] [address] [address] [place] [address] COLONOSCOPY Scheduled Procedures Name Priority Associated Diagnoses [...] history exists Medical Devices Implanted Type Area Automotive Sales Executive Device Identifier Shelf Expiration Date Model / Serial / Lot Lens Implants W/Cataract Extraction Bilateral: Eye [employer]actech Equinoxe 13mm Press Fit Primary Shoulder Stem Humeral 300-01-13 - [id number] - [id number] Implanted:Qty: 1 on 02/22/2023 by Josef Guardado MD at [facility] Left: Shoulder [employer]ech 06/14/2032 300-01-13 / [id number] / Exactech Equinoxe 36mm Shoulder 0mm Offset Liner Humeral Sterile 320-36-00 - [id number] - [id number] Implanted:Qty: 1 on 02/22/2023 by Josef Guardado MD at [facility] Left: Shoulder [employer]ech 07/18/2027 320-36-00 / [id number] / [employer] Bioprep Preparation Plug Framing Consultant Lawai Curette Suction Femoral [id number] - [id number] Implanted:Qty: 1 on 02/22/2023 by Josef Guardado MD at [facility] Left: Shoulder [employer] [id number] / / [id number] Exactech Equinoxe Small Reverse Superior Augment Shoulder 10d Plate 320-35-02 - [id number] - [id number] Implanted:Qty: 1 on 02/22/2023 by Josef Guardado MD at [facility] Left: Shoulder [employer]ech 08/28/2032 320-35-02 / [id number] / Exactech Reverse Torque Define Shoulder Kit Screw 320-20-00 - [id number] - [id number] Implanted:Qty: 1 on 02/22/2023 by Josef Guardado MD at [facility] Left: Shoulder [employer]ech 12/12/2027 320-20-00 / [id number] / Exactech Equinoxe Lock Reverse Shoulder Glenosphere Screw Bone 320-15-05 - [id number] - [id number] Implanted:Qty: 1 on 02/22/2023 by Josef Guardado MD at [facility] Left: Shoulder [employer] 12/20/2027 320-15-05 / [id number] / Exactech Equinoxe 4.5mm 34mm Kit Compression Lock Cap Reverse Shoulder 320-20-34 - [id number] - [id number] Implanted:Qty: 1 on 02/22/2023 by Josef Guardado MD at [facility] Left: Shoulder [employer]ech 03/15/2027 320-20-34 / [id number] / Exactech Equinoxe 4.5mm 22mm Kit Compression Lock Cap Reverse Shoulder 320-20-22 - [id number] - [id number] Implanted:Qty: 1 on 02/22/2023 by Josef Guardado MD at [facility] Left: Shoulder [employer]ech 01/09/2028 320-20-22 / [id number] / Exactech Component 36mm Glenoid Glenosphere Reverse Shoulder 320-31-36 - [id number] - [id number] Implanted:Qty: 1 on 02/22/2023 by Josef Guardado MD at [facility] Left: Shoulder [employer]ech 09/20/2032 320-31-36 / [id number] / Exactech Equinoxe Reverse Shoulder +0mm Tray Humeral Adapter 320-10-00 - [id number] - [id number] Implanted:Qty: 1 on 02/22/2023 by Josef Guardado MD at [facility] Left: Shoulder [employer]ech 10/15/2032 320-10-00 / [id number] / Exactech Liner Humeral Reverse Equinoxe +0x36mm 320-36-10 - [id number] - [id number] Implanted:Qty: 1 on 09/06/2023 by Josef Guardado MD at [facility] Left: Shoulder [employer]ech [id number] 01/16/2027 320-36-10 / [id number] / Exactech Equinoxe Lock Reverse Shoulder Glenosphere Screw Bone 320-15-05 - [id number] - [id number] Implanted:Qty: 1 on 09/06/2023 by Josef Guardado MD at [facility] Left: Shoulder [employer]actech [id number] 07/07/2028 320-15-05 / [id number] / Exactech Equinoxe 36mm 26.1mm Expand Small Reverse Shoulder Sphere Glenoid 320-32-36 - [id number] - [id number] Implanted:Qty: 1 on 09/06/2023 by Josef Guardado MD at [facility] Left: Shoulder [employer]ech [id number] 12/18/2032 320-32-36 / [id number] / Procedures Procedure Name Priority Date/Time Associated Diagnosis Comments TRANSTHORACIC ECHO (TTE) COMPLETE W DOPPLER/CF WO CONTRAST Routine 10/29/2024 3:40 PM CDT Pulmonary hypertension (HCC) COLONOSCOPY 05/30/2022 10:19 AM OCC MED PHYSICIAN from Last 3 Months or Most Recently Relevant to Health Maintenance Results * TRANSTHORACIC ECHO (TTE) COMPLETE W DOPPLER/CF WO CONTRAST (10/29/2024 3:40 PM CDT) Estimated EF 65 % CONS SCIMAGE Anatomical Region Laterality Modality Ultrasound 10/29/2024 2:12 PM CDT Narrative 10/29/2024 4:30 PM CDT [address] [place] [address] Echocardiogram Report Patient Name: ALICIA RALPH : 1945 Study Date: 10/29/2024 2:12:40 PM Gender: F Tech: CERTIFIED ALCOHOL DRUG COUNSELOR Location: Echo Lab 2 Ref Provider: MURIEL [...] regurgitation. Electronically Signed By: Miguel Sotelo MD [facility] 10/29/2024 4:29:06 PM CDT Procedure Note Miguel Sotelo MD - 10/29/[address] [address] Echocardiogram Report Patient Name: ALICIA RALPH : 1945 Study Date: 10/29/2024 2:12:40 PM Gender: F Tech: CERTIFIED ALCOHOL DRUG COUNSELOR Location: Echo Lab 2 Ref Provider: MURIEL [...] regurgitation. Electronically Signed By: Miguel Sotelo MD [facility] 10/29/2024 4:29:06 PM CDT us Muriel Cabrera CERTIFIED ALCOHOL DRUG COUNSELOR CV ECHO PROCEDURES Final Re sult * COLONOSCOPY (05/30/2022 10:19 AM OCC MED PHYSICIAN) Anatomical Region Laterality Modality Other Narrative Procedure Note Randi Vega MD - 05/30/2022 10:19 AM CST [facility] Patient Name: Alicia Ralph Procedure [...] Referring MD: Nicolas Xiao D.O. Providers: Randi eVga M.D. Impression: - Three 3 to 5 [...] under direct vision. The Pediatric Colonoscope [id number] was introducedthrough the anus and advanced to [...] 10:19 AM Procedure Code(s): --- Professional --- 21880, Colonoscopy, flexible; with biopsy, single or multiple Diagnosis Code(s): --- Professional --- Z86.010, Personal history of colonic polyps K64.8, Other hemorrhoids D12.3, Benign neoplasm of transverse colon (hepatic flexure orsplenic flexure) K57.30, Diverticulosis of large intestine without perforation orabscess without bleeding CPT copyright 2020 [employer]. All rights reserved. The codes documented in this report are preliminary and upon director sales training reviewmay be revised to meet current compliance requirements. Recognized by the [employer] for promoting quality in endoscopy Randi Vega MD ENDOSCOPY PROCEDURES Final Result from Last 3 Months or Most Recently Relevant to Health Maintenance Insurance MEDICARE ADVANTAGE [facility] MEDICARE ADVANTAGE MEDICARE ADVANTAGE MEDICARE ADVANTAGE Advance Directives For more information, please contact: [phone] * Full Code (Latest Code Status on [...] 10:11 AM 05/30/2022 10:11 AM Care Teams Tool Builder Relationship Specialty Start Date End Date Manpreet Sanderosn MD PCP - General Family Practice 01/22/23 Randi Vega MD Consulting Physician Gastroenterology 01/22/23 Ángel Sampson MD PhD [address] [place] [address] Referring Physician Neurology 01/22/23 Keyla Santa MD [address] [facility] [address] [place] [address] Consulting Physician Internal Medicine 01/22/23 Muna Hernandez PA [address] [place] [address] [address] [place] [address] Orthopedic Surgery 02/22/23 Kanu Hernandez MD [address] [place] [address] [address] [place] [address] Consulting Physician Neurology 03/19/23 Lila Pedro MD [address] [place] [address] [place] [address] Consulting Physician Sleep Medicine 03/19/23 Hi Ware MD [address] [place] [address] [address] [place] [address] Consulting Physician Pulmonary Disease 04/27/23 Josef Guardado MD [address] [place] [address] DR MARIANA Jon [facility] [address] [place] [address] Surgeon Orthopedic Surgery 09/07/23
--- OUTSIDE RECORDS SUMMARY | 2024-12-10 16:19 | XMS_ITS | Encounter Summary ---
Author Organization [facility] Health Address [address] [place] [address] Care Team Providers Care Air Intercept Controller Name Role Phone Nicolas Xiao DO Primary Care Provider [phone] Reason for Visit * Reason Onset Date Comments LABS ONLY 04/16/2018 labs may have be en coded wrong Returned Call 04/16/2018 Encounter Details Date Type Department Care Team (Late st Contact Info) Description 04/16/2018 Telephone [facility] [address] [place] [address] Joanne Plata MD [address] [facility] [address] [place] [address] LABS ONLY (labs may have been coded [...] Pt returning missed call from the nurse. Callback#[phone] * Telephone Encounter - Whitney Lima RN [...] on filedocumented in this encounter Care Teams Air Intercept Controller Relationship Specialty Start Date End Date Nicolas Xiao DO PCP - General 02/04/18 documented as of this encounter
--- OUTSIDE RECORDS SUMMARY | 2024-12-10 16:19 | XMS_ITS | Continuity of Care Document ---
Author Organization [employer] [facility] Address [address] [facility] [address] [place] [address] [place] [id number] Phone Care Team Providers Care Supervisor Offset Plate Preparation Name Role Phone Mane HUERTA, Jennifer Unavailable [...] times every day 2 tablet - Active Tranxene T-Tab 7.5 mg tablet take 1 tablet by oral route 2 times every day - Active Lasix 20 mg tablet take 1 tablet (20MG) by ORAL route every day 20 MG - Active Vitamin D3 1,000 unit capsule 1 tablet by mouth once a day - Active Probiotic 10 billion cell capsule 1 tablet by mouth once a day - Active Vitamin C 500 mg tablet 1 tablet by mouth once a day - Active oxybutynin chloride ER 15 mg tablet,extended release 24 hr take 1 tablet by oral route every day 15 MG - Active gabapentin 300 mg capsule take 1 capsule by oral route 3 times every day 300 MG - Active omeprazole 40 mg capsule,delayed release take 1 capsule by oral route every day before a meal 40 MG - Active Zoloft 100 mg Tab take 1 tablet (100MG) by ORAL route every day 100 MG - Active oxybutynin chloride ER 15 mg tablet,extended release 24 hr take 1 tablet by oral route every day 15 MG - No Longer Active Page-D 24 Hour 180 mg-240 mg tablet,extended release take 1 tablet by oral route every day on an empty stomach with glass of water 1.00 tablet - No Longer Active vitamin E 400 unit capsule 1 tablet by mouth once a day - No Longer Active Trokendi XR 25 mg capsule,extended release take 1 capsule by oral route every day 25 MG - No Longer Active Procedures Procedure Date [...] Diagnoses Date Provider Providers Copied on Encounter [facility], [address], [place], [place], [address], [place] tel:[phone] SEC Laci ALAN Professional Complete Exam (chief complaint) Superficial punctate keratitis of both eyesKeratocon junctivitis sicca, not specified as Sj g pacheco's, unspecified eyeParkinsons Presence of intraocular lens 3 Mane OD Jennifer. [address], [address], [place], [place], [address], [place]. tel:[phone] Referring Provider: Shahid Pinto OD, [address] [facility] [place], [address]. tel:[phone] Office/outpa tient Visit, [facility] Eye [facility], [address], [place], [place], [address], [place] tel:[phone] SEC [place] Professional 5 month ALESIA f/u (chief complaint) ParkinsonsKer atoconjunctiv itis sicca, not specified as Sj g pacheco's, unspecified eyeBilateral artificial lens implantDry eye syndrome of bilateral lacrimal glands 3 Jorge Luis Giles. [address], [facility] [address], [place], [place], [address], [place]. tel:[phone] Referring Provider: Shahid Pinto OD, [address] [facility] [place], [address]. tel:[phone] Office/outpa tient Visit, [facility], [address] [place] [address] [address], [place], [place], [address], [place] tel:[phone] SEC [place] Professional Follow up visit (chief complaint) Bilateral artificial lens implantDry eye syndrome of bilateral lacrimal glandsKeratoc onjunctivitis siccaMeibomia n gland dysfnct left eye, upper and lower eyelidsMeibom kanika gland dysfnct right eye, upper and lower eyelids 2 Jorge Luis Giles. [address], [address], [place], [place], [address], [place]. tel:[phone] Referring Provider: Shahid Pinto OD, [address] [facility] [place], [address]. tel:[phone] [facility] Eye [facility], [address], [place], [place], [address], [place] tel:[phone] SEC [place] Professional Complete Exam (chief complaint) Bilateral artificial lens implantGlauco matous optic atrophy, bilateralMeib omian gland dysfunction of unspecified eye, unspecified eyelidKeratoc onjunctivitis siccaBenign neoplasm of left choroid 2 Jorge Luis Giles. [address] [facility], [address], [place], [place], [address], [place]. tel:[phone] Referring Provider: Shahid Pinto OD, [address] [place], [address]. tel:[phone] Office/outpa tient Visit, [facility] Eye [facility], [address], [place], [place], [address], [place] tel:[phone] SEC [place] Professional Complete Exam (chief complaint) Bilateral artificial lens implantChoroi zeynep nevus, left eyeGlaucomato us optic atrophy, bilateralDry eye syndrome of bilateral lacrimal glands 1 Zhane An. [address], [address], [place], [place], [address], [place]. tel:[phone] Referring Provider: Shahid Pinto OD, [address] [place], [address]. tel:[phone] Office/outpa tient Visit, [facility], [address], [place], [place], [address], [place] tel:[phone] SEC [place] Professional 6 month IOP check (chief complaint) Glaucomatous optic atrophy, bilateralChor oidal nevus, left eye 0 Dejah OD Ricardo. [address] [facility], 6th Floor, [place], [address], [place]. tel:[phone] Referring Provider: Shahid Pinto OD, [address] [employer], [place], [address]. tel:[phone] [facility] Eye [facility], [address], [place], [place], [address], [place] tel:[phone] SEC [place] Professional Complete Exam (chief complaint) Bilateral artificial lens implantMeibom kanika gland dysfnct right eye, upper and lower eyelidsMeibom kanika gland dysfnct left eye, upper and lower eyelidsKerato conjunctiviti s siccaChoroida l nevus, left eye 0 Dejah OD Ricardo. [address] [place] [address], [address] [place] [address], [place], [address], [place]. tel:[phone] Referring Provider: Shahid Pinto OD, [address] [place], [address]. tel:[phone] [facility], [address] [place] [address] [address], [place], [place], [address], [place] [phone] SEC Lexus Miranda No Information 9 Dejah OD Ricardo. [address] [place] [address], [address] [place] [address], [place], [address], [place]. tel:[phone] Office/outpa tient Visit, Est [facility], [address] [place] [address] [address], [place], [place], [address], [place] [phone] SEC Laci ALAN Professional ALESIA check (chief complaint) Meibomian gland dysfnct right eye, upper and lower eyelidsMeibom kanika gland dysfnct left eye, upper and lower eyelids 9 Dejah OD Ricardo[address] [facility], [address] [place] [address], [place], [address], [place]. tel:[phone] Referring Provider: Shahid Pinto OD, [address] [place] [address], [address]. tel:[phone] Office/outpa tient Visit, [facility], [address] [place] [address] [address], [place], [place], [address], [place] tel:[phone] SEC Laci ALAN Professional 3 mo ALESIA f/u (chief complaint) Meibomian gland dysfunction (MGD)Superfic ial punctate keratitis of both eyesCorneal opacity of both eyes 8 Jorge Luis Giles. [address], [place], [place], [address], [place]. tel:[phone] Referring Provider: Shahid Pinto OD, [address] [facility], [place], [address]. tel:[phone] [facility], [facility] [employer] [address], [place], [place], [address], [place] [phone] SEC [place] Professional Decreased vision (chief complaint) No Information 8 Jorge Luis Giles. [address], [place], [place], [address], [place]. tel:[phone] Referring Provider: Shahid Gerberon OD, [address], [place], [address]. tel:[phone] [facility], [facility] [employer] [address], [place], [place], [address], [place] [phone] SEC Lexus N [address] YAG EVAL OD (chief complaint) No Information [address] [place] Juve[address] [facility] [facility], [address], [place], [place], [address], [place]. tel:[phone] Referring Provider: Shahid Ramirezguson OD, [address], [place], [address]. tel:[phone] Office/outpa tient Visit, [facility], [address], [place], [place], [address], [place] [phone] SEC Lexus N [address] Yag Evaluation (chief complaint) No Information [address] [facility], [address], [place], [place], [address], [place]. tel:[phone] Referring Provider: Shahid Pinto OD, [address] [facility], [place], [address]. tel:[phone] Office/outpa tient Visit, [facility], [facility] [employer] [address], [place], [place], [address], tel:[phone] SEC [place] N [address] Blurry near vision (chief complaint) No Information [address] [facility] [facility], [address], [place], [place], [address], [place]. tel:[phone] Referring Provider: Shahid Pinto OD, [address] [employer], [place], [address]. tel:[phone] [facility], [facility] [employer] [facility] [address], [place], [place], [address], tel:[phone] SEC Lexus N [place] 6 week PO (chief complaint) No Information [address] [facility], [address], [place], [place], [address], [place]. tel:[phone] Referring Provider: Shahid Pinto OD, [address], [place], [address]. tel:[phone] [facility], [facility] [employer] [address], [place], [place], [address], [place] tel:[phone] SEC [place] N [address] 3 week post op Phaco IOL OS (chief complaint) No Information [address] [facility], [address], [place], [place], [address], [place]. tel:[phone] Referring Provider: Shahid Pinto OD, [address], [place], [address]. tel:[phone] [facility], [facility] [employer] [address], [place], [place], [address], [place] tel:[phone] SEC [place] N [place] F/u exam, postop (chief complaint) No Information [address] [facility], [address], [place], [place], [address], [place]. tel:[phone] Referring Provider: Shahid Pinto OD, [address] [facility], [place], [address]. tel:[phone] [facility], [address] [place], [place] [address], [place], [place], [address], [place] [phone] SEC [place] Professional F/u exam, postop (chief complaint) No Information [address] [facility] [facility], [address], [place], [place], [address], [place]. tel:[phone] Referring Provider: Shahid Gerberon OD, [address] [place], [address]. tel:[phone] [facility], [facility] [employer] [address], [place], [place], [address], [place] tel:[phone] SEC [place] Professional 1 day P/O (chief complaint) No Information 5 Sandie Fishman. [address] [facility], [address], [place], [place], [address], [place]. tel:[phone] Referring Provider: Shahdi Pinto OD, [address] [place], [address]. tel:[phone] [facility] Eye [facility], [facility] [employer] [address], [place], [place], [address], [place] tel:[phone] [facility] No Information [address] [facility] [place] [facility], [address], [place], [place], [address], [place]. tel:[phone] Referring Provider: Shahid Gerberon OD, [address] [facility], [place], [address]. tel:[phone] [facility], [address] [place] [address] [address], [place], [place], [address], [place] tel:[phone] SEC Lexus Kaymarykhai No Information 5 Zhane An. [address] [place] [address] [address], [address], [place], [place], [address], [place]. tel:[phone] Referring Provider: Shahid Pinto OD, [address] [facility] [place], [address]. tel:[phone] [facility] Eye [facility], [address] [place] [address] [address], [place], [place], [address], [place] tel:[phone] SEC [place] Professional F/u exam, postop (chief complaint) No Information 4 Sandie Fishman. [address] [facility], [address], [place], [place], [address], [place]. tel:[phone] Referring Provider: Shahid Pinto OD, [address] [facility] [place], [address]. tel:[phone] [facility] Eye [facility], [address] [place] [address] [address], [place], [place], [address], [place] tel:[phone] SEC [place] Professional 1 WK PO PHACO OD (chief complaint) No Information 4 Sandie Fishman. [address] [facility], [address], [place], [place], [address], [place]. tel:[phone] Referring Provider: Shahid Pinto OD, [address] [facility] [place], [address]. tel:[phone] [facility] Eye [facility], [address] [place] [address] [address], [place], [place], [address], [place] tel:[phone] SEC [place] Professional 1 DAY PO PHACO OD (chief complaint) No Information 4 Carol Yancey. [address] [facility], [address], [place], [address], [place]. tel:[phone] Referring Provider: Shahid Pinto OD, [address] [facility], [place], [address]. tel:[phone] [facility] Eye [facility], [address] [place] [address] [address], [place], [place], [address], [place] tel:[phone] [facility] [place] No Information Dec-0 4-201 4 Ch[place] Juve. [address] [place] [address] [employer] [facility], [address], [place], [place], [address], [place]. tel:[phone] Referring Provider: Shahid Pinto OD, [address], [place], [address]. tel:[phone] [facility], [address] [place] [address] [address], [place], [place], [address], [place] tel:[phone] SEC [place] N [address] No Information Dec-0 3-201 4 Chico Juve. [address] [place] [address] [employer], [address], [place], [place], [address], [place]. tel:[phone] Referring Provider: Shahid Pinto OD, [address] [place], [address]. tel:[phone] Office/outpa tient Visit, [facility] Eye [facility], [address] [place] [address] [address], [place], [place], [address], [place] tel:[phone] SEC [place] N [place] Blurry vision (chief complaint) No Information 0-201 4 Zhane Juve. [address] [place] [address] [employer], [address], [place], [place], [address], [place]. tel:[phone] Referring Provider: Shahid Pinto OD, [address] [place], [address]. tel:[phone] Office/outpa tient Visit, [facility] Eye [facility], [address] [place] [address] [address], [place], [place], [address], tel:[phone] SEC [place] N [place] Blurry vision (chief complaint) No Information [address] [facility] [place] [facility], [address], [place], [place], [address], . tel:[phone] Referring Provider: Shahid Pinto OD, [address] [place], [address]. tel:[phone] [facility], [address] [place], [place] [address] [address], [place], [place], [address], tel:[phone] SEC [place] N [address] No Information 4 Conner Drummond. [address] [facility], [address], [place], [place], [address], [place]. tel:[phone] Office/outpa tient Visit, [facility] [employer] [facility], [facility] [employer] [facility] [address], [place], [place], [address], tel:[phone] SEC [place] N [place] No Information [address] [facility], [address], [place], [place], [address], . tel:[phone] Referring Provider: Shahid Pinto OD, [address] [place], [address]. tel:[phone] [facility] [facility], [address] [place], [place] [address] [address], [place], [place], [address], tel:[phone] SEC [place] N [address] No Information [address] [facility], [address], [place], [place], [address], . tel:[phone] Referring Provider: Shahid Pinto OD, [address] [place], [address]. tel:[phone] Family History Family Member Type Diagnosis Age At Onset No Information Payers Payer name Insurance type Covered alliance party ID Authoriza tion(s) [facility] Mdcr Adv CI [id number] Social History Type Description Quantity Date Captured [...] Will give spec Rx to take to [facility]. [place] medicated gtts.Discussed laser surgery to [...] to See list of assessments above - Good post op cours e. Continue to taper drops. Patient aware of slow healing. Return in 2 months for follow up. Related to Post op follow up - Return in 1-2 months for follo [...]
--- OUTSIDE RECORDS SUMMARY | 2024-12-10 16:19 | XMS_ITS | Clinical Summary ---
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 Not on file Not on file Last Filed Vital Signs Vital Sign Reading Time Taken Comments Blood Pressure 120/80 01/14/2016 9:58 AM CDT Pulse 64 01/14/2016 9:58 AM CDT Temperature - - Respiratory Rate 14 01/14/2016 9:58 AM CDT Oxygen Saturation - - Inhaled Oxygen Concentration - - Weight 76.2 kg (168 lb) 08/16/2023 12:23 PM [employer] Height 160 cm (5' 3) 04/14/2021 1:40 PM CDT Body Mass Index 29.76 04/14/2021 1:40 PM CDT Plan of Treatment Health Maintenance Due Date Last Done Comments Hepatitis C Virus (HCV) Screening 1945 TdaP Immunization 1945 Pneumococcal Immunization (50+ years) (2 of 2 - PCV) 07/06/2021 07/06/2020, 03/19/2014 Respiratory Syncytial Virus (RSV) Immunization (Adult) (1 - 1-dose 75+ series) 2021 DEXA Bone Density 04/14/2023 04/14/2021, , 12/11/2017 SARS-COV-2 Immunization ( season) 2024 11/25/2021, 04/25/2021, 09/19/2020, Additional history exists Influenza Immunization (Season Ended) 2025 04/24/2022, 03/25/2021, 04/26/2020, Additional history exists DTaP/Tdap/Td Immunization Discontinued 08/12/2017 Zoster Immunization Completed 04/10/2020, Pneumococcal Immunization Combined Discontinued 07/06/2020, 03/19/2014 Colonoscopy Discontinued 05/30/2022, 04/05/2021 Colorectal Cancer Screening Discontinued Mammogram Discontinued 08/16/2023, 06/01, 04/11/2021, Additional history exists Cologuard Discontinued Hepatitis B Immunization Aged Out No longer eligible based on patient's age to complete this topic Human Papillomavirus (HPV) Immunization Aged Out No longer eligible based on patient's age to complete this topic Immunochemical Fecal Occult Blood Discontinued Meningococcal Immunization (ACWY) Aged Out No longer eligible based on patient's age to complete this topic Rotavirus Immunization Aged Out No lo nger eligible based on patient's age to complete this topic Procedures Procedure Name Priority Date/Time Associated Diagnosis Comments [facility] SCREENING BILATERAL DIGITAL W CAD W SIDDHARTHA Routine 08/16/2023 12:50 PM [employer] Visit for screening mammogram [facility] BONE DENSITOMETRY AXIAL SKELETON Routine 04/14/2021 1:51 PM CDT Asymptomatic menopausal state from Last 3 Months or Most Recently Relevant to Health Maintenance Results * [facility] SCREENING BILATERAL DIGITAL W CAD W SIDDHARTHA (08/16/2023 12:50 PM [employer]) Anatomical Region Laterality Modality breast Bilateral Mammography 08/16/2023 12:1 2 PM [employer]BER Narrative 08/17/2023 12:35 PM [employer]W MEMBER - [facility] SCREENING BILATERAL DIGITAL W CAD W SIDDHARTHA [...] to exams dated: 06/15/2022, 04/11/2021, [facility] BREAST TISSUE:There are scattered fibroglandular densities [...] signed by: Tanvi Lopez M.D. ll/:08/16/2023 16:29:08 Faculty Member(s): RT Yaritza(R)(M), [facility] letter sent: Normal Exam Reading location: [facility] BI-RADS: 1 Negative Procedure Note Tanvi Lopez [...] to exams dated: 06/15/2022, 04/11/2021, and 03/12/2020 [facility]. BREAST TISSUE:There are scattered fibroglandular densities in [...] signed by: Tanvi Lopez M.D. ll/:08/16/2023 16:29:08 Faculty Member(s): RT Yaritza(R)(M), [facility] letter sent: Normal Exam Reading location: [place] BI-RADS: 1 Negative us Manpreet Sanderson MD IMG MAMMO ORDERABLES Final Resu lt * MAGDALENA [...] old female with given history of screening. [employer] Developer/Model: [employer] (S/N [id number]) CLINICAL INFORMATION: Current height: 63 inches Weight: [...] signed by Reji SALINAS: BRAD Report ID: [id number] Reading Location: [place] [address] Procedure Note Reji Odell MD - 04/14/2021 EXAM DESCRIPTION: [facility] BONE DENSITOMETRY AXIAL SKELETON REASON FOR STUDY: 75 year old female with given history of screening. [employer] Developer/Model: [employer] (S/N [id number]) CLINICAL INFORMATION: Current height: 63 inches Weight: [...] Reji Odell M.D. BRAD: BRAD Report ID: [id number] Reading Location: [id number] IMPRESSION: Low bone mass REFERENCE: Bone mineral [...] Relevant to Health Maintenance Insurance MEDICARE C [facility] Care Teams [employer] [place] Clerk Relationship Specialty Start Date End Date Manpreet Sanderson MD [address] [place] [address] PCP - General Family Medicine 12/19/22 Abhijit Elizabeth MD Consulting Physician Gastroenterology 01/14/16
--- OUTSIDE RECORDS SUMMARY | 2024-12-10 16:20 | XMS_ITS | Clinical Summary ---
Author Organization [facility] Stem Address [address] [facility] [place] [address] Care Team Providers Care Ion Exchange Operator Name Role Phone Nicolas Xiao Primary Care Provider [phone] Source Comments [facility],non-owned Affiliates and Associated Physician Practices is amultiple site organization consisting of ambulatory clinics and hospital sitesin [place], [place], [place] and [place]. This disclosure is being madepursuant to the Care Everywhere program and may not contain all information available regarding this patient. Last updated 18.[facility] Stem Allergies Active Allergy Reactions Criticality Noted Date [...] 10:00 AM CDT Height 162.6 cm (5' 4) 02/04/2018 10:00 AM CDT Body Mass Index [...] patient's age to complete this topic Insurance Member Subscriber Plan / Payer (Ef fective 2016-Present) Name:Carina Ralph Relation to Subscriber:Self Name:CARINA RALPH Payer ID:[id number] ([facility]) Type:O Address: [place] [address] * Guarantor: CARINA RALPH Account Type Relation to Patient Date of Phone Billing Address Personal/Family [address] [place] [phone] SELF PAY NO INSURANCE Member Subscriber Plan / Payer (Ef fective for All Dates) Name:Carina Ralph Member ID:Not on file Relation to Subscriber:Not on file Name:CARINA RALPH Subscriber ID:Not on file (Home) Address: [address] [place], [place] [id number] Payer ID:Not on file Group ID:Not on file Type:Self Pay Address: [place], [place] [employer] MANAGED MEDICARE [place] [address] * Guarantor: CARINA RALPH Account Type Relation to Patient Date of Phone Billing Address Personal/Family [address] [place] [address] SELF PAY NO INSURANCE Member Subscriber Plan / Payer (Ef fective for All Dates) Name:Carina Ralph Member ID:Not on file Relation to Subscriber:Not on file Name:CARINA RALPH Subscriber ID:Not on file (Home) Address: [address] [place] [address] Payer ID:Not on file Group ID:Not on file Type:Self Pay Address: [facility] MANAGED MEDICARE ADV Member Subscriber Plan / Payer (Ef fective 2024-Present) Name:Carina Ralph Relation to Subscriber:Self Name:Carina Ralph Payer ID:[id number] ([facility]) Type:Medicare-Managed Care Address: [address] [address] [place] [address] * Guarantor: CARINA RALPH Account Type Relation to Patient Date of Phone Billing Address Personal/Family [address] [place] [address] SELF PAY NO INSURANCE Member Subscriber Plan / Payer (Ef fective for All Dates) Name:Carina Ralph Member ID:Not on file Relation to Subscriber:Not on file Name:CARINA RALPH Subscriber ID:Not on file (Home) Address: [address] [place] [address] Payer ID:Not on file Group ID:Not on file Type:Self Pay Address: [place], [place] [employer] MANAGED MEDICARE ADV Care Teams Ion Exchange Operator Relationship Specialty Start Date End Date Nicolas Xiao DO PCP - General 02/04/18
--- OUTSIDE RECORDS SUMMARY | 2024-12-10 16:20 | XMS_ITS | Encounter Summary ---
Author Organization [facility] Healthcare Address [address] [place] [address] Care Team Providers Care Furnace Filler Name Role Phone Manpreet Sanderson MD Primary Care Provider [phone] Randi Vega MD Unavailable [phone] Ángel Sampson MD PhD Unavailable [phone] Keyla Santa MD Unavailable [phone] Muna Hernandez Unavailable [phone] Kanu Hernandez MD Unavailable [phone] Lila Pedro MD Unavailable Hi Ware MD Unavailable Josef Guardado MD Unavailable [phone] Encounter Details Date Type Department Care Team (Late st Contact Info) Description 10/30/2024 Results Follow-Up [facility] Pulmonary at [address] [place] [address] Muriel Cabrera, MELANY [address] [place] [address] [address] [place] [address] Transthoracic Echo (TTE) Complete W Doppler/CF Social History Tobacco Use Types Packs/Day Years Used Date Smoking Tobacco: Former Cigarettes 0.8 25 1 5 - 1989 Passive Smoke Exposure: Past Smokeless Tobacco: Never Alcohol Use Standard Drinks/Week Comments [...] materials from doctor or pharmacy Never 01/01/2024 [facility] Utilities Answer Date Recorded In the past 12 months has th e [employer], gas, oil, or water company threatened to [...] often do you attend chur ch or tenriism services? More than 4 times per year 09/06/2023 Do you belong to any clubs o r organizations such as buddhist groups, unions, fraternal or athletic groups, or [...] place to sleep or slept in a halfway (including now)? No 09/06/2023 Personal Safety Answer Date Recorded Have you ever been in or are you currently in a harmful physical or emotional relationship or is someone making you feel afraid or unsafe? Denies 02/16/2024 Comments No Sex and Gender Information Value Date Recorded Sex Assigned at Not on file Legal Sex Female 12:25 PM [employer] Gender Identity Female 04/12/2021 6:37 PM CDT Sexual Orientation Straight 04/12/2021 6: 37 PM CDT documented as of this encounter Plan of Treatment Upcoming Encounters Date Type Department Care Team (Late st Contact Info) Description 01/07/2025 10:30 AM CDT Hospital Encounter [facility] [address] [place] [address] Randi Vega MD [address] [place] [address] [place] [address] 01/07/2025 10:30 AM CDT - 01/07/2025 11:00 AM CDT Surgery [facility] [address] [place] [address] Randi Vega MD [address] [place] [address] [address] [place] [address] COLONOSCOPY Scheduled Procedures Name Priority Associated Diagnoses Date/Ti me COLONOSCOPY History of colonic polyps Encounter for screening colonoscopy 01/07/2025 10:30 AM CDT documented as of this encounter Visit Diagnoses Not on filedocumented in this encounter Care Teams Furnace Filler Relationship Specialty Start Date End Date Manpreet Sanderson MD PCP - General Family Practice 01/22/23 Randi Vega MD Consulting Physician Gastroenterology 01/22/23 Ángel Sampson MD PhD [address] [place] [address] Referring Physician Neurology 01/22/23 Keyla Santa MD [address] [facility] [address] [place] [address] Consulting Physician Internal Medicine 01/22/23 Muna Hernandez PA [address] [place] [address] [address] [place] [address] Orthopedic Surgery 02/22/23 Kanu Hernandez MD [address] [place] [address] [address] [place] [address] Consulting Physician Neurology 03/19/23 Lila Pedro MD [address] [place] [address] [place] [address] Consulting Physician Sleep Medicine 03/19/23 Hi Ware MD [address] [facility] [address] [place] [address] Consulting Physician Pulmonary Disease 04/27/23 Josef Guardado MD [address] [facility] [address] MARIANA Jon [facility] [address] [place] [address] Surgeon Orthopedic Surgery 09/07/23 documented as of this encounter
[2024-12-10 21:08] LABS: Add Urine Microscopic? YES; Appearance Urine Cloudy (Clear); Bacteria Urine 4+ /hpf; Bilirubin Urine Negative (Negative); Blood Urine Negative (Negative); Calcium Oxalate Crystals Urine Present /hpf; Color Urine Dark Yellow (Yellow); Glucose Urine UA Negative (Negative); Ketones Urine Trace mg/dL (Negative); Leukocyte Esterase Ur 2+ LEU/UL (Negative); Need Manual Microscopic Reviewed; Nitrate Urine Negative (Negative); Non Pathogenic Casts 0-2; Protein Urine Trace mg/dL (Negative); Specific Grav Ur 1.024 (1.001-1.035); Squamous Epithelial Cell Urine Few /hpf (Few); WBC Urine 21-50 /hpf (0-3)
[2024-12-10 21:30] LABS: NT Pro B Type Natriuretic Pept 199 pg/mL (19.9-100)
== END 2024-12-10 13:49 | disposition home or self-care (01) ==
LOC: ANHBWCLAB 13:49
PROVIDERS: PCP Nurse Practitioner Adult Health; Visit Provider Nurse Practitioner Adult Health
DX: I50.9 Heart failure, unspecified (principal); R39.9 Unspecified symptoms and signs involving the genitourinary system
CPT/HCPCS: 36415; 81001; 83880; 87086

== ENCOUNTER 2025-03-24 13:47 | Outpatient (CLI) | payer MEDICARE, SELFPAY ==
--- OUTSIDE RECORDS SUMMARY | 2023-01-23 10:00 | XMS_ITS | Continuity of Care Document ---
Author Organization [facility] Address [address] [facility] [address] [place] [address] [place] [phone] Phone Care Team Providers Care Lead Esthetician Name Role Phone Mane HUERTA, Jennifer Unavailable [...] Diagnoses Date Provider Providers Copied on Encounter [facility], [address], [place], [place], [address], [place] tel:[phone] SEC Laci ALAN Professional Complete Exam (chief complaint) Superficial punctate keratitis of both eyesKeratocon junctivitis sicca, not specified as Sj g pacheco's, unspecified eyeParkinsons Presence of intraocular lens 3 Mane OD Jennifer. [address], [address], [place], [place], [address], [place]. tel:[phone] Referring Provider: Shahid Pinto OD, [address] [facility] [place], [address]. tel:[phone] Office/outpa tient Visit, [facility], [address], [place], [place], [address], [place] tel:[phone] SEC [place] Professional 5 month ALESIA f/u (chief complaint) ParkinsonsKer atoconjunctiv itis sicca, not specified as Sj g pacheco's, unspecified eyeBilateral artificial lens implantDry eye syndrome of bilateral lacrimal glands 3 Jorge Luis Giles. [address], [facility] A, [place], [place], [address], [place]. tel:[phone] Referring Provider: Shahid Pinto OD, [address] [facility] [place], [address]. tel:[phone] Office/outpa tient Visit, [facility], [address] [place] [address] [address], [place], [place], [address], [place] tel:[phone] SEC Laci [place] Professional Follow up visit (chief complaint) Bilateral artificial lens implantDry eye syndrome of bilateral lacrimal glandsKeratoc onjunctivitis siccaMeibomia n gland dysfnct left eye, upper and lower eyelidsMeibom kanika gland dysfnct right eye, upper and lower eyelids 2 Jorge Luis Giles. [address] [employer] [address], [address], [place], [place], [address], [place]. tel:[phone] Referring Provider: Shahid Pinto OD, [address] [facility] [place], [address]. tel:[phone] [facility], [address], [place], [place], [address], [place] tel:[phone] SEC [place] Professional Complete Exam (chief complaint) Bilateral artificial lens implantGlauco matous optic atrophy, bilateralMeib omian gland dysfunction of unspecified eye, unspecified eyelidKeratoc onjunctivitis siccaBenign neoplasm of left choroid 2 Jorge Luis Giles. [address] [facility], [address], [place], [place], [address], [place]. tel:[phone] Referring Provider: Shahid Pinto OD, [address] [place], [address]. tel:[phone] Office/outpa tient Visit, [facility], [address], [place], [place], [address], [place] tel:[phone] SEC [place] Professional Complete Exam (chief complaint) Bilateral artificial lens implantChoroi zeynep nevus, left eyeGlaucomato us optic atrophy, bilateralDry eye syndrome of bilateral lacrimal glands 1 Zhane An. [address], [address], [place], [place], [address], [place]. tel:[phone] Referring Provider: Shahid Pinto OD, [address] [place], [address]. tel:[phone] Office/outpa tient Visit, [facility], [address] [employer] [address], [place], [place], [address], [place] tel:[phone] SEC [place] Professional 6 month IOP check (chief complaint) Glaucomatous optic atrophy, bilateralChor oidal nevus, left eye 0 Dejah OD Ricardo. [address] [facility], 6th Floor, [place], [address], [place]. tel:[phone] Referring Provider: Shahid Pinto OD, [address] [employer], [place], [address]. tel:[phone] [facility], [address], [place], [place], [address], [place] tel:[phone] SEC [place] Professional Complete Exam (chief complaint) Bilateral artificial lens implantMeibom kanika gland dysfnct right eye, upper and lower eyelidsMeibom kanika gland dysfnct left eye, upper and lower eyelidsKerato conjunctiviti s siccaChoroida l nevus, left eye 0 Dejah OD Ricardo. [address] [place] [address], [address] [place] [address], [place], [address], [place]. tel:[phone] Referring Provider: Shahid Pinto OD, [address] [place], [address]. tel:[phone] [facility], [address] [place] [address] [address], [place], [place], [address], [place] [phone] SEC Lexus Miranda No Information 9 Dejah OD Ricardo. [address] [place] [address], [address] [place] [address], [place], [address], [place]. tel:[phone] Office/outpa tient Visit, Est [facility], [address] [place] [address] [address], [place], [place], [address], [place] [phone] SEC Laci ALAN Professional ALESIA check (chief complaint) Meibomian gland dysfnct right eye, upper and lower eyelidsMeibom kanika gland dysfnct left eye, upper and lower eyelids 9 Dejah OD Ricardo. [address] [facility], [address] [place] [address], [place], [address], [place]. tel:[phone] Referring Provider: Shahid Pinto OD, [address] [place], [address]. tel:[phone] Office/outpa tient Visit, [facility], [address] [place] [address] [address], [place], [place], [address], [place] tel:[phone] SEC Laci ALAN Professional 3 mo ALESIA f/u (chief complaint) Meibomian gland dysfunction (MGD)Superfic ial punctate keratitis of both eyesCorneal opacity of both eyes 8 Jorge Luis Giles. [address], [place], [place], [address], [place]. tel:[phone] Referring Provider: Shahid Pinto OD, [address] [facility], [place], [address]. tel:[phone] [facility], [facility] [employer] [address], [place], [place], [address], [place] [phone] SEC [place] Professional Decreased vision (chief complaint) No Information 8 Jorge Luis Giles. [address], [place], [place], [address], [place]. tel:[phone] Referring Provider: Shahid Gerberon OD, [address], [place], [address]. tel:[phone] [facility], [facility] [employer] [address], [place], [place], [address], [place] [phone] SEC Lexus N [address] YAG EVAL OD (chief complaint) No Information 6 Lawrence Juve. [facility], [address], [place], [place], [address], [place]. tel:[phone] Referring Provider: Shahid Ramirezguson OD, [address] [facility], [place], [address]. tel:[phone] Office/outpa tient Visit, [facility], [address] [employer], [place], [place], [address], [place] [phone] SEC [place] [address] Yag Evaluation (chief complaint) No Information 6 Zhane An. [facility], [address], [place], [place], [address], [place]. tel:[phone] Referring Provider: Shahid Pinto OD, [address] [facility], [place], [address]. tel:[phone] Office/outpa tient Visit, [facility], [facility] [employer] [address], [place], [place], [address], tel:[phone] SEC [place] Blurry near vision (chief complaint) No Information 5 Lawrence Juve. [facility], [address], [place], [place], [address], [place]. tel:[phone] Referring Provider: Shahid Pinto OD, [address] [employer] [address], [place], [address]. tel:[phone] [facility], [facility] [employer] [facility] [address], [place], [place], [address], tel:[phone] SEC Lexus N [place] 6 week PO (chief complaint) No Information 5 Zhane An. [facility], [address], [place], [place], [address], [place]. tel:[phone] Referring Provider: Shahid Pinto OD, [address] [facility], [place], [address]. tel:[phone] [facility] [facility], [facility] [employer] [address], [place], [place], [address], [place] tel:[phone] SEC [place] 3 week post op Phaco IOL OS (chief complaint) No Information 5 Zhane An. [facility], [address], [place], [place], [address], [place]. tel:[phone] Referring Provider: Shahid Pinto OD, [address] [employer] [address], [place], [address]. tel:[phone] [facility], [facility] [employer] [address], [place], [place], [address], [place] tel:[phone] SEC [place] F/u exam, postop (chief complaint) No Information 5 Lawrence Juve. [facility], [address], [place], [place], [address], [place]. tel:[phone] Referring Provider: Shahid Pinto OD, [address] [facility], [place], [address]. tel:[phone] [facility], [address] [place] [address], [place], [place], [address], [place] [phone] SEC [place]aci [place] Professional F/u exam, postop (chief complaint) No Information 5 Zhane Juve. [facility], [address], [place], [place], [address], [place]. tel:[phone] Referring Provider: Shahid Gerberon OD, [address] [place], [address]. tel:[phone] [facility], [facility] [employer] [address], [place], [place], [address], [place] tel:[phone] SEC [place] Professional 1 day P/O (chief complaint) No Information 5 Sandie Fishman. [address] [facility], [address], [place], [place], [address], [place]. tel:[phone] Referring Provider: Shahid Pinto OD, [address] [employer] [place], [address]. tel:[phone] [facility], [facility] [employer] [address], [place], [place], [address], [place] tel:[phone] [facility] No Information 5 Lawrence Juve. [facility], [address], [place], [place], [address], [place]. tel:[phone] Referring Provider: Shahid Gerberon OD, [address] [facility], [place], [address]. tel:[phone] [facility], [address] [place] [address] [address], [place], [place], [address], [place] tel:[phone] SEC Lexus Kaymarykhai No Information 5 Zhane An. [address] [place] [address] Drive, [address], [place], [place], [address], [place]. tel:[phone] Referring Provider: Shahid Pinto OD, [address] [facility] [place], [address]. tel:[phone] [facility], [address] [place] [address] [address], [place], [place], [address], [place] tel:[phone] SEC [place]aci [place] Professional F/u exam, postop (chief complaint) No Information 4 Sandie Fishman. [address] [facility], [address], [place], [place], [address], [place]. tel:[phone] Referring Provider: Shahid Pinto OD, [address] [facility] [place], [address]. tel:[phone] [facility], [address] [place] [address] [address], [place], [place], [address], [place] tel:[phone] SEC [place] Professional 1 WK PO PHACO OD (chief complaint) No Information 4 Sandie Fishman. [address] [facility], [address], [place], [place], [address], [place]. tel:[phone] Referring Provider: Shahid Pinto OD, [address] [facility] [place], [address]. tel:[phone] [facility], [address] [place] [address] [address], [place], [place], [address], [place] tel:[phone] SEC [place] Professional 1 DAY PO PHACO OD (chief complaint) No Information 4 Carol Yancey. [address] [facility], [address], [place], [address], [place]. tel:[phone] Referring Provider: Shahid Pinto OD, [address] [facility], [place], [address]. tel:[phone] [facility], [address] [place] [address] [address], [place], [place], [address], [place] tel:[phone] [facility] [place] No Information Dec-0 4-201 4 Lawrence Juve. [address] [place] [address] [facility], [address], [place], [place], [address], [place]. tel:[phone] Referring Provider: Shahid Pinto OD, [address] [facility], [place], [address]. tel:[phone] [facility], [address] [place] [address] [address], [place], [place], [address], [place] tel:[phone] SEC Lexus N [address] No Information Dec-0 3-201 4 Zhane Juve. [address] [place] [address] [address], [address], [place], [place], [address], [place]. tel:[phone] Referring Provider: Shahid Pinto OD, [address] [place], [address]. tel:[phone] Office/outpa tient Visit, [facility], [address] [place] [address] [address], [place], [place], [address], [place] tel:[phone] SEC Lexus N [place] Blurry vision (chief complaint) No Information 0-201 4 Zhane Juve. [address] [place] [address] [address], [address], [place], [place], [address], [place]. tel:[phone] Referring Provider: Shahid Pinto OD, [address] [place], [address]. tel:[phone] Office/outpa tient Visit, [facility], [address] [place] [address] [address], [place], [place], [address], tel:[phone] SEC [place]us N [place] Blurry vision (chief complaint) No Information 4 Lawrence Juve. [facility], [address], [place], [place], [address], . tel:[phone] Referring Provider: Shahid iPnto OD, [address] [place], [address]. tel:[phone] [facility], [address] [place], [place] [address] [facility] [address], [place], [place], [address], tel:[phone] SEC Lexus N [place] No Information 4 Conner Drummond. [address] [facility], [address], [place], [place], [address], [place]. tel:[phone] Office/outpa tient Visit, [facility], [facility] [employer] [facility] [address], [place], [place], [address], tel:[phone] SEC Lexus N [place] No Information 3 Zhane Juve. [facility], [address], [place], [place], [address], . tel:[phone] Referring Provider: Shahid Pinto OD, [address] [place], [address]. tel:[phone] [facility], [address] [place], [place] [address] [address], [place], [place], [address], tel:[phone] SEC [place] No Information 2 Zhane Juve. [facility], [address], [place], [place], [address], . tel:[phone] Referring Provider: Shahid Pinto OD, [address] [place], [address]. tel:[phone] Family History Family Member Type Diagnosis Age At Onset No Information Payers Payer name Insurance type Covered alliance party ID Authoriza tion(s) [facility] Mdcr Adv CI [id number] Social History Type Description Quantity Date Captured [...] presents for a complete exam ou monitoring ALSEIA ou. Patient is pseudo ou and yag [...] Will give spec Rx to take to [facility]. DC medicated gtts.Discussed laser surgery to correct [...] Related to Post op follow up - sched CE either eye, likely OD 1st Related to See list of assessments above - Cataracts account for the patient's complaints. [...] Related to PERIP H OPACITY OF CORNEA NODULAR DEGENERATION OF CORNEA, OU,Nebula OU - [...] Pinto Related to PERIPH OPACITY OF CORNEA INCIPIENT CATARACT, OD - Discussed cataracts with pt, Pt understands her vision at this time doesn't qualify her for insurance coverage and CE Related to INCIPIENT CATARACT - return to Dr. Collins mark, 6-8 [...]
--- OUTSIDE RECORDS SUMMARY | 2025-03-24 13:55 | XMS_ITS | Clinical Summary ---
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 Not on file Not on file Last Filed Vital Signs Vital Sign Reading Time Taken Comments Blood Pressure 120/80 01/14/2016 9:58 AM CDT Pulse 64 01/14/2016 9:58 AM CDT Temperature - - Respiratory Rate 14 01/14/2016 9:58 AM CDT Oxygen Saturation - - Inhaled Oxygen Concentration - - Weight 76.2 kg (168 lb) 08/16/2023 12:23 PM RADIO OFFICER Height 160 cm (5' 3) 04/14/2021 1:40 PM CDT Body Mass Index 29.76 04/14/2021 1:40 PM CDT Plan of Treatment Upcoming Encounters Date Type Department Care Team (Late st Contact Info) Description 04/01/2025 12:30 PM CDT [facility] [address] [place] [address] Manpreet Sanderson MD [address] [place] [address] Health Maintenance Due Date Last Done Comments Hepatitis C Virus (HCV) Screening 1945 TdaP Immunization 1945 Pneumococcal Immunization (50+ years) (2 of 2 - PCV) 07/06/2021 07/06/2020, 03/19/2014 Respiratory Syncytial Virus (RSV) Immunization (Adult) (1 - 1-dose 75+ series) 2021 DEXA Bone Density 04/14/2023 04/14/2021, , 12/11/2017 Influenza Immunization (#1) 03/02/202503/03, 04/11/2023, 04/24/2022, Additional history exists SARS-COV-2 Immunization () 03/02/2025 04/11/2024, 11/25/2021, 04/25/2021, Additional history exists DTaP/Tdap/Td Immunization Discontinued 08/12/2017 [...] Procedure Name Priority Date/Time Associated Diagnosis Comments MAGDALENA SCREENING BILATERAL DIGITAL W CAD W SIDDHARTHA Routine 08/16/2023 12:50 PM RADIO OFFICER Visit for screening mammogram MAGDALENA BONE DENSITOMETRY AXIAL SKELETON Routine 04/14/2021 1:51 PM CDT Asymptomatic menopausal state from Last 3 Months or Most Recently Relevant to Health Maintenance Results * MAGDALENA SCREENING BILATERAL DIGITAL W CAD W SIDDHARTHA (08/16/2023 12:50 PM RADIO OFFICER) Anatomical Region Laterality Modality breast Bilateral Mammography 08/16/2023 12:1 2 PM RADIO OFFICER Narrative 08/17/2023 12:35 PM RADIO OFFICER - MAGDALENA SCREENING BILATERAL DIGITAL W CAD [...] to exams dated: 06/15/2022, 04/11/2021, and 03/12/2020 [facility]. BREAST TISSUE:There are scattered [...] signed by: Tanvi Lopez M.D. ll/:08/16/2023 16:29:08 Tool And Die Inspector(s): RT Yaritza(R)(M), [facility] letter sent: Normal Exam Reading location: [facility] BI-RADS: 1 Negative Procedure Note [...] to exams dated: 06/15/2022, 04/11/2021, and 03/12/2020 [facility]. BREAST TISSUE:There are scattered fibroglandular densities [...] signed by: Tanvi Lopez M.D. ll/:08/16/2023 16:29:08 Tool And Die Inspector(s): RT Yaritza(R)(M), [facility] letter sent: Normal Exam Reading location: [facility] BI-RADS: 1 Negative us Manpreet Sanderson MD IMG MAMMO ORDERABLES Final Resu lt * [facility] BONE DENSITOMETRY AXIAL SKELETON (04/14/2021 1:51 PM [...] Narrative 04/14/2021 2:43 PM CDT EXAM DESCRIPTION: [facility] BONE DENSITOMETRY AXIAL SKELETON REASON FOR STUDY: 75 year old female with given history of screening. 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 BRAD: BRAD Report ID: [id number] Reading Location: [id number] IMPRESSION: Low bone mass REFERENCE: Bone mineral [...] Relevant to Health Maintenance [facility] Care Teams Brand Coordinator Relationship Specialty Start Date End Date Manpreet Sanderson MD PCP - General Family Medicine 12/19/22 Abhijit Elizabeth MD Consulting Physician Gastroenterology 01/14/16
--- OUTSIDE RECORDS SUMMARY | 2025-03-24 13:55 | XMS_ITS | Encounter Summary ---
Author Organization [facility] Health Address [address] [place] [address] Care Team Providers Care Compressed Yeast Supervisor Name Role Phone Nicolas Xiao DO Primary Care Provider [phone] Reason for Visit * Reason Onset Date Comments LABS ONLY 04/16/2018 labs may have be en coded wrong Returned Call 04/16/2018 Encounter Details Date Type Department Care Team (Late st Contact Info) Description 04/16/2018 Telephone [facility] [address] [place] [address] Joanne Plata MD [address] [facility] [address] [place] [address] LABS ONLY (labs may have been coded [...] Pt's daughter notified. * Telephone Encounter - Aklia Jarvis - 04/18/2018 1:01 PM CDT Pt returning missed call from the nurse. Callback#[phone] * Telephone Encounter - Whitney Lima RN [...] on filedocumented in this encounter Care Teams Compressed Yeast Supervisor Relationship Specialty Start Date End Date Nicolas Xiao DO PCP - General 02/04/18 documented as of this encounter
--- OUTSIDE RECORDS SUMMARY | 2025-03-24 13:55 | XMS_ITS | Clinical Summary ---
Author Organization [facility] Building [address] Address [address] [place] [address] Care Team Providers Care Casing Tier Name Role Phone Manpreet Sanderson MD Primary Care Provider + [phone] Randi Vega MD Unavailable [phone] Ángel Sampson MD PhD Unavailable + [phone] Keyla Santa MD Unavailable [phone] Muna Hernandez Unavailable [phone] Kanu Hernandez MD Unavailable [phone] Lila Pedro MD Unavailable Hi Ware MD Unavailable Josef Guardado MD Unavailable [phone] Allergies Active Allergy Reactions Criticality Noted Date [...] with Zoloft, Medications gabapentin (NEURONTIN) 300 mg capsuleIndications :Neuropathic Pain Take 1 capsule (300 mg total) by mouth 2 (two) times a day 04/21/20 15 Active omeprazole (PriLOSEC) 40 mg capsuleIndications :Stress Ulcer Prophylaxis Take 1 capsule (40 mg total) by mouth 2 (two) times a day Takes 2 tablets 05/04/20 14 Active oxybutynin XL (DITROPAN XL) 15 mg 24 hr tabletIndications: Bladder Hyperactivity Take 1 tablet (15 mg total) by mouth daily 09/26/19 16 Active sertraline (ZOLOFT) 100 mg tabletIndications: depression Take 1 tablet (100 mg total) by mouth daily 07/20/19 15 Active clorazepate (TRANXENE) 3.75 mg tabletIndications: anxiety Take 1 tablet (3.75 mg total) by mouth 3 (three) times a day as needed for anxiety Active cholecalciferol (VITAMIN D-3) 2000 unit capsuleIndications :Vitamin D Deficiency Take 1 capsule (2,000 Units total) by mouth daily Active Lactobacillus acidophilus (PROBIOTIC ORAL)Indications:g in health Take 1 tablet by mouth daily Active oxygenIndications: Dyspnea Administer 2 L into each nostril as needed (dyspnea) 2L O2 PRN for dyspnea during the day; 3L continous at night. Active multivit with min-folic acid 0.4 mg tabletIndications: Mineral Deficiency Prevention Take 1 tablet by mouth daily. Indications: treatment to prevent mineral deficiency Active acetaminophen (TYLENOL) 500 mg tabletIndications: Pain Take 1 tablet (500 mg total) by mouth every 6 (six) hours as needed for pain Active trimethoprim (TRIMPEX) 100 mg tabletIndications: UTI Take 1 tablet (100 mg total) by mouth bedtime Active furosemide (LASIX) 40 mg tabletIndications: Edema,Peripheral Edema due to Chronic Heart Failure Take 1 tablet (40 mg total) by mouth daily as needed (increase edema/sob) adjusted at md appt 10/10/23. Active lubiprostone (AMITIZA) 24 mcg capsule Take 1 capsule (24 mcg total) by mouth 2 (two) times a day with meals 180 capsule 3 09/11/19 25 Active carbidopa-levodopa (SINEMET) 25-100 mg per tabletIndications: Parkinsonism Take 2 tablets by mouth 3 (three) times a day 540 tablet 3 09/20/19 25 026 Active clobetasoL (TEMOVATE) 0.05 % cream APPLY TOPICALLY TO THE AFFECTED AREA TWICE DAILY FOR 2 WEEKS 10/07/19 25 Active ketoconazole (NIZORAL) 2 % shampoo APPLY TOPICALLY 3 TIMES A WEEK 10/07/19 25 Active carbidopa-levodopa CR (SINEMET CR) 50-200 mg per CR tabletIndications: Parkinson's disease without dyskinesia or fluctuating manifestations (HCC) Take 1 tablet by mouth nightly 30 tablet 11 12/12/19 026 Active baclofen (LIORESAL) 5 mg tabletIndications: swallowing Take 5-10 mg 10-15 minutes before eating meals to see if it helps with swallowing issues. Do not exceed 30 mg in a day. 30 tablet 01/13/20 25 Active aspirin 81 mg chewable tablet Take 1 tablet (81 mg total) by mouth daily Active atorvastatin (LIPITOR) 20 mg tablet Take 1 tablet (20 mg total) by mouth daily 30 tablet 2 02/25/20 25 025 Active carvediloL (COREG) 6.25 mg tabletIndications: hypertension Take 1 tablet (6.25 mg total) by mouth 2 (two) times a day 025 Discontin ued(Thera py completed ) aspirin 81 mg chewable tabletIndications: prevention of thrombosis Take 1 tablet (81 mg total) by mouth 2 (two) times a day for 14 days Resume once daily after 2 weeks 09/07/19 24 025 Discontin ued(Dupli mike order) sod sulf-pot chloride-mag sulf (Sutab) 1.479-0.188- 0.225 gram tabletIndications: Bowel Evacuation Take as directed on instructions for colonoscopy prep. Patient was given instructions 24 tablet 04/17/20 24 025 Discontin ued(Thera py completed ) ciprofloxacin (CIPRO) 250 mg tablet 12/12/19 25 025 Discontin ued(Thera py completed ) Active Problems Problem Noted Date Diagnosed Date Encounter for screening colonoscopy 04/21/2024 Pulmonary hypertension 11/14/2023 Assessment & Plan (01/14/2025 2:11 PM CDT): The RVSP on her echocardiogram has significantly improved from 60-48 This is likely secondary to group 2 and 3 disease with congestive heart failure and obesity hypoventilation syndrome Testing for BHAVYA was negative She is on supplemental oxygen for saturations greater than 90% There is no indication for pulmonary vasodilators at this time I continue to question whether a left and right heart catheterization should be performed especially in light of her new hypotension symptoms Assessment & Plan (10/15/2024 3:48 PM CDT): [...] Obesity hypoventilation syndrome 11/14/2023 Assessment & Plan (01/14/2025 2:10 PM CDT): We have extensively discussed noninvasive ventilation and she continues to decline set up Pulmonary testing with MIP and MEP was inconclusive Assessment & Plan (10/15/2024 3:48 PM CDT): [...] next office visit Chronic respiratory failure with hypoxia 024 Assessment & Plan (01/14/2025 2:09 PM CDT): Her blood gas was consistent with chronic hypercapnia She quit smoking greater than 20 years ago OHS is unlikely contributor Continue supplemental oxygen at 2 liters with activity for saturations greater than 90% We have discussed the risks of hypoxia Assessment & Plan (10/15/2024 3:47 PM CDT): [...] failure with hypoxia and hyper capnia 04/25/2023 Diastolic congestive heart failure 04/25/2023 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 03/19/2023 Left leg weakness 03/17/2023 Obesity (BMI 30.0-34.9) 03/17/2023 S/P reverse total shoulder arthroplasty, left Rotator cuff arthropathy, left 02/05/2023 Abnormal ankle brachial index (SHANNAN) 09/27/2022 Cognitive change 05/18/2022 Assessment & Plan (05/18/2022 8:14 AM LEVEL VIAL MARKER): She has subjective cognitive complaints including difficulty [...] challenges over the last few years. From [facility] it appears she scored 28/30 on MoCA [...] years ago. Parkinsonism 05/17/2022 Assessment & Plan (12/14/2024 9:04 AM CDT): She has parkinsonism stage 4 characterized by bilateral, slightly right greater than left bradykinesia and rigidity, with postural instability. She [...] subtle erratic deviation suggestive of action tremor. She has good subjective benefit from levodopa with tremor reduction and overall improvement in feeling. The most likely etiology is idiopathic Parkinson disease. There are no obvious [...] in isolation go on to develop parkinsonism. She is having good benefit from levodopa but we may be able to adjust the dosage or formulation to try to increase quality and consistency of benefit including firing pin gauger benefit. Plan as phrased to the patient and her son: Continue carbidopa-levodopa 25-100mg 2 tabs three times daily as you are doing. Add carbidopa-levodopa 50-200mg CR 1 tablet at bedtime. Send an update in a few weeks by Narayan. Ask your PCP for referral to coating mixer supervisor for itchy and flaky scalp. Once UTI is cleared up and you have been on carbidopa-levodopa CR for a few weeks, we should consider increasing sertraline to 150mg. Check to see if your PCP is prescribing this. Assessment & Plan (09/19/2024 12:43 PM CDT): [...] with instructions on how to access the [employer] exercise channel. Finally, she endorses inadequate management of anxiety and we reviewed that she can discuss increasing sertraline as tolerated at upcoming PCP visit as Dr. Snaderson manages this medication. Recommendations: Once UTI resolved, can trial increasing C/L from 2 tabs TID to 2.5 tabs TID while monitoring for side effects PT referral [employer] exercise channel access information provided Follow-up in [...] with instructions on how to access the [employer] exercise channel. Finally, she endorses frustration with [...] will update our office in 4 weeks [employer] exercise channel access information provided Will order physical therapy for gait/balance training, strength and stretching once cleared from recent left shoulder surgery - patient to notify our office once cleared for referral entry NPT today Assessment & Plan (05/18/2022 8:04 AM LEVEL VIAL MARKER): She has parkinsonism stage 4 characterized by [...] (06/17/2021): Added automatically from request for surgery [id number] Memory loss 05/09/2021 Cyst of ovary 12/28/2020 Urinary incontinence 12/28/2020 Other intra-abdominal and pelvic swelling, mass and lump 04/08/2020 Overview (04/08/2020): Added automatically from request for surgery [id number] History of colonic polyps 06/05/2019 Overview (06/05/2019): Added automatically from request for surgery [id number] Assessment & Plan (06/05/2019 3:16 PM LEVEL VIAL MARKER): She is overdue for a screening colonoscopy. [...] 03/06 Assessment & Plan (06/05/2019 3:16 PM LEVEL VIAL MARKER): Continue taking fiber daily. Will have her [...] 9 Assessment & Plan (06/05/2019 3:15 PM LEVEL VIAL MARKER): Well controlled on omeprazole daily. She may [...] (03/06/2019): Added automatically from request for surgery [id number] Assessment & Plan (06/05/2019 3:14 PM LEVEL VIAL MARKER): Doing well. No recent episodes. Assessment & Plan (04/03/2019 3:13 PM CDT): Not as severe or often as previously. She says she noticed that this occurs when she is constipated. Will try to improve constipation and see if this improves pain further. 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) 6 Paresthesia of foot 04/21/2015 Overview (01/22/2023): Paresthesia of both feet Overview: Paresthesia of both feet Encounters Date Type Department Care Team Description 02/24/2025 10:00 AM CDT - 02/24/2025 11:05 AM CDT Surgery [facility] Cardiac Catheterization [address] [place] [address] Elvira Mead MD Right Left Heart Catheterization with Coronary Angiography with or without Left Ventriculography [id number] 02/24/2025 9:04 AM CDT - 02/24/2025 2:05 PM CDT Hospital Encounter [facility] Cardiac Catheterization [address] [place] [address] Elvira Mead MD Pulmonary hypertension (HCC) Discharge Disposition: Discharge to home or self care 02/20/2025 2:16 PM CDT - 02/20/2025 11:59 PM CDT Hospital Encounter [facility] Cardiology [address] [place] [address] Pulmonary hypertension (HCC) Discharge Disposition: Discharge to home or self care 02/20/2025 2:15 PM CDT Lab [facility] [address] [place] [address] Pulmonary hypertension (HCC); Angina pectoris, unspecified 02/02/2025 Telephone [facility] [address] [facility] 7th [place] [phone] Sana Navarrete RN 01/16/2025 2:30 PM CDT Office Visit [facility] at [address] [place] [phone] Elvira Mead MD Chronic diastolic congestive heart failure (HCC) (Primary Dx); Pulmonary hypertension (HCC); Chronic respiratory failure with hypoxia (HCC); TIA (transient ischemic attack); Shortness of breath 01/14/2025 1:00 PM CDT Office Visit [facility] Pulmonary at [address] [place] [address] Muriel Cabrera NP Chronic respiratory failure with hypoxia, on home O2 therapy (HCC) (Primary Dx); Obesity hypoventilation syndrome (HCC); Pulmonary hypertension (HCC) 01/12/[address] [facility] Gastroenterology at [address] [place] [phone] Kezia Nina MA 12/29/[address] [facility] Gastroenterology at [address] [place] [address] Adri Pichardo MA from Last 3 Months Immunizations Immunization Administration [...] TOTAL KNEE ARTHROPLASTY 2014 + ANKLE SURGERY 1952 JOINT REPLACEMENT Knees 2014 & 2014 SHOULDER SURGERY 2022 - CARDIAC CATHETERIZATION 02/24/2025 N/A Procedure: Right Left Heart Catheterization with Coronary Angiography with or without Left Ventriculography [id number]; Surgeon: Elvira Mead MD; Location: [facility] CARDIAC NEURO UROLOGIST; Service: Cardiovascular; Laterality: N/A; Medical devices from this surgery are in the Medical Devices section. Medical History Medical History Date Comments Hypertension Colon polyp Diverticulosis DJD (degenerative joint disease) Dysphagia Hyperlipidemia Migraine Anemia Anxiety and depression Other intra-abdominal and pe lvic swelling, mass and lump Obesity Heart murmur GERD (gastroesophageal reflux disease) Hebrew measles 1957 Bronchial pneumonia 1963 Mumps 1975 Diphtheria Young Child Peripheral vascular disease Irritable bowel syndrome Urinary tract infection Parkinsonism ([facility]) 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 ([facility]) 03/19/2023 Obesity hypoventilation syndrome ([facility]) 4 Restless leg syndrome 10 + yrs Depression 2010 Parkinson's disease ([facility]) + yrs Fatigue + years HL (hearing loss) 5 + yrs Chronic pain disorder 20 + yrs Reflux Not sure - multiple years Peripheral neuropathy 2015 Memory loss 2019 Tremors of nervous system 5 + yrs Anxiety 1989 Crohn's disease ([facility]) CHF (congestive heart failure) ([facility]) 2022 Family History Medical History Relation [...] materials from doctor or pharmacy Never 01/01/2024 [facility] Utilities Answer Date Recorded In the past 12 months has [employer], oil, or water [employer] threatened to shut off services in your home? No 09/06/2023 Social Connection and Isolation Panel Answer Date Recorded In a typical week, how many times do you talk on the phone with family, friends, or neighbors? More than three times a week 09/06/2023 How often do you get togethe r with friends or relatives? More than three times a week 09/06/2023 How often do you attend [facility] or taoism services? More than 4 times per year 09/06/2023 Do you belong to any clubs o r organizations such as jehovah's witness groups, unions, fraternal or athletic groups, or [...] making you feel afraid or unsafe? Denies 02/24/2025 Comments No Sex and Gender Information Value Date Recorded Sex Assigned at Not on file Legal Sex Female 12:25 PM LEVEL VIAL MARKER Gender Identity Female 04/12/2021 6:37 PM CDT Sexual Orientation Straight 04/12/2021 6: 37 PM CDT Obstetrics History Last Filed Vital Signs Vital Sign Reading Time Taken Comments Blood Pressure 130/59 02/24/2025 1:15 PM CDT Pulse 65 02/24/2025 1:15 PM CDT Temperature 36.1 C (97 F) 02/24/2025 9:28 AM CDT Respiratory Rate 15 02/24/2025 1:15 PM CDT Oxygen Saturation 95% 02/24/2025 1:15 PM CDT Inhaled Oxygen Concentration - - Weight 80.7 kg (178 lb) 02/24/2025 9:28 AM CDT Height 152.4 cm (5') 02/24/2025 9:28 AM CDT Body Mass Index 34.76 02/24/2025 9:28 AM CDT Plan of Treatment Health Maintenance [...] Screening 11/26/2024 11/27/2023, 03/06/2019, 03/06/2019 Influenza Vaccine (#1) 2025 , 04/01/2019, 04/20/2018, Additional history exists Zoster Vaccine Completed 04/10/2020, 02/03/2020 Colon Cancer [...] history exists Medical Devices Implanted Type Area Door Hanger Device Identifier Shelf Expiration Date Model / Serial / Lot Lens Implants W/Cataract Extraction Bilateral: Eye Exactech Equinoxe 13mm Press Fit Primary Shoulder Stem Humeral 300-01-13 - [id number] - [id number] Implanted:Qty: 1 on 02/22/2023 by Josef Guardado MD at [facility] Left: Shoulder Ex[employer]ech 06/14/2032 300-01-13 / [id number] / Exactech Equinoxe 36mm Shoulder 0mm Offset Liner Humeral Sterile 320-36-00 - [id number] - [id number] Implanted:Qty: 1 on 02/22/2023 by Josef Guardado MD at [facility] Left: Shoulder Ex[employer]ech 07/18/2027 320-36-00 / [id number] / [employer] Bioprep Preparation Plug Data Sciences Director [place] Curette Suction Femoral [id number] - [id number] Implanted:Qty: 1 on 02/22/2023 by Josef Guardado MD at [facility] Left: Shoulder [employer] [id number] / / [id number] Exactech Equinoxe Small Reverse Superior Augment Shoulder 10d Plate 320-35-02 - [id number] - [id number] Implanted:Qty: 1 on 02/22/2023 by Josef Guardado MD at [facility] Left: Shoulder Ex[employer]ech 08/28/2032 320-35-02 / [id number] / Exactech Reverse Torque Define Shoulder Kit Screw 320-20-00 - [id number] - [id number] Implanted:Qty: 1 on 02/22/2023 by Josef Guardado MD at [facility] Left: Shoulder [employer]ech 12/12/2027 320-20-00 / [id number] / Exactech Equinoxe Lock Reverse Shoulder Glenosphere Screw Bone 320-15-05 - [id number] - [id number] Implanted:Qty: 1 on 02/22/2023 by Josef Guardado MD at [facility] Left: Shoulder [employer]ech 12/20/2027 320-15-05 / [id number] / Exactech Equinoxe 4.5mm 34mm Kit Compression Lock Cap Reverse Shoulder 320-20-34 - [id number] - [id number] Implanted:Qty: 1 on 02/22/2023 by Josef Guardado MD at [facility] Left: Shoulder [employer]ech 03/15/2027 320-20-34 / [id number] / Exactech Equinoxe 4.5mm 22mm Kit Compression Lock Cap Reverse Shoulder 320-20-22 - [id number] - [id number] Implanted:Qty: 1 on 02/22/2023 by Josef Guardado MD at [facility] Left: Shoulder Ex[employer]ech 01/09/2028 320-20-22 / [id number] / Exactech Component 36mm Glenoid Glenosphere Reverse Shoulder 320-31-36 - [id number] - [id number] Implanted:Qty: 1 on 02/22/2023 by Josef Guardado MD at [facility] Left: Shoulder Exactech 09/20/2032 320-31-36 / [id number] / Exactech Equinoxe Reverse Shoulder +0mm Tray Humeral Adapter 320-10 - [id number] - [id number] Implanted:Qty: 1 on 02/22/2023 by Josef Guardado MD at [facility] Left: Shoulder Exactech 10/15/2032 320-10-00 / [id number] / Exactech Liner Humeral Reverse Equinoxe +0x36mm 320-36-10 - [id number] - [id number] Implanted:Qty: 1 on 09/06/2023 by Josef Guardado MD at [facility] Left: Shoulder Exactech [id number] 01/16/2027 320-36-10 / [id number] / Exactech Equinoxe Lock Reverse Shoulder Glenosphere Screw Bone 320-15-05 - [id number] - [id number] Implanted:Qty: 1 on 09/06/2023 by Josef Guardado MD at [facility] Left: Shoulder Exactech [id number] 07/07/2028 320-15-05 / [id number] / Exactech Equinoxe 36mm 26.1mm Expand Small Reverse Shoulder Sphere Glenoid 320-32-36 - [id number] - [id number] Implanted:Qty: 1 on 09/06/2023 by Josef Guardado MD at [facility] Left: Shoulder Exactech [id number] 12/18/2032 320-32-36 / [id number] / [employer] Angio-Seal Vip 6fr Closere Device [id number] - [id number] Implanted:Qty: 1 on 02/24/2025 by Elvira Mead MD at [facility] [employer] 09/29/2025 [id number] / / [id number] Procedures Procedure Name Priority Date/Time Associated Diagnosis Comments RIGHT AND LEFT HEART CATHETERIZATION Routine 02/24/2025 10:30 AM CDT Pulmonary hypertension (HCC) OXYHEMOGLOBIN, CENTRAL VENOUS STAT 02/24/2025 10:25 AM CDT OXYHEMOGLOBIN, PULMONARY ARTERY STAT 02/24/2025 10:20 AM CDT OXYHEMOGLOBIN, CENTRAL VENOUS STAT 02/24/2025 10:17 AM CDT ECG 12-LEAD Routine 02/20/2025 2:54 PM CDT Pulmonary hypertension (HCC) EGFR Routine 02/20/2025 2:20 PM CDT Pulmonary hypertension (HCC) DIFFERENTIAL AUTO Routine 02/20/2025 2:2 0 PM CDT Pulmonary hypertension (HCC) CBC WITH AUTO DIFFERENTIAL Routine 02/20/2025 2:20 PM CDT Pulmonary hypertension (HCC) BASIC METABOLIC PANEL Routine 02/20/2025 2:20 PM CDT Pulmonary hypertension (HCC) PROTIME-INR Routine 02/20/2025 2:20 PM CDT Pulmonary hypertension (HCC) Angina pectoris, unspecified COLONOSCOPY 05/30/2022 10:19 AM LEVEL VIAL MARKER from Last 3 Months or Most Recently Relevant to Health Maintenance Results * RIGHT AND LEFT HEART CATHETERIZATION (02/24/2025 10:30 AM CDT) Anatomical Region Laterality Modality X-Ray Angiograph y Narrative 02/24/2025 1:14 PM CDT CARDIAC CATHETERIZATION 02/24/2025 BRIEF CLINICAL HISTORY Ms. Alicia Wells is a very pleasant 79-year-old woman brought in for an elective cardiac catheterization procedure for evaluation of new onset symptoms of angina pectoris, congestive heart failure, significant pulmonary hypertension on echocardiogram to rule out obstructive coronary artery disease and evaluate hemodynamics of the right heart. Cardiac catheterization/intervention procedures were discussed in detail with the patient. The indications, risks, benefits and alternatives were discussed. The risks include, but are not limited to, , stroke, myocardial infarction, need for emergency bypass surgery, pericardial tamponade, allergy to contrast/ anaesthetic agents, contrast induced nephropathy that may require temporary or permanent dialysis, radiation injury, vascular complications, including bleeding that may require blood transfusions, retroperitoneal hematoma that may be fatal, pseudoaneurysm formation, loss of limb; arrhythmias/ respiratory failure that may need cardioversion, intubation, CPR; and possible need for repeat procedures. Patient verbalizes understanding of the risks and benefits and patient is willing to proceed with it. PROCEDURES PERFORMED 1. Left heart catheterization. 2. Right heart catheterization including hemodynamics, oximetry and cardiac output with a thermodilution technique 3. Left ventriculogram. 4. Selective coronary angiography. 5. Angio-Seal Closure device to the right femoral arteriotomy site. 6. Manual compression of the right femoral venous sheath site. GROIN Right groin. SHEATH A 5-Puerto Rican sheath in the right femoral artery for the diagnostic portion. 7-Puerto Rican sheath in the right femoral vein MODERATE SEDATION: Patient received 2 mg of Versed and 50 mcg of fentanyl were utilized to induce moderate sedation for a procedure duration of 23 minutes that was completely supervised. LEFT HEART CARDIAC CATHETERIZATION After obtaining informed consent and administering lidocaine to the right groin, a 5-Puerto Rican sheath was introduced into the right femoral artery and a 7 [place] Rican sheath in the right femoral vein using modified Selinger technique. Over a J-tip guidewire, a left Damaso catheter, a right Damaso catheter and a pigtail catheter were used in sequence to perform left coronary angiography, right coronary angiography and left ventriculography. Left ventricular hemodynamic studies were performed including pressure gradient across the aortic valve. Patient in general tolerated the procedure well. No immediate complications were noted. Findings: 1. Left main short, large, normal. 2. Left anterior descending artery shows a good caliber vessel with a type 1 anatomy that wraps around the apex, shows a mild eccentric plaquing right at the diagonal branch origin of about 30-40%. Rest of the vessel all the way down to the apex is angiographically normal. The 1st and 2nd diagonal branches are angiographically normal and relatively small caliber. 3. Left circumflex artery is nondominant, has angiographic normal appearance including a 1st obtuse marginal branch, a 2nd obtuse marginal branch and a distal circumflex artery. 4. Right coronary artery is a good caliber vessel, has a 30% focal plaque in the proximal mid section and some mild plaquing in the midvessel. The rest of the vessel on either side is angiographically normal as is both the bifurcating branches, the PLV and PDA. 5. Normal left ventricle systolic function, visually estimated ejection fraction 65-70%. 6. Normal left ventricular filling pressures, end-diastolic pressure of 5 mmHg. RIGHT HEART CARDIAC CATHETERIZATION Subsequently a Banner-Loretta catheter is used to advance into the pulmonary wedge position to perform hemodynamic study in a pullback fashion from pulmonary capillary wedge pressure to right atrium through pulmonary artery and right ventricle. Serial oximetry measurements were taken at the wedge position level, pulmonary artery as well as right atrium and the samples were sent to the lab. A thermodilution technique was used to perform cardiac output measurement. Patient in general tolerated the procedure well. No immediate complications were noted. Findings: Right heart hemodynamics are as follows: Pulmonary capillary wedge position: 10/4/6 , Pulmonary artery: 49/10/25 , right ventricle: 49/5, right atrium: 8/7/4 mm Hg. Serial oximetry measurements went to the lab, results pending at this time. Cardiac output measurement by thermodilution technique was at 4.9 liters/minute, and a cardiac index of 2.76 liters/minute. Calculated pulmonary vascular resistance was 4 wood units. LEFT HEART CATHETERIZATION SUMMARY FINDINGS 1. Normal major vessel coronary anatomy other than mild disease in the proximal mid left anterior descending artery and mid right coronary artery. 2. Normal left ventricular systolic function, visually estimated ejection fraction 60-70%. 3. Normal left ventricular filling pressures, LVEDP 10 mm of mercury. RIGHT HEART CATHETERIZATION SUMMARY FINDINGS 1. Pulmonary hypertension with a PVR of 4 wood units 2. Normal cardiac output 3. Oximetry results are normal. PLAN IVF 100cc/hr for 6 hours Aspirin 81 mg once a day. Risk factor modification strategy discussed with the patient. It included weight reduction through exercise and dietary discretion, optimal control of hypertension, lipid status. Add Lipitor 20 mg once a day. Discussed with patient and family (daughter) about the procedure including the details of the procedure, the results, post cath and post stent care instructions and follow up management. Activity instructions in place. Refer patient to the primary MD and her seat mender for further management of pulmonary hypertension. Elvira Mead MD Elvira Mead MD CV CARDIAC CATH PROCEDURES Final Result * Oxyhemoglobin, central venous (02/24/2025 10:25 AM CDT) Oxyhemoglobin, CV 91.0 % Comment: Interpretive Data No reference range established. Current interpretive data was last revised 2019. Blood 02/24/2025 10:2 5 AM CDT 02/24/2025 10:34 AM CDT Narrative ANNA ARMANDO ([place]) - 02/24/2025 10:40 AM CDT RA us Elvira Mead MD LAB BLOOD ORDERABLES Final Result ANNA ARMANDO ([place]) 1 [facility] Department [place] [address] * Oxyhemoglobin, pulmonary artery (02/24/2025 10:20 AM CDT) Oxyhemoglobin, PA 89.4 % Comment: Interpretive Data No reference range established. Current interpretive data was last revised 2019. Blood 02/24/2025 10:2 0 AM CDT 02/24/2025 10:34 AM CDT Elvira Mead MD LAB BLOOD ORDERABLES Final Result Performing Organization Address City/[facility]/ZIP Co de Phone Number ANNA ROBERTSON) 1 [facility] [place] [address] * Oxyhemoglobin, central venous (02/24/2025 10:17 AM CDT) Oxyhemoglobin, CV 97.3 % Comment: Interpretive Data No reference range established. Current interpretive data was last revised 2019. Blood 02/24/2025 10:1 7 AM CDT 02/24/2025 10:34 AM CDT Narrative ANNA PRABHA [place]) - 02/24/2025 10:42 AM CDT PCW Elvira Mead MD LAB BLOOD ORDERABLES Final Result Performing Organization Address [facility] Co de Phone Number ANNA [place]) 1 [facility] [place] [address] * ECG 12 lead (02/20/2025 2:54 PM CDT) 02/20/2025 2:28 PM CDT Narrative [facility] - 02/20/2025 3:59 PM CDT Vent Rate: 80 bpm RR Interval: 745 msec [place] Interval: 164 msec QRS Duration: 92 msec QT Interval: 349 msec QTC Interval: 385 msec P-R-T [place]: 53 - -82 - 30 degrees IMPRESSION: SINUS RHYTHM WITH MARKED SINUS ARRHYTHMIA LEFT AXIS DEVIATION [QRS AXIS < -30] LOW QRS VOLTAGE IN PRECORDIAL LEADS [QRS DEFLECTION < 1.0 mV IN CHEST LEADS] POSSIBLE ANTERIOR MYOCARDIAL INFARCTION , PROBABLY OLD [30 ms Q WAVE IN V3/V4, OR R < 0.2 mV IN V4] ABNORMAL ECG Compared to prior EKG, PACs are new Electronically Signed By: Jack Barajas MD Elvira Mead MD ECG ORDERABLES Final Resu lt [facility] * eGFR (02/20/2025 2:20 PM CDT) eGFR >90 >=60 mL/min/1. 73 m2 Comment: Interpretive Data Reference Interval Normal >/= 90 mL/min/1.73m2 Mildly decreased* 60 - 89 mL/min/1.73m2 Mildly to moderately decreased 45 - 59 mL/min/1.73m2 Moderately to severely decreased 30 - 44 mL/min/1.73m2 Severely decreased 15 - 29 mL/min/1.73m2 Kidney Failure < 15 mL/min/1.73m2 *Relative to young adult level Estimated glomerular filtration rate is determined by the 2020 CKD-EPI equation recommended by the National Kidney Foundation (A Unifying Approach to GFR Estimation: Recommendations of the NKF-ASK Task Force on Reassessing the Inclusion of Race in Diagnosing Kidney Disease, JASN 2020). The CKD-EPI equation should not be used for patients with unstable renal function and has not been validated in children and those over 70. Current interpretive data was last reviewed 2021. Blood 02/20/2025 2:20 PM CDT 02/20/2025 3:23 PM CDT Elvira Mead MD LAB BLOOD ORDERABLES Final Result ANNA [facility] ([place]) 1 [facility] Department [place] [address] * (ABNORMAL) Differential, auto (02/20/2025 2:20 PM CDT) Neutrophil abs 3.39 1.50 - 6.50 K/cumm Imm gran abs 0.02 0.00 - 0.10 K/cumm [facility] ([place]) Lymphocyte abs 1.70 0.80 - 3.30 K/cumm [facility] ([place]) Monocyte abs 0.82(H) 0.20 - 0.80 K/cumm [facility] ([place]) Eosinophil abs 0.17 0.00 - 0.50 K/cumm [facility] ([place]) Basophil abs 0.03 0.00 - 0.10 K/cumm [facility] ([place]) Neutrophil pct 55.3 % [facility] ([place]) Comment: Interpretive Data Percent cell count reference ranges are not reported, since discordance with absolute values may lead to misinterpretation of CBC data. Current Interpretive Data was last revised on 2017. Imm gran pct 0.3 % [facility] ([place]) Comment: Interpretive Data Percent cell count reference ranges are not reported, since discordance with absolute values may lead to misinterpretation of CBC data. Current Interpretive Data was last revised on 2017. Lymphocyte pct 27.7 % [facility] ([place]) Comment: Interpretive Data Percent cell count reference ranges are not reported, since discordance with absolute values may lead to misinterpretation of CBC data. Current Interpretive Data was last revised on 2017. Monocyte pct 13.4 % [facility] ([place]) Comment: Interpretive Data Percent cell count reference ranges are not reported, since discordance with absolute values may lead to misinterpretation of CBC data. Current Interpretive Data was last revised on 2017. Eosinophil pct 2.8 % [facility] ([place]) Comment: Interpretive Data Percent cell count reference ranges are not reported, since discordance with absolute values may lead to misinterpretation of CBC data. Current Interpretive Data was last revised on 2017. Basophil pct 0.5 % [facility] ([place]) Comment: Interpretive Data Percent cell count reference ranges are not reported, since discordance with absolute values may lead to misinterpretation of CBC data. Current Interpretive Data was last revised on 2017. Blood 02/20/2025 2:20 PM CDT 02/20/2025 3:23 PM CDT us Elvira Meda MD LAB BLOOD ORDERABLES Final Result ANNA ARMANDO ([place]) 1 [facility] Department [place] [address] * (ABNORMAL) CBC with auto differential (02/20/2025 2:20 PM CDT) WBC 6.13 3.80 - 9.90 K/cumm Hgb 13.8 11.9 - 15.5 g/dL [facility] Hct 43.8 35.6 - 45.5 % [facility] ([place]) Plt 215 150 - 400 K/cumm [facility] ([place]) MPV 10.3 9.1 - 12.3 fL [facility] ([place]) RBC 4.62 3.90 - 5.20 M/cumm [facility] ([place]) MCV 94.8 81.3 - 96.4 fL [facility] ([place]) MCH 29.9 27.1 - 33.3 pg [facility] ([place]) MCHC 31.5(L) 32.3 - 35.7 g/dL [facility] ([place]) RDW CV 13.4 11.1 - 14.9 % [facility] ([place]) RDW SD 47.0 35.7 - 48.1 fL [facility] ([place]) NRBC abs 0.00 0.00 - 0.01 K/cumm [facility] ([place]) Blood 02/20/2025 2:20 PM CDT 02/20/2025 3:23 PM CDT us Elvira Mead MD LAB BLOOD ORDERABLES Final Result [facility] ([place]) 1 [facility] Department [place] [address] * Protime-INR (02/20/2025 2:20 PM CDT) PT 12.2 10.2 - 13.5 sec [facility] ([place] INR 1.08 0.90 - 1.20 [facility] ([place]) Comment: Interpretive data Oral anticoagulant therapeutic ranges: Venous thromboembolism prophylaxis or treatment: 2.0-3.0 CARDIOLOGY Standard range: 2.0-3.0 High-intensity range: 2.5-3.5 Refer to indication-specific guidelines for appropriate target ranges for prosthetic heart valve replacement. Current interpretive data was last revised on 2019. Blood 02/20/2025 2:20 PM CDT 02/20/2025 3:23 PM CDT Elvira Mead MD LAB BLOOD ORDERABLES Final Result [facility] ([place]) 1 [facility] Department [place] [address] * (ABNORMAL) Basic metabolic panel (02/20/2025 2:20 PM CDT) Sodium 140 135 - 145 mmol/L [facility] ([place]) Potassium, pl 4.3 3.3 - 4.9 mmol/L [facility] ([place]) Chloride 103 97 - 110 mmol/L [facility] ([place]) CO2 27 22 - 32 mmol/L [facility] ([place]) Anion gap 10 2 - 15 mmol/L [facility] ([place]) BUN 20 6 - 25 mg/dL [facility] ([place]) Creatinine 0.45(L) 0.60 - 1.10 mg/dL [facility] ([place]) Glucose 95 70 - 199 mg/dL [facility] ([place]) Comment: Interpretive Data Fasting glucose >/= 126 mg/dl is diagnostic for diabetes. Fasting is defined as no caloric intake for at least 8 hours. Fasting glucose between 100 mg/dl to 125 mg/dl is diagnostic of prediabetes. In a patient with classic symptoms of hyperglycemia or hyperglycemic crisis, a random glucose >/= 200 mg/dl is diagnostic for diabetes. In the absence of unequivocal hyperglycemia, results should be confirmed by repeat testing. The classification and Diagnosis of Diabetes Diabetes Care 202; 46: S19-S40. Current interpretive data was last revised 2022. Calcium 8.5 8.5 - 10.3 mg/dL [facility] ([place]) Blood 02/20/2025 2:20 PM CDT 02/20/2025 3:23 PM CDT us Elvira Mead MD LAB BLOOD ORDERABLES Final Result ANNA ARMANDO [place]) 8 [facility] Department [place] [address] * COLONOSCOPY (05/30/2022 10:19 AM LEVEL VIAL MARKER) Anatomical Region Laterality Modality Other Narrative Procedure Note Randi Vega MD - 05/30/2022 10:19 AM CST [facility] Patient Name: Alicia Wells Procedure Date: 05/30/2022 10:19AM Date of : 1945 Admit Type: Outpatient Age: 76 Gender: Female Attending MD: Randi Vega M.D. Room: [facility] ENDOSCOPY ROOM 1 Note Status: Finalized Patient [...] under direct vision. The Pediatric Colonoscope PCF-H190L [id number] was introducedthrough the anus and advanced to [...] The hemorrhoids were small. Electronically signed by Ahmad Karadaghy, M.D. Randi Vega M.D. 05/30/2022 11:31:49 AM Number of Addenda: 0 Note Initiated On: 05/30/2022 10:19 AM Procedure Code(s): --- Professional --- 79132, Colonoscopy, flexible; with biopsy, single or multiple Diagnosis Code(s): --- Professional --- Z86.010, Personal history of colonic polyps K64.8, Other hemorrhoids D12.3, Benign neoplasm of transverse colon (hepatic flexure orsplenic flexure) K57.30, Diverticulosis of large intestine without perforation orabscess without bleeding CPT copyright 2020 [employer]. All rights reserved. The codes documented in this report are preliminary and upon certified procedural coder reviewmay be revised to meet current compliance requirements. Recognized by the [employer] for promoting quality in endoscopy Randi Vega MD ENDOSCOPY PROCEDURES Final Result from Last 3 Months or Most Recently Relevant to Health Maintenance Insurance MEDICARE ADVANTAGE [facility] MED[facility] Address: [facility] [address] [place] [address] [facility] MEDICARE ADVANTAGE [facility] MEDIC[facility] Address: [address] [address] [place] [address] MEDICARE ADVANTAGE [facility] MEDICARE Address: [address] [place] [address] MEDICARE ADVANTAGE [facility] MEDIC[facility] Address: [address] [address] [place] [address] Advance Directives For more information, please contact: [phone] * Full Code (Latest Code Status on File) Date Activated Date Inactivated Comments 02/24/2025 10:38 AM 02/24/2025 6:47 PM * Full Code Date Activated Date Inactivated Comments 09/05/2023 10:19 PM 09/07/2023 6:56 PM * Full Code Date Activated Date Inactivated Comments 04/22/2023 11:20 PM 04/27/2023 8:25 PM * Full Code Date Activated Date Inactivated Comments 03/17/2023 10:46 AM 03/19/2023 8:32 PM * Full Code Date Activated Date Inactivated Comments 05/30/2022 10:11 AM 05/30/2022 4:31 PM Care Teams Casing Tier Relationship Specialty Start Date End Date Manpreet Sanderson MD PCP - General Family Practice 01/22/23 Randi Vega MD Consulting Physician Gastroenterology 01/22/23 Ángel Sampson MD PhD [address] [place] [address] Referring Physician Neurology 01/22/23 Keyla Satna MD [address] [facility] [address] [place] [address] Consulting Physician Internal Medicine 01/22/23 Muna Hernandez PA [address] [place] [address] [address] [place] [address] Orthopedic Surgery 02/22/23 Kanu Hernandez MD [address] [place] [address] [address] [place] [address] Consulting Physician Neurology 03/19/23 Lila Pedro MD [address] [place] [address] [place] [address] Consulting Physician Sleep Medicine 03/19/23 Hi Ware MD [address] [place] [address] [address] [place] [address] Consulting Physician Pulmonary Disease 04/27/23 Josef Guardado MD [address] [place] [address] [address] Jon [facility] [address] [place] [address] Surgeon Orthopedic Surgery 09/07/23
--- OUTSIDE RECORDS SUMMARY | 2025-03-24 13:55 | XMS_ITS | Encounter Summary ---
Author Organization [facility] Address [address] [place] [address] Care Team Providers Care Bartender Manager Name Role Phone Favio Randolph MD Primary Care Provider [phone] Nicolas Xiao DO Primary Care Provider [phone] Nathaniel Villatoro MD Primary Care Provider [phone] Manpreet Sanderson MD Primary Care Provider [phone] Randi Vega MD Unavailable [phone] Ángel Sampson MD PhD Unavailable + [phone] Keyla Santa MD Unavailable + [phone] Muna Hernandez Unavailable [phone] Kanu Hernandez MD Unavailable [phone] Lila Pedro MD Unavailable Hi Ware MD Unavailable Josef Guardado MD Unavailable +[phone] Encounter Details Date Type Department Care Team (Late st Contact Info) Description 06/08/2017 Orders Only [facility] [address] [place] [address] Dakotah Carpenter RT Social History Tobacco Use Types Packs/Day Years Used Date Smoking Tobacco: Never Alcohol Use Standard Drinks/Week Comments No 0 (1 standard drink = 0.6 oz pur e alcohol) Comments Unknown Sex and Gender Information Value Date Recorded Sex Assigned at Not on file 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 Gender Identity Female 04/12/2021 6:37 PM CDT Sexual Orientation Straight 04/12/2021 6: 37 PM CDT documented as of this encounter Plan of Treatment Not on file documented as of this encounter Visit Diagnoses Not on filedocumented in this encounter Additional Health Concerns Infection Onset Date Last Indicated Resolved Time COVID: Suspected 04/22/2023 04/22/2023 04/22/2023 8:02 PM CDT documented as of this encounter Care Teams Bartender Manager Relationship Specialty Start Date End Date Favio Randolph MD PCP - General 09/29/16 03/05/19 Nicolas Xiao DO PCP - General Internal Medicine 03/06/19 07/16/22 Nathaniel Villatoro MD PCP - General Internal Medicine 07/17/22 01/21/23 Manpreet Sanderson MD PCP - General Family Practice 01/22/23 Randi Vega MD Consulting Physician Gastroenterology 01/22/23 Ángel Sampson MD PhD [address] [place] [address] Referring Physician Neurology 01/22/23 Keyla Santa MD [address] [facility] [address] [place] [address] Consulting Physician Internal Medicine 01/22/23 Muna Hernandez PA [address] [facility] [address] [place] [address] Orthopedic Surgery 02/22/23 Kanu Hernandez MD 4 [facility] [address] [place] [address] Consulting Physician Neurology 03/19/23 Lila Pedro MD 4 [facility] [place] [address] Consulting Physician Sleep Medicine 03/19/23 Hi Ware MD 4 [facility] [address] [place] [address] Consulting Physician Pulmonary Disease 04/27/23 Josef Guardado MD 4 [facility] [address] [place] [address] Surgeon Orthopedic Surgery 09/07/23 documented as of this encounter
--- OUTSIDE RECORDS SUMMARY | 2025-03-24 13:55 | XMS_ITS | Clinical Summary ---
Author Organization [facility] Address [address] [facility] [place] [address] Care Team Providers Care Press Reader Name Role Phone Nicolas Xiao Primary Care Provider [phone] [facility],non-owned Affiliates and Associated Physician Practices is amultiple site organization consisting of ambulatory clinics and hospital sitesin [place], [place], [place] and [place]. This disclosure is being madepursuant to the Care Everywhere program and may not contain all information available regarding this patient. Last updated 18.[facility] Allergies Active Allergy Reactions Criticality Noted Date [...] yrs (1 - 1-dose 75+ series) 2021 DEPRESSION SCREENING 07/02/2024 MEDICARE AWV CALENDAR YEAR 2024 COVID-19 VACCINE (1 - 2023-2 5 season) 2025 INFLUENZA VACCINE (#1) 2025 HEPATITIS B VACCINE Aged Out No [...] Patient Date of Phone Billing Address Personal/Family [address] [place] [phone] SELF PAY NO INSURANCE Member Subscriber Plan / Payer (Ef fective for All Dates) Name:Carina Ralph Member ID:Not on file Relation to Subscriber:Not on file Name:CARINA RALPH Subscriber ID:Not on file (Home) Address: [address] [place], [place] [id number] Payer ID:Not on file Group ID:Not on file Type:Self Pay Address: [place], [place] [employer] MANAGED MEDICARE [place] [id number] * Guarantor: CARINA RALPH Account Type Relation to Patient Date of Phone Billing Address Personal/Family [address] [place] [address] SELF PAY NO INSURANCE Member Subscriber Plan / Payer (Ef fective for All Dates) Name:Carina Ralph Member ID:Not on file Relation to Subscriber:Not on file Name:CARINA RALPH Subscriber ID:Not on file (Home) Address: [address] [place] [address] Payer ID:Not on file Group ID:Not on file Type:Self Pay Address: [facility] MANAGED MEDICARE [place] [id number] * Guarantor: CARINA RALPH Account Type Relation to Patient Date of Phone Billing Address Personal/Family [address] [place] [address] SELF PAY NO INSURANCE Member Subscriber Plan / Payer (Ef fective for All Dates) Name:Carina Ralph Member ID:Not on file Relation to Subscriber:Not on file Name:CARINA RALPH Subscriber ID:Not on file (Home) Address: [address] [place] [address] Payer ID:Not on file Group ID:Not on file Type:Self Pay Address: [place], [place] [employer] MANAGED MEDICARE ADV Care Teams Press Reader Relationship Specialty Start Date End Date Nicolas Xiao DO PCP - General 02/04/18
[2025-03-24 19:39] LABS: Alanine Aminotransferase 13 U/L (6-35); Albumin Level 3.9 g/dL (3.5-5.1); Alkaline Phosphatase 100 U/L (38-126); Anion Gap 5 mmol/L (4-12); Aspartate Amino Transferase 63 U/L (14-36); Bilirubin,Total 0.6 mg/dL (0.2-1.3); Blood Urea Nitrogen 18 mg/dL (7-17); Calcium 9.1 mg/dL (8.4-10.2); Carbon Dioxide 31 mmol/L (22-30); Chloride 100 mmol/L (98-107); Cholesterol 191 mg/dL (0-200); Estimated Glomerular Filt Rate > 60; Glucose 92 mg/dL (65-110); HDL Direct 40 mg/dL; Potassium 4.6 mmol/L (3.4-5.0); Sodium 136 mmol/L (137-145); Total Protein 8.2 g/dL (6.3-8.2); Triglycerides 107 mg/dL (<150)
[2025-03-24 19:43] LABS: NT Pro B Type Natriuretic Pept 105 pg/mL (19.9-100)
== END 2025-03-24 13:48 | disposition home or self-care (01) ==
LOC: ANHBWCLAB 13:48
PROVIDERS: PCP Nurse Practitioner Adult Health; Visit Provider Nurse Practitioner Adult Health
DX: I11.0 Hypertensive heart disease with heart failure (principal); I50.9 Heart failure, unspecified
CPT/HCPCS: 36415; 80053; 80061; 83880

== ENCOUNTER 2025-04-01 15:07 | Outpatient (CLI) | payer MEDICARE, SELFPAY ==
--- OUTSIDE RECORDS SUMMARY | 2023-01-23 10:00 | XMS_ITS | Continuity of Care Document ---
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 Role Phone Mane HUERTA, Jennifer Unavailable Unavailable Allergies, Adverse Reactions, Alerts Substance Reaction Status Criticality tramadol Active No Information hydrochlorothiazide Active No Infor mation Antihistamines - Alkylamine Active No Information loratadine Active No Information Medications Medication Instructions Dosage Effective Dates (start - stop) Status Comments cyclosporine 0.05 % eye drops in a dropperette instill 1 drop by ophthalmic route every 12 hours into affected eye(s) 1.00 drop - Active Artificial Tears (dextran 70-hypromellose) 0.1 %-0.3 % eye drops instill 1 drop by ophthalmic route 4 times every day 1 drop - Active CARVEDILOL (unknown strength) take 1 tablet by oral route 2 times every day with food Not Available - Active Sinemet 25 mg-100 mg tablet take 2 tablet by oral route 3 times every day 2 tablet - Active Lasix 20 mg tablet take 1 tablet (20MG) by ORAL route every day 20 MG - Active Tranxene T-Tab 7.5 mg tablet take 1 tablet by oral route 2 times every day - Active gabapentin 300 mg capsule take 1 capsule by oral route 3 times every day 300 MG - Active oxybutynin chloride ER 15 mg tablet,extended release 24 hr take 1 tablet by oral route every day 15 MG - Active Vitamin C 500 mg tablet 1 tablet by mouth once a day - Active Probiotic 10 billion cell capsule 1 tablet by mouth once a day - Active Vitamin D3 1,000 unit capsule 1 tablet by mouth once a day - Active omeprazole 40 mg capsule,delayed release take 1 capsule by oral route every day before a meal 40 MG - Active Zoloft 100 mg Tab take 1 tablet (100MG) by ORAL route every day 100 MG - Active oxybutynin chloride ER 15 mg tablet,extended release 24 hr take 1 tablet by oral route every day 15 MG - No Longer Active Trokendi XR 25 mg capsule,extended release take 1 capsule by oral route every day 25 MG - No Longer Active vitamin E 400 unit capsule 1 tablet by mouth once a day - No Longer Active Page-D 24 Hour 180 mg-240 mg tablet,extended release take 1 tablet by oral route every day on an empty stomach with glass of water 1.00 tablet - No Longer Active Procedures Procedure Date No Charge Refraction No Charge Optomap Fundus Photos 023 Eye Exam & Treatment Office/outpatient Visit, Est Office/outpatient Visit, Est No Charge Refraction Fundus Photography W/ Report Eye Exam & Treatment Fundus Photography W/ Report Office/outpatient Visit, Est Fundus Photography W/ Report No Charge Refraction Office/outpatient Visit, Est Fundus Photography W/ Report Eye Exam & Treatment Office/outpatient Visit, Est No Charge Orbscan Refraction Office/outpatient Visit, Est SCODI, Retina No Charge Refraction Corneal Topography Eye Exam & Treatment After Cataract Laser Surgery No Charge Refraction After Cataract Laser Surgery No Charge Refraction No Charge Optomap Fundus Photos 016 Corneal Pachymetry Office/outpatient Visit, Est Office/outpatient Visit, Est No Charge Refraction Fundus Photography W/ Report Refraction Post-op Follow-up Visit No Charge Orbscan Post-op Follow-up Visit No Charge Refraction No Charge Orbscan Post-op Follow-up Visit No Charge Orbscan Post-op Follow-up Visit No Charge Refraction Post-op Follow-up Visit Remove Cataract, Insert Lens IOLMaster-Professional Post-op Follow-up Visit No Charge Refraction Post-op Follow-up Visit Post-op Follow-up Visit Remove Cataract, Insert Lens IOLMaster-Professional Office/outpatient Visit, Est No Charge Refraction Fundus Photography W/ Report No Charge Orbscan IOLMaster-Technical Office/outpatient Visit, Est Fundus Photography W/ Report Office/outpatient Visit, Est Corneal Topography Eye Exam, New Patient Corneal Pachymetry Corneal Topography Advance Directives Directive Yes / No Effective Date File Name No Information Encounters Encounter Description Practice Location Reason(s) For Visit Diagnoses Date Provider Providers Copied on Encounter [facility], [address], [place], [place], [address], [place] tel:[phone] SEC Laci ALAN Professional Complete Exam (chief complaint) Superficial punctate keratitis of both eyesKeratocon junctivitis sicca, not specified as Sj g pacheco's, unspecified eyeParkinsons Presence of intraocular lens 3 Mane OD Jennifer. [address], [address], [place], [place], [address], [place]. tel:[phone] Referring Provider: Shahid Pinto OD, [address] [facility] [place], [address]. tel:[phone] Office/outpa tient Visit, [facility], [address], [place], [place], [address], [place] tel:[phone] [place] Professional 5 month ALESIA f/u (chief complaint) ParkinsonsKer atoconjunctiv itis sicca, not specified as Sj g pacheco's, unspecified eyeBilateral artificial lens implantDry eye syndrome of bilateral lacrimal glands 3 Jorge Luis Giles. [address], [facility] [address], [place], [place], [address], [place]. tel:[phone] Referring Provider: Shahid Pinto OD, [address] [facility] [place], [address]. tel:[phone] Office/outpa tient Visit, [facility], [address] [place] [address] [address], [place], [place], [address], [place] tel:[phone] SEC [place] Professional Follow up visit (chief complaint) Bilateral artificial lens implantDry eye syndrome of bilateral lacrimal glandsKeratoc onjunctivitis siccaMeibomia n gland dysfnct left eye, upper and lower eyelidsMeibom kanika gland dysfnct right eye, upper and lower eyelids 2 Jorge Luis Giles. [address], [address], [place], [place], [address], [place]. tel:[phone] Referring Provider: Shahid Pinto OD, [address] [facility] [place], [address]. tel:[phone] [facility] Eye [facility], [address], [place], [place], [address], [place] tel:[phone] SEC [place] Professional Complete Exam (chief complaint) Bilateral artificial lens implantGlauco matous optic atrophy, bilateralMeib omian gland dysfunction of unspecified eye, unspecified eyelidKeratoc onjunctivitis siccaBenign neoplasm of left choroid 2 Jorge Luis Giles. [address] [facility], [address], [place], [place], [address], [place]. tel:[phone] Referring Provider: Shahid Pinto OD, [address] [place] [place], [address]. tel:[phone] Office/outpa tient Visit, [facility], [address], [place], [place], [address], [place] tel:[phone] [place] Complete Exam (chief complaint) Bilateral artificial lens implantChoroi zeynep nevus, left eyeGlaucomato us optic atrophy, bilateralDry eye syndrome of bilateral lacrimal glands 1 Zhane An. [address], [address], [place], [place], [address], [place]. tel:[phone] Referring Provider: Shahid Pinto OD, [address] [place], [address]. tel:[phone] Office/outpa tient Visit, [facility], [address], [place], [place], [address], [place] tel:[phone] [place] Professional 6 month IOP check (chief complaint) Glaucomatous optic atrophy, bilateralChor oidal nevus, left eye 0 Dejah OD Ricardo. [address] [facility], 6th Floor, [place], [address], [place]. tel:[phone] Referring Provider: Shahid Pinto OD, [address], [place], [address]. tel:[phone] [facility] Eye [facility], [address], [place], [place], [address], [place] tel:[phone] [place] Complete Exam (chief complaint) Bilateral artificial lens implantMeibom kanika gland dysfnct right eye, upper and lower eyelidsMeibom kanika gland dysfnct left eye, upper and lower eyelidsKerato conjunctiviti s siccaChoroida l nevus, left eye 0 Dejah OD Ricardo. [address] [place] [address], [address] [place] [address], [place], [address], [place]. tel:[phone] Referring Provider: Shahid Pinto OD, [address] [place], [address]. tel:[phone] [facility], [address] [place] [address] [address], [place], [place], [address], [place] [phone] SEC Lexus Miranda No Information 9 Dejah OD Ricardo. [address] [place] [address], [address] [place] [address], [place], [address], [place]. tel:[phone] Office/outpa tient Visit, Est [facility], [address] [place] [address] [address], [place], [place], [address], [place] [phone] SEC Laci ALAN Professional ALESIA check (chief complaint) Meibomian gland dysfnct right eye, upper and lower eyelidsMeibom kanika gland dysfnct left eye, upper and lower eyelids 9 Dejah OD Ricardo. [address] [facility], [address] [place] [address], [place], [address], [place]. tel:[phone] Referring Provider: Shahid Pinto OD, [address] [place], [address]. tel:[phone] Office/outpa tient Visit, [facility], [address] [place] [address] [address], [place], [place], [address], [place] tel:[phone] SEC Laci ALAN Professional 3 mo ALESIA f/u (chief complaint) Meibomian gland dysfunction (MGD)Superfic ial punctate keratitis of both eyesCorneal opacity of both eyes 8 Jorge Luis Giles. [address], [place], [place], [address], [place]. tel:[phone] Referring Provider: Shahid Pinto OD, [address] [facility], [place], [address]. tel:[phone] [facility], [facility] [address], [place], [place], [address], [place] [phone] [place] Professional Decreased vision (chief complaint) No Information 8 Jorge Luis Giles. [address], [place], [place], [address], [place]. tel:[phone] Referring Provider: Shahid Gerberon OD, [address], [place], [address]. tel:[phone] [facility], [facility] [address], [place], [place], [address], [place] [phone] SEC Lexus N [address] YAG EVAL OD (chief complaint) No Information 6 Zhane Juve. [facility] [address], [address], [place], [place], [address], [place]. tel:[phone] Referring Provider: Shahid Ramirezguson OD, [address], [place], [address]. tel:[phone] Office/outpa tient Visit, [facility], [address], [place], [place], [address], [place] [phone] SEC Lexus N [address] Yag Evaluation (chief complaint) No Information 6 Zhane An. [facility] [address], [address], [place], [place], [address], [place]. tel:[phone] Referring Provider: Shahid Pinto OD, [address] [facility], [place], [address]. tel:[phone] Office/outpa tient Visit, Est [facility], [facility] [address], [place], [place], [address], tel:[phone] SEC Lexus N [address] Blurry near vision (chief complaint) No Information 5 Hartland Juve. [facility] [address], [address], [place], [place], [address], [place]. tel:[phone] Referring Provider: Shahid Pinto OD, [address], [place], [address]. tel:[phone] [facility], [facility] [address] [facility] [address], [place], [place], [address], tel:[phone] SEC Loco N [address] 6 week PO (chief complaint) No Information 5 Zhane An. [facility] [address], [address], [place], [place], [address], [place]. tel:[phone] Referring Provider: Shahid Pinto OD, [address], [place], [address]. tel:[phone] [facility], [facility] [address], [place], [place], [address], [place] tel:[phone] SEC Loco N [place] 3 week post op Phaco IOL OS (chief complaint) No Information 5 Zhane An. [facility] [address], [address], [place], [place], [address], [place]. tel:[phone] Referring Provider: Shahid Pinto OD, [address], [place], [address]. tel:[phone] [facility], [facility] [address], [place], [place], [address], [place] tel:[phone] SEC Loco N [place] F/u exam, postop (chief complaint) No Information 5 Hartland Juve. [facility] [address], [address], [place], [place], [address], [place]. tel:[phone] Referring Provider: Shahid Pinto OD, [address] [facility], [place], [address]. tel:[phone] [facility] Eye [facility], [address] [place], [place] [address], [place], [place], [address], [place] [phone] SEC [place] Professional F/u exam, postop (chief complaint) No Information 5 Hartland Juve. [facility] [address], [address], [place], [place], [address], [place]. tel:[phone] Referring Provider: Shahid Gerberon OD, [address] [place], [address]. tel:[phone] [facility] Eye [facility], [facility] [address], [place], [place], [address], [place] tel:[phone] [place] 1 day P/O (chief complaint) No Information 5 Sandie Fishman. [address] [facility], [address], [place], [place], [address], [place]. tel:[phone] Referring Provider: Shahid Pinto OD, [address] [employer] [place], [address]. tel:[phone] [facility] Eye [facility], [facility] [address], [place], [place], [address], [place] tel:[phone] [facility] No Information 5 Hartland Juve. [facility] [address], [address], [place], [place], [address], [place]. tel:[phone] Referring Provider: Shahid Gerberon OD, [address] [facility], [place], [address]. tel:[phone] [facility], [address] [place] [address] [address], [place], [place], [address], [place] tel:[phone] SEC Lexus Kaymarykhai No Information 5 Zhane An. [address] [place] [address] Drive, [address], [place], [place], [address], [place]. tel:[phone] Referring Provider: Shahid Pinto OD, [address] [facility] [place], [address]. tel:[phone] [facility] Eye [facility], [address] [place] [address] [address], [place], [place], [address], [place] tel:[phone] [place] F/u exam, postop (chief complaint) No Information 4 Sandie Fishman. [address] [facility], [address], [place], [place], [address], [place]. tel:[phone] Referring Provider: Shahid Pinto OD, [address] [facility] [place], [address]. tel:[phone] [facility] Eye [facility], [address] [place] [address] [address], [place], [place], [address], [place] tel:[phone] [place] Professional 1 WK PO PHACO OD (chief complaint) No Information 4 Sandie Fishman. [address] [facility], [address], [place], [place], [address], [place]. tel:[phone] Referring Provider: Shahid Pinto OD, [address] [facility] [place], [address]. tel:[phone] [facility] Eye [facility], [address] [place] [address] [address], [place], [place], [address], [place] tel:[phone] [place] Professional 1 DAY PO PHACO OD (chief complaint) No Information 4 Carol Yancey. [address] [facility], [address], [place], [address], [place]. tel:[phone] Referring Provider: Shahid Pinto OD, [address], [place], [address]. tel:[phone] [facility] Eye [facility], [address] [place] [address] [address], [place], [place], [address], [place] tel:[phone] [facility] [place] No Information Dec-0 4-201 4 Zhane Juve. [address] [place] [address] [facility], [address], [place], [place], [address], [place]. tel:[phone] Referring Provider: Shahid Pinto OD, [address], [place], [address]. tel:[phone] [facility] Eye [facility], [address] [place] [address] [address], [place], [place], [address], [place] tel:[phone] SEC Lexus N [place] No Information Dec-0 3-201 4 Hartland Juve. [address] [place] [address] [address], [address], [place], [place], [address], [place]. tel:[phone] Referring Provider: Shahid Pinto OD, [address] [place], [address]. tel:[phone] Office/outpa tient Visit, [facility], [address] [place] [address] [address], [place], [place], [address], [place] tel:[phone] SEC Loco N [place] Blurry vision (chief complaint) No Information 0-201 4 Zhane Juve. [address] [place] [address] [address], [address], [place], [place], [address], [place]. tel:[phone] Referring Provider: Shahid Pinto OD, [address] [place], [address]. tel:[phone] Office/outpa tient Visit, [facility], [address] [place] [address] [address], [place], [place], [address], tel:[phone] SEC Lexus N [place] Blurry vision (chief complaint) No Information 4 Hartland Juve. [facility] [address], [address], [place], [place], [address], . tel:[phone] Referring Provider: Shahid Pinto OD, [address] [place], [address]. tel:[phone] [facility], [address] [place], [place] [address] [address], [place], [place], [address], tel:[phone] SEC Lexus N [place] No Information 4 Conner Drummond. [address] [facility], [address], [place], [place], [address], [place]. tel:[phone] Office/outpa tient Visit, [facility], [facility] [address] [facility] [address], [place], [place], [address], tel:[phone] SEC Lexus N [place] No Information 3 Zhane Juve. [facility] [address], [address], [place], [place], [address], . tel:[phone] Referring Provider: Shahid Pinto OD, [address] [place], [address]. tel:[phone] [facility], [address] [place], [place] [address] [address], [place], [place], [address], tel:[phone] SEC Lexus N [place] No Information 2 Zhane Juve. [facility] [address], [address], [place], [place], [address], . tel:[phone] Referring Provider: Shahid Pinto OD, [address] [place], [address]. tel:[phone] Family History Family Member Type Diagnosis Age At Onset No Information Payers Payer name Insurance type Covered democrat ID Authoriza tion(s) [facility] Mdcr Adv CI [id number] Social History Type Description Quantity Date Captured Comments Alcohol Use Details No Caffeine Use Details No Tobacco Use Status Ex-cigarette smoker 023 Smoking Status Former smoker Smoking Tobacco Use Details Cigarette: Age Stopped: 61 Cigarette: 1 Packs per day Sex Female Chief Complaint And Reason For Visit From encounter dated '01/23/2023 15:00'. Complete Exam (chief complaint). Description: The 77 year old patient presents for evaluation of Complete Exam. in the right eye and left eye. Pt. is using Restasis ou bid , AFTs ou 3 x day, Warm compresses qhs. Pt. states vision is still blurry but does not feel any worse from last visit 6 month ago in both eyes. Reason For Referral Reason For Referral No Information Plan Of Treatment Date Type Action Status Goal Tobacco cessation counseling completed Patient Education Parkinson's Disease: Ca re Instructions completed Patient Education Movement Disorders: Exe rcises completed Patient Education Sjogren's Syndrome: Car e Instructions completed Patient Education Sjogren's Syndrome: Car e Instructions completed Patient Education Dry Eyes: Care Instruct ions completed Patient Education Dry Eyes: Care Instruct ions completed History Of Present Illness Encounter Date Complaint History Of Prese nt Illness Complete Exam The 77 year old patient presents for evaluation of Complete Exam. in the right eye and left eye. Pt. is using Restasis ou bid , AFTs ou 3 x day, Warm compresses qhs. Pt. states vision is still blurry but does not feel any worse from last visit 6 month ago in both eyes. 5 month ALESIA f/u The 76 year old patient presents for evaluation of 5 month ALESIA f/u in the right eye and left eye. Patient states eyes are about the same. Patient using Restasis maybe once a day OU, patient states it's to expensive. Patient using w/c once a day and ART prn OU. Follow up visit The 76 year old patient presents for a 3 month ALESIA follow up. Patient is using Xiidra qd ou, Blink tid ou and Ketorolac prn. Patient states she doesn't think she can afford to continue Xiidra due to cost $100. Patient states her eyes still get dry. Patient states somedays her vision is good and somedays vision is not so good. Complete Exam The 76 year old patient presents for a complete exam ou. Patient is pseudo ou with yag caps ou. Monitoring Choroidal Nevus OS and ALESIA ou. Patient uses Systane and Ketoralac prn and patient states that drop really helps. Patient thinks she has Parkinson's and thinks it is affecting her eyes. Patient states underneath OLEG feels gritty and Ketorolac helps the discomfort. Complete Exam The 74 year old female presents for a complete exam ou monitoring ALESIA ou. Patient is pseudo ou and yag caps ou. Patient is a glaucoma suspect ou. Patient is using Restasis bid ou. Patient has Choroidal nevus OS. Patient denies any changes in vision ou. Patient is concerned with medication Oxybutynin which she read can cause eye pain. 6 month IOP check The 74 year ol d female presents for evaluation of 6 month IOP check in the right eye and left eye. 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 Patient denies any VA changes she just got new glasses. Patient states eyes are still dry but using Restasis BID OU and an ART tear prn OU. No refills needed Complete Exam The 73 year old female presents for evaluation of Complete Exam in the right eye and left eye monitoring ALESIA. Patient uses Restasis bid ou. Patient is pseudo ou with yag caps ou. Patient denies any changes in vision ou. ALESIA check The 73 year old female presents for a 6 month ALESIA check ou. Patient uses Restasis bid ou. Patient states eyes are doing ok. Patient states her eyes don't burn as bad. Patient is pseudo ou with yag caps ou. 3 mo ALESIA f/u The 72 year old female presents for evaluation of 3 mo ALESIA f/u in the right eye and left eye. Pt reports she is using AFT hudson QID OU, Restasis BID OU, warm compresses BID OU, and Doxy 50 mg QD PO. Pt reports OU is better, not perfect, but better.Hx of PCIOL OU, YAG PC OU, MGD OU, ALESIA OU, ABMD OU, Salzmann's nodule degeneration OU, K-haze OU and Glaucoma suspect, OU Decreased vision The 72 year old female presents for evaluation of Decreased vision in the left eye. Hx of PCIOL OU, YAG PC OU, and ABMD OU. Patient states she seen Dr. Pinto on Sunday and could not improve patients VA in the left eye and wanted her to see Dr. Kang for further evaluation. Patient states VA is blurry in the left eye but left eye has never been as good as right, she has noticed a change. Patient uses an ART prn ou. YAG EVAL OD The 69 year old female presents for Yag Evaluation. Patient Hcx IOL OD 06/04/2014, IOL OS 07/07/2014, PCF OD, YAG OS and ABMD OU. Patient reports near vision has been worse over the past 2-3 months. Patient reports she doesn't have trouble driving during the day, but night driving has become more difficult due to glare. Patient reports reading any size print has become a challenge. Patient uses AFT 2-3 times daily OU. Patient states she has not noticed much change in her left eye since the laser. Patent says it still seems to be the same, but says her left eye has always been a weaker eye. Yag Evaluation The 69 year old female presents for Yag Evaluation. Patient Hcx IOL OD 06/04/2014, IOL OS 07/07/2014, PCF OU and ABMD OU. Patient reports OS>OD near vision has been worse over the past 2-3 months. Patient reports she doesn't have trouble driving during the day, but night driving has become more difficult due to glare. Patient reports reading any size print has become a challenge. Patient uses AFT 2-3 times daily OU. Blurry near vision The 69 year o ld female presents for a 6 month evaluation of blurry NVA OU. Pt reports over the past 3 months she has noticed a slow decrease in NVA when reading or looking at computer and has starbursting with lights. Pt uses Ats TID/QID OU 6 week PO The 68 year old female presents for a 6 week PO in OS and repeat Pentacam and Refraction. Pt. states that vision os blurry and light sensitive today but no pain but there is strain slight pain right above the eyes. She describes it as strain becasue it is relieved by sunglasses and OTC even though the OTCshe cant see out of. She notices the slight pain/ strain at the grocery store and outside. Pt. says its as if she needs glasses and her eyes know that. Pt. taking PRED BID OS as of today and will stop after pm dose unless otherwise instructed by doctor. 3 week post op Phaco IOL OS The 68 year old female presents for 3 week post op Phaco IOL OS. Patient history of Phaco IOL OU. Patient states that VA has improved since last visit OS. Patient denies any pain or discomfort at this time. Patient taking Prednisolone BID OS. F/u exam, postop The 68 year old female presents for 1 month post op Phaco IOL OS (07/07/14). OS vision may have slightly improved. Pt states she will finish Pred today and restarted Poly BID a few days for soreness. Last used Poly last night. F/u exam, postop The 68 year old female presents for a 1 week p/o to phaco c IOL OS, pt states she is very concerned that her v/a has not improved. PT uses Pred QID OS and Poly QID OS and AT's PRN OU. 1 day P/O The 68 year old female presents for a 1 day P/O in the left eye. (phaco w/IOL) Patient states the left eye really was burning last night, gtts made it burn more. Left eye better today just seems dry. Patient using Poly and Pred as instructed. F/u exam, postop The 68 year old female presents for 2 week post op Phaco with IOL OD. Pt unaware of any problems OD. Pt states overall vision is blurry and has glare OS. Pt will be decreasing Pred from QID OD to BID OD starting today. 1 WK PO PHACO OD The 68 year old female presents for 1 WK PO PHACO OD (06/04/2014). Patient using Prednisolone and Polytrim QID OD. Patient reports she is getting by ok with her vision the way it is. Vision OD has much improved, but the difference between the two eyes is not easy to work around. Patient hasn't had any diplopia. 1 DAY PO PHACO OD The 68 year ol d female presents for 1 DAY PO PHACO OD. Patient reports OD feels good. No pain, No discomfort and vision seems ok. Patient has Prednisolone and Polytrim to start QID OD. PO instructions discussed and given to patient. Patient is worried about what she will do between now and her OS surgery to be able to see well enough to work. Blurry vision The 68 year old female presents for a 3 month cat eval OU, pt denies any pain or discomfort at this time. Pt states v/a has slowly decreased over time in the distance, near, and c glare at night. Pt ueses AT's PRN OU. Blurry vision The 68 year old female presents for a cornea check. Pt here for her yearly health exam of cornea's. Pt states she feels vision may have decrease distance. Pt Hx of Salzmann's nodules OU, CAT OU. Pt uses AT's. Pt is going to have knee surgery in 5 weeks and elects to wait until after that. Functional Status Date Functional Assessmen t No Information Instructions Date Instruction Additional Infor cherry Impression/Plan Impression/Plan Impression/Plan Impression/Plan Impression/Plan Impression/Plan Impression/Plan Impression/Plan Impression/Plan Impression/Plan Impression/Plan Impression/Plan - s/ p YAG PC OS, r/a/b reviewed and will proceed as scheduled with YAG PC OD today f/u with Dr. Pinto in 2-4 weeks. After cataract obscu ring vision, left eye - Surgery advised; risks, benefits, alternatives discussed. Related to After cataract obscuring vision, left eye Follow up - sched ya g pc od and post op visit for OS Impression/Plan - PC F discussed with pt-r/a/b understood. Proceed with YAG PC OS today and proceed with YAG PC OD on follow up. Follow up - 6 months complete Impression/Plan - Vi sual complaints likely associated with corneal findings more than PCF formation. Yag PC not indicated today and will monitor progression and if indicated in the future will proceed with YAG at that time. Continue to monitor vision and contact us sooner than next scheduled appointment if vision worsens - Discussed dx with pt. Rec having specs changed. Will give spec Rx to take to [facility]. DC medicated gtts.Discussed laser surgery to correct astigmatism and surface scarring. Discussed distortion associated with pupil size. Discussed pupil constriction medications if this persists.Return to Dr. Pinto or here in 6 months.PCF formation discussed and yag PC for future need. Not indicated at this time. Related to Post op follow up - Discussed dx with pt. Discussed astigmatism and rec continuing to taper gtts, Return in 2 weeks repeat pentacam and repeat refraction Related to Post op follow up - 3 weeks po with repeat Pentaca m Related to See list of assessments above - Discussed post op course with pt continue same meds BID. Pentacam needed OS today.Discussed remaining astigmatism and this has reduced from preop astigmatism. Rec ATs, at least 4-6 times per day anticipate vision to improve when surface smooths. Pentacam today and on return. Related to See list of assessments above - Return in 1-2 months for follo w up. Related to Post op follow up - Good post op cours e. Continue to taper drops. Patient aware of slow healing. Return in 2 months for follow up. Related to Post op follow up - as scheduled Related to Post op follow up - 1 day post op Phac o with PCIOL OS, discussed post op instructions and medication use. Return to clinic as scheduled. Addressed patients concern regarding blurry vision and patient understands. Related to Post op follow up - Discussed post op course with pt. Continue to taper same medications. Spec RX vs OTC rx discussed. Pt scheduled for cataract surgery OS. Related to Post op follow up - Cat sx OS as scheduled Related to Post op follow up - cat sx OS scheduled in july Related to Post op follow up - 1 week post op Pha co with PCIOL OD, discussed post op instructions and medication use. Return to clinic as scheduled. Related to Post op follow up - As scheduled Related to Post op follow up - 1 day post op Phac o with PCIOL OD, discussed post op instructions and medication use. Return to clinic as scheduled. Related to Post op follow up - Cataracts account for the patient's complaints. Discussed all risks, benefits, procedures and recovery. Patient understands changing glasses will not improve vision. Patient desires to have surgery, recommend phacoemulsification with intraocular lens.IOL options discussed and pt is aware standard monofocal IOL will still require specs at near and for any remaining correction. Lifestyle IOL's discussed and pt is aware these are an out of pocket expense not covered by insurance.TORIC IOL discussed and pt is aware Amber will contact her with options. Pt can proceed with either eye 1st. 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 Related to See list of assessments above - sched CE either eye, likely OD 1st Related to See list of assessments above SENILE NUCLEAR CATAR ACT - Surgery advised; risks, benefits, alternatives discussed. Related to SENILE NUCLEAR CATARACT - April or May cat check/ eval. Related to See list of assessments above - Discussed dx with pt. Discussed CE with pt pt is going to have knee surgery in March and would like to wait until after knee surgery. Return in April or May. Related to See list of assessments above Cataract, Nuclear Sc lerosis, OU - will continue to monitor - No treatment is required at this time. Will continue to observe condition and symptoms. Related to Cataract, Nuclear Sclerosis NODULAR DEGENERATION OF CORNEA, OU, OS improving - Discussed dx with pt. Continue with Lubrication, Letter dictated to Dr. Pinto Related to PERIPH OPACITY OF CORNEA - 1 yr complete Related to PERIP H OPACITY OF CORNEA INCIPIENT CATARACT, OD - Discussed cataracts with pt, Pt understands her vision at this time doesn't qualify her for insurance coverage and CE Related to INCIPIENT CATARACT NODULAR DEGENERATION OF CORNEA, OU,[place] OU - Discussed dx with pt, no treatment required at this time, Pt understands this condition can increase, or cause her astigmatism. Pt understands with her cornea condition her spec correction will continue to shift. CTL wear discussed as the bes option for improve, stable vision, pt will consider CTL wear, pt needs orbscan prior to leaving. copy sent to Dr. Pinto with dictationLetter dictated to Dr. Pinto Related to PERIPH OPACITY OF CORNEA - return to Dr. Collins mark, 6-8 months cat check,cornea check Related to PERIPH OPACITY OF CORNEA Assessments Type Assessment Date assessment Superficial punctate keratitis o f both eyes assessment Keratoconjunctivitis sicca, not specified as Sj g pacheco's, unspecified eye assessment Parkinsons assessment Presence of intraocular lens Dec Patient Care Teams Name Effective Dates (start - stop) Status Members No Information
--- OUTSIDE RECORDS SUMMARY | 2025-04-01 12:11 | XMS_ITS | Encounter Summary ---
Author Organization [facility] Address [address] [place] [address] Phone Care Team Providers Care Banquet Captain Name Role Phone Abhijit [place] MD [facility] Glenda Gonsalez APRN Primary Care Provider [phone] Reason for Referral * Radiology Services (Routine) - Closed Specialty Diagnoses / Procedures Referred By Contac t Referred To Contact Radiology Diagnoses Visit for screening mammogram Procedures MAGDALENA SCREENING BILATERAL DIGITAL W CAD W Manpreet Carroll MD [address] [place] [address] Phone: tel: fax: Referral ID Status Reason Start Date Expiration Date Visits Re quested Visits Authorized [id number] Closed 03/21/2025 1 1 * Radiology Services (Routine) - Closed Specialty Diagnoses / Procedures Referred By Contdhara t Referred To Contact Radiology Diagnoses Visit for screening mammogram Procedures MAGDALENA SCREENING BILATERAL DIGITAL W CAD W Manpreet Carroll MD [address] [place] [address] Phone: tel: fax: Referral ID Status Reason Start Date Expiration Date Visits Re quested Visits Authorized [id number] Closed 03/21/2025 1 1 Reason for Visit * Radiology Services (Routine) - Closed Specialty Diagnoses / Procedures Referred By Jeri t Referred To Contact Radiology Diagnoses Visit for screening mammogram Procedures MAGDALENA SCREENING BILATERAL DIGITAL W CAD W SIDDHARTHA Manpreet Sanderson MD [address] [place] [address] Phone: tel: fax: Referral ID Status Reason Start Date Expiration Date Visits Re quested Visits Authorized [id number] Closed 03/21/2025 1 1 Encounter Details Date Type Department Care Team ([facility] Contact Info) Description 04/01/2025 12:11 PM CDT Hospital Encounter [facility] Mammography [address] [place] [address] Manpreet Sanderson MD [address] [place] [address] Arrived Social History Tobacco Use Types Packs/Day Years [...] 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 Not on file Not on file documented as of this encounter Plan of Treatment Upcoming Encounters Date Type Department Care Team (Late Contact Info) Description 10/05/2025 1:30 PM CDT [facility] [address] [place] [address] Jose David Heller MD [address] [place] [address] Pending Results Name Type Priority Associated Diagnoses Date /Time MAGDALENA SCREENING BILATERAL DIGITAL W CAD W SIDDHARTHA Imaging Routine Visit for screening mammogram 04/01/2025 2:35 PM CDT Scheduled Orders Name Type Priority Associated Diagnoses Orde r Schedule MAGDALENA SCREENING BILATERAL DIGITAL W CAD W SIDDHARTHA Imaging Routine Visit for screening mammogram 1 Occurrences starting 03/21/2025 MAGDALENA SCREENING BILATERAL DIGITAL W CAD W SIDDHARTHA Imaging Routine Visit for screening mammogram 1 Occurrences starting 04/01/2025 until 04/01/2025 documented as of this encounter Visit Diagnoses Diagnosis Visit for screening mammogram Other screening mammogram documented in this encounter Care Teams Banquet Captain Relationship Specialty Start Date End Date Glenda Gonsalez APRN [address] [place] [address] PCP - General Advanced Practice Nurse 03/30/25 Abhijit [place] MD Consulting Physician Gastroenterology 01/14/16 documented as of this encounter
--- OUTSIDE RECORDS SUMMARY | 2025-04-01 14:15 | XMS_ITS | Encounter Summary ---
Author Organization [facility] Address [address] [place] [address] Care Team Providers Care Machine Grainer Name Role Phone Manpreet Sanderson MD Primary Care Provider [phone] Randi Vega MD Unavailable [phone] Ángel Sampson MD PhD Unavailable [phone] Keyla Santa MD Unavailable [phone] Muna Hernandez Unavailable [phone] Kanu Hernandez MD Unavailable [phone] Lila Pedro MD Unavailable Hi Ware MD Unavailable Josef Guardado MD Unavailable [phone] Reason for Visit * Reason Comments Congestive Heart Failure Encounter Details Date Type Department Care Team (Late st Contact Info) Description 04/01/2025 2:15 PM CDT Office Visit [place] [facility] at [address] [place] [address] Elvira Mead MD [address] [place] [address] [address] [place] [address] Pulmonary hypertension (HCC) (Primary Dx); Chronic diastolic congestive heart failure (HCC); Chronic respiratory failure with hypoxia (HCC) Social History Tobacco Use Types Packs/Day Years Used Date Smoking Tobacco: Former Cigarettes 0.8 25 1 [id number] Passive Smoke Exposure: Past Smokeless Tobacco: Never [...] materials from doctor or pharmacy Never 01/01/2024 [facility] Utilities Answer Date Recorded In the past 12 months has e [place], gas, oil, or water [employer] threatened to shut off services in your [...] often do you attend chur ch or buddhism services? More than 4 times per year 09/06/2023 Do you belong to any clubs o r organizations such as mandaen groups, unions, fraternal or athletic groups, or [...] place to sleep or slept in a snf (including now)? No 09/06/2023 Personal Safety Answer Date Recorded Have you ever been in or are you currently in a harmful physical or emotional relationship or is someone making you feel afraid or unsafe? Denies 02/24/2025 Comments No Sex and Gender Information Value Date Recorded Sex Assigned at Not on file Legal Sex Female 12:25 PM FISH INSPECTOR Gender Identity Female 04/12/2021 6:37 PM CDT Sexual Orientation Straight 04/12/2021 6: 37 PM CDT documented as of this encounter Last Filed Vital Signs Vital Sign Reading Time Taken Comments Blood Pressure 143/82 04/01/2025 2:24 PM CDT Pulse 86 04/01/2025 2:24 PM CDT Temperature - - Respiratory Rate 11 04/01/2025 2:24 PM CDT Oxygen Saturation - - Inhaled Oxygen Concentration - - Weight 81 kg (178 lb 8 oz) 04/01/2025 2:24 PM CD T Height 152.4 cm (5') 04/01/2025 2:24 PM CDT Body Mass Index 34.86 04/01/2025 2:24 PM CDT documented in this encounter Progress Notes * Elvira Mead MD - 04/01/2025 2:15 PM CDT Images from the original note were not included. Cardiology Progress Note Reason for Office Visit: Chief Complaint Patient presents with Congestive Heart Failure Pulmonary hypertension PFO TIA History of Present Illness: Alicia Wells is a 79 y.o. female is here for follow up. He has no post cath issues. No swelling or bleeding. Patient is staying active and performs ADLs with no limitations. No cardiac issues or symptoms. Denies any chest discomfort, dysnea, palpitations, dizziness, fatigue or claudication. He denies any PND or Orthopnea or swelling. Patient is compliant with his medications including ASA.Denies any bleeding issues. Her blood pressure is slightly elevated, however apparently according to the daughter, the home blood pressure readings are always in the 100 range for systolic. She is accompanied by her daughter today. She keeps track of her weight. She had a recent Lithotripsy with laser for renal stones. She is on O2 at night for chronic respiratory failure. She was seen on consultation y Dr. Ferris in April2024 for low oxygen saturation and suggested pulmonary consultation and may a possible right heart cath was floated but not ordered and concretely decided. 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 She says its a culmination of a lot of things including like shoulder surgeries since January 2023 and August 2022, has TIA in April and CHF in March 2023. She also had a UTI and was treated with antibiotics. Past Medical History: Diagnosis Date 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 ([facility]) 03/19/2023 Anemia Anxiety 1989 Anxiety and depression Bronchial pneumonia 1962 CHF (congestive heart failure) (HCC) 2022 Chronic pain disorder 20 + yrs Colon polyp Crohn's disease (HCC) Depression 2010 Diphtheria Young Child Diverticulosis DJD (degenerative joint disease) Dysphagia Fatigue + years GERD (gastroesophageal reflux disease) Belarusian measles 1957 Heart murmur HL (hearing loss) 5 + yrs Hyperlipidemia Hypertension Irritable bowel syndrome Memory loss 2018 Migraine Mumps 1975 Obesity Obesity hypoventilation syndrome (HCC) 11/14/2023 Other intra-abdominal and pelvic swelling, mass and lump Parkinson's disease (HCC) + yrs Parkinsonism ([facility]) Peripheral neuropathy 2014 Peripheral vascular disease Reflux Not sure - multiple years Restless leg syndrome 10 + yrs Tremors of nervous system 5 + yrs Urinary tract infection Normal coronary angiography Normal LV function Normal LV filling pressures Pulmonary hypertension, PVR 4 miles units (January 2025) Family and Social history Family History Problem Relation Age of Onset Tremor Mother Hypertension Mother Hypertension; Stroke Mother COPD Mother Emphysema Mother Depression Mother Heart attack Mother Asthma Mother Arthritis Mother Heart disease Mother Memory loss Mother Car Accident Father Cancer Other Family history of Cancer; Heart disease Other Family history of Heart problems; Hypertension Other Family history of Hypertension; Lung disease Other Family history of Lung problems; Cancer Maternal Grandmother Depression Brother Asthma Brother Asthma Daughter Social History Tobacco Use Smoking status: Former Current packs/day: 0.00 Average packs/day: 0.8 packs/day for 25.0 years (18.8 ttl pk-yrs) Types: Cigarettes Start date: 1964 Quit date: 1989 Years since quittin.7 Passive exposure: Past Smokeless tobacco: Never Substance and Sexual Activity Drug use: Yes Types: Tobacco Sexual activity: Defer Alcohol Use: Not At Risk (09/10/2024) AUDIT-C Frequency of Alcohol Consumption: Never Average Number of Drinks: Patient does not drink Frequency of Binge Drinking: Not on file Allergies Allergen Reactions Antihistamines - Alkylamine Palpitations Celebrex [Celecoxib] Rash Aspirin is a home med Hydrochlorothiazide Rash Aldactone [Spironolactone] Other (See comments) Makes me goofy Dexbrompheniramine-Pseudoephed Other (See comments) Racing pulse Pheniramine Other (See comments) Fast pulse rate Tramadol Other (See comments) Potential to cause seizures Reaction: Contraindicated with Zoloft, Medications: Current Outpatient Medications Medication Sig Dispense Refill acetaminophen (TYLENOL) 500 mg tablet Take 1 tablet (500 mg total) by mouth every 6 (six) hours as needed for pain aspirin 81 mg chewable tablet Take 1 tablet (81 mg total) by mouth 2 (two) times a day for 14 days Resume once daily after 2 weeks baclofen (LIORESAL) 10 mg tablet Take 5-10 mg 10-15 minutes before eating meals to see if it helps with less swallowing issues. Do not exceed 30 mg in a day. (Patient taking differently: Take 0.5-1 tablets (5-10 mg total) by mouth 3 (three) times a day as needed (swallowing) Take 5-10 mg 10-15 minutes before eating meals to see if it helps with less swallowing issues. Do not exceed 30 mg in a day.) 90 tablet 1 carbidopa-levodopa (SINEMET) 25-100 mg per tablet TAKE 2 TABLETS BY MOUTH THREE TIMES DAILY 180 tablet 3 carvediloL (COREG) 6.25 mg tablet Take 1 tablet (6.25 mg total) by mouth 2 (two) times a day cholecalciferol (VITAMIN D-3) 2000 unit capsule Take 1 capsule (2,000 Units total) by mouth daily clorazepate (TRANXENE) 3.75 mg tablet Take 1 tablet (3.75 mg total) by mouth 3 (three) times a day as needed for anxiety cycloSPORINE (RESTASIS) 0.05 % ophthalmic emulsion 1 drop 2 (two) times a day furosemide (LASIX) 40 mg tablet Take 1 tablet (40 mg total) by mouth 2 (two) times a day At 6 am and 2 pm 60 tablet 11 gabapentin (NEURONTIN) 300 mg capsule Take 1 capsule (300 mg total) by mouth 2 (two) times a day HYDROcodone-acetaminophen (NORCO) 5-325 mg per tablet Take 1 tablet by mouth every 4 (four) hours as needed for pain 30 tablet 0 Lactobacillus acidophilus (PROBIOTIC ORAL) Take 1 tablet by mouth daily multivit with min-folic acid 0.4 mg tablet Take 1 tablet by mouth daily. Indications: treatment to prevent mineral deficiency nitrofurantoin monohydrate (MACROBID) 100 mg capsule Take 1 capsule (100 mg total) by mouth daily omeprazole (PriLOSEC) 40 mg capsule Take 1 capsule (40 mg total) by mouth 2 (two) times a day Takes2 tablets ondansetron ODT (ZOFRAN-ODT) 4 mg disintegrating tablet Take 1 tablet (4 mg total) by mouth every 6(six) hours as needed for nausea or vomiting 30 tablet 1 oxybutynin XL (DITROPAN XL) 15 mg 24 hr tablet Take 1 tablet (15 mg total) by mouth daily oxygen Administer 2 L into each nostril as needed (dyspnea) 2L O2 PRN for dyspnea during the day; 3L continous at night. potassium chloride ER (KLOR-CON) 20 mEq CR tablet Take 2 tablets (40 mEq total) by mouth 2 (two) times a day 120 tablet 11 senna-docusate (PERICOLACE) 8.6-50 mg 1-2 times daily as needed for constipation 60 tablet 1 sertraline (ZOLOFT) 100 mg tablet Take 1 tablet (100 mg total) by mouth daily sulfamethoxazole-trimethoprim (BACTRIM DS) 800-160 mg per tablet Take 1 tablet (160 mg of trimethoprim total) by mouth 2 (two) times a day rx [id number] trimethoprim (TRIMPEX) 100 mg tablet Take 1 tablet (100 mg total) by mouth bedtime ascorbic acid (VITAMIN C) 500 mg tablet,chewable Take 1 tablet/chew tab (500 mg total) by mouth 2 (two) times a day 60 tablet/chew tab 0 No current facility-administered medications for this visit. Review of Systems: Constitutional: Negative for fever, chills, malaise/fatigue, and diaphoresis. Weight loss or Weightgain. Cardiovascular: Negative for chest pain, Negative for palpitations and syncope. Respiratory: Negative for cough and sputum production. Negative for shortness of breath. Gastrointestinal: Negative for nausea, vomiting, abdominal pain and diarrhea. Neurological: Negative for dizziness, focal weakness, tremors, and loss of consciousness. Vital Signs: Vitals BP 143/82 (BP Location: Right arm, Patient Position: Sitting) Pulse 86 Resp 11 Ht 152.4 cm (5') Wt 81 kg (178 lb 8 oz) BMI 34.86 kg/m?? Vitals: 04/01/25 1424 BP: 143/82 Pulse: 86 Resp: 11 Wt Readings from Last 3 Encounters: 04/01/25 81 kg (178 lb 8 oz) 02/24/25 80.7 kg (178 lb) 01/16/25 79.4 kg (175 lb) Physical Exam: General: Well developed, well nourished, in no acute distress, oriented to person, place, and time. Lungs: Clear to auscultation and percussion. Respirations unlabored Cardiac: PMI and JVP normal, S1 and S2 normal, no murmur, no gallop or rub Abd: Soft, nontender, BS active, no hepatosplenomegaly or masses, no abdominal bruit or enlarged aortic pulsation Extremities: No clubbing, cyanosis. No edema. Femoral pulses 2+. Pedal pulses 2+ Right groin is clean with no swelling or hematoma or bruit. Labs: Lab Results Component Value Date CHOL 179 03/17/2023 TRIG 65 03/17/2023 HDL 46 03/17/2023 Lab Results Component Value Date TSH 1.96 03/31/2020 Testing: CARDIOGRAPHICS: ECHO: CONCLUSIONS: Normal left ventricular systolic function with no focal wall motion abnormalities. Normal left ventricular size. Mild concentric left ventricular hypertrophy. Ejection fraction is visually estimated at 65 %. Mild enlargement of right ventricle. There is mild enlargement of right atrium. Saline contrast study performed with evidence of late appearance of bubbles in the left ventricle consistent with small right to left shunt. Mild mitral valve regurgitation. Mild aortic valve regurgitation. Moderate pulmonary hypertension based on right ventricular systolic pressure. Estimated peak RVSP is 60 mmHg. Mild tricuspid regurgitation. Electronically Signed By: Jack Barajas MD 2023-07-03 13:48:29 FISH INSPECTOR ECHO: CONCLUSIONS: Normal left ventricular systolic function with [...] regurgitation. Electronically Signed By: Miguel Sotelo MD [facility] 10/29/2024 4:29:06 PM CDT CARDIAC CATHETERIZATION 02/24/2025 PROCEDURES PERFORMED 1. Left heart catheterization. 2. Right heart catheterization including hemodynamics, oximetry and cardiac output with a thermodilution technique 3. Left ventriculogram. 4. Selective coronary angiography. 5. Angio-Seal Closure device to the right femoral arteriotomy site. 6. Manual compression of the right femoral venous sheath site. LEFT HEART CATHETERIZATION SUMMARY FINDINGS 1. Normal [...] patient to the primary MD and her community health navigator for further management of pulmonary hypertension. Elvira Mead MD Impression and Plan: I had a detailed discussion with the patient about all the relevant issues here, reviewed all the data, including clinical presentation, exam findinds, test/lab results and current management and offered advice. Continue with current cardiac management with suggested changes and or recommendations. Patient is doing well cardiac pimentel with no symptoms. No angina or CHF. Blood pressure is mildly elevated, however apparently her home blood pressure readings are good according to the daughter. Recommended to them to monitor the pressures. PFO explained. Results of the cardiac catheterization explained to the patient and her daughter. I have also suggested to contact the primary MD or community health navigator to review the results of the catheterization for anyadditional recommendations. Diagnoses and all orders for this visit: Pulmonary hypertension (HCC) (Primary) Chronic diastolic congestive heart failure (HCC) Chronic respiratory failure with hypoxia (HCC) Plan: Continue same medication regimen. Continue tight control of blood pressure and cholesterol. Continue diet, exercise, and weight maintenance. Risk factor modification strategy discussed with the patient. It included weight reduction through exercise and dietary discretion, optimal control ofhypertension, lipid status. Follow up with Dr. Chaz MD. Congestive heart failure symptom monitoring at home explained including watching daily weight, symptoms of dysnea and swelling in the lower extremities. Smart use of lasix explained as well. Call with worsening or persisting symptoms. ECHO results reviewed and reassured. Follow up with me 12 months or earlier with new symptoms. Thank you for the consultation, if I may be of any further help, please do not hesitate to contact, Elvira Mead MD Cc:Manpreet Sanderson MD 04/01/2025 documented in this encounter Plan of Treatment Not on file documented as of this encounter Visit Diagnoses Diagnosis Pulmonary hypertension (HCC)- Primary Other chronic pulmonary heart diseases Chronic diastolic congestive heart failure (HCC) Chronic respiratory failure with hypoxia (HCC) documented in this encounter Care Teams Machine Grainer Relationship Specialty Start Date End Date Manpreet Sanderson MD PCP - General Family Practice 01/22/23 Randi Vega MD Consulting Physician Gastroenterology 01/22/23 Ángel Sampson MD PhD [address] [place] [address] Referring Physician Neurology 01/22/23 Keyla Santa MD [address] [place] [address] Consulting Physician Internal Medicine 01/22/23 Muna Hernandez PA [address] [place] [address] [address] [place] [address] Orthopedic Surgery 02/22/23 Kanu Hernandez MD [address] [place] [address] [address] [address] Consulting Physician Neurology 03/19/23 Lila Pedro MD [address] [place] [address] [place] [address] Consulting Physician Sleep Medicine 03/19/23 Hi Ware MD [address] [place] [address] [place] [address] Consulting Physician Pulmonary Disease 04/27/23 Josef Guardado MD [address] [address] [address] Surgeon Orthopedic Surgery 09/07/23 documented as of this encounter
--- OUTSIDE RECORDS SUMMARY | 2025-04-01 15:09 | XMS_ITS | Clinical Summary ---
Author Organization [facility] Address [address] [place] [address] Care Team Providers Care Fairground Operator Name Role Phone Manpreet Sanderson MD Primary Care Provider + [phone] Randi Vega MD Unavailable [phone] Ángel Sampson MD PhD Unavailable + [phone] Keyla Santa MD Unavailable [phone] Muna Hernandez Unavailable [phone] Kanu Hernandez MD Unavailable [phone] Lila Pedro MD Unavailable Hi Ware MD Unavailable Josef Guardado MD Unavailable [phone] Allergies Active Allergy Reactions Criticality Noted Date [...] mouth daily Active Lactobacillus acidophilus (PROBIOTIC ORAL)Indications:g [facility] health Take 1 tablet by mouth daily [...] Active Additional Information Patient not taking.Reported on 04/01/2025 carbidopa-levodopa (SINEMET) 25-100 mg per tabletIndications: Parkinsonism [...] by mouth nightly 30 tablet 11 12/12/19 25 026 Active baclofen (LIORESAL) 5 mg tabletIndications: [...] 30 tablet 2 02/25/20 25 025 Active Active Problems Problem Noted Date Diagnosed [...] 05/18/2022 Assessment & Plan (05/18/2022 8:14 AM GLASS WOOL BLANKET MACHINE FEEDER): She has subjective cognitive complaints including difficulty [...] challenges over the last few years. 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 Plan as phrased to the patient and her son: Continue carbidopa-levodopa 25-100mg 2 tabs three times daily as you are doing. Add carbidopa-levodopa 50-200mg CR 1 tablet at bedtime. Send an update in a few weeks by Narayan. Ask your PCP for referral to record label intern for itchy and flaky scalp. Once UTI [...] with instructions on how to access the [employer] exercise channel. Finally, she endorses inadequate management of anxiety and we reviewed that she can discuss increasing sertraline as tolerated at upcoming PCP visit as Dr. Sanderson manages this medication. Recommendations: Once UTI resolved, can trial increasing C/L from 2 tabs TID to 2.5 tabs TID while monitoring for side effects PT referral [employer] exercise channel access information provided Follow-up in [...] with instructions on how to access the [employer] exercise channel. Finally, she endorses frustration with [...] update our office in 4 weeks APDA [employer] exercise channel access information provided Will order physical therapy for gait/balance training, strength and stretching once cleared from recent left shoulder surgery - patient to notify our office once cleared for referral entry NPT today Assessment & Plan (05/18/2022 8:04 AM GLASS WOOL BLANKET MACHINE FEEDER): She has parkinsonism stage 4 characterized by [...] (06/17/2021): Added automatically from request for surgery [id number] Memory loss 05/09/2021 Cyst of ovary 12/28/2020 Urinary incontinence 12/28/2020 Other intra-abdominal and pelvic swelling, mass and lump 04/08/2020 Overview (04/08/2020): Added automatically from request for surgery [id number] History of colonic polyps 06/05/2019 Overview (06/05/2019): Added automatically from request for surgery [id number] Assessment & Plan (06/05/2019 3:16 PM GLASS WOOL BLANKET MACHINE FEEDER): She is overdue for a screening colonoscopy. [...] 03/06 Assessment & Plan (06/05/2019 3:16 PM GLASS WOOL BLANKET MACHINE FEEDER): Continue taking fiber daily. Will have her [...] 9 Assessment & Plan (06/05/2019 3:15 PM GLASS WOOL BLANKET MACHINE FEEDER): Well controlled on omeprazole daily. She may [...] (03/06/2019): Added automatically from request for surgery [id number] Assessment & Plan (06/05/2019 3:14 PM GLASS WOOL BLANKET MACHINE FEEDER): Doing well. No recent episodes. Assessment & Plan (04/03/2019 3:13 PM CDT): Not as severe or often as previously. She says she noticed that this occurs when she is constipated. Will try to improve constipation and see if this improves pain further. 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) 6 Paresthesia of foot 04/21/2015 Overview (01/22/2023): Paresthesia of both feet Overview: Paresthesia of both feet Encounters Date Type Department Care Team Description 04/01/2025 2:15 PM CDT Office Visit [place] [employer] [facility] at [facility] [address] [facility] [address] [place] [address] Elvira Mead MD Pulmonary hypertension (HCC) (Primary Dx); Chronic diastolic congestive heart failure (HCC); Chronic respiratory failure with hypoxia (HCC) 04/01/2025 Telephone [facility] Pulmonary at [place] [address] [facility] [address] [place] [address] Olimpia Oroczo LPN Cardiac Cath 02/24/2025 10:00 AM CDT - 02/24/2025 11:05 AM CDT Surgery [facility] Cardiac Catheterization [address] [place] [address] Elvira Mead MD Right Left Heart Catheterization with Coronary Angiography with or without Left Ventriculography [id number] 02/24/2025 9:04 AM CDT - 02/24/2025 2:05 PM CDT Hospital Encounter [facility] Cardiac Catheterization [address] [place] [address] Elvira Mead MD Pulmonary hypertension (HCC) Discharge Disposition: Discharge to home or self care 02/20/2025 2:16 PM CDT - 02/20/2025 11:59 PM CDT Hospital Encounter [facility] Cardiology [address] [place] [address] Pulmonary hypertension (HCC) Discharge Disposition: Discharge to home or self care 02/20/2025 2:15 PM CDT Lab [address] [address] Pulmonary hypertension (HCC); Angina pectoris, unspecified 02/02/2025 Telephone [facility] [address] [facility] 7th [place] [address] Sana Navarrete RN 01/16/2025 2:30 PM CDT Office Visit [place] [employer] [employer] at [address] [place] [address] Elvira Mead MD Chronic diastolic congestive heart failure (HCC) (Primary Dx); Pulmonary hypertension (HCC); Chronic respiratory failure with hypoxia (HCC); TIA (transient ischemic attack); Shortness of breath 01/14/2025 1:00 PM CDT Office Visit [facility] Pulmonary at [address] [place] [id number] Muriel Cabrera NP Chronic respiratory failure with hypoxia, on home O2 therapy (HCC) (Primary Dx); Obesity hypoventilation syndrome (HCC); Pulmonary hypertension (HCC) 01/12/2025 Telephone [facility] Gastroenterology at [address] [place] [address] [facility] [facility] [place] [facility] Last 3 Months Immunizations Immunization Administration [...] SURGERY 1951 JOINT REPLACEMENT Knees 2013 & 2015 SHOULDER SURGERY 2022 - CARDIAC CATHETERIZATION 02/24/2025 N/A Procedure: Right Left Heart Catheterization with Coronary Angiography with or without Left Ventriculography [id number]; Surgeon: Elvira Mead MD; Location: [facility]; Service: Cardiovascular; Laterality: N/A; Medical devices from this surgery are in the Medical Devices section. 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 ([facility]) 03/19/2023 Obesity hypoventilation syndrome ([facility]) Restless leg syndrome 10 + yrs Depression 2009 Parkinson's disease ([facility]) + yrs Fatigue + years HL (hearing loss) 5 + yrs Chronic pain disorder 20 + yrs Reflux Not sure - multiple years Peripheral neuropathy 2014 Memory loss 2019 Tremors of nervous system 5 + yrs Anxiety 1989 Crohn's disease ([facility]) CHF (congestive heart failure) ([facility]) 2022 Family History Medical History Relation Name Comments Asthma Brother 3 Jeffery Piper Depression Brother 3 Jeffery Piper Asthma Daughter 2 Apoorva Chica Car Accident Father Dorian Cancer Maternal Grandmother Alisa Richards Arthritis Mother Erica Piper Asthma Mother Erica [...] materials from doctor or pharmacy Never 01/01/2024 [facility] Utilities Answer Date Recorded In the past 12 months has th e [employer], gas, oil, or water [employer] threatened to shut off services in your [...] week 09/06/2023 How often do you attend [facility] ch or congregation services? More than 4 times per year 09/06/2023 Do you belong to any clubs o r organizations such as bahai groups, unions, fraternal or athletic groups, or [...] on file Legal Sex Female 12:25 PM GLASS WOOL BLANKET MACHINE FEEDER Gender Identity Female 04/12/2021 6:37 PM CDT Sexual Orientation Straight 04/12/2021 6: 37 PM CDT Obstetrics History Last Filed Vital Signs Vital Sign Reading Time Taken Comments Blood Pressure 143/82 04/01/2025 2:24 PM CDT Pulse 86 04/01/2025 2:24 PM CDT Temperature 36.1 C (97 F) 02/24/2025 9:28 AM CDT Respiratory Rate 11 04/01/2025 2:24 PM CDT Oxygen Saturation 95% 02/24/2025 1:15 PM CDT Inhaled Oxygen Concentration - - Weight 81 kg (178 lb 8 oz) 04/01/2025 2:24 PM CD T Height 152.4 cm (5') 04/01/2025 2:24 PM CDT Body Mass Index 34.86 04/01/2025 2:24 PM CDT Plan of Treatment Health Maintenance [...] history exists Medical Devices Implanted Type Area Final Expense Agent Device Identifier Shelf Expiration Date Model / Serial / Lot Lens Implants W/Cataract Extraction Bilateral: Eye Exactech Equinoxe 13mm Press Fit Primary Shoulder Stem Humeral 300-01-13 - [id number] - [id number] Implanted:Qty: 1 on 02/22/2023 by Josef Guardado MD at [facility] Left: Shoulder Exactech 06/14/2032 300-01-13 / [id number] / Exactech Equinoxe 36mm Shoulder 0mm Offset Liner Humeral Sterile 320-36-00 - [id number] - [id number] Implanted:Qty: 1 on 02/22/2023 by Josef Guardado MD at [facility] Left: Shoulder Exactech 07/18/2027 320-36-00 / [id number] / [employer] Bioprep Preparation Plug Yeast Cake Cutter [place] Curette Suction Femoral [id number] - [id number] Implanted:Qty: 1 on 02/22/2023 by Josef Guardado MD at [facility] Left: Shoulder [employer] [id number] / / [id number] Exactech Equinoxe Small Reverse Superior Augment Shoulder 10d Plate 320-35-02 - [id number] - [id number] Implanted:Qty: 1 on 02/22/2023 by Josef Guardado MD at [facility] Left: Shoulder [employer]ech 08/28/2032 320-35-02 / [id number] / Exactech Reverse Torque Define Shoulder Kit Screw 320-20-00 - [id number] - [id number] Implanted:Qty: 1 on 02/22/2023 by Josef Guardado MD at [facility] Left: Shoulder [employer]ech 12/12/2027 320-20-00 / [id number] / Exactech Equinoxe Lock Reverse Shoulder Glenosphere Screw Bone 320-15-05 - [id number] - [id number] Implanted:Qty: 1 on 02/22/2023 by Josef Guardado MD at [facility] Left: Shoulder [employer]ech 12/20/2027 320-15-05 / [id number] / Exactech Equinoxe 4.5mm 34mm Kit Compression Lock Cap Reverse Shoulder 320-20-34 - [id number] - [id number] Implanted:Qty: 1 on 02/22/2023 by Josef Guardado MD at [facility] Left: Shoulder [employer]ech 03/15/2027 320-20-34 / [id number] / Exactech Equinoxe 4.5mm 22mm Kit Compression Lock Cap Reverse Shoulder 320-20-22 - [id number] - [id number] Implanted:Qty: 1 on 02/22/2023 by Josef Guardado MD at [facility] Left: Shoulder Exactech 01/09/2028 320-20-22 / [id number] / Exactech Component 36mm Glenoid Glenosphere Reverse Shoulder 320-31-36 - [id number] - [id number] Implanted:Qty: 1 on 02/22/2023 by Josef Guardado MD at [facility] Left: Shoulder Exactech 09/20/2032 320-31-36 / [id number] / Exactech Equinoxe Reverse Shoulder +0mm Tray Humeral Adapter 320- - [id number] - [id number] Implanted:Qty: 1 on 02/22/2023 by Josef Guardado MD at [facility] Left: Shoulder Exactech 10/15/2032 320-10- / [id number] / Exactech Liner Humeral Reverse Equinoxe +0x36mm 320-36-10 - [id number] - [id number] Implanted:Qty: 1 on 09/06/2023 by Josef Guardado MD at [facility] Left: Shoulder Exactech [id number] 01/16/2027 320-36-10 / [id number] / Exactech Equinoxe Lock Reverse Shoulder Glenosphere Screw Bone 320-15-05 - [id number] - [id number] Implanted:Qty: 1 on 09/06/2023 by Josef Guardado MD at [facility] Left: Shoulder Exactech [id number] 07/07/2028 320-15-05 / [id number] / Exactech Equinoxe 36mm 26.1mm Expand Small Reverse Shoulder Sphere Glenoid 320-32-36 - [id number] - [id number] Implanted:Qty: 1 on 09/06/2023 by Josef Guardado MD at [facility] Left: Shoulder Exactech [id number] 12/18/2032 320-32-36 / [id number] / General Blood Angio-Seal Vip 6fr Closere Device [id number] - [id number] Implanted:Qty: 1 on 02/24/2025 by Elvira Mead MD at [facility] General Blood 09/29/2025 [id number] / / [id number] Procedures Procedure Name Priority Date/Time Associated Diagnosis [...] Angina pectoris, unspecified COLONOSCOPY 05/30/2022 10:19 AM GLASS WOOL BLANKET MACHINE FEEDER from Last 3 Months or Most Recently [...] sheath site. GROIN Right groin. SHEATH A 5-Cuban sheath in the right femoral artery for the diagnostic portion. 7-Cuban sheath in the right femoral vein MODERATE SEDATION: Patient received 2 mg of Versed and 50 mcg of fentanyl were utilized to induce moderate sedation for a procedure duration of 23 minutes that was completely supervised. LEFT HEART CARDIAC CATHETERIZATION After obtaining informed consent and administering lidocaine to the right groin, a 5-Cuban sheath was introduced into the right femoral artery and a 7 Cuban sheath in the right femoral vein using [...] mmHg. RIGHT HEART CARDIAC CATHETERIZATION Subsequently a [place]oretta catheter is used to advance into the [...] patient to the primary MD and her hospice/home health aide for further management of pulmonary hypertension. Elvira Mead MD Elvira Mead MD CV CARDIAC CATH PROCEDURES Final Result * Oxyhemoglobin, central venous (02/24/2025 10:25 AM CDT) Oxyhemoglobin, CV 91.0 % Comment: Interpretive Data No reference range established. Current interpretive data was last revised 2019. Blood 02/24/2025 10:2 5 AM CDT 02/24/2025 10:34 AM CDT Narrative [facility] - 02/24/2025 10:40 AM CDT RA Elvira Mead MD LAB BLOOD ORDERABLES Final Result Performing Organization Address City/[facility]/ZIP Co de Phone Number ANNA ARMANDO ([place]) [address] [facility] [address] [place] [address] * Oxyhemoglobin, pulmonary artery (02/24/2025 10:20 AM CDT) Oxyhemoglobin, PA 89.4 % Comment: Interpretive Data No reference range established. Current interpretive data was last revised 2019. Blood 02/24/2025 10:2 0 AM CDT 02/24/2025 10:34 AM CDT Elvira Mead MD LAB BLOOD ORDERABLES Final Result [facility] ([place]) 1 [facility] [place] [address] * Oxyhemoglobin, central venous (02/24/2025 10:17 AM CDT) Oxyhemoglobin, CV 97.3 % Comment: Interpretive Data No reference range established. Current interpretive data was last revised 2019. Blood 02/24/2025 10:1 7 AM CDT 02/24/2025 10:34 AM CDT Narrative [facility] ([place]) - 02/24/2025 10:42 AM CDT PCW Elvira Mead MD LAB BLOOD ORDERABLES Final Result Performing Organization Address City/[facility]/ZIP Co de Phone Number [facility] ARMANDO ([place]) [address] [facility] Department [place] [address] * ECG 12 lead (02/20/2025 2:54 PM CDT) 02/20/2025 2:28 PM CDT Narrative [facility] - 02/20/2025 3:59 PM CDT Vent Rate: 80 bpm RR Interval: 745 msec SC Interval: 164 msec QRS Duration: 92 msec QT Interval: 349 msec QTC Interval: 385 msec P-R-T [place]: 53 - -82 - 30 degrees IMPRESSION: [...] Mead MD ECG ORDERABLES Final Resu lt Performing Organization Address City/[facility]/ZIP Co de Phone Number [facility] [place] [facility] * eGFR (02/20/2025 2:20 PM [...] Mead MD LAB BLOOD ORDERABLES Final Result [facility] ([place]) [address] [facility] [place] [address] * (ABNORMAL) Differential, auto (02/20/2025 2:20 PM [...] revised on 2017. Monocyte pct 13.4 % [facility] ([place]) Comment: Interpretive Data Percent cell [...] revised on 2017. Basophil pct 0.5 % [facility] ([place]) Comment: Interpretive Data Percent cell count reference ranges are not reported, since discordance with absolute values may lead to misinterpretation of CBC data. Current Interpretive Data was last revised on 2017. Blood 02/20/2025 2:20 PM CDT 02/20/2025 3:23 PM CDT us Elvira Mead MD LAB BLOOD ORDERABLES Final Result ANNA ARMANDO ([place]) [address] [facility] [place] [address] * (ABNORMAL) CBC with auto differential (02/20/2025 2:20 PM CDT) WBC 6.13 3.80 - 9.90 K/cumm Hgb 13.8 11.9 - 15.5 g/dL [facility] ([place]) Hct 43.8 35.6 - 45.5 % [facility] ([place]) Plt 215 150 - 400 K/cumm [facility] ([place]) MPV 10.3 9.1 - 12.3 fL [facility] ([place]) RBC 4.62 3.90 - 5.20 M/cumm ANNA ARMAND[facility] ([place]) MCV 94.8 81.3 - 96.4 fL [facility] ([place]) MCH 29.9 27.1 - 33.3 pg [facility] ([place]) MCHC 31.5(L) 32.3 - 35.7 g/dL [facility] ([place]) RDW CV 13.4 11.1 - 14.9 % [facility] ([place]) RDW SD 47.0 35.7 - 48.1 fL [facility] ([place]) NRBC abs 0.00 0.00 - 0.01 K/cumm [facility] ([place]) Blood 02/20/2025 2:20 PM CDT 02/20/2025 3:23 PM CDT Elvira Mead MD LAB BLOOD ORDERABLES Final Result Performing Organization Address [facility] de Phone Number ANNA [facility] ([place]) [address] [facility] [place] [address] * Protime-INR (02/20/2025 2:20 PM CDT) PT 12.2 10.2 - 13.5 sec ANNA [facility] ([place]) INR 1.08 0.90 - 1.20 [facility] ([place]) Comment: Interpretive data Oral anticoagulant therapeutic ranges: Venous thromboembolism prophylaxis or treatment: 2.0-3.0 CARDIOLOGY Standard range: 2.0-3.0 High-intensity range: 2.5-3.5 Refer to indication-specific guidelines for appropriate target ranges for prosthetic heart valve replacement. Current interpretive data was last revised on 2019. Blood 02/20/2025 2:20 PM CDT 02/20/2025 3:23 PM CDT Elvira Mead MD LAB BLOOD ORDERABLES Final Result [facility]ANDO ([place]) [address] [facility] [place] [address] * (ABNORMAL) Basic metabolic panel (02/20/2025 2:20 PM CDT) Sodium 140 135 - 145 mmol/L [facility] ([place]) Potassium, pl 4.3 3.3 - [...] ([place]) Glucose 95 70 - 199 mg/dL [facility] ([place]) Comment: Interpretive Data Fasting glucose [...] classification and Diagnosis of Diabetes Diabetes Care 2021; 46: S19-S40. Current interpretive data was last revised 2022. Calcium 8.5 8.5 - 10.3 mg/dL [facility] ([place]) Blood 02/20/2025 2:20 PM CDT 02/20/2025 3:23 PM CDT us Elvira Mead MD LAB BLOOD ORDERABLES Final Result [facility]ANDO ([place]) [address] [facility] [place] [address] * COLONOSCOPY (05/30/2022 10:19 AM GLASS WOOL BLANKET MACHINE FEEDER) Anatomical Region Laterality Modality Other Narrative Procedure Note Randi Vega MD - 05/30/2022 10:19 AM CST [facility] Patient Name: Alicia Wells Procedure Date: 05/30/2022 10:19AM Date of : 1945 Admit Type: Outpatient Age: 76 Gender: Female Attending MD: Randi Vega M.D. Room: [facility] ENDOSCOPY ROOM 1 Note Status: Finalized [...] under direct vision. The Pediatric Colonoscope [id number]-[id number] was introducedthrough the anus and advanced to [...] 10:19 AM Procedure Code(s): --- Professional --- 19495, Colonoscopy, flexible; with biopsy, single or multiple Diagnosis Code(s): --- Professional --- Z86.010, Personal history of colonic polyps K64.8, Other hemorrhoids D12.3, Benign neoplasm of transverse colon (hepatic flexure orsplenic flexure) K57.30, Diverticulosis of large intestine without perforation orabscess without bleeding CPT copyright 2020 [employer]. All rights reserved. The codes documented in this report are preliminary and upon sales and service engineer reviewmay be revised to meet current compliance requirements. Recognized by the [employer] for promoting quality in endoscopy Randi Vega MD ENDOSCOPY PROCEDURES Final Result from Last 3 Months or Most Recently Relevant to Health Maintenance Insurance MEDICARE ADVANTAGE [facility] Address: [id number] [place] [address] [address] [facility] Address: [address] [address] [place] [address] MEDICARE ADVANTAGE MEDICARE ADVANTAGE [facility]IC[facility] Address: [address] [place], [place] [id number] Advance Directives For more information, please contact: [phone] * Full Code (Latest Code Status on [...] 10:11 AM 05/30/2022 4:31 PM Care Teams Fairground Operator Relationship Specialty Start Date End Date Manpreet Sanderson MD PCP - General Family Practice 01/22/23 Randi Vega MD Consulting Physician Gastroenterology 01/22/23 Ángel Sampson MD PhD [address] [place] [address] Referring Physician Neurology 01/22/23 Keyla Santa MD [address] [facility] [address] [place] [address] Consulting Physician Internal Medicine 01/22/23 Muna Hernandez PA [address] [place] [address] [address] [place] [address] Orthopedic Surgery 02/22/23 Kanu Hernandez MD [address] [place] [address] [address] [place] [address] Consulting Physician Neurology 03/19/23 Lila Pedro MD [address] [place] [address] [place] [address] Consulting Physician Sleep Medicine 03/19/23 Hi Ware MD [address] [place] [address] [place] [address] Consulting Physician Pulmonary Disease 04/27/23 Josef Guardado MD [address] [place] [address] [address] [place] [address] Surgeon Orthopedic Surgery 09/07/23
--- OUTSIDE RECORDS SUMMARY | 2025-04-01 15:09 | XMS_ITS | Encounter Summary ---
Author Organization [facility] Address [address] [place] [address] Care Team Providers Care Electrical Assemblies Supervisor Name Role Phone Favoi Randolph MD Primary Care Provider [phone] Nicolas Xiao DO Primary Care Provider [phone] Nathaniel Villatoro MD Primary Care Provider [phone] Manpreet Sanderson MD Primary Care Provider [phone] Randi Vega MD Unavailable [phone] Ángel Sampson MD PhD Unavailable + [phone] Keyla Santa MD Unavailable + [phone] Muna Hernandez Unavailable [phone] Kanu Hernandez MD Unavailable [phone] Lila Pedro MD Unavailable Hi Ware MD Unavailable Josef Guardado MD Unavailable +[phone] Encounter Details Date Type Department Care Team (Late st Contact Info) Description 06/08/2017 Orders Only [facility] [address] [place] [address] Dakotah Carpenter RT Social History Tobacco Use Types Packs/Day Years Used Date Smoking Tobacco: Never Alcohol Use Standard Drinks/Week Comments No 0 (1 standard drink = 0.6 oz pur e alcohol) Comments Unknown Sex and Gender Information Value Date Recorded Sex Assigned at Not on file Legal Sex Female 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 Gender Identity Female 04/12/2021 6:37 PM CDT [...] documented as of this encounter Care Teams Electrical Assemblies Supervisor Relationship Specialty Start Date End Date Favio Randolph MD PCP - General 09/29/16 03/05/19 Nicolas Xiao DO PCP - General Internal Medicine 03/06/19 07/16/22 Nathaniel Villatoro MD PCP - General Internal Medicine 07/17/22 01/21/23 Manpreet Sanderson MD PCP - General Family Practice 01/22/23 Randi Vega MD Consulting Physician Gastroenterology 01/22/23 Ángel Sampson MD PhD [address] [place] [address] Referring Physician Neurology 01/22/23 Keyla Santa MD [address] [facility] [address] [place] [address] Consulting Physician Internal Medicine 01/22/23 Muna Hernandez PA [address] [place] [address] Orthopedic Surgery 02/22/23 Kanu Hernandez MD [address] [facility] [place] [address] Consulting Physician Neurology 03/19/23 Lila Pedro MD [address] [place] [address] Consulting Physician Sleep Medicine 03/19/23 Hi Ware MD [address] [facility] [address] [address] [place] [address] Consulting Physician Pulmonary Disease 04/27/23 Josef Guardado MD [address] [facility] [address] [place] [address] Surgeon Orthopedic Surgery 09/07/23 documented as of this encounter
--- OUTSIDE RECORDS SUMMARY | 2025-04-01 15:10 | XMS_ITS | Clinical Summary ---
Author Organization [facility] Address [address] [address] Phone Care Team Providers Care Unit Manager Rn Name Role Phone Abhijit Elizabeth MD, Billie L APRN Primary Care Provider [phone] Allergies Active Allergy Reactions Criticality Noted Date Comments Dexbrompheniramine-Pseudoeph Other (see Comments) 10/07/2015 Racing pulse Atorvastatin Calcium Other (see Comments) 03/30/2025 Leg pain Hydrochlorothiazide Rash 10/07/2015 Spironolactone Other (see Comments) 03/30/2025 confusion Tramadol Other (see Comments) 10/07/2015 Potential to cause seizures Medications gabapentin (NEURONTIN) 300 MG Capsule 2 6 Active oxybutynin (DITROPAN XL) 15 MG TABLET SR 24 HR 11 6 Active carvedilol (COREG) 6.25 MG Tablet Take [...] (best after shower/ bath) 3 Bottle 3 6 Active omeprazole (PRILOSEC) 20 MG CAPSULE DELAYED RELEASEIndicatio ns:Gastroesophag eal reflux disease, esophagitis presence not specified 1cap po QD 30-60' AC largest meal 90 Cap 0 6 Active Calcium Carb-Cholecalcif mally 600-400 MG-UNIT Chewable TabletIndication s:Gastroesophage al reflux disease, esophagitis presence not specified Take 1 Tab by mouth 3 times daily (with meals). 6 Active ketorolac (TORADOL) 10 MG Tablet Take 10 mg by mouth every 4 hours as needed. Active carbidopa-levodo pa (SINEMET) 25-100 MG Tablet Take 2 Tablets by mouth 3 times daily. Active aspirin EC 81 MG Tablet Delayed Response Take 81 mg by mouth daily. Active clobetasol (TEMOVATE) 0.05 % Cream Apply 2 times daily. Application Site: (Description and Location) Active sennosides (SENOKOT) 8.8 MG/5ML Syrup Take 5 mL by mouth every evening. Active VITAMIN D PO Take by mouth. Ac tive Multiple Vitamin (MULTIVITAMIN PO) Take by mouth. Activ e trimethoprim (TRIMPEX) 100 MG Tablet Take 100 mg by mouth 2 times daily. Active baclofen (LIORESAL) 10 MG Tablet Take 10 mg by mouth 3 times daily. Active potassium chloride SA (KLORCON M) 20 MEQ Tablet Controlled Release Take 20 mEq by mouth daily. 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 Encounters Date Type Department Care Team Description 04/01/2025 12:11 PM CDT Hospital Encounter [facility] [address] [place] [phone] Manpreet Sanderson MD Arrived 04/01/2025 Travel from Last 3 Months Family History Medical History Relation Name Comments Breast Cancer Maternal Grandmother Asthma Mother Heart Disease Mother Hypertension Mother Stroke Mother Relation Name Status Comments Maternal Grandmother Mother [...] 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 Not on file Not on file Last Filed Vital Signs Vital Sign Reading Time Taken Comments Blood Pressure 120/80 01/14/2016 9:58 AM CDT Pulse 64 01/14/2016 9:58 AM CDT Temperature - - Respiratory Rate 14 01/14/2016 9:58 AM CDT Oxygen Saturation - - Inhaled Oxygen Concentration - - Weight 76.2 kg (168 lb) 08/16/2023 12:23 PM PARKING SUPERVISOR Height 160 cm (5' 3) 04/14/2021 1:40 PM CDT Body Mass Index 29.76 04/14/2021 1:40 PM CDT Plan of Treatment Upcoming Encounters Date Type Department Care Team (Late st Contact Info) Description 10/05/2025 1:30 PM CDT Office Visit [facility] - Neurology [facility] [address] [place] [address] Jose David Heller MD [address] [place] [address] Health Maintenance Due Date Last Done Comments Hepatitis C Virus (HCV) Screening 1945 TdaP Immunization 1945 Medicare Initial AWV [id number] 08/30/2020 Pneumococcal Immunization (50+ years) (2 of 2 - PCV) 07/06/2021 07/06/2020, 03/19/2014 Respiratory Syncytial Virus (RSV) Immunization (Adult) (1 - 1-dose 75+ series) 2021 DEXA Bone Density 04/14/2023 04/14/2021, , 12/11/2017 SARS-COV-2 Immunization ( season) 2025 04/11/2024, 11/25/2021, 04/25/2021, Additional history exists DTaP/Tdap/Td Immunization Discontinued 08/12/2017 Zoster Immunization Completed 04/10/2020, 0 Pneumococcal Immunization Combined Discontinued 07/06/2020, 03/19/2014 Colonoscopy Discontinued 05/30/2022, 04/05/2021 Colorectal Cancer Screening Discontinued Mammogram Discontinued 08/16/2023, 06/01, 04/11/2021, Additional history exists Influenza Immunization Completed , 03/27/2024, 04/11/2023, Additional history exists Cologuard Discontinued Hepatitis B [...] Procedure Name Priority Date/Time Associated Diagnosis Comments [facility] SCREENING BILATERAL DIGITAL W CAD W SIDDHARTHA Routine 08/16/2023 12:50 PM PARKING SUPERVISOR Visit for screening mammogram [facility] BONE DENSITOMETRY AXIAL SKELETON Routine 04/14/2021 1:51 PM CDT Asymptomatic menopausal state from Last 3 Months or Most Recently Relevant to Health Maintenance Results * [facility] SCREENING BILATERAL DIGITAL W CAD W SIDDHARTHA (08/16/2023 12:50 PM PARKING SUPERVISOR) Anatomical Region Laterality Modality breast Bilateral Mammography 08/16/2023 12:1 2 PM PARKING SUPERVISOR Narrative 08/17/2023 12:35 PM PARKING SUPERVISOR - [facility] SCREENING BILATERAL DIGITAL W CAD [...] to exams dated: 06/15/2022, 04/11/2021, and 03/12/2020 [facility]. BREAST TISSUE:There are scattered fibroglandular densities [...] signed by: Tanvi Lopez M.D. ll/:08/16/2023 16:29:08 Machine Setter Sheet Metal(s): RT Yaritza(R)(M), [facility] letter sent: Normal Exam Reading location: [facility] BI-RADS: 1 Negative Procedure Note [...] to exams dated: 06/15/2022, 04/11/2021, and 03/12/2020 [facility]. BREAST TISSUE:There are scattered fibroglandular densities [...] signed by: Tanvi Lopez M.D. ll/:08/16/2023 16:29:08 Machine Setter Sheet Metal(s): Whitney Sage RT(R)(M), [facility] letter sent: Normal Exam Reading location: [facility] BI-RADS: 1 Negative us Manpreet Sanderson MD IMG MAMMO ORDERABLES Final Resu lt * [facility] BONE DENSITOMETRY AXIAL SKELETON (04/14/2021 1:51 PM [...] old female with given history of screening. Etiology Teacher/Model: RT[employer] (S/N [id number]) CLINICAL INFORMATION: Current height: 63 inches Weight: [...] Reji Odell M.D. BRAD: BRAD Report ID: [id number] Reading Location: [id number] Procedure Note Reji Odell MD - 04/14/2021 EXAM DESCRIPTION: [facility] BONE DENSITOMETRY AXIAL SKELETON REASON FOR STUDY: 75 year old female with given history of screening. Etiology Teacher/Model: [employer] (S/N [id number]) CLINICAL INFORMATION: Current height: 63 inches Weight: [...] Reji Odell M.D. BRAD: BRAD Report ID: [id number] Reading Location: [id number] IMPRESSION: Low bone mass REFERENCE: Bone mineral [...] and Treatment of Osteoporosis (http://www.nof.org/professionals/clinical-guidelines) Sana Rubio [employer] PARAPROFESSIONAL IMG DEXA ORDERABLES Final Resu lt from Last 3 Months or Most Recently Relevant to Health Maintenance Insurance MEDICARE C [facility] Care Teams Unit Manager Rn Relationship Specialty Start Date End Date Glenda Gonsalez APRN [address] [place] [address] PCP - General Advanced Practice Nurse 03/30/25 Abhijit Elizabeth MD Consulting Physician Gastroenterology 01/14/16
--- OUTSIDE RECORDS SUMMARY | 2025-04-01 15:10 | XMS_ITS | Encounter Summary ---
Author Organization [facility] Address [address] [place] [address] Care Team Providers Care Supervisor Filling And Packing Name Role Phone Manpreet Sanderson MD Primary Care Provider + [phone] Randi Vega MD Unavailable [phone] Ángel Sampson MD PhD Unavailable + [phone] Keyla Santa MD Unavailable +[phone] Muna Hernandez Unavailable [phone] Kanu Hernandez MD Unavailable [phone] Lila Pedro MD Unavailable Hi Ware MD Unavailable Josef Guardado MD Unavailable [phone] Reason for Visit * Reason Onset Date Comments Cardiac Cath 04/01/2025 Encounter Details Date Type Department Care Team (Late st Contact Info) Description 04/01/2025 Telephone [facility] Pulmonary at [address] [place] [address] Olimpia Orozco LPN Cardiac Cath Social History Tobacco Use Types Packs/Day Years [...] materials from doctor or pharmacy Never 01/01/2024 [facility] Utilities Answer Date Recorded In the [...] often do you attend chur ch or alevism services? More than 4 times per year 09/06/2023 Do you belong to any clubs o r organizations such as oriental orthodox groups, unions, fraternal or athletic groups, or [...] place to sleep or slept in a prison (including now)? No 09/06/2023 Personal Safety Answer Date Recorded Have you ever been in or are you currently in a harmful physical or emotional relationship or is someone making you feel afraid or unsafe? 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 Dr Mead wants Dr Ware to look at the cardiac cath results. documented in this encounter Plan of Treatment Not on file documented as of this encounter Visit Diagnoses Not on filedocumented in this encounter Care Teams Supervisor Filling And Packing Relationship Specialty Start Date End Date Manpreet Sanderson MD PCP - General Family Practice 01/22/23 Randi Vega MD Consulting Physician Gastroenterology 01/22/23 Ángel Sampson MD PhD [address] [place] [address] Referring Physician Neurology 01/22/23 Keyla Santa MD [address] [facility] [address] [place] [address] Consulting Physician Internal Medicine 01/22/23 Muna Hernandez PA [address] [place] [address] [address] [place] [address] Orthopedic Surgery 02/22/23 Kanu Hernandez MD [address] [place] [address] [address] [place] [address] Consulting Physician Neurology 03/19/23 Lila Pedro MD [address] [place] [address] [address] [place] [address] Consulting Physician Sleep Medicine 03/19/23 Hi Ware MD [address] [place] [address] [address] [place] [address] Consulting Physician Pulmonary Disease 04/27/23 Josef Guardado MD [address] [place] [address] [address] [place] [address] Surgeon Orthopedic Surgery 09/07/23 documented as of this encounter
--- OUTSIDE RECORDS SUMMARY | 2025-04-01 15:10 | XMS_ITS | Encounter Summary ---
Author Organization [facility] Address [address] [place] [address] Care Team Providers Care Post Partum Nurse Name Role Phone Nicolas Xiao DO Primary Care Provider [phone] Reason for Visit * Reason Onset Date Comments LABS ONLY 04/16/2018 labs may have be en coded wrong Returned Call 04/16/2018 Encounter Details Date Type Department Care Team (Late st Contact Info) Description 04/16/2018 Telephone [facility] [address] [place] [address] Joanne Plata MD [address] [facility] [address] [place] [address] LABS ONLY (labs may have been coded [...] Pt returning missed call from the nurse. Callback#[phone] * Telephone Encounter - Whitney Lima RN [...] on filedocumented in this encounter Care Teams Post Partum Nurse Relationship Specialty Start Date End Date Nicolas Xiao DO PCP - General 02/04/18 documented as of this encounter
--- OUTSIDE RECORDS SUMMARY | 2025-04-01 15:10 | XMS_ITS | Clinical Summary ---
Author Organization [facility] Address [address] [facility] [place] [address] Care Team Providers Care Single Pointed Operator Name Role Phone Nicolas Xiao Primary Care Provider [phone] Source Comments [facility],non-owned Affiliates and Associated Physician Practices is amultiple site organization consisting of ambulatory clinics and hospital sitesin [place], [place], [place] and [place]. This disclosure is being madepursuant to the Care Everywhere program and may not contain all information available regarding this patient. Last updated 18.[facility] Allergies Active Allergy Reactions Criticality Noted Date [...] Patient Date of Phone Billing Address Personal/Family [address] [place] [phone] SELF PAY NO INSURANCE Member Subscriber Plan / Payer (Ef fective for All Dates) Name:Carina Ralph Member ID:Not on file Relation to Subscriber:Not on file Name:CARINA RALPH Subscriber ID:Not on file (Home) Address: [address] [place], [place] [id number] Payer ID:Not on file Group ID:Not on file Type:Self Pay Address: [place], [place] [employer] MANAGED MEDICARE ADV [place] [address] * Guarantor: CARINA RALPH Account Type Relation to Patient Date of Phone Billing Address Personal/Family [address] [place] [address] SELF PAY NO INSURANCE Member Subscriber Plan / Payer (Ef fective for All Dates) Name:Carina Ralph Member ID:Not on file Relation to Subscriber:Not on file Name:CARINA RALPH Subscriber ID:Not on file (Home) Address: [address] [place] [address] Payer ID:Not on file Group ID:Not on file Type:Self Pay Address: [facility] MANAGED MEDICARE ADV [place] [address] * Guarantor: CARINA RALPH Account Type Relation to Patient Date of Phone Billing Address Personal/Family [address] [place] [address] SELF PAY NO INSURANCE Member Subscriber Plan / Payer (Ef fective for All Dates) Name:Carina Ralph Member ID:Not on file Relation to Subscriber:Not on file Name:CARINA RALPH Subscriber ID:Not on file (Home) Address: [address] [place] [address] Payer ID:Not on file Group ID:Not on file Type:Self Pay Address: [place], [place] [employer] MANAGED MEDICARE ADV Care Teams Single Pointed Operator Relationship Specialty Start Date End Date Nicolas Xiao DO PCP - General 02/04/18
--- OUTSIDE RECORDS SUMMARY | 2025-04-01 15:10 | XMS_ITS | Encounter Summary ---
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 file Not on file documented as of this encounter Plan of Treatment Upcoming Encounters Date Type Department Care Team (Late st Contact Info) Description 10/05/2025 1:30 PM CDT Office Visit [facility] - Neurology [facility] [address] [place] [phone] Jose David Heller MD [address] [place] [id number] documented as of this encounter Visit Diagnoses Not on filedocumented in this encounter Care Teams Engineering Program Manager Relationship Specialty Start Date End Date Glenda Gonsalez APRN [address] [place] [address] PCP - General Advanced Practice Nurse 03/30/25 Abhijit Elizabeth MD Consulting Physician Gastroenterology 01/14/16 documented as of this encounter
== END 2025-04-01 15:08 | disposition home or self-care (01) ==
LOC: ANHBWCLAB 15:07
PROVIDERS: PCP Nurse Practitioner Adult Health; Visit Provider Nurse Practitioner Adult Health
DX: I95.9 Hypotension, unspecified (principal)
CPT/HCPCS: 36415; 82533